=== PATIENT | female | born 1965 | race Caucasian/White ===

== ENCOUNTER 2018-09-13 10:59 | Day surgery (SDC) | payer BC, SELFPAY ==
[2018-09-08 09:38] VITALS: BMI 17.4
--- NOTE | 2018-09-08 10:00 | HP_ITS ---
Intake Vital Signs 09/08/18 Body Mass Index (BMI) 17.4 09/08/18 Height 5 ft 4.75 in 09/08/18 Weight: 104 lb 09/08/18 Body Mass Index (BMI) 17.4 09/08/18 Blood Pressure 133/67 H 09/08/18 Blood Pressure Location Lt brachial 09/08/18 Blood Pressure Position Sitting 09/08/18 Respiratory Rate 18 Intake Visit Reasons: abd pain, celiac dx testing?, needs cscope Chief Complaint: 2 Mo FU - Post ER AOH [employer] Required: No Is patient in pain?: Yes (ruq abdomen) Allergies gatifloxacin [From Tequin] Allergy (Verified 09/08/18 09:38) Other venlafaxine [From Effexor] Allergy (Verified 09/08/18 09:38) Other Medications cholecalciferol (vitamin D3) 1,000 unit capsule 1,000 unit PO DAILY 07/05/18 [History Confirmed 09/08/18] gabapentin 800 mg tablet 800 mg PO BID #60 tab 07/05/18 [Rx Confirmed 09/08/18] ibuprofen 400 mg tablet 400 mg PO BID PRN 07/05/18 [History Confirmed 09/08/18] omeprazole 40 mg capsule,delayed release 40 mg PO DAILY #30 cap 07/05/18 [Rx Confirmed 09/08/18] escitalopram 20 mg tablet 20 mg PO DAILY #90 tab 08/04/18 [Rx Confirmed 09/08/18] alprazolam 0.5 mg tablet 0.5 mg PO BID #60 tab 09/05/18 [Rx Confirmed 09/08/18] [facility] Medical History Anxiety (Chronic) Heart murmur (Chronic) Chronic leg pain (Chronic) Chronic back pain (Chronic) History of ectopic (Acute) history of tubal reconstruction (Acute) Surgical History History of appendectomy (Acute) History of hysterectomy (Acute) History of knee surgery (Acute) Family History Other Cancer Diabetes Hypertension Parkinsons disease Social History Smoking Status: Current every day smoker alcohol intake: never substance use type: does not use what type of physical activity do you participate in: walking frequency: daily HPI HPI HPI: NICK SAUCEDA, is a 53 F who presents to the office today for HPI HPI Surgical H&P: Yes HPI: NICK SAUCEDA, is a 53 F who presents to the office today for chronic epigastric and right upper quadrant pain. Patient states she has had this for about 2 years but is gotten worse. States the pain will start in the epigastric of the right upper quadrant into her back and it may go to her leg if she does have site some sciatic issues. Patient states that last Tuesday through Tuesday she was unable to eat and did go to the ER at [facility] patient did an ultrasound there which was normal per patient she states her pain was a 10/10 when she was there. States since then is come down currently now at 5?6/10. Patient states she only eats at night as of the abdominal pain. But denies any change in the pain with eating. 2 nights ago patient was able to eat [place] toast, eggs and hash [place] from [employer] without any increased pain, she has tried it he also decrease her caffeine but has not felt that made a difference. Patient has been on omeprazole for about 2 months and states she has had no change with that. Patient states she has had diarrhea for about the last 2 years multiple times a day. Again has gotten worse recently. Patient denies ever having an EGD or colonoscopy done in the past. Denies any family history of colon cancer. Patient states she has lost about 7 pounds in the last 2 months mostly from not as much eating due to the abdominal pain/diarrhea. Exam Const General: cooperative, comfortable, no acute distress Resp Effort & Inspection: normal respiratory effort Cardio Rate: regular rate GI Inspection: non-distended Palpation: soft, no hernias, tender in the epigastrum and in the RUQ Assessment & Plan Problems 1. Epigastric abdominal pain R10.13 2. Right upper quadrant abdominal pain R10.11 3. Diarrhea R19.7 Plan I have discussed the above with the patient. I have offered the patient EGD & colonoscopy-with random biopsies for evaluation. I have explained the risks/benefits of the procedure and described the procedure. I have discussed the risks with the patient, including but not limited to: infection, bleeding, perforation of the GI tract requiring emergency surgery, inability to complete the procedure, injury to any internal organs, complications of anesthesia, etc. - the patient understands and agrees to proceed. I have answered all the patient's questions to the patient's satisfaction and the patient has no further questions. The patient has been given instructions for the colon cleansing preparation. One day of clears, MiraLAX Dulcolax split prep. Angélica Garcia M.D. Pager: [phone] [facility] [address] [place] [address], [facility], [address] [place] [address] Office: [phone] Plan Detail Follow Up We will schedule EGD and colonoscopy Coding Level of Care Code Off vis,new,level 3 Diagnoses Epigastric abdominal pain R10.13 Right upper quadrant abdominal pain R10.11 Diarrhea R19.7 09/08/18 1000 <Electronically signed by Angélica Garcia MD> Date Angélica Garcia MD UPDATE: 09/13/2018 11:30 AM I have examined the patient the following changes are noted: Patient states she is still having abdominal pain currently is not too bad, patient states pain can flareup even without eating.
[2018-09-13] VITALS (7 sets, daily range): BP systolic 87–99; BP diastolic 33–52; PULSE 60–72; RESP 16; TEMP 36.2–36.9; O2SAT 99–100; BMI 17.4
--- NOTE | 2018-09-13 12:00 | COLBX_PTH ---
PATIENT: NICK SAUCEDA LOC: EN U#:[id number] AGE/SX: 53/F ROOM: RE09/13/[address]: Dr. Angélica Garcia MD : 1965 BED: DIS: 09/13/2018 SPEC #: [id number] RECD: 09/13/18 13:05 STATUS: YENNY JOE #: [id number] ANAIS: 09/13/18 12:[address]: Angélica Garcia DEPT: SURGICAL PATHOLOGY RECD BY: Jack Zavala ENTERED: 09/13/18 13:53 SP TYPE: COLON BX OTHR DR: Dr. Humble Menchaca, DO Tissues: A - Duodenum, NOS B - Gastric mucous membrane C - Gastric mucous membrane D - Gastric mucous membrane E - Esophagus, NOS F - Ascending colon G - Transverse colon H - COLON BIOPSY I - Sigmoid colon biopsy J - Sigmoid colon biopsy K - Rectum, NOS Procedures: Special Stain Group II Surgery Specimen Level IV Alcian Blue/PAS (control) HEADER OPERATION: Colonoscopy, EGD ([facility]) PRE-OP DIAGNOSIS: Epigastric abdominal pain, right upper quadrant abdominal pain, diarrhea TISSUE SUBMITTED: A. Duodenal biopsy, rule out celiac disease, B. Antral biopsy, H. Pylori, C. Gastric stomach biopsy, H. Pylori, D. Biopsy GE junction, E. Proximal esophagus lesion, F. Random ascending colonic biopsies, G. Random transverse colonic biopsies, H. Random descending colonic biopsies, I. Random sigmoid colonic biopsies, J. Distal sigmoid polyp at 19 cm, K. Random rectum biopsies MICROSCOPIC DIAGNOSIS A. Duodenum, biopsy: A fragment of duodenal mucosa, no pathologic diagnosis. B. Antral biopsy: Moderate gastritis. See microscopic description and comment. C. Gastric stomach, biopsy: Mild gastritis. See microscopic description and comment. D. GE junction, biopsy: Fragments of gastroesophageal mucosa with chronic inflammation. Intestinal metaplasia (goblet cell metaplasia) is not identified. See comment. E. Proximal esophagus lesion, biopsy: A fragment of gastroesophageal mucosa with chronic inflammation. Intestinal metaplasia (goblet cell metaplasia) is not identified. See comment. F. Ascending colon, random biopsy: A fragment of colonic mucosa, no pathologic diagnosis. G. Transverse colon, random biopsy: A fragment of colonic mucosa, no pathologic diagnosis. H. Descending colon, random biopsy: A fragment of colonic mucosa, no pathologic diagnosis. I. Sigmoid colon, random biopsy; A fragment of colonic mucosa, no pathologic diagnosis. J. Distal sigmoid polyp at 19 cm, biopsy: Fragments of tubular adenoma. K. Rectum, random biopsy: Fragments of tubular adenoma. SJ:alma rosa 09/14/18 COMMENT B. The results of immunohistochemistry for Helicobacter pylori will be reported separately ([id number]). C. The results of immunohistochemistry for Helicobacter pylori will be reported separately ([id number]). D. The specimen predominantly consists of squamous mucosa. Alcian blue/PAS stain with matched control is used in the evaluation of the specimen. E. Alcian blue/PAS stain with matched control is used in the evaluation of the specimen. MICROSCOPIC DESCRIPTION Slides are reviewed. B. The specimen shows fragments of gastric mucosa with chronic inflammatory cell infiltrates in the lamina propria consisting of lymphocytes and plasma cells, consistent with moderate chronic gastritis. C. The specimen shows fragments of gastric mucosa with chronic inflammatory cell infiltrates in the lamina propria consisting of lymphocytes and plasma cells, consistent with mild chronic gastritis. GROSS DESCRIPTION A - Received in fixative is one container labeled with the patient's name and designated rule out celiac disease, duodenum. The specimen consists of one irregular fragment of light ordonez soft tissue that measures 0.5 x 0.4 x 0.1 cm. The specimen is totally submitted in one cassette. B - Received in fixative is one container labeled with the patient's name and designated antral biopsy. The specimen consists of one irregular fragment of light ordonez soft tissue that measures 0.4 x 0.3 x 0.1 cm. The specimen is totally submitted in one cassette. C - Received in fixative is one container labeled with the patient's name and designated gastric stomach biopsy. The specimen consists of one irregular fragment of light ordonez soft tissue that measures 0.3 x 0.3 x 0.1 cm. The specimen is totally submitted in one cassette. D - Received in fixative is one container labeled with the patient's name and designated biopsy GE junction. The specimen consists of multiple irregular fragments of light ordonez soft tissue that in aggregate measure 1 x 0.2 x 0.1 cm. The specimen is totally submitted in one cassette. E - Received in fixative is one container labeled with the patient's name and designated proximal esophagus lesion. The specimen consists of one irregular fragment of light ordonez soft tissue that measures 0.2 x 0.2 x 0.1 cm. The specimen is totally submitted in one cassette. F - Received in fixative is one container labeled with the patient's name and designated random colon biopsy ascending. The specimen consists of one irregular fragment of light ordonez soft tissue that measures 0.7 x 0.2 x 0.1 cm. The specimen is totally submitted in one cassette. G - Received in fixative is one container labeled with the patient's name and designated random transverse biopsy. The specimen consists of one irregular fragment of light ordonez soft tissue that measures 0.3 x 0.3 x 0.1 cm. The specimen is totally submitted in one cassette. H - Received in fixative is one container labeled with the patient's name and designated random descending colonic biopsy. The specimen consists of one irregular fragment of light ordonez soft tissue that measures 0.4 x 0.3 x 0.1 cm. The specimen is totally submitted in one cassette. I - Received in fixative is one container labeled with the patient's name and designated sigmoid colonic biopsy random. The specimen consists of one irregular fragment of light ordonez soft tissue that measures 0.7 x 0.2 x .1 cm. The specimen is totally submitted in one cassette. J - Received in fixative is one container labeled with the patient's name and designated distal sigmoid polyp at 19 cm. The specimen consists of multiple irregular fragments of light ordonez soft tissue that in aggregate measure 1 x 0.5 x 0.1 cm. The specimen is totally submitted in one cassette. K - Received in fixative is one container labeled with the patient's name and designated random rectum biopsy. The specimen consists of three irregular fragments of light ordonez soft tissue that in aggregate measure 0.9 x 0.5 x 0.1 cm. The specimen is totally submitted in one cassette. / SJ:rg 09/13/18 TC:1 CPT: 61984 x11, 04522 x2
--- NOTE | 2018-09-13 12:00 | IMM_PTH ---
PATIENT: NICK SAUCEDA LOC: EN U#:[id number] AGE/SX: 53/F ROOM: RE09/13/[address]: Dr. Angélica Garcia MD : 1965 BED: DIS: 09/13/2018 SPEC #: [id number] RECD: 09/13/18 15:14 STATUS: YENNY REQ #: [id number] ANAIS: 09/13/18 12:[address]: Angélica Garcia DEPT: IMMUNOHISTOCHEMISTRY RECD BY: Tracie Shell ENTERED: 09/13/18 15:14 SP TYPE: IMMUNO OTHR DR: Dr. Humble Menchaca, DO Tissues: B - Stomach, NOS C - Stomach, NOS Procedures: H Pylori (initial) PHYSICIAN & INSTITUTION [place] [address] SPECIMEN INFORMATION: Tissue Source: B - Antral biopsy, C - Gastric stomach biopsy Clinical Info: Epigastric abdominal pain, right upper quadrant abdominal pain, diarrhea Specimen Number: [id number] B & C CPT code: 90097 x2 METHODOLOGY: Deparaffinized sections of prefer/formalin-fixed tissue or PAP/DQ stained slides are incubated with monoclonal/polyclonal antibodies/oligonucleotide probes. Localization is made via biotin free immunoperoxidase method. Appropriate controls are performed and reacted as expected. Results on target cell population are indicated in the following table: RESULTS: ANTIBODY / CLONE RESULT Block B H Pylori (polyclonal) negative Block C H Pylori (polyclonal) negative These tests were developed and their performance characteristics determined by [facility]. They may not have been cleared or approved by the U.S. Food and Drug Administration. The FDA has determined that such clearance or approval is not necessary. INTERPRETATION: B. Antral biopsy: Negative for Helicobacter pylori organisms. C. Gastric stomach biopsy: Negative for Helicobacter pylori organisms. SJ:alma rosa 09/14/18
[2018-09-13] MEDS: Glucagon 1 MG/ML Syringe ×2 (12:30→12:42)
--- NOTE | 2018-09-13 12:55 | OP.ENDO_ITS ---
09/13/2018 Humble Menchaca Re : Upper GI endoscopy procedure for Christel Nuñez Dear Dr. Menchaca This procedure was performed on Thursday, September 13, 2018. My impressions and recommendations are as follows: Impressions : - Z-line irregular, 39 cm from the incisors. Biopsied. - Texture changed mucosa in the esophagus. Biopsied. - Erythematous mucosa in the antrum. Biopsied. - Erythematous mucosa in the gastric body. Biopsied. - Biopsies were taken with a cold forceps for evaluation of celiac disease. Recommendations : - Await pathology results. - Discharge patient to home. - Use sucralfate tablets 1 gram PO QID. - Use Protonix (pantoprazole) 40 mg PO daily. - Continue present medications. My findings are described in the full procedure note, which is enclosed. If I can be of further assistance, please feel free to contact me at Doctor phone number(s): , Work: . Sincerely, MD Angélica Painter MD 09/13/2018 12:54:40 PM This report has been signed electronically.
--- NOTE | 2018-09-13 13:01 | OP.ENDO_ITS ---
09/13/2018 Humble Menchaca Re : Colonoscopy procedure for Christel Nuñez Dear Dr. Menchaca This procedure was performed on Thursday, September 13, 2018. My impressions and recommendations are as follows: Impressions : - One 5 to 7 mm polyp in the distal sigmoid colon at 19 cm, removed with hot snare and cold biopsy forceps. Resected and retrieved. - Biopsies were taken with a cold forceps for histology in the rectum, in the sigmoid colon, in the descending colon, in the transverse colon and in the ascending colon. Recommendations : - Discharge patient to home. - Await pathology results. - Repeat colonoscopy in 1 year for surveillance based on pathology results due to piecemeal resection of distal sigmoid polyp at 19 cm. - Continue present medications. My findings are described in the full procedure note, which is enclosed. If I can be of further assistance, please feel free to contact me at Doctor phone number(s): , Work: . Sincerely, MD Angélica Painter MD 09/13/2018 1:01:18 PM This report has been signed electronically.
== END 2018-09-13 13:38 | disposition home or self-care (01) ==
LOC: EN 11:01 → AC 11:03
PROVIDERS: Family Provider Family Medicine; PCP Family Medicine; Referring Provider Family Medicine; Visit Provider Surgery
PROC: 0DJD8ZZ Inspection of Lower Intestinal Tract, Via Natural or Artificial Opening Endoscopic (ICD-10-PCS; CPT 45378; principal; 2018-09-13 11:55)
DX: K22.8 Other specified diseases of esophagus (principal); K31.89 Other diseases of stomach and duodenum; K29.70 Gastritis, unspecified, without bleeding; D12.5 Benign neoplasm of sigmoid colon; D12.8 Benign neoplasm of rectum; R10.13 Epigastric pain; R10.11 Right upper quadrant pain; G89.29 Other chronic pain; R19.7 Diarrhea, unspecified; F32.9 Major depressive disorder, single episode, unspecified; F41.9 Anxiety disorder, unspecified; R01.1 Cardiac murmur, unspecified; F17.200 Nicotine dependence, unspecified, uncomplicated
CPT/HCPCS: 43239; 45380; 88305; 88313; 88342; J7120; J1610; J2405

== ENCOUNTER → 2020-09-16 11:35 | Outpatient (CLI) | payer SELFPAY ==
[2020-09-16 11:10] VITALS: BMI 16.7
[2020-09-16 12:21] LABS: Absolute Lymphocyte Count 2.75 X10^3/uL (0.83-4.51); Absolute Neutrophil Count 4.6 X10^3/uL (2.0-7.7); Basophil# 0.07 X10^3/uL; Basophil% 0.8 % (0-1); Eosinophil# 0.22 X10^3/uL; Eosinophils% 2.7 % (0-5); Hematocrit 38.5 % (37-47); Hemoglobin 12.8 g/dL (12.0-15.0); Lymphocyte # 2.75 X10^3/ul (0.83-4.51); Lymphocyte % 33.4 % (19-41); Mean Corp Hgb Conc 33.2 g/dL (32-36); Mean Corpuscular Hgb 32.1 pg (27.0-32.0); Mean Corpuscular Volume 96.5 fL (81-99); Mean Platelet Vol. 10.7 fl (6.2-12.0); Monocyte# 0.57 X10^3/uL; Monocyte% 6.9 % (0-10); NRBC Flagged by Analyzer 0 % (0-5); Neutrophil % 55.8 % (47-70); Platelet Count 333 K/mm3 (150-450); RBC Distribution Width CV 12.6 % (11.6-14.6); RBC Distribution Width SD 45.3 fl (35.1-43.9); Red Blood Count 3.99 M/mm3 (4.2-5.4); White Blood Count 8.2 K/mm3 (4.4-11.0)
[2020-09-16 12:53] LABS: ALB/GLOB Ratio 1.1 RATIO (0.9-2.4); AST(SGOT) 15 U/L (15-37); Alanine Aminotransfer ALT/SGPT 16 U/L (13-56); Albumin, Serum 3.8 g/dL (3.2-5.0); Alkaline Phosphatase 108 U/L (45-117); Anion Gap 4 (5-15); BUN 11 mg/dL (7-18); BUN/Creat Ratio 15.7 RATIO (10-20); Calcium,Total 8.7 mg/dL (8.5-10.1); Chloride 106 mmol/L (98-107); EST Glomerular Filtration Rate 93 mL/min (>60); Est Glom Filt Rate - Afr Amer 112 mL/min (>60); Globulin 3.4 g/dL (2.2-4.2); Glucose 93 mg/dL (74-106); Potassium 3.9 mmol/L (3.5-5.1); Protein, Total 7.2 g/dL (6.4-8.2); Sodium Level 139 mmol/L (136-145)
== END ==
LOC: BIMLAB 11:35
PROVIDERS: PCP Family Medicine; Referring Provider Family Medicine; Visit Provider Family Medicine
DX: R63.6 Underweight (principal)
CPT/HCPCS: 36415; 80053; 85025

== ENCOUNTER → 2021-04-07 | Outpatient (CLI) | payer SELFPAY | END | disposition home or self-care (01) | LOC: LABSPEC 13:48 | PROVIDERS: PCP Family Medicine; Referring Provider Physician Assistant; Visit Provider Physician Assistant | DX: R09.81 Nasal congestion (principal) | CPT/HCPCS: 87635; U0005; U0003 ==

== ENCOUNTER → 2021-09-21 | Outpatient (CLI) | payer BC, SELFPAY ==
[2021-09-21 14:05] LABS: Absolute Lymphocyte Count 2.11 X10^3/uL (0.83-4.51); Absolute Neutrophil Count 5.6 X10^3/uL (2.0-7.7); Basophil# 0.08 X10^3/uL; Basophil% 0.9 % (0-1); Eosinophil# 0.15 X10^3/uL; Eosinophils% 1.8 % (0-5); Hematocrit 37.6 % (37-47); Hemoglobin 12.4 g/dL (12.0-15.0); Lymphocyte # 2.11 X10^3/ul (0.83-4.51); Mean Corpuscular Hgb 31.6 pg (27.0-32.0); Mean Corpuscular Volume 95.9 fL (81-99); Mean Platelet Vol. 11.4 fl (6.2-12.0); Monocyte# 0.46 X10^3/uL; Monocyte% 5.5 % (0-10); NRBC Flagged by Analyzer 0 % (0-5); Neutrophil % 66.3 % (47-70); Platelet Count 311 K/mm3 (150-450); RBC Distribution Width SD 46.2 fl (35.1-43.9); Red Blood Count 3.92 M/mm3 (4.2-5.4); White Blood Count 8.4 K/mm3 (4.4-11.0)
[2021-09-21 14:15] LABS: AST(SGOT) 18 U/L (15-37); Alanine Aminotransfer ALT/SGPT 18 U/L (13-56); Albumin, Serum 3.5 g/dL (3.2-5.0); Alkaline Phosphatase 87 U/L (45-117); Anion Gap 5 (5-15); BUN 16 mg/dL (7-18); BUN/Creat Ratio 22.8 RATIO (10-20); Calcium,Total 8.9 mg/dL (8.5-10.1); Chloride 111 mmol/L (98-107); Cholesterol 249 mg/dL (200); EST Glomerular Filtration Rate 92 mL/min (>60); Est Glom Filt Rate - Afr Amer 111 mL/min (>60); Globulin 3.5 g/dL (2.2-4.2); Glucose 82 mg/dL (74-106); High Density Lipoprotein 64 mg/dL; Sodium Level 142 mmol/L (136-145); Triglycerides 69 mg/dL; Very Low Density Lipoprotein 14 mg/dL (5-40)
== END | disposition home or self-care (01) ==
LOC: BIMLAB 11:35
PROVIDERS: PCP Family Medicine; Visit Provider Physician Assistant
DX: Z00.00 Encounter for general adult medical examination without abnormal findings (principal); K62.5 Hemorrhage of anus and rectum; F41.9 Anxiety disorder, unspecified; R63.6 Underweight
CPT/HCPCS: 36415; 80053; 80061; 85025

== ENCOUNTER → 2021-09-22 | Outpatient (CLI) | payer BC, SELFPAY | END | disposition home or self-care (01) | LOC: LABSPEC 09:53 | PROVIDERS: PCP Family Medicine; Referring Provider Physician Assistant; Visit Provider Physician Assistant | DX: K62.5 Hemorrhage of anus and rectum (principal) | CPT/HCPCS: 82274 ==

== ENCOUNTER → 2021-09-30 | Outpatient (CLI) | payer BC, SELFPAY ==
--- NOTE | 2021-09-30 09:22 | RAD_ITS ---
STUDY: X-RAY - RIGHT FOOT CLINICAL: Right foot pain, no specific injury. TECHNIQUE: 3 view(s) of the foot. COMPARISON: None. FINDINGS: Normal talus, calcaneus, and tarsal bones. Normal visualized subtalar, talonavicular, calcaneocuboid, tarsal and tarsometatarsal articulations. Normal metatarsi. There is a small marginal osteophytes and mild joint space narrowing of the metatarsophalangeal joint of the great toe. Normal tibial and fibular sesamoid bones. Normal interphalangeal joint of the great toe. Normal phalanges of the great toe. Normal second through fifth metatarsophalangeal joints. Normal interphalangeal joints and phalanges of the lesser toes. The soft tissue structures are unremarkable. RAD/Foot min 3 Views IMPRESSION: Mild arthrosis of the first metatarsophalangeal joint. Electronically Signed: Ghassan Brooks MD at 14:38 EDT ,
== END | disposition home or self-care (01) ==
PROVIDERS: PCP Family Medicine; Referring Provider Family Medicine; Visit Provider Family Medicine
DX: M19.071 Primary osteoarthritis, right ankle and foot (principal)
CPT/HCPCS: 73630

== ENCOUNTER → 2021-11-02 | Outpatient (CLI) | payer BC, SELFPAY ==
[2021-11-02 15:21] LABS: Absolute Lymphocyte Count 1.78 X10^3/uL (0.83-4.51); Basophil# 0.08 X10^3/uL; Basophil% 0.9 % (0-1); Eosinophil# 0.09 X10^3/uL; Hematocrit 42.9 % (37-47); Hemoglobin 14.4 g/dL (12.0-15.0); Lymphocyte # 1.78 X10^3/ul (0.83-4.51); Lymphocyte % 20.7 % (19-41); Mean Corp Hgb Conc 33.6 g/dL (32-36); Mean Corpuscular Hgb 31.6 pg (27.0-32.0); Mean Corpuscular Volume 94.3 fL (81-99); Mean Platelet Vol. 11.1 fl (6.2-12.0); Monocyte# 0.64 X10^3/uL; Monocyte% 7.4 % (0-10); NRBC Flagged by Analyzer 0 % (0-5); Neutrophil # 5.97 X10^3/uL (2.7-7.7); Neutrophil % 69.5 % (47-70); Platelet Count 346 K/mm3 (150-450); RBC Distribution Width CV 12.8 % (11.6-14.6); RBC Distribution Width SD 44.2 fl (35.1-43.9); Red Blood Count 4.55 M/mm3 (4.2-5.4); White Blood Count 8.6 K/mm3 (4.4-11.0)
[2021-11-02 15:40] LABS: Erythrocyte Sedimentation Rate 32 mm/hr (0-30)
[2021-11-02 15:56] LABS: CRP 5.17 mg/L (0.0-3.0); Rheumatoid Factor < 10.0 IU/mL (<15)
[2021-11-04 13:08] LABS: Anti-Centromere B Ab <0.2 AI (0.0-0.9); Anti-Chromatin <0.2 AI (0.0-0.9); Anti-Jo <0.2 AI (0.0-0.9); Anti-Scleroderma-70 AB <0.2 AI (0.0-0.9); RNP Ab <0.2 AI (0.0-0.9); SJOGREN'S Anti-SS-A test < 0.2 AI (0.0-0.9); SJOGREN'S Anti-SS-B test < 0.2 AI (0.0-0.9); Smith Ab <0.2 AI (0.0-0.9)
[2021-11-05 14:51] LABS: Anti-dsDNA Ab 2 IU/mL (0-9)
== END | disposition home or self-care (01) ==
LOC: BIMLAB 14:38
PROVIDERS: PCP Family Medicine; Referring Provider Physician Assistant; Visit Provider Physician Assistant
DX: M13.0 Polyarthritis, unspecified (principal)
CPT/HCPCS: 36415; 85025; 85652; 86140; 86225; 86235; 86431

== ENCOUNTER → 2022-02-18 | Outpatient (CLI) | payer SELFPAY ==
--- NOTE | 2022-02-18 11:57 | RAD_ITS ---
STUDY: X-RAY - BILATERAL RIBS WITH CHEST REASON FOR EXAM: Female, 57 years old. CHEST PAIN TECHNIQUE - RIBS: 6 view(s) of the ribs. TECHNIQUE - CHEST: PA COMPARISON: None. FINDINGS - RIBS : Normal visualized ribs without a demonstrated fracture. FINDINGS - CHEST: The lungs are clear and expanded. There is no demonstrated pleural abnormality. Normal size heart. Normal mediastinum and carin. Normal visualized pulmonary arteries. Normal visualized aortic arch and descending thoracic aorta. Normal visualized thoracic spine. Normal visualized ribs, clavicles, and shoulders. There is no demonstrated abnormality of the visualized soft tissue structures of the upper abdomen. RAD/Ribs Dusty Min 4V w/PA Chest IMPRESSION: RIBS: Normal x-ray examination of the bilateral ribs. CHEST: Normal x-ray examination of the chest. Electronically Signed: Hamzah Trinidad MD at 16:55 EDT ,
== END | disposition home or self-care (01) ==
LOC: MTRAD 11:50
PROVIDERS: PCP Family Medicine; Referring Provider Family Medicine; Visit Provider Family Medicine
DX: S23.41XA Sprain of ribs, initial encounter (principal); X58.XXXA Exposure to other specified factors, initial encounter
CPT/HCPCS: 71111

== ENCOUNTER → 2022-12-27 | Outpatient (CLI) | payer OTHER, SELFPAY ==
[2022-12-27 12:31] LABS: Erythrocyte Sedimentation Rate 27 mm/hr (0-30)
[2022-12-27 12:56] LABS: Vitamin B12 300 pg/mL (211-911); Vitamin D,25 Hydroxy 18.7 ng/mL
[2022-12-27 13:18] LABS: Thyroid Stim Hormone (TSH) 1.14 uIU/mL (0.358-3.74)
[2022-12-28 13:08] LABS: CCP IgG Antibodies 3 units (0-19)
[2022-12-29 10:48] LABS: Anti-Nuclear Antibody Test Positive (.)
== END | disposition home or self-care (01) ==
LOC: BIMLAB 10:42
PROVIDERS: PCP Family Medicine; Referring Provider Internal Medicine; Visit Provider Internal Medicine
DX: M25.50 Pain in unspecified joint (principal); G89.29 Other chronic pain
CPT/HCPCS: 36415; 82306; 82607; 84443; 85652; 86038; 86140; 86200

== ENCOUNTER 2023-01-05 15:58 | Outpatient (RCR) | payer SELFPAY, OTHER ==
--- NOTE | 2023-01-05 17:04 | HP.PTEVAL ---
Patient's Visit Information Visit Information Visit Information: NICK SAUCEDA is a 57 year old F referred to Physical Therapy by Dr. Gladys Pichardo MD with a diagnosis of PAIN IN JOINTS ,OTHER CHRONIC PAIN. Date of Evaluation: 01/05/23 Physical Therapist: Maximilian Perea, PT, Cert MDT, OCS Visit Plan Frequency: 2x /Week Duration: 4 Weeks Plan: PT INTERVETIONS AQUATIC THERAPY DLS ,LUMBAR ROM ,POSTURAL EX'S ,LE FLEXABILITY AND STRENGTHNEING Subjective Subjective: This 57 y/o female presents to physical therapy with chronic pain. This patient has multiple joint pain . Patient developed low back many with symptoms become worse past few months . Patient has been on gabapentin since 2006. Patient went to ER ~ 3weeks ago . Patient had x-rays showed DDD. Patient seen had lab work CRP elevated 15,sed rate elevated ,RADHA + for autoimmune disease. Patient was placed on meloxicam. Recommended PT. Patient has everyday edema knee to feet as well . Patient has developed sharp pain in joints intermittent. Pain aggravating standing, Lifting , bending . Alleviating factors rest. Denies paresthesia/tingling-. Coughing/sneezing -. Bowel/bladder + .Patient has throbbing pain in feet and back. Patient pain can affects sleeping with pain. Patient condition affects QOL and function with job demands. Patient goals to decrease pain. Patient will see DR may have auto immune disease. 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 Pain Bilateral Back: Pain Intensity (Out of 10): 7 Pain Intensity Range: 10 Bilateral Foot: Pain Intensity (Out of 10): 9 Pain Intensity Range: 9 and 10 Objective Objective: POSTURE: right leg shorter ,mild forward posture NEURO: denies paresthesia/tingling ,reflexes L3-4 ,L4-5,L5-S1 PALAPTION: tender LS GAIT: ambulates with mild forward posture antalgic gait LUMBAR ROM: flexion min loss ,extension mod loss ,side glides min loss FLEXABLITY: hamstrings min tight MMT: quads/hams 4/5 ,hip flexion 4/5 ,hip abduction 4-/5 ,ankle 4/5 EDEMA: mild effusion in feet Special Tests L/S Slump test left side: Negative L/S Slump test right side: Negative L/S Left Straight Leg Raise: Negative L/S Right Straight Leg Raise: Negative Lumbar Standing: Flexion - Mechanical Response: No effect Lumbar Standing: Flexion - Symptoms During Testing: Increases Lumbar Standing: Flexion - Symptoms After Testing: No worse Lumbar Standing: Extension - Mechanical Response: No effect Lumbar Standing: Extension - Symptoms During Testing: Increases Lumbar Standing: Extension - Symptoms After Testing: No worse Lumbar Standing: Right Side Glides - Mechanical Response: No effect Lumbar Standing: Right Side Ransom - Symptoms During Testing: No effect Lumbar Standing: Right Side Ransom - Symptoms After Testing: No effect Lumbar Standing: Left Side Ransom - Mechanical Response: No effect Lumbar Standing: Left Side Ransom - Symptoms During Testing: No effect Lumbar Lying: Flexion - Mechanical Response: No effect Lumbar Lying: Flexion - Symptoms During Testing: Increases Lumbar Lying: Flexion - Symptoms After Testing: No worse Lumbar Lying: Extension - Mechanical Response: No effect Lumbar Lying: Extension - Symptoms During Testing: Increases Lumbar Lying: Extension - Symptoms After Testing: No worse Balance/Special Test Scores Oswestry Low Back Score: 32 Goals Goal 1:: Patient to be I with Aquatic Therapy program Goal Time Frame: 4-6 Weeks Goal 2:: Patient to improve lumbar ROM for function of recovery for Job demands Goal Time Frame: 4-6 Weeks Goal 3:: Patient to demonstrate 50% improvement with less pain and improved function Goal Time Frame: 4-6 Weeks Goal 4:: Patient to improve back oswestry score by 5 points or > to improve function Goal Time Frame: 4-6 Weeks Rehabilitation Potential Rehabilitation Potential: Good Anticipated Interventions Patient/Client Instruction: Educate patient on: Condition and Plan of Care For the Purpose of:: To decrease pain, To increase ROM, To improve muscle performance and motor function, To improve ability to perform ADL's, To increase tolerance to activity/condition/position, To improve performance and independence with ADL's, To improve ability of physical actions for home/community/work/leisure, To improve health of tissue, To decrease soft tissue restriction and To increase flexibility/ROM Therapeutic Exercise to Include: Strength training, Endurance training, Balance training, Postural training, Flexibilty training, In an aquatic setting and Dynamic Lumbar Stabilization For the Purpose of:: To decrease pain, To increase ROM, To improve muscle performance and motor function, To improve ability to perform ADL's, To increase tolerance to activity/condition/position, To improve performance and independence with ADL's, To improve ability of physical actions for home/community/work/leisure, To improve health of tissue, To decrease soft tissue restriction and To increase flexibility/ROM Text: Thank you for the opportunity to evaluate your patient. For Medicare and Medicare HMO plans, please review the plan of care and approve it. It will need to be FAXED BACK to us at [phone] for Medicare purposes. For Medicare only, by signing this I certify the plan of care. Please let me know if there are questions or concerns regarding this plan of care. Physician Signature: Date:
== END 2023-01-05 19:00 | disposition home or self-care (01) ==
LOC: PT 15:58
PROVIDERS: PCP Family Medicine; Visit Provider Internal Medicine
DX: M25.50 Pain in unspecified joint (principal); G89.29 Other chronic pain
CPT/HCPCS: 97162

== ENCOUNTER → 2023-01-31 | Outpatient (CLI) | payer OTHER, SELFPAY ==
[2023-01-31 11:30] LABS: EXAGEN MAILED SPECIMEN
[2023-01-31 12:20] LABS: Absolute Lymphocyte Count 1.74 X10^3/uL (0.83-4.51); Absolute Neutrophil Count 3.4 X10^3/uL (2.0-7.7); Basophil# 0.05 X10^3/uL; Basophil% 0.9 % (0-1); Eosinophil# 0.11 X10^3/uL; Eosinophils% 1.9 % (0-5); Hemoglobin 12.6 g/dL (12.0-15.0); Lymphocyte # 1.74 X10^3/ul (0.83-4.51); Lymphocyte % 30.4 % (19-41); Mean Corp Hgb Conc 32.3 g/dL (32-36); Mean Corpuscular Hgb 30.5 pg (27.0-32.0); Mean Corpuscular Volume 94.4 fL (81-99); Mean Platelet Vol. 11.1 fl (6.2-12.0); Monocyte# 0.42 X10^3/uL; Monocyte% 7.3 % (0-10); NRBC Flagged by Analyzer 0 % (0-5); Neutrophil # 3.39 X10^3/uL (2.7-7.7); Neutrophil % 59.3 % (47-70); Platelet Count 341 K/mm3 (150-450); RBC Distribution Width CV 12.6 % (11.6-14.6); RBC Distribution Width SD 43.6 fl (35.1-43.9); Red Blood Count 4.13 M/mm3 (4.2-5.4); White Blood Count 5.7 K/mm3 (4.4-11.0)
[2023-01-31 12:21] LABS: Color, Urine Yellow (Yellow); Glucose, Dipstick Normal (Normal); Ketone-Dipstick Negative (Negative); Leukocyte Esterase-Dipstick Negative /ul (Negative); Nitrite-Dipstick Negative (Negative); Occult Blood-Urine 25 /ul (Negative); Protein-Dipstick Negative (Negative); Specific Gravity, Urine 1.015 (1.002-1.030); Urine Bilirubin Dipstick Negative (Negative); Urine Clarity Clear (Clear); Urine Urobilinogen Normal (Normal)
[2023-01-31 12:56] LABS: AST(SGOT) 20 U/L (15-37); Alanine Aminotransfer ALT/SGPT 31 U/L (13-56); Albumin, Serum 3.8 g/dL (3.2-5.0); Alkaline Phosphatase 111 U/L (45-117); Anion Gap 9 (5-15); BUN 13 mg/dL (7-18); BUN/Creat Ratio 14.9 RATIO (10-20); Calcium,Total 9.1 mg/dL (8.5-10.1); Chloride 108 mmol/L (98-107); Creatinine, Serum 0.87 mg/dL (0.55-1.02); EST Glomerular Filtration Rate 72 mL/min (>60); Est Glom Filt Rate - Afr Amer 87 mL/min (>60); Globulin 3.9 g/dL (2.2-4.2); Glucose 133 mg/dL (74-106); Potassium 3.4 mmol/L (3.5-5.1); Protein, Total 7.7 g/dL (6.4-8.2); Sodium Level 142 mmol/L (136-145)
[2023-01-31 12:57] LABS: Protein, Urine (Random) 6.4 mg/dL (<11.9); Protein:Creat Ratio 112 mg/g CRE (0-200)
[2023-01-31 13:14] LABS: Hepatitis B Surface Antibody Non-Reactive; Hepatitis B Surface Antigen Non-Reactive (Nonreactive); Hepatitis C Antibody Non-Reactive (Nonreactive)
== END | disposition home or self-care (01) ==
PROVIDERS: PCP Family Medicine; Referring Provider Internal Medicine Rheumatology; Visit Provider Internal Medicine Rheumatology
DX: M06.4 Inflammatory polyarthropathy (principal); M79.7 Fibromyalgia; R76.8 Other specified abnormal immunological findings in serum
CPT/HCPCS: 36415; 80053; 81002; 82570; 84156; 85025; 86706; 86803; 87340

== ENCOUNTER → 2023-03-09 | Outpatient (CLI) | payer OTHER, SELFPAY ==
[2023-03-09 17:39] LABS: Absolute Lymphocyte Count 1.75 X10^3/uL (0.83-4.51); Absolute Neutrophil Count 4.2 X10^3/uL (2.0-7.7); Basophil# 0.03 X10^3/uL; Basophil% 0.5 % (0-1); Eosinophil# 0.01 X10^3/uL; Eosinophils% 0.2 % (0-5); Hematocrit 36.2 % (37-47); Hemoglobin 11.7 g/dL (12.0-15.0); Lymphocyte # 1.75 X10^3/ul (0.83-4.51); Lymphocyte % 28.2 % (19-41); Mean Corp Hgb Conc 32.3 g/dL (32-36); Mean Corpuscular Hgb 30.9 pg (27.0-32.0); Mean Corpuscular Volume 95.5 fL (81-99); Mean Platelet Vol. 10.6 fl (6.2-12.0); Monocyte# 0.24 X10^3/uL; Monocyte% 3.9 % (0-10); NRBC Flagged by Analyzer 0 % (0-5); Neutrophil # 4.15 X10^3/uL (2.7-7.7); Neutrophil % 66.9 % (47-70); Platelet Count 313 K/mm3 (150-450); RBC Distribution Width CV 13.6 % (11.6-14.6); RBC Distribution Width SD 47.3 fl (35.1-43.9); Red Blood Count 3.79 M/mm3 (4.2-5.4); White Blood Count 6.2 K/mm3 (4.4-11.0)
[2023-03-09 18:19] LABS: AST(SGOT) 19 U/L (15-37); Alanine Aminotransfer ALT/SGPT 38 U/L (13-56); Albumin, Serum 3.7 g/dL (3.2-5.0); Alkaline Phosphatase 112 U/L (45-117); Anion Gap 5 (5-15); BUN 16 mg/dL (7-18); BUN/Creat Ratio 19.2 RATIO (10-20); Calcium,Total 8.8 mg/dL (8.5-10.1); Chloride 110 mmol/L (98-107); Creatinine, Serum 0.84 mg/dL (0.55-1.02); EST Glomerular Filtration Rate 75 mL/min (>60); Est Glom Filt Rate - Afr Amer 91 mL/min (>60); Globulin 3.7 g/dL (2.2-4.2); Glucose 112 mg/dL (74-106); Protein, Total 7.4 g/dL (6.4-8.2); Sodium Level 139 mmol/L (136-145)
[2023-03-11 20:07] LABS: QNTFERON TB Mitogen Value > 10.00 IU/mL (.); QNTFERON TB Nil Value 0.02 IU/mL (.); QNTFERON TB1+ Ag Value 0 IU/mL (.); QNTFERON TB2+ Ag Value 0.02 IU/mL (.); QNTIFERON TB Positive Criteria Negative (Negative)
== END | disposition home or self-care (01) ==
LOC: MTLAB 15:01
PROVIDERS: PCP Family Medicine; Referring Provider Internal Medicine Rheumatology; Visit Provider Internal Medicine Rheumatology
DX: M06.4 Inflammatory polyarthropathy (principal); M35.00 Sjogren syndrome, unspecified; M79.7 Fibromyalgia; R76.8 Other specified abnormal immunological findings in serum; Z79.899 Other long term (current) drug therapy
CPT/HCPCS: 36415; 80053; 85025; 86480

== ENCOUNTER → 2023-04-28 | Outpatient (CLI) | payer OTHER, SELFPAY ==
[2023-04-28 12:21] LABS: Absolute Lymphocyte Count 0.92 X10^3/uL (0.83-4.51); Absolute Neutrophil Count 6.4 X10^3/uL (2.0-7.7); Basophil# 0.05 X10^3/uL; Basophil% 0.6 % (0-1); Eosinophil# 0.02 X10^3/uL; Eosinophils% 0.3 % (0-5); Hematocrit 39.6 % (37-47); Hemoglobin 12.9 g/dL (12.0-15.0); Lymphocyte # 0.92 X10^3/ul (0.83-4.51); Lymphocyte % 11.9 % (19-41); Mean Corp Hgb Conc 32.6 g/dL (32-36); Mean Corpuscular Hgb 30.9 pg (27.0-32.0); Mean Platelet Vol. 11.4 fl (6.2-12.0); Monocyte# 0.34 X10^3/uL; Monocyte% 4.4 % (0-10); NRBC Flagged by Analyzer 0 % (0-5); Neutrophil # 6.38 X10^3/uL (2.7-7.7); Neutrophil % 82.3 % (47-70); Platelet Count 330 K/mm3 (150-450); RBC Distribution Width CV 14.8 % (11.6-14.6); RBC Distribution Width SD 51.5 fl (35.1-43.9); Red Blood Count 4.17 M/mm3 (4.2-5.4); White Blood Count 7.8 K/mm3 (4.4-11.0)
[2023-04-28 13:04] LABS: ALB/GLOB Ratio 0.8 RATIO (0.9-2.4); AST(SGOT) 13 U/L (15-37); Alanine Aminotransfer ALT/SGPT 16 U/L (13-56); Albumin, Serum 3.4 g/dL (3.2-5.0); Alkaline Phosphatase 107 U/L (45-117); Anion Gap 6 (5-15); BUN 16 mg/dL (7-18); BUN/Creat Ratio 17.7 RATIO (10-20); Calcium,Total 9.5 mg/dL (8.5-10.1); Chloride 107 mmol/L (98-107); EST Glomerular Filtration Rate 68 mL/min (>60); Est Glom Filt Rate - Afr Amer 83 mL/min (>60); Globulin 4.1 g/dL (2.2-4.2); Glucose 152 mg/dL (74-106); Potassium 3.8 mmol/L (3.5-5.1); Protein, Total 7.5 g/dL (6.4-8.2); Sodium Level 138 mmol/L (136-145)
== END | disposition home or self-care (01) ==
LOC: BIMLAB 11:12
PROVIDERS: PCP Family Medicine; Referring Provider Physician Assistant; Visit Provider Physician Assistant
DX: I10 Essential (primary) hypertension (principal); R50.9 Fever, unspecified
CPT/HCPCS: 36415; 80053; 85025

== ENCOUNTER 2023-05-03 08:21 | Day surgery (SDC) | payer OTHER, SELFPAY ==
--- NOTE | 2023-05-03 08:27 | HP.PCM_ITS ---
History and Physical Date of Admission: 05/03/23 Date of Service: 04/11/23 MR#: [id number] Acct: [id number] Name: NICK SAUCEDA Rep #: [id number] : 1965 Provider: Dr. 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 Is patient in pain?: Yes (epigastric area) Allergies gatifloxacin [From Tequin] Allergy (Verified 04/11/23 09:37) Othervenlafaxine [From Effexor] Allergy (Verified 04/11/23 09:37) Other Medications acetaminophen 325 mg capsule (Tylenol) 325 mg PO ONCE PRN 03/25/20 [History Confirmed 02/09/23] pantoprazole 40 mg tablet,delayed release See Rx Instructions .Route .COMPLEX #90 tabs 11/03/22 [Rx Confirmed 02/09/23] gabapentin 800 mg tablet 800 mg PO TID #270 tabs 11/15/22 [Rx Confirmed 02/09/23] meloxicam 7.5 mg tablet 7.5 mg PO DAILY #30 tabs 12/27/22 [Rx Confirmed 02/09/23] ondansetron 4 mg disintegrating tablet 4 mg PO Q8H PRN nausea and vomiting #30 tabs 01/08/23 [Rx Confirmed 02/09/23] mirtazapine 15 mg tablet 15 mg PO QHS #30 tabs 01/13/23 [Rx Confirmed 02/09/23] prednisone 10 mg tablet mg PO 02/09/23 [History Confirmed 02/09/23] azelastine 205.5 mcg (0.15 %) nasal spray (Astepro Allergy) See Rx Instructions .Route .COMPLEX #11 mL 03/15/23 [Rx] alprazolam 1 mg tablet 1 mg PO TID-QID free floating anxiety #120 tabs 03/16/23 [Rx] jdbchrpqoa-ryclqqqzdndkn-mvhfzskl 50 mg-325 mg-40 mg tablet 1 tab PO Q6H PRN headaches #30 tabs 03/23/23 [Rx] etanercept 50 mg/mL (1 mL) subcutaneous pen injector (Enbrel SureClick) mg subcut 04/11/23 [History Confirmed 04/11/23] folic acid 1 mg tablet PO 04/11/23 [History Confirmed 04/11/23] methotrexate sodium 2.5 mg tablet mg PO 04/11/23 [History Confirmed 04/11/23] sucralfate 1 gram tablet 1 g PO QACHS #56 tabs 04/11/23 [Rx Confirmed 04/11/23] PFSH Medical History Anxiety Chronic back pain Chronic leg pain Heart murmur History of ectopic history of tubal reconstruction Surgical History (Updated 04/11/23 @ 09:36 by Sarah Rios) History of appendectomy History of hysterectomy History of knee surgery S/P genital surgery Family History Other Cancer Diabetes Hypertension Parkinsons disease Social History Smoking Status: Current every day smoker tobacco type: cigarettes Tobacco: How many years used: 36 Electronic Cigarette Use: with nicotine alcohol intake: never substance use type: does not use what type of physical activity do you participate in: walking frequency: daily HPI HPI HPI: 58-year-old female presents due to epigastric pain as well as rectal bleeding. Patient previously had a colonoscopy 09/2018 which had piecemeal removal of a tubular adenoma recommended follow-up colonoscopy in 1 year. Patient did not have that colonoscopy done. Patient seen in the office again in October 2021 for rectal bleeding again recommended colonoscopy at that time as well as EGD-?those were not completed. Patient currently states she has epigastric pain, on and off she has decreased the amount of tea and coffee she drinks. Patient states that past medical and history does now include autoimmune diseases which she is being actively treated for. Patient states she does have bright red blood per rectum still she does have constipation/diarrhea. Last week it has been mostly diarrhea. Patient has some occasional nausea with this as well. Patient states she is on the Protonix 40 mg p.o. daily and takes that daily. ROS General General: Yes weight change and fatigue; No appetite, colon cancer or breast cancer HEENT HEENT: Yes difficulty swallowing; No eye injury, eye surgery, swollen glands or hoarseness Endo Endocrine: No thyroid disease, diabetes mellitus, thyroid cancer, Hair loss, heat intolerance or cold intolerance Skin Skin: No rash or changing moles Musc Musculoskeletal: Yes back problems, arthritis and rheumatoid arthritis; No gout or joint pain Cardio Cardiovascular: Yes murmur; No pacemaker, heart disease, atrial fibrillation, high blood pressure, heart attack, heart stent, palpitations, shortness of breat with exertion or chest pain Psych Psychiatric: Yes depression and anxiety; No hearing voices Resp Respiratory: No shortness of breath, No sleep apnea, No cough, No COPD, No asthma, No emphysema and No wheezing Gastro Gastrointestinal: Yes abdominal pain, Yes nausea or vomiting, Yes diarrhea, Yes constipation, No blood in stool, Yes acid reflux, No hemorrhoids, Yes ulcers, No gallbladder problem and No black,tarry stools Ernie Hematologic: No blood thinners, No blood disorders, No bleeding, No anemia and No blood clots Neuro Neurologic: No numbness and No tingling Exam Const General: cooperative, healthy appearing, comfortable and no acute distress [facility] Head: normocephalic and atraumatic Neck Neck: supple Resp Effort & Inspection: normal respiratory effort Cardio Rate: regular rate GI Inspection: non-distended Palpation: soft, no hernias and tender in the epigastrum (No peritoneal signs) Skin General: no rashes or lesions noted Neuro General: CN's II-XI intact bilaterally Extrem General: normal to inspection Psych Mental Status: mental status grossly normal Attitude: cooperative Assessment and Plan Assessment and Plan (1) Rectal bleeding: Status: Acute (2) Epigastric pain: Status: Acute Medications: New sucralfate Take an hour before meals and at bedtime 1 g PO QACHS 56 tabs 1RF Plan Will also send in some Carafate to see if this helps with her epigastric pain prior to the scope. I have discussed the above with the patient. I have offered the patient esophagogastroduodenoscopy and colonoscopy for evaluation. I have explained the risks/benefits of the procedure and described the procedure. I have discussed the risks with the patient, including but not limited to: infection, bleeding, perforation of the GI tract requiring emergency surgery, inability to complete the procedure, injury to any internal organs, complications of anesthesia, etc. - the patient understands and agrees to proceed. I have answered all the patient's questions to the patient's satisfaction and the patient has no further questions. The patient has been given instructions for the colon cleansing preparation. 1 day of clears, MiraLAX Dulcolax split prep. Angélica Garcia M.D. Pager: [phone] [facility] [address] [place] [address], [facility], [address] [place] [address] Office: [phone] Coding Level of Care Code Off vis,est,level 4 Diagnoses Rectal bleeding K62.5 Epigastric pain R10.13 04/12/23 1130 <Electronically signed by Angélica Garcia MD> Date Angélica Garcia MD
[2023-05-03 08:40] VITALS: BP 124/51; PULSE 79; RESP 16; TEMP 35.8; O2SAT 96; BMI 23.4
[2023-05-03] MEDS: Lactated Ringers 1,000 ML 15 ML IV (08:42)
[2023-05-03 09:40] VITALS: BP 124/51; BP 86/46; PULSE 57; RESP 18; TEMP 36.8; O2SAT 95
--- NOTE | 2023-05-03 09:40 | OP.EGD_ITS ---
Patient Name: Christel Nuñez Procedure Date: 05/03/2023 9:03 AM Date of : 1965 Age: 58 Procedure: Upper GI endoscopy Indications: Epigastric abdominal pain, Heartburn Providers: Angélica Garcia MD Referring MD: Humble Menchaca Medicines: Monitored Anesthesia Care Patient Profile: This is a 58 year old female. Complications: No immediate complications. Procedure: Pre-Anesthesia Assessment: - Prior to the procedure, a History and Physical was performed, and patient medications and allergies were reviewed. The patient's tolerance of previous anesthesia was also reviewed. The risks and benefits of the procedure and the sedation options and risks were discussed with the patient. All questions were answered, and informed consent was obtained. Prior Anticoagulants: The patient has taken no anticoagulant or antiplatelet agents. ASA Grade Assessment: Per anesthesia. After reviewing the risks and benefits, the patient was deemed in satisfactory condition to undergo the procedure. After obtaining informed consent, the endoscope was passed under direct vision. Throughout the procedure, the patient's blood pressure, pulse, and oxygen saturations were monitored continuously. The Colonoscope was introduced through the mouth, and advanced to the second part of duodenum. The upper GI endoscopy was accomplished without difficulty. The patient tolerated the procedure well. Scope In: 9:14:54 AM Scope Out: 9:20:56 AM Total Procedure Duration Time 0 hours 6 minutes 2 seconds Findings: The Z-line was irregular and was found 39 cm from the incisors. Biopsies were taken with a cold forceps for histology. Striped mildly erythematous mucosa without bleeding was found in the gastric antrum. Biopsies were taken with a cold forceps for histology. Biopsies were taken with a cold forceps for Helicobacter pylori cultures. The cardia and gastric fundus were normal on retroflexion. The examined duodenum was normal. Impression: - Z-line irregular, 39 cm from the incisors. Biopsied. - Erythematous mucosa in the antrum. Biopsied. - Normal examined duodenum. Recommendation: - Await pathology results. - Discharge patient to home. - Resume previous diet. - Continue present medications. Procedure Code(s): --- Professional --- 85140, Esophagogastroduodenoscopy, flexible, transoral; with biopsy, single or multiple Diagnosis Code(s): --- Professional --- K22.89, Other specified disease of esophagus K31.89, Other diseases of stomach and duodenum R10.13, Epigastric pain R12, Heartburn CPT copyright 2021 [employer]. All rights reserved. The codes documented in this report are preliminary and upon surgical coder review may be revised to meet current compliance requirements. MD Angélica Painter MD 05/03/2023 9:39:50 AM This report has been signed electronically. Number of Addenda: 0 Note Initiated On: 05/03/2023 9:03 AM
--- NOTE | 2023-05-03 09:40 | OP.CCLET_ITS ---
05/03/2023 Humble Menchaca Re : Upper GI endoscopy procedure for Christel Nuñez Dear Dr. Menchaca This procedure was performed on Wednesday, May 03, 2023. My impressions and recommendations are as follows: Impressions : - Z-line irregular, 39 cm from the incisors. Biopsied. - Erythematous mucosa in the antrum. Biopsied. - Normal examined duodenum. Recommendations : - Await pathology results. - Discharge patient to home. - Resume previous diet. - Continue present medications. My findings are described in the full procedure note, which is enclosed. If I can be of further assistance, please feel free to contact me at Doctor phone number(s): , Work: . Sincerely, MD Angélica Painter MD 05/03/2023 9:39:50 AM This report has been signed electronically.
[2023-05-03 09:45] VITALS: BP 124/51; BP 93/50; PULSE 69; RESP 18; O2SAT 95
--- NOTE | 2023-05-03 09:45 | IMM_PTH ---
PATIENT: NICK SAUCEDA LOC: EN U#:[id number] AGE/SX: 58/F ROOM: RE05/03/[address]: Dr. Angélica Garcia MD : 1965 BED: DIS: 05/03/2023 SPEC #: [id number] RECD: 05/03/23 17:03 STATUS: YENNY REQ #: [id number] ANAIS: 05/03/23 09:[address]: Angélica Garcia DEPT: IMMUNOHISTOCHEMISTRY RECD BY: Tracie Shell ENTERED: 05/03/23 17:03 SP TYPE: IMMUNO OTHR DR: Dr. Humble Menchaca, DO Tissues: A - Stomach, NOS Procedures: H Pylori (initial) PHYSICIAN & INSTITUTION [place] [id number] SPECIMEN INFORMATION: Tissue Source: A - Antrum biopsy Clinical Info: Rectal bleeding, epigastric pain Specimen Number: [id number] CPT code: 48653 METHODOLOGY: Deparaffinized sections of prefer/formalin-fixed tissue or PAP/DQ stained slides are incubated with monoclonal/polyclonal antibodies/oligonucleotide probes. Localization is made via biotin free immunoperoxidase method. Appropriate controls are performed and reacted as expected. Results on target cell population are indicated in the following table: RESULTS: ANTIBODY / CLONE RESULT Block A H Pylori (polyclonal) negative These tests were developed and their performance characteristics determined by [facility]. They may not have been cleared or approved by the U.S. Food and Drug Administration. The FDA has determined that such clearance or approval is not necessary. The above immunohistochemical/dualISH markers are ordered and reviewed by the Pathologist. INTERPRETATION: A. Gastric antrum, biopsy: Negative for Helicobacter pylori organisms. AM:alma rosa 05/04/2023
--- NOTE | 2023-05-03 09:45 | EGD_PTH ---
PATIENT: NICK SAUCEDA LOC: EN U#:[id number] AGE/SX: 58/F ROOM: RE05/03/[address]: Dr. Angélica Garcia MD : 1965 BED: DIS: 05/03/2023 SPEC #: [id number] RECD: 05/03/23 12:18 STATUS: YENNY JOE #: [id number] ANAIS: 05/03/23 09:[address]: Angélica Garcia DEPT: SURGICAL PATHOLOGY RECD BY: Amelia Zepeda ENTERED: 05/03/23 13:00 SP TYPE: EGD BIOPSY JEAN DR: Dr. Humble Menchaca, DO Tissues: A - Gastric mucous membrane B - Stomach, NOS C - Ascending colon D - Sigmoid colon biopsy Procedures: Special Stain Group II Surgery Specimen Level IV Alcian Blue/PAS (control) HEADER OPERATION: Colonoscopy, EGD with biopsy PRE-OP DIAGNOSIS: Rectal bleeding, epigastric pain TISSUE SUBMITTED: A - Antrum biopsy for H. pylori and pathology, B - Gastroesophageal junction biopsy, C - Ascending colon polyps x2 biopsies, D - Sigmoid polyps x3 biopsies MICROSCOPIC DIAGNOSIS A. Gastric antrum, biopsy: Chronic gastritis. See comment. B. Gastroesophageal junction, biopsy: Mild chronic inflammation. No evidence of goblet cell metaplasia. See comment. C. Ascending colon polyps, biopsy: Fragments of tubular adenoma. D. Sigmoid colon polyps, biopsy: Polypoid fragments of benign colonic mucosa. See comment. AM:alma rosa 05/04/2023 COMMENT A. The results of immunohistochemistry for Helicobacter pylori will be reported separately ([id number]). B. Alcian blue/PAS stain with matched control supports the above diagnosis. D. Neither hyperplastic nor adenomatous change is identified. Clinical correlation is suggested. MICROSCOPIC DESCRIPTION Slides are reviewed. GROSS DESCRIPTION A - Received in fixative is one container labeled with the patient's name and designated antrum biopsy. The specimen consists of one irregular fragment of light ordonez soft tissue that measures 0.3 x 9.2 x 0.1 cm. The specimen is totally submitted in one cassette. B - Received in fixative is one container labeled with the patient's name and designated GE junction biopsy. The specimen consists of one irregular fragment of light ordonez soft tissue that measures 0.3 x 0.2 x 0.1 cm. The specimen is totally submitted in one cassette. C - Received in fixative is one container labeled with the patient's name and designated ascending colon polyps biopsy x2. The specimen consists of multiple irregular fragments of light ordonez soft tissue that in aggregate measure 1.0 x 0.3 x 0.1 cm. The specimen is totally submitted in one cassette. D - Received in fixative is one container labeled with the patient's name and designated sigmoid polyps biopsy x3. The specimen consists of multiple irregular fragments of light ordonez soft tissue that in aggregate measure 1.0 x 0.3 x 0.1 cm. The specimen is totally submitted in one cassette. / SJ:rg 05/03/2023 TC:3 CPT: 96094 x4, 99458
--- NOTE | 2023-05-03 09:45 | OP.COLON_ITS ---
Patient Name: Christel Nuñez Procedure Date: 05/03/2023 9:21 AM Date of : 1965 Age: 58 Procedure: Colonoscopy Indications: Rectal bleeding Providers: Angélica Garcia MD Referring MD: Humble Menchaca Medicines: Monitored Anesthesia Care Patient Profile: This is a 58 year old female. This is a 58 year old female. Last Colonoscopy: 2018. Complications: No immediate complications. Procedure: Pre-Anesthesia Assessment: - Prior to the procedure, a History and Physical was performed, and patient medications and allergies were reviewed. The patient's tolerance of previous anesthesia was also reviewed. The risks and benefits of the procedure and the sedation options and risks were discussed with the patient. All questions were answered, and informed consent was obtained. Prior Anticoagulants: The patient has taken no anticoagulant or antiplatelet agents. ASA Grade Assessment: Per anesthesia. After reviewing the risks and benefits, the patient was deemed in satisfactory condition to undergo the procedure. After I obtained informed consent, the scope was passed under direct vision. Throughout the procedure, the patient's blood pressure, pulse, and oxygen saturations were monitored continuously. The Colonoscope was introduced through the anus and advanced to the cecum, identified by appendiceal orifice and ileocecal valve. The colonoscopy was performed without difficulty. The patient tolerated the procedure well. The quality of the bowel preparation was good. Scope In: 9:22:10 AM Scope Withdrawal Time 0 hours 10 minutes 41 seconds Scope Out: 9:35:43 AM Total Procedure Duration Time 0 hours 13 minutes 33 seconds Findings: The perianal and digital rectal examinations were normal. Five sessile polyps were found in the sigmoid colon and ascending colon. The polyps were less than 5 mm in size. These polyps were removed with a cold biopsy forceps. Resection and retrieval were complete. A few small-mouthed diverticula were found in the ascending colon. The exam was otherwise without abnormality. Hemorrhoids were found on perianal exam. Non-bleeding internal hemorrhoids were found. The hemorrhoids were Grade I (internal hemorrhoids that do not prolapse). Impression: - Five less than 5 mm polyps in the sigmoid colon and in the ascending colon, removed with a cold biopsy forceps. Resected and retrieved. - Diverticulosis in the ascending colon. - The examination was otherwise normal. - Hemorrhoids found on perianal exam. - Non-bleeding internal hemorrhoids. Recommendation: - Discharge patient to home. - Resume previous diet. - Continue present medications. - Await pathology results. - Repeat colonoscopy in 3 - 5 years for surveillance based on pathology results. Procedure Code(s): --- Professional --- 25252, Colonoscopy, flexible; with biopsy, single or multiple Diagnosis Code(s): --- Professional --- D12.5, Benign neoplasm of sigmoid colon D12.2, Benign neoplasm of ascending colon K57.30, Diverticulosis of large intestine without perforation or abscess without bleeding K62.5, Hemorrhage of anus and rectum CPT copyright 2021 [employer]. All rights reserved. The codes documented in this report are preliminary and upon applied mathematician review may be revised to meet current compliance requirements. MD Angélica Painter MD 05/03/2023 9:45:13 AM This report has been signed electronically. Number of Addenda: 0 Note Initiated On: 05/03/2023 9:21 AM
--- NOTE | 2023-05-03 09:46 | OP.CCLET_ITS ---
05/03/2023 Humble Menchaca Re : Colonoscopy procedure for Rosariorena Long Dear Dr. Menchaca This procedure was performed on Wednesday, May 03, 2023. My impressions and recommendations are as follows: Impressions : - Five less than 5 mm polyps in the sigmoid colon and in the ascending colon, removed with a cold biopsy forceps. Resected and retrieved. - Diverticulosis in the ascending colon. - The examination was otherwise normal. - Hemorrhoids found on perianal exam. - Non-bleeding internal hemorrhoids. Recommendations : - Discharge patient to home. - Resume previous diet. - Continue present medications. - Await pathology results. - Repeat colonoscopy in 3 - 5 years for surveillance based on pathology results. My findings are described in the full procedure note, which is enclosed. If I can be of further assistance, please feel free to contact me at Doctor phone number(s): , Work: . Sincerely, MD Angélica Painter MD 05/03/2023 9:45:13 AM This report has been signed electronically.
[2023-05-03 09:50] VITALS: BP 124/51; BP 86/50; PULSE 74; RESP 18; O2SAT 93
[2023-05-03 09:55] VITALS: BP 104/60; BP 124/51; PULSE 68; RESP 16; TEMP 36.6; O2SAT 93
[2023-05-03 10:08] VITALS: BP 124/51
== END 2023-05-03 10:17 | disposition home or self-care (01) ==
LOC: EN 08:22 → AC 08:23
PROVIDERS: PCP Family Medicine; Referring Provider Family Medicine; Visit Provider Surgery
PROC: 0DJD8ZZ Inspection of Lower Intestinal Tract, Via Natural or Artificial Opening Endoscopic (ICD-10-PCS; CPT 45378; principal; 2023-05-03 09:40)
DX: D12.2 Benign neoplasm of ascending colon (principal); M06.9 Rheumatoid arthritis, unspecified; K20.90 Esophagitis, unspecified without bleeding; K29.50 Unspecified chronic gastritis without bleeding; K64.0 First degree hemorrhoids; F17.210 Nicotine dependence, cigarettes, uncomplicated; M54.9 Dorsalgia, unspecified; K31.89 Other diseases of stomach and duodenum; G89.29 Other chronic pain; R10.13 Epigastric pain; K57.30 Diverticulosis of large intestine without perforation or abscess without bleeding; I10 Essential (primary) hypertension; F32.A Depression, unspecified; F41.9 Anxiety disorder, unspecified; Z79.899 Other long term (current) drug therapy
CPT/HCPCS: 43239; 45380; 88305; 88313; 88342; J7120; J2405

== ENCOUNTER → 2023-06-17 | Outpatient (CLI) | payer OTHER, SELFPAY ==
--- NOTE | 2023-06-17 08:56 | RAD_ITS ---
STUDY: X-RAY - RIGHT KNEE REASON FOR EXAM: Female, 58 years old. pain TECHNIQUE: 4 view(s) of the knee. COMPARISON: None. FINDINGS: Normal visualized distal femur. Normal visualized proximal tibia and fibula. Normal proximal tibiofibular articulation. There is mild degenerative arthrosis of the medial femorotibial compartment. Normal lateral femorotibial compartment. Normal patellofemoral articulation. The soft tissue structures are unremarkable. RAD/Knee 4 or More Views IMPRESSION: Degenerative arthrosis. Electronically Signed: Ameya Alcala MD at 20:38 EST ,
--- NOTE | 2023-06-17 09:02 | RAD_ITS ---
INDICATION: pain EXAMINATION/TECHNIQUE: X-RAY - LEFT XR Knee Complete 4 Views or More 4 VIEWS COMPARISON: No relevant prior comparison study available FINDINGS: SOFT TISSUES: No soft tissue swelling or gas. No radiopaque foreign body. BONES/JOINTS: No acute fracture or subluxation.. Normal alignment. Mild narrowing of the medial joint compartment. No evidence of joint effusion. No sclerotic or destructive changes observed. RAD/Knee 4 or More Views IMPRESSION: Mild narrowing of the medial joint compartment. Electronically Signed: Juan M Angulo MD at 20:20 EST ,
== END | disposition home or self-care (01) ==
LOC: MTRAD 08:56
PROVIDERS: PCP Family Medicine; Referring Provider Physician Assistant; Visit Provider Physician Assistant
DX: M25.561 Pain in right knee (principal); M25.562 Pain in left knee
CPT/HCPCS: 73564

== ENCOUNTER → 2023-11-02 | Outpatient (CLI) | payer OTHER, SELFPAY ==
[2023-11-02 13:18] LABS: Anion Gap 6 (5-15); BUN 17 mg/dL (7-18); Calcium,Total 9.6 mg/dL (8.5-10.1); Chloride 108 mmol/L (98-107); Creatinine, Serum 0.85 mg/dL (0.55-1.02); EST Glomerular Filtration Rate 74 mL/min (>60); Est Glom Filt Rate - Afr Amer 89 mL/min (>60); Glucose 117 mg/dL (74-106); Potassium 3.9 mmol/L (3.5-5.1); Sodium Level 139 mmol/L (136-145)
[2023-11-02 15:19] LABS: Hemoglobin A1c 5.3 % (3.8-5.6)
== END | disposition home or self-care (01) ==
LOC: BIMLAB 09:44
PROVIDERS: PCP Family Medicine; Referring Provider Family Medicine; Visit Provider Family Medicine
DX: R73.9 Hyperglycemia, unspecified (principal)
CPT/HCPCS: 36415; 80048; 83036

== ENCOUNTER → 2024-02-02 | Outpatient (CLI) | payer OTHER, SELFPAY ==
--- NOTE | 2024-02-02 15:56 | RAD_ITS ---
INDICATION: radicular leg pain EXAMINATION/TECHNIQUE: X-RAY - XR Spine Lumbar 2 or 3 Views COMPARISON: None. FINDINGS: VERTEBRAE: Preserved vertebral body height. No fracture. No spondylolisthesis. Preservation of the normal lumbar lordosis. Moderate multilevel facet arthropathy. DISCS: Moderate multilevel degenerative disc disease and spondylosis. INCLUDED ABDOMEN: Included bowel gas pattern is non-obstructive. RAD/Lumbar Spine 2 or 3 Views IMPRESSION: No evidence of lumbar spinal fracture or spondylolisthesis. Moderate multilevel degenerative disc disease and spondylosis. Electronically Signed: Main Marroquin MD at 17:01 EDT ,
== END | disposition home or self-care (01) ==
PROVIDERS: PCP Family Medicine; Referring Provider Family Medicine; Visit Provider Family Medicine
DX: G89.29 Other chronic pain (principal)
CPT/HCPCS: 72100

== ENCOUNTER → 2024-04-04 | Outpatient (CLI) | payer OTHER, SELFPAY ==
[2024-04-05 13:08] LABS: Adrenocorticotropic Hormone 11.9 pg/mL (7.2-63.3)
== END | disposition home or self-care (01) ==
LOC: BIMLAB 09:35
PROVIDERS: PCP Family Medicine; Referring Provider Family Medicine; Visit Provider Family Medicine
DX: G89.29 Other chronic pain (principal)
CPT/HCPCS: 36415; 82024; 82533

== ENCOUNTER → 2024-04-10 | Outpatient (CLI) | payer OTHER, SELFPAY ==
--- NOTE | 2024-04-10 13:50 | US_ITS ---
INDICATION: difficulty voiding EXAMINATION: Ultrasound US Post Void Residual Urine/Bladder TECHNIQUE: Watkins scale and color doppler imaging was performed of the urinary bladder. COMPARISON: No relevant prior comparison study available FINDINGS: No stones, masses, or wall thickening. A 0.4 cm right UVJ calculus is seen with the ureteral jet not visualized on the right. Left ureteral jet is seen. Pre-void volume is 436 mL. Post-void volume is 375 mL. US/Post Void Residual Bladder IMPRESSION: Post void bladder residual volume of 375 mL. 0.4 cm stone seen at the right ureterovesicular junction. Electronically Signed: Josafat Renee MD at 7:04 EST ,
== END | disposition home or self-care (01) ==
LOC: US 13:49
PROVIDERS: PCP Family Medicine; Referring Provider Family Medicine; Visit Provider Family Medicine
DX: N32.0 Bladder-neck obstruction (principal)
CPT/HCPCS: 51798

== ENCOUNTER → 2024-04-19 | Outpatient (CLI) | payer OTHER, SELFPAY | END | disposition home or self-care (01) | PROVIDERS: PCP Family Medicine; Referring Provider Ophthalmology; Visit Provider Ophthalmology | DX: H02.402 Unspecified ptosis of left eyelid (principal) | CPT/HCPCS: 36415 ==

== ENCOUNTER → 2024-05-04 | Outpatient (CLI) | payer OTHER, SELFPAY ==
--- NOTE | 2024-05-04 13:53 | CT_ITS ---
STUDY: CT Abdomen And Pelvis W/O Contrast Injection 05/06/2024 6:19 PM REASON FOR EXAM: Female, 59 years old. Abdominal pain URETERAL CALCULUS Individualized dose optimization techniques were used for this CT. COMPARISON: 03.24.05 TECHNIQUE: CT Abdomen And Pelvis W/O Contrast Injection FINDINGS: There are atherosclerotic calcifications of visualized coronary arteries. The visualized portions of the heart are within normal limits. Stable hypodensities of the liver. Normal gallbladder and extrahepatic biliary system. Normal spleen. Normal pancreas. Normal bilateral adrenal glands. No acute findings of the right kidney. No acute findings of the left kidney. Normal visualized stomach. Normal small intestine. Stool throughout the colon. There is non-visualization of the appendix. There are calcifications of the abdominal aorta. This is consistent for atherosclerotic disease. There is NO abdominal aortic aneurysm. Vascular workup can be obtained based on clinical correlation. Normal inferior vena cava. Subcentimeter mesenteric lymph nodes. Normal urinary bladder. There is absence of the uterus consistent with a prior hysterectomy. There is an umbilical hernia containing fat. Normal osseous structures. CT/Abdomen/Pelvis without Cont IMPRESSION: (NOT LISTED IN ORDER OF SIGNIFICANCE) Hysterectomy changes. There are no acute findings. Other findings as above. Electronically Signed: Avery Bloom MD at 18:21 EST ,
== END | disposition home or self-care (01) ==
LOC: CT 13:50
PROVIDERS: PCP Family Medicine; Referring Provider Urology; Visit Provider Urology
DX: N20.1 Calculus of ureter (principal)
CPT/HCPCS: 74176

== ENCOUNTER 2024-05-10 11:30 | Emergency (ER) | payer OTHER, SELFPAY ==
[2024-05-10 11:30] VITALS: BP 149/80; PULSE 82; RESP 16; TEMP 37; O2SAT 96; BMI 20.1
--- NOTE | 2024-05-10 12:40 | ED.RN ---
PT IS HAVING MULTIPLE CHRONIC COMPLAINTS. PT HAD CT SCANS LAST WEEK AND HAS A APPT NEXT WEEK. STATES SHE HAS PAIN AND IS VERY ANXIOUS. WHEN ASKED IF SHE HAS MEDS FOR ANXIETY SHE SAID SHE CAN'T GET IT FILLED TIL NEXT WEEK AND THEN STATED SHE HAS SOME. A MIN LATER SHE STATED SHE DOESN'T. EXPLAINED THE NEED TO KEEP F/U WITH HER PCP AND THE DRS FOR HER AUTOIMMUNE CONDITIONS. EXPLAINED ER MANY TIMES CAN NOT HELP WITH CHRONIC CONDITIONS BUT THEY CAN TAKE COMFORT IN THE FACT THAT HER VS ARE GREAT. PT MOM STATES HER DAUGHTER MIGHT HAVE A NERVOUS BREAKDOWN BECAUSE OF HER PAIN. PT STATES SOMETIMES SHE PUNCHES HERSELF IN THE ABD SO SHE FEELS SOMETHING ELSE BESIDES THE CONSTANT PAIN. PT DID HOP UP OUT OF THE BED WITHOUT ASSISTANCE AND AMBULATE TO THE BR BY HERSELF WITH NO DISTRESS
--- NOTE | 2024-05-10 13:29 | EDS_ITS ---
HPI <BRENDA Yan - Last Filed: 05/10/24 17:55> History of Present Illness Chief Complaint: General Illness Narrative Narrative: Patient presenting today with multiple vague complaints. She reports that she has had intermittent epigastric pain that radiates to the LUQ, nausea, vomiting, loose stools, and decreased appetite over the past week. She reports that her granddaughter was visiting her over the weekend and had similar symptoms of nausea, vomiting, and diarrhea. Patient reports that she has had similar epigastric pain off and on for years. She did have an endoscopy and colonoscopy this year that were unremarkable. She takes Protonix daily. She also reports increased anxiety, she takes alprazolam 1 mg 4 times daily, she has been on this dose for years. She had a few episodes of vomiting after taking her medication over the past week and had to take an additional alprazolam and is now out of them, she has been out over the past 2 days and cannot get a refill until Tuesday. She denies fevers, chest pain, hematemesis, and shortness of breath. She has a PMH of fibromyalgia, chronic back pain, and anxiety. PFSH <BRENDA Yan - Last Filed: 05/10/24 17:55> [facility] Medical History Wears glasses Wears dentures Depression History of steroid therapy Fibromyalgia Sicca syndrome Rheumatoid arthritis Anemia Back pain Migraine headache H/O Sjogren's disease Difficulty swallowing Smoker Shortness of breath on exertion Leg cramps History of irregular heartbeat Underweight due to inadequate caloric intake history of tubal reconstruction History of ectopic Anxiety Heart murmur Chronic leg pain Chronic back pain Home Medications ?Medication ?Instructions ?Recorded ?Last Taken ?Type azelastine 205.5 mcg (0.15 %) See Rx Instructions .Route 06/21/23 Unknown Rx nasal spray (Astepro Allergy) .COMPLEX #11 mL acetaminophen 325 mg capsule 325 mg PO QD-QID pain 01/18/24 Unknown History (Tylenol) buprenorphine HCl 2 mg sublingual 2 mg sublingual QDAY #20 tabs 04/03/24 Unknown Rx tablet cholecalciferol (vitamin D3) 50 50 mcg PO QDAY #90 tabs 04/03/24 Unknown Rx mcg (2,000 unit) tablet gabapentin 800 mg tablet 800 mg PO TID #90 TABLETS 04/05/24 Unknown Rx metoprolol tartrate 25 mg tablet 25 mg PO QHS #90 TABLETS 04/05/24 Unknown Rx mirtazapine 30 mg tablet 30 mg PO QHS #90 TABLETS 04/05/24 Unknown Rx alprazolam 1 mg tablet 1 mg PO .QID free floating anxiety 05/01/24 Unknown Rx #120 tabs pantoprazole 40 mg tablet,delayed 40 mg PO DAILY #30 tabs 05/01/24 Unknown Rx release alprazolam 1 mg tablet 1 mg PO BID #10 tabs 05/10/24 Unknown Rx sucralfate 1 gram tablet (Carafate) 1 g PO TID 7 days #21 tabs 05/10/24 Unknown Rx Allergy/AdvReac Type Severity Reaction Status Date / Time buprenorphine Allergy Intermediate Rash Verified 05/10/24 11:30 buspirone Allergy Intermediate Rash Verified 05/10/24 11:30 duloxetine (From Cymbalta) Allergy Intermediate Rash Verified 05/10/24 11:30 gatifloxacin (From Tequin) Allergy Other Verified 05/10/24 11:30 venlafaxine (From Effexor) Allergy Other Verified 05/10/24 11:30 Family History Other Cancer Diabetes Hypertension Parkinsons disease Surgical History History of esophagogastroduodenoscopy (EGD) S/P genital surgery History of hysterectomy History of knee surgery History of appendectomy Social History Smoking Status: Current every day smoker tobacco type: cigarettes Tobacco: How many years used: 36 Electronic Cigarette Use: with nicotine alcohol intake: never substance use type: does not use what type of physical activity do you participate in: walking frequency: daily ROS <BRENDA Yan - Last Filed: 05/10/24 17:55> ROS ED Constitutional Constitutional ED: Denies chills or fever(s) Cardiovascular Cardiovascular: Denies chest pain Respiratory/Chest Respiratory/Chest: Denies cough or dyspnea Gastrointestinal Gastrointestinal: Reports abdominal pain, diarrhea, nausea and vomiting; Denies constipation Genitourinary Genitourinary ED: Denies dysuria, hematuria or urinary urgency Musculoskeletal Musculoskeletal: Denies arthralgias or myalgias Integumentary Denies rash Neurologic Neurologic: Denies weakness EXAM <BRENDA Yan - Last Filed: 05/10/24 17:55> Physical Exam Const Vital Signs: 05/10/24 11:30 05/10/24 12:23 05/10/24 13:30 Temperature 98.6 F Temperature Source Oral Pulse Rate 82 94 Respiratory Rate 16 16 Respiratory Effort Normal Short of Breath Respiratory Pattern Normal Blood Pressure 149/80 H 132/96 H Blood Pressure Mean 103 108 Pulse Ox 96 97 Oxygen Delivery Method Room Air Room Air 05/10/24 14:53 Temperature 98 F Temperature Source Pulse Rate 94 Respiratory Rate 16 Respiratory Effort Respiratory Pattern Blood Pressure 132/96 H Blood Pressure Mean 108 Pulse Ox 97 Oxygen Delivery Method Positive well nourished, well developed and no apparent distress General Appearance ED: well developed HEENT Reports normocephalic and head/scalp atraumatic Mouth ED: Yes moist mucous membranes normal Eyes PERRL and EOMs intact bilaterally Neck full ROM and supple Chest Wall inspection of chest normal Resp normal respiratory effort and clear to auscultation bilaterally Cardio regular rate and regular rhythm GI soft to palpation, non-distended and no masses GI Narrative: Minimal epigastric tenderness to palpation, no rigidity or guarding Back/Spine normal ROM and normal to inspection Extremity normal to inspection and full ROM Neuro oriented x3, CN's II-XII intact bilaterally, moves all extremities, no focal motor deficits and no sensory deficits noted Sensorium / Orientation: awake and alert Psych mental status grossly normal Psych Narrative: No SI or HI Mood & Affect: anxious Skin no rashes or lesions noted and no wounds <Dr. Francisco J Guzman DO - Last Filed: 05/10/24 15:12> Physical Exam Const Vital Signs: 05/10/24 11:30 05/10/24 12:23 05/10/24 13:30 Temperature 98.6 F Temperature Source Oral Pulse Rate 82 94 Respiratory Rate 16 16 Respiratory Effort Normal Short of Breath Respiratory Pattern Normal Blood Pressure 149/80 H 132/96 H Blood Pressure Mean 103 108 Pulse Ox 96 97 Oxygen Delivery Method Room Air Room Air 05/10/24 14:53 Temperature 98 F Temperature Source Pulse Rate 94 Respiratory Rate 16 Respiratory Effort Respiratory Pattern Blood Pressure 132/96 H Blood Pressure Mean 108 Pulse Ox 97 Oxygen Delivery Method MDM <BRENDA Yan - Last Filed: 05/10/24 17:55> [facility] Narrative Medical decision making narrative: Patient presenting today due to epigastric abdominal pain that radiates to her left upper quadrant that she has had for about a week, she has also had intermittent nausea, vomiting, and loose stools. Her granddaughter recently had the stomach flu over the weekend and had N/V/D as well. Patient reports that she has had similar epigastric abdominal pain off and on for years, she has had multiple endoscopies, at one point they told her she had an ulcer but she reports that her last endoscopy looked good this year. She does take Protonix daily. She has also had worsening anxiety after running out of her Xanax 2 days ago. She does get this refilled monthly and reports that she had to take multiple extra doses due to her vomiting. On exam, she has a nonsurgical abdomen. No leukocytosis, her CMP shows a potassium of 3.2 but otherwise is unremarkable, no ADOLFO or transaminitis. Her lipase is WNL. She did have a CT scan of the abdomen/pelvis on 05/04 as an outpatient, I did review this and it showed no acute findings. I do not feel that any repeat abdominal imaging is indicated. She was given a GI cocktail and Pepcid and on reexamination does report improvement of her symptoms. We did speak with her PCP, Dr. Menchaca, he is comfortable with her receiving a prescription for a total of 10 Xanax to get her through until her next refill to prevent withdrawal. She was given a dose here and reported improvement of her anxiety. I also gave her a prescription for Carafate. Recommended that she follow-up with her PCP and patient discharged home in stable condition. Lab Data Labs: Laboratory Results - last 24 hr 05/10/24 13:30 WBC 7.2 RBC 4.14 L Hgb 12.9 Hct 38.3 MCV 92.5 MCH 31.2 MCHC 33.7 RDW Std Deviation 41.4 RDW Coeff of Dmitry 12.2 Plt Count 286 MPV 11.2 Immature Gran % (Auto) 0.400 Neut % (Auto) 85.6 H Lymph % (Auto) 11.6 L [place] % (Auto) 2.0 Eos % (Auto) 0.0 Baso % (Auto) 0.4 Absolute Neuts (auto) 6.1 Absolute Lymphs (auto) 0.83 Nucleated RBC % 0 Sodium 142 Potassium 3.2 L Chloride 111 H Carbon Dioxide 24.0 Anion Gap 7 BUN 11 Creatinine 0.63 Estim Creat Clear Calc 85.36 Est GFR (MDRD) Af Amer 125 Est GFR (MDRD) Non-Af 103 BUN/Creatinine Ratio 17.4 Glucose 124 H Calcium 9.5 Total Bilirubin 0.30 AST 14 L ALT 19 Alkaline Phosphatase 95 Total Protein 7.3 Albumin 4.0 Globulin 3.3 Albumin/Globulin Ratio 1.2 Lipase 25 <Dr. Francisco J Guzman, DO - Last Filed: 05/10/24 15:12> [facility] History & Record Review Discussion w/independent historian: Patient and Other (PCP) Lab Data Attestation: I reviewed the patient's lab results. Labs: Laboratory Results - last 24 hr 05/10/24 13:30 WBC 7.2 RBC 4.14 L Hgb 12.9 Hct 38.3 MCV 92.5 MCH 31.2 MCHC 33.7 RDW Std Deviation 41.4 RDW Coeff of Dmitry 12.2 Plt Count 286 MPV 11.2 Immature Gran % (Auto) 0.400 Neut % (Auto) 85.6 H Lymph % (Auto) 11.6 L [place] % (Auto) 2.0 Eos % (Auto) 0.0 Baso % (Auto) 0.4 Absolute Neuts (auto) 6.1 Absolute Lymphs (auto) 0.83 Nucleated RBC % 0 Sodium 142 Potassium 3.2 L Chloride 111 H Carbon Dioxide 24.0 Anion Gap 7 BUN 11 Creatinine 0.63 Estim Creat Clear Calc 85.36 Est GFR (MDRD) Af Amer 125 Est GFR (MDRD) Non-Af 103 BUN/Creatinine Ratio 17.4 Glucose 124 H Calcium 9.5 Total Bilirubin 0.30 AST 14 L ALT 19 Alkaline Phosphatase 95 Total Protein 7.3 Albumin 4.0 Globulin 3.3 Albumin/Globulin Ratio 1.2 Lipase 25 Management Discussion w/another healthcare provider: PCP (Dr Menchaca) Treatment and Re-Evaluation :: I have personally performed a face to face assessment of the patient and have reviewed the RENU Note. I performed a substantive portion of the visit including all aspects of the following. My fernandes findings include: History is 59-year-old female presenting with multiple somatic complaints including epigastric pain and vomiting. She also notes that she is out of her alprazolam. Patient according to her [facility] report filled 30 days worth of 4 times daily dosing of alprazolam 1 mg tabs on the first. She states because of the vomiting she has not knowing whether or not she has gotten and has taken extra. Exam is patient clinically appears well. She has normal-appearing vital signs. Tenderness in the epigastrium. No evidence of withdrawal at this time Medical Decison Making basic labs were essentially negative. Normal white count potassium slightly low at 3.2 glucose 124 normal LFTs normal lipase. I spoke with her primary care doctor who writes the alprazolam. We discussed the patient's symptomology recent visits to other physicians and her alprazolam situation. We are willing to write her a few tablets to prevent her from going through withdrawal until she can get her next prescription filled. Discharge Plan Triage Chief Complaint: General Illness ED Midlevel Provider: Diana Pedraza ED Provider: Francisco J Guzman Dx/Rx/DC Orders Clinical Impression: Abdominal pain, Anxiety, Nausea & vomiting Instructions: Abdominal Pain, ED Vomit Diarrhea Nonspec Adult Prescriptions: New alprazolam 1 mg tablet 1 mg PO BID Qty: 10 0RF sucralfate [Carafate] 1 gram tablet 1 g PO TID 7 Days Qty: 21 0RF No Action acetaminophen [Tylenol] 325 mg capsule 325 mg PO QD-QID cholecalciferol (vitamin D3) 50 mcg (2,000 unit) tablet 50 mcg PO QDAY Qty: 90 1RF buprenorphine HCl 2 mg tablet, sublingual 2 mg sublingual QDAY Qty: 20 0RF azelastine [Astepro Allergy] 205.5 mcg (0.15 %) spray,non-aerosol See Rx Instructions .ROUTE .COMPLEX Qty: 11 2RF Dose Instruction: instill 1 spray into each nostril twice a day Rx Instructions: instill 1 spray into each nostril twice a day gabapentin 800 mg tablet 800 mg PO TID Qty: 90 0RF mirtazapine 30 mg tablet 30 mg PO QHS Qty: 90 0RF metoprolol tartrate 25 mg tablet 25 mg PO QHS Qty: 90 0RF pantoprazole 40 mg tablet,delayed release (DR/EC) 40 mg PO DAILY Qty: 30 1RF Rx Instructions: TAKE 1 TABLET BY MOUTH EVERY DAY alprazolam 1 mg tablet 1 mg PO .QID Qty: 120 1RF Rx Instructions: every 6 hrs as needed Primary Care Provider: Humble Menchaca Referrals: Humble Menchaca, [Primary Care Provider] - Activity Restrictions/Additional Instructions: Follow-up with your PCP and return for worsening symptoms. Print Language: Wallisian Disposition Disposition: Home, Self Care Discharge Date/Time: 05/10/24 15:04
[2024-05-10 13:30] VITALS: BP 132/96; PULSE 94; RESP 16; O2SAT 97
[2024-05-10] MEDS: Lidocaine 2% Viscous15 ML UDC 15 ML PO (13:33)
[2024-05-10] MEDS: Mag Hydrox/Al Hydrox/Simeth 30 ML UDC PO (13:33)
[2024-05-10] MEDS: ALPRAZolam 0.5 MG Tablet 1 MG PO (13:33)
[2024-05-10] MEDS: Famotidine 20 MG Tablet PO (13:33)
[2024-05-10 13:35] LABS: Absolute Lymphocyte Count 0.83 X10^3/uL (0.83-4.51); Absolute Neutrophil Count 6.1 X10^3/uL (2.0-7.7); Basophil# 0.03 X10^3/uL; Basophil% 0.4 % (0-1); Hematocrit 38.3 % (37-47); Hemoglobin 12.9 g/dL (12.0-15.0); Lymphocyte # 0.83 X10^3/ul (0.83-4.51); Lymphocyte % 11.6 % (19-41); Mean Corp Hgb Conc 33.7 g/dL (32-36); Mean Corpuscular Hgb 31.2 pg (27.0-32.0); Mean Corpuscular Volume 92.5 fL (81-99); Mean Platelet Vol. 11.2 fl (6.2-12.0); Monocyte# 0.14 X10^3/uL; NRBC Flagged by Analyzer 0 % (0-5); Neutrophil # 6.14 X10^3/uL (2.7-7.7); Neutrophil % 85.6 % (47-70); Platelet Count 286 K/mm3 (150-450); RBC Distribution Width CV 12.2 % (11.6-14.6); RBC Distribution Width SD 41.4 fl (35.1-43.9); Red Blood Count 4.14 M/mm3 (4.2-5.4); White Blood Count 7.2 K/mm3 (4.4-11.0)
[2024-05-10 13:56] LABS: ALB/GLOB Ratio 1.2 RATIO (0.9-2.4); AST(SGOT) 14 U/L (15-37); Alanine Aminotransfer ALT/SGPT 19 U/L (13-56); Alkaline Phosphatase 95 U/L (45-117); Anion Gap 7 (5-15); BUN 11 mg/dL (7-18); BUN/Creat Ratio 17.4 RATIO (10-20); Calcium,Total 9.5 mg/dL (8.5-10.1); Chloride 111 mmol/L (98-107); Creatinine, Serum 0.63 mg/dL (0.55-1.02); EST Glomerular Filtration Rate 103 mL/min (>60); Est Glom Filt Rate - Afr Amer 125 mL/min (>60); Estimated Creatinine Clearance 85.36 ml/min; Globulin 3.3 g/dL (2.2-4.2); Glucose 124 mg/dL (74-106); Lipase 25 U/L (13-75); Potassium 3.2 mmol/L (3.5-5.1); Protein, Total 7.3 g/dL (6.4-8.2); Sodium Level 142 mmol/L (136-145)
[2024-05-10 14:53] VITALS: BP 132/96; PULSE 94; RESP 16; TEMP 36.6; O2SAT 97
== END 2024-05-10 15:04 | disposition home or self-care (01) ==
PROVIDERS: Physician Assistant; Emergency Provider Emergency Medicine; PCP Family Medicine; Visit Provider Emergency Medicine
DX: R10.9 Unspecified abdominal pain (principal); R11.2 Nausea with vomiting, unspecified; F41.9 Anxiety disorder, unspecified; F17.210 Nicotine dependence, cigarettes, uncomplicated
CPT/HCPCS: 80053; 83690; 85025; 99284; A4216

== ENCOUNTER → 2024-05-15 | Outpatient (CLI) | payer OTHER, SELFPAY ==
[2024-05-15 16:29] LABS: Absolute Lymphocyte Count 1.38 X10^3/uL (0.83-4.51); Absolute Neutrophil Count 6.3 X10^3/uL (2.0-7.7); Basophil# 0.03 X10^3/uL; Basophil% 0.4 % (0-1); Eosinophil# 0.02 X10^3/uL; Eosinophils% 0.3 % (0-5); Hematocrit 38.2 % (37-47); Hemoglobin 12.4 g/dL (12.0-15.0); Lymphocyte # 1.38 X10^3/ul (0.83-4.51); Lymphocyte % 17.3 % (19-41); Mean Corp Hgb Conc 32.5 g/dL (32-36); Mean Corpuscular Hgb 31.6 pg (27.0-32.0); Mean Corpuscular Volume 97.2 fL (81-99); Mean Platelet Vol. 12.4 fl (6.2-12.0); Monocyte# 0.27 X10^3/uL; Monocyte% 3.4 % (0-10); NRBC Flagged by Analyzer 0 % (0-5); Neutrophil # 6.28 X10^3/uL (2.7-7.7); Neutrophil % 78.3 % (47-70); Platelet Count 306 K/mm3 (150-450); RBC Distribution Width CV 12.7 % (11.6-14.6); RBC Distribution Width SD 45.7 fl (35.1-43.9); Red Blood Count 3.93 M/mm3 (4.2-5.4)
[2024-05-15 16:44] LABS: Erythrocyte Sedimentation Rate 3 mm/hr (0-30)
[2024-05-15 16:55] LABS: ALB/GLOB Ratio 1.3 RATIO (0.9-2.4); AST(SGOT) 21 U/L (15-37); Alanine Aminotransfer ALT/SGPT 31 U/L (13-56); Albumin, Serum 4.1 g/dL (3.2-5.0); Alkaline Phosphatase 102 U/L (45-117); Anion Gap 3 (5-15); BUN 14 mg/dL (7-18); CRP < 2.90 mg/L (0.0-3.0); Calcium,Total 9.2 mg/dL (8.5-10.1); Chloride 108 mmol/L (98-107); EST Glomerular Filtration Rate 91 mL/min (>60); Est Glom Filt Rate - Afr Amer 111 mL/min (>60); Globulin 3.2 g/dL (2.2-4.2); Glucose 133 mg/dL (74-106); Potassium 4.1 mmol/L (3.5-5.1); Protein, Total 7.3 g/dL (6.4-8.2); Sodium Level 142 mmol/L (136-145)
[2024-05-18 19:06] LABS: QNTFERON TB Mitogen Value > 10.00 IU/mL (.); QNTFERON TB Nil Value 0.01 IU/mL (.); QNTFERON TB1+ Ag Value 0 IU/mL (.); QNTFERON TB2+ Ag Value 0 IU/mL (.); QNTIFERON TB Positive Criteria Negative (Negative)
== END | disposition home or self-care (01) ==
LOC: LAB 15:34
PROVIDERS: PCP Family Medicine; Referring Provider Internal Medicine Rheumatology; Visit Provider Internal Medicine Rheumatology
DX: M06.09 Rheumatoid arthritis without rheumatoid factor, multiple sites (principal); M79.7 Fibromyalgia; Z79.899 Other long term (current) drug therapy
CPT/HCPCS: 36415; 80053; 85025; 85652; 86140; 86480

== ENCOUNTER → 2024-06-20 | Outpatient (CLI) | payer OTHER, SELFPAY ==
[2024-06-20 17:53] LABS: Absolute Lymphocyte Count 0.83 X10^3/uL (0.83-4.51); Absolute Neutrophil Count 4.5 X10^3/uL (2.0-7.7); Basophil# 0.03 X10^3/uL; Basophil% 0.5 % (0-1); Eosinophil# 0.02 X10^3/uL; Eosinophils% 0.4 % (0-5); Hematocrit 35.7 % (37-47); Hemoglobin 11.3 g/dL (12.0-15.0); Lymphocyte # 0.83 X10^3/ul (0.83-4.51); Lymphocyte % 14.7 % (19-41); Mean Corp Hgb Conc 31.7 g/dL (32-36); Mean Corpuscular Hgb 30.7 pg (27.0-32.0); Mean Platelet Vol. 10.7 fl (6.2-12.0); Monocyte# 0.29 X10^3/uL; Monocyte% 5.1 % (0-10); NRBC Flagged by Analyzer 0 % (0-5); Neutrophil # 4.46 X10^3/uL (2.7-7.7); Neutrophil % 78.9 % (47-70); Platelet Count 322 K/mm3 (150-450); RBC Distribution Width CV 14.1 % (11.6-14.6); RBC Distribution Width SD 50.1 fl (35.1-43.9); Red Blood Count 3.68 M/mm3 (4.2-5.4); White Blood Count 5.7 K/mm3 (4.4-11.0)
[2024-06-20 18:13] LABS: AST(SGOT) 20 U/L (15-37); Alanine Aminotransfer ALT/SGPT 37 U/L (13-56); Albumin, Serum 3.6 g/dL (3.2-5.0); Alkaline Phosphatase 125 U/L (45-117); Anion Gap 8 (5-15); BUN 15 mg/dL (7-18); BUN/Creat Ratio 18.2 RATIO (10-20); Calcium,Total 8.7 mg/dL (8.5-10.1); Chloride 109 mmol/L (98-107); Creatinine, Serum 0.82 mg/dL (0.55-1.02); EST Glomerular Filtration Rate 76 mL/min (>60); Est Glom Filt Rate - Afr Amer 92 mL/min (>60); Globulin 3.6 g/dL (2.2-4.2); Glucose 138 mg/dL (74-106); Potassium 3.8 mmol/L (3.5-5.1); Protein, Total 7.2 g/dL (6.4-8.2); Sodium Level 138 mmol/L (136-145)
== END | disposition home or self-care (01) ==
PROVIDERS: PCP Family Medicine; Referring Provider Internal Medicine Rheumatology; Visit Provider Internal Medicine Rheumatology
DX: M06.09 Rheumatoid arthritis without rheumatoid factor, multiple sites (principal); M79.7 Fibromyalgia; Z79.899 Other long term (current) drug therapy
CPT/HCPCS: 36415; 80053; 85025

== ENCOUNTER 2024-07-19 06:36 | Day surgery (SDC) | payer OTHER, SELFPAY ==
[2024-07-19] VITALS (8 sets, daily range): BP systolic 96–127; BP diastolic 43–92; PULSE 52–63; RESP 16–18; TEMP 36.2–36.7; O2SAT 92–97; BMI 22.1
--- NOTE | 2024-07-19 07:38 | PCM.PRE.AN2 ---
ASA Classification* ASA Classification ASA Classification: 3 Assessment & Plan Anesthesia* Anesthesia Assessment Anesthesia Assessment: Discussed sedation and/or anesthesia options, risks, benefits, and alternatives with patient/parents/legal guardian/POA. Questions invited. The patient/parents/legal guardian/POA seems to understand and agrees to proceed with anesthesia plan. Reviewed the physical assessment, medical history, allergy history and patient home medications list prior to surgery/procedure/anesthetic and documented any changes. Performed airway and anesthesia risk assessments. Anesthesia Type Anesthesia Type: MAC History Source History Obtained from:: Patient and Chart Anesthesia Focused Assessment* Temperature: 98.0 F Pulse Rate: 63 Blood Pressure: 127/49 Respiratory Rate: 16 Pulse Ox: 97 Oxygen Delivery Method: Room Air Airway Assessment Mouth opens: >3 cm Mallampati Score: I Teeth Condition: Dentures (Patient has full upper and lower dentures. They are out.) Neck Range of motion (ROM): Full ROM Focused Labs Anesthesia Preop lab: CBC WBC 5.7 K/mm3 (4.4-11.0) 06/20/24 15:56 06/20/24 RBC 3.68 M/mm3 (4.2-5.4) L 06/20/24 15:56 06/20/24 Hgb 11.3 g/dL (12.0-15.0) L 06/20/24 15:56 06/20/24 Hct 35.7 % (37-47) L 06/20/24 15:56 06/20/24 Plt Count 322 K/mm3 (150-450) 06/20/24 15:56 06/20/24 CHEMISTRY Potassium 3.8 mmol/L (3.5-5.1) 06/20/24 15:56 06/20/24 Sodium 138 mmol/L (136-145) 06/20/24 15:56 06/20/24 BUN 15 mg/dL (7-18) 06/20/24 15:56 06/20/24 Creatinine 0.82 mg/dL (0.55-1.02) 06/20/24 15:56 06/20/24 Glucose 138 mg/dL (74-106) H 06/20/24 15:56 06/20/24 TSH 1.14 uIU/mL (0.358-3.74) 12/27/22 10:42 12/27/22 COAG Pre-Assessment Diagnosis/Proposed Procedure Planned Operative Procedure(s): Cysto,Urethral Dilatation Anesthesia History 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 When Was Last Pacemaker Check QUESTION #4 FULL TEXT: You/Your Family Experience fever (hyperthermia) with Anesthesia Last Oral Intake Last Oral intake: Last Oral Intake NPO since 23:00 07/19/24 07:05 Meds taken in AM with sips of water? 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 - electrical panel builder Female Yes 07/05/24 10:33 HX of Motion Sickness No 07/05/24 10:33 HX of N/V After Surgery No 07/05/24 10:33 Non-Smoker No 07/05/24 10:33 Duration of Surgery greater No 07/05/24 10:33 than 60 minutes Number of Risk Factors 1 07/05/24 10:33 PONV Score Low Risk 07/05/24 10:33 Height & Weight Height & Weight: Anesthesia: Height & Weight Height 5 ft 4 in 07/19/24 07:05 Weight: 58.513 kg 07/19/24 07:05 Body Mass Index (BMI) 22.1 07/19/24 07:05 Respiratory Assessment Respiratory Assessment - electrical panel builder: Respiratory Tract Infection Hx - electrical panel builder Hx Respiratory Tract Infection No 07/05/24 10:33 STOP Sleep Apnea STOP Sleep Apnea - electrical panel builder: STOP Sleep Apnea - electrical panel builder Hx Hypertension Yes: CONTROLLED ON MED 07/05/24 10:33 Hx Sleep Apnea No 07/05/24 10:33 CPAP No 07/05/24 10:33 BIPAP Do you snore loudly (louder No 07/05/24 10:33 than talking or can be heard Do you often feel tired/ No 07/05/24 10:33 fatigued/ sleepy during daytime? Has anyone observed you stop No 07/05/24 10:33 breathing during sleep? STOP Results Negative 07/05/24 10:33 QUESTION #5 FULL TEXT : Do you snore loudly (louder than talking or can be heard through closed doors)? 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 Specify any problems Hx of Preganancy in last 3 No 07/05/24 10:33 Months Nurse Filling Out Transfusion VCHRISTIN 07/05/24 10:33 & Questions: Date: 07/05/24 07/05/24 10:33 Time: 10:35 07/05/24 10:33 Patient unable to answer at this time (ie. confused, unrespo /Reproduction History /Reproductive History - electrical panel builder: /Reproductive Hx- electrical panel builder Hx Now Gestational Age (in weeks): EDC: Hx Hx Para Hx Section SAB No 07/05/24 10:33 Active Medications Active Medications: Current Medications Generic Name Dose Route Start Last Admin Trade Name Freq PRN Reason Stop Dose Admin Cefazolin Sodium 2 gm/ N/A 20 mls @ 400 mls/hr 07/19/24 08:15 IV 07/19/24 08:17 PREOP ONE [facility] Medical History Hypertension Vapes nicotine containing substance Wears glasses Wears dentures Depression History of steroid therapy Fibromyalgia Sicca syndrome Rheumatoid arthritis Anemia Back pain Migraine headache H/O Sjogren's disease Difficulty swallowing Smoker Shortness of breath on exertion Leg cramps History of irregular heartbeat Underweight due to inadequate caloric intake history of tubal reconstruction History of ectopic Anxiety Heart murmur Chronic leg pain Chronic back pain Home Medications ?Medication ?Instructions ?Recorded ?Last Taken ?Type cholecalciferol (vitamin D3) 50 50 mcg PO QDAY #90 tabs 04/03/24 07/18/24 Rx mcg (2,000 unit) tablet azelastine 205.5 mcg (0.15 %) See Rx Instructions .Route 05/11/24 Unknown Rx nasal spray (Astepro Allergy) .COMPLEX #11 mL estradiol 1 mg tablet (Estrace) 1 mg PO QDAY 1 month #30 tabs 05/29/24 07/18/24 Rx metoprolol tartrate 25 mg tablet 25 mg PO QHS #90 TABLETS 06/19/24 07/18/24 Rx acetaminophen 325 mg capsule 1,000 mg PO QD-QID pain 07/04/24 07/18/24 History (Tylenol) alprazolam 1 mg tablet 1 mg PO TID free floating anxiety 07/04/24 07/18/24 Rx #120 tabs escitalopram oxalate 20 mg tablet 20 mg PO QDAY #30 tabs 07/04/24 07/18/24 Rx (Lexapro) folic acid 1 mg tablet 2 mg PO QDAY 07/04/24 07/18/24 History hydrocodone 7.5 mg-acetaminophen 1 tab PO Q8H PRN pain 30 days #30 07/04/24 07/16/24 Rx 325 mg tablet tabs methotrexate sodium 2.5 mg tablet 12.5 mg PO QWEEK 07/04/24 07/12/24 History prednisone 5 mg tablet 5 mg PO QDAY 07/04/24 07/18/24 History sucralfate 1 gram tablet (Carafate) 1 g PO TID 1 month #90 tabs 07/04/24 07/18/24 Rx melatonin 10 mg capsule 10 mg PO QHS 07/05/24 07/18/24 History gabapentin 800 mg tablet 800 mg PO TID #90 TABLETS 07/10/24 07/18/24 Rx pantoprazole 40 mg tablet,delayed 40 mg PO DAILY #30 tabs 07/10/24 07/18/24 Rx release Allergy/AdvReac Type Severity Reaction Status Date / Time buprenorphine Allergy Intermediate Rash Verified 07/19/24 06:56 buspirone Allergy Intermediate Rash Verified 07/19/24 06:56 duloxetine (From Cymbalta) Allergy Intermediate Rash Verified 07/19/24 06:56 gatifloxacin (From Tequin) Allergy Other Verified 07/19/24 06:56 venlafaxine (From Effexor) Allergy Other Verified 07/19/24 06:56 Family History Other Cancer Diabetes Hypertension Parkinsons disease Surgical History Hx of colonoscopy History of esophagogastroduodenoscopy (EGD) S/P genital surgery History of hysterectomy History of knee surgery History of appendectomy Social History Smoking Status: Current every day smoker tobacco type: e-cigarettes Tobacco: How many years used: 36 Electronic Cigarette Use: with nicotine alcohol intake: never substance use type: does not use what type of physical activity do you participate in: walking frequency: daily Review of Systems (Anesthesia) ROS Narrative System reviewed and no additional complaints, except as documented.
--- NOTE | 2024-07-19 08:09 | EX.PCM.DISCH ---
Discharge Instructions Diet Discharge Diet: No restrictions Activity Discharge Activity: Return to Normal Activity Dressing / Incision Call your doctor if you observe: Fever of 101 or Higher, Inability to urinate and Inability to have a bowel movement Follow Up Care Please Follow Up With: Moira Leos MD When: The office will call the patient to make follow-up arrangements. Test Results: Test results from this visit will be discussed in further detail at your follow-up appointment, if applicable. Discharge Plan Admission Attending Provider: Moira Leos Primary Care Provider: Humble Menchaca Instructions Print Language: Guinean Discharge Orders/Prescriptions Prescriptions: New valacyclovir 500 mg tablet 500 mg PO BID Qty: 14 0RF Continued acetaminophen [Tylenol] 325 mg capsule 1,000 mg PO QD-QID Rx Instructions: pt reports that she takes 1000mg five times daily cholecalciferol (vitamin D3) 50 mcg (2,000 unit) tablet 50 mcg PO QDAY Qty: 90 1RF prednisone 5 mg tablet 5 mg PO QDAY methotrexate sodium 2.5 mg tablet 12.5 mg PO QWEEK Rx Instructions: pt reports she is taking 6 tablets once per week folic acid 1 mg tablet 2 mg PO QDAY sucralfate [Carafate] 1 gram tablet 1 g PO TID 30 Days Qty: 90 1RF alprazolam 1 mg tablet 1 mg PO TID Qty: 120 1RF Rx Instructions: every 6 hrs as needed hydrocodone-acetaminophen 7.5-325 mg tablet 1 tab PO Q8H PRN (Reason: pain) 30 Days Qty: 30 0RF escitalopram oxalate [Lexapro] 20 mg tablet 20 mg PO QDAY Qty: 30 2RF melatonin 10 mg capsule 10 mg PO QHS azelastine [Astepro Allergy] 205.5 mcg (0.15 %) spray,non-aerosol See Rx Instructions .ROUTE .COMPLEX Qty: 11 2RF Dose Instruction: instill 1 spray into each nostril twice a day Rx Instructions: instill 1 spray into each nostril twice a day estradiol [Estrace] 1 mg tablet 1 mg PO QDAY 30 Days Qty: 30 2RF Rx Instructions: off 1 week; repeat cycle metoprolol tartrate 25 mg tablet 25 mg PO QHS Qty: 90 0RF gabapentin 800 mg tablet 800 mg PO TID Qty: 90 0RF pantoprazole 40 mg tablet,delayed release (DR/EC) 40 mg PO DAILY Qty: 30 1RF Rx Instructions: TAKE 1 TABLET BY MOUTH EVERY DAY Referrals / Follow Up: Humble Menchaca DO [Primary Care Provider] - Disposition Disposition (needs filled in before D/C Order can be placed): Home, Self Care
--- NOTE | 2024-07-19 08:11 | PCM.OPRPT ---
Operative Report (Standard) Operative Information Date of Procedure: 07/19/24 Pre-Operative Diagnosis: Weak stream, urethral stricture in a female Post-Operative Diagnosis: Same Surgery/Procedure Performed: Urethral dilation, cystoscopy employee development manager: No Type of Anesthesia: MAC RN Documented Start/Stop Times: Operation Date: 07/19/24 08:15 Case Time Into Pre-Op 07/19/24 06:39 Anesthesia Start 07/19/24 08:14 Into Room 07/19/24 08:14 Procedure Start 07/19/24 08:24 Procedure End 07/19/24 08:28 Anesthesia End 07/19/24 08:33 Out of Room 07/19/24 08:33 Into Recovery 07/19/24 08:35 Out of Recovery 07/19/24 08:57 Procedure Start Time: 08:24 Procedure Stop Time: 08:28 Select all DRAINS/GRAFTS/IMPLANTS that apply: None Estimated Blood Loss: <5cc Specimen collected: No Description of surgery: The patient is a 59-year-old female with issues emptying her bladder and found to have a urethral meatus narrowing on exam in the office. She elected to proceed with dilation and cystoscopy under anesthesia. Of note, the patient reports today that she has had a rash on her left inguinal area that had scabbed over and she cleansed and some of the areas were unroofed. She has never had an HSV infection that she is aware of. The rash is nontender, no burning, pain or itching. We discussed a blood drawl for further evaluation and treatment with antiviral medications. She will follow-up with her primary care physician. Informed consent was obtained. The patient was taken to the operating room placed on the operating room table. Anesthesia monitored the head, neck, airway, IV access and vital signs throughout the case. Once anesthesia was appropriate administered she was placed into dorsolithotomy position was prepped and draped in usual sterile fashion. The urethra was dilated from [address] to 30 [place] using sequential female urethral sounds. At this time the cystoscope was inserted through the urethra under direct visualization into the urinary bladder. The bladder mucosa was visualized in its entirety revealing no evidence of mass, erythema, ulceration or foreign body. Her bladder was then emptied and the cystoscope was removed. She was awakened and taken to the recovery room in good condition. There were no complications during this procedure. Surgical Findings: Urethral stricture dilated to 30 [place] Complications Complications: No Admit VTE Documentation VTE Present on Admission: Yes VTE Mechan Device Prophylaxis: SCD's VTE Pharm Prophylaxis ordered?: No Reason prophylaxis not ordered: Treatment Not Indicated
[2024-07-19] MEDS: Cefazolin 2 GM in Syringe IV (08:30)
--- NOTE | 2024-07-19 08:40 | PCM.POST.ANE ---
Anesthesia: Postop Eval I Current Vital Signs Temperature: 97.2 F Pulse Rate: 62 Blood Pressure: 103/43 Respiratory Rate: 16 Pulse Ox: 95 Oxygen Delivery Method: Room Air Assessment Airway patent: Yes Spontaneous unlabored respirations: Yes Mental status: Awake and Calm nausea: No Vomiting: No Anesthesia Complication: No Fluid Hydration Crystalloid volume administer (ml): 10 Total IV fluid infused: 10 Progress Note Anesthesia document: Postop Eval 1 completed: Yes
--- NOTE | 2024-07-19 12:39 | POSTOPAN2_ITS ---
Anesthesia Postop Eval I Sum Postop Eval Completion status Anesthesia document: Postop Eval 1 completed: Yes Anesthesia Postop Eval I Summary Anesthesia Postop Eval I Summary: Anesthesia Postop Eval I: Assessment Summary Airway patent Yes 07/19/24 08:41 HIV [email or web address] Spontaneous unlabored Yes 07/19/24 08:41 HIV COUNSELORSTANTON respirations Mental status Awake,Calm 07/19/24 08:41 HIV [email or web address].IAN nausea No 07/19/24 08:41 HIV COUNSELOR.IAN Vomiting No 07/19/24 08:41 HIV COUNSELORSTANTON Anesthesia Postop Eval I: Fluid Summary Crystalloid volume administer 10 07/19/24 08:41 HIV [email or web address].IAN (ml) Colloids volume administered ( ml) Blood Product volume administered (ml) Total IV fluid infused 10 07/19/24 08:41 HIV COUNSELORSTANTON Anesthesia Postop Eval I: Summary Notes Anesthesia Complication No 07/19/24 08:41 HARSHIL Anesthesia Complication Comment: Post-operative progress note Anesthesia: Postop Eval II Evaluation Mental status: Awake and Calm Pain Level: 0 nausea: No Vomiting: No Complications Anesthesia Complication: No
--- NOTE | 2024-07-19 12:39 | PCM.POSTANE2 ---
Anesthesia Postop Eval I Sum Postop Eval Completion status Anesthesia document: Postop Eval 1 completed: Yes Anesthesia Postop Eval I Summary Anesthesia Postop Eval I Summary: Anesthesia Postop Eval I: Assessment Summary Airway patent Yes 07/19/24 08:41 TOOL DIE [email or web address] Spontaneous unlabored Yes 07/19/24 08:41 TOOL DIE MAKERSTANTON respirations Mental status Awake,Calm 07/19/24 08:41 TOOL DIE [email or web address].IAN nausea No 07/19/24 08:41 TOOL DIE [email or web address].IAN Vomiting No 07/19/24 08:41 TOOL DIE MAKERSTANTON Anesthesia Postop Eval I: Fluid Summary Crystalloid volume administer 10 07/19/24 08:41 TOOL DIE [email or web address].IAN (ml) Colloids volume administered ( ml) Blood Product volume administered (ml) Total IV fluid infused 10 07/19/24 08:41 TOOL DIE MAKERSTANTON Anesthesia Postop Eval I: Summary Notes Anesthesia Complication No 07/19/24 08:41 HARSHIL Anesthesia Complication Comment: Post-operative progress note Anesthesia: Postop Eval II Evaluation Mental status: Awake and Calm Pain Level: 0 nausea: No Vomiting: No Complications Anesthesia Complication: No
[2024-07-20 12:08] LABS: V-Zoster Virus Acute IgM < 0.91 index (0.00-0.90)
== END 2024-07-19 09:30 | disposition home or self-care (01) ==
LOC: SDC 06:36 → AC 06:38
PROVIDERS: PCP Family Medicine; Referring Provider Urology; Visit Provider Urology
PROC: 0T7D8ZZ Dilation of Urethra, Via Natural or Artificial Opening Endoscopic (ICD-10-PCS; CPT 52281; principal; 2024-07-19 08:05)
DX: N35.92 Unspecified urethral stricture, female (principal); N39.46 Mixed incontinence; R39.11 Hesitancy of micturition; F32.A Depression, unspecified; F41.9 Anxiety disorder, unspecified; I10 Essential (primary) hypertension; F17.200 Nicotine dependence, unspecified, uncomplicated; Z79.899 Other long term (current) drug therapy
CPT/HCPCS: 52281; 00910; 86695; 86696; 86787; A4216; J2405

== ENCOUNTER → 2024-08-08 | Outpatient (CLI) | payer OTHER, SELFPAY ==
[2024-08-08 17:52] LABS: Absolute Lymphocyte Count 1.22 X10^3/uL (0.83-4.51); Basophil# 0.02 X10^3/uL; Basophil% 0.2 % (0-1); Hematocrit 36.2 % (37-47); Hemoglobin 11.9 g/dL (12.0-15.0); Lymphocyte # 1.22 X10^3/ul (0.83-4.51); Lymphocyte % 12.8 % (19-41); Mean Corp Hgb Conc 32.9 g/dL (32-36); Mean Corpuscular Hgb 32.6 pg (27.0-32.0); Mean Corpuscular Volume 99.2 fL (81-99); Mean Platelet Vol. 10.6 fl (6.2-12.0); Monocyte# 0.22 X10^3/uL; Monocyte% 2.3 % (0-10); NRBC Flagged by Analyzer 0 % (0-5); Neutrophil # 8.04 X10^3/uL (2.7-7.7); Neutrophil % 84.3 % (47-70); Platelet Count 349 K/mm3 (150-450); RBC Distribution Width CV 14.6 % (11.6-14.6); RBC Distribution Width SD 53.1 fl (35.1-43.9); Red Blood Count 3.65 M/mm3 (4.2-5.4); White Blood Count 9.5 K/mm3 (4.4-11.0)
[2024-08-08 19:06] LABS: ALB/GLOB Ratio 2.4 RATIO (0.9-2.4); AST(SGOT) 19 U/L (<=31); Alanine Aminotransfer ALT/SGPT 14 U/L (<=34); Albumin, Serum 4.2 g/dL (3.5-5.0); Alkaline Phosphatase 92 U/L (35-104); Anion Gap 14 (5-15); BUN 23 mg/dL (4-19); BUN/Creat Ratio 27.1 RATIO (10-20); Calcium,Total 8.6 mg/dL (7.6-11.0); Carbon Dioxide 22.1 mmol/L (21.0-32.0); Chloride 102 mmol/L (98-108); Creatinine, Serum 0.83 mg/dL (0.70-1.20); EST Glomerular Filtration Rate 82 (>60); Globulin 1.7 g/dL (2.2-4.2); Glucose 115 mg/dL (70-99); Potassium 4.2 mmol/L (3.3-5.1); Protein, Total 5.9 g/dL (5.9-8.4); Sodium Level 138 mmol/L (133-145)
== END | disposition home or self-care (01) ==
LOC: MTLAB 15:50
PROVIDERS: PCP Family Medicine; Referring Provider Internal Medicine Rheumatology; Visit Provider Internal Medicine Rheumatology
DX: M06.09 Rheumatoid arthritis without rheumatoid factor, multiple sites (principal); M79.7 Fibromyalgia; R76.8 Other specified abnormal immunological findings in serum; Z79.899 Other long term (current) drug therapy
CPT/HCPCS: 36415; 80053; 85025

== ENCOUNTER → 2024-08-15 | Outpatient (CLI) | payer OTHER, SELFPAY | END | disposition home or self-care (01) | PROVIDERS: PCP Family Medicine; Referring Provider Family Medicine; Visit Provider Family Medicine | DX: J06.9 Acute upper respiratory infection, unspecified (principal) | CPT/HCPCS: 87631 ==

== ENCOUNTER → 2025-04-12 | Outpatient (CLI) | payer MEDICAID, SELFPAY ==
--- NOTE | 2025-04-12 11:19 | MRI_ITS ---
PROCEDURE: SPINE LUMBAR (ROUTINE) 04/12/2025 REASON FOR EXAM: PROGRESSIVE RADICULAR PAIN/WEAKNESS TO BILAT LEGS TECHNIQUE: Procedure Code: MRISPL Modality: MR Procedure: SPINE LUMBAR (ROUTINE) COMPARISON: X-ray lumbar spine 03/26/2025. FINDINGS: Vertebrae: Preserved in height and signal. Alignment: Normal. Conus Medullaris: Unremarkable. L1-2: Unremarkable. L2-3: Unremarkable. L3-4: Small disc bulge. Facet joint arthropathy with ligamentum flavum hypertrophy. No foraminal or canal stenosis. L4-5: Small disc bulge. Facet joints arthropathy. No significant foraminal or canal stenosis. L5-S1: Small disc bulge. No significant foraminal or canal stenosis. Sacrum: Unremarkable. MRI/Spine Lumbar (Routine) IMPRESSION: Minimal degenerative changes without significant foraminal or canal stenosis. Reading Location: [id number]
--- OUTSIDE RECORDS SUMMARY | 2025-04-12 11:25 | XMS RPT_ITS | CCD ---
Author Organization [facility] Care Team Providers Care Driller'S Offsider Name Role Phone CHERYLE BABCOCK DO Primary Care Physician Dr. Cheryle Babcock Primary Care Provider [phone] Dr. Cheryle Babcock Attending Provider Dr. Cheryle Babcock Referring Provider BRENDA Sethi Attending Provider Dr. Cheryle Pardo Primary Care Provider [phone] Dr. Cheryle Babcock Attending Provider Dr. Cheryle Babcock Referring Provider Dr. Angélica Garcia Attending Provider [phone] Dr. Cheryle Babcock Primary Care Provider [phone] Dr. Cheryle Babcock Referring Provider BRENDA Sethi Attending Provider Dr. Cheryle Pardo Attending Provider CHERYLE BABCOCK DO Primary Care Physician Dr. Cheryle Babcock Primary Care Provider [phone] Dr. Cheryle Babcock Attending Provider Dr. Cheryle Babcock Referring Provider Dr. Gladys Pichardo Attending Provider [phone] Dr. Cheryle Babcock Primary Care Provider [phone] [phone] Dr. Cheryle Babcock Referring Provider Dr. Cheryle Babcock Attending Provider Dr. Cheryle Babcock Primary Care Provider [phone] Dr. Cheryle Babcock Attending Provider [phone] Dr. Cheryle Babcock Referring Provider [phone] Dr. Angélica Garcia Attending Provider BRENDA Parish Attending Provider [phone] Dr. Angélica Garcia Other Provider Dr. Cheryle Babcock Primary Care Provider [phone] Dr. Cheryle Babcock Referring Provider [phone] Dr. Cheryle Babcock Attending Provider [phone] DREW SHELBY, DR CARDENAS Attending Unavailabl e BROWN DO, CHERYLE R Primary Care Unavailable JACKELINE SHELBY, SANDRA Bautista Attending Unavail able BROWN DO, CHERYLE R Primary Care Unavailable MELI GONZALEZ DO Attending Unavailable BROWN DO, CHERYLE R Primary Care Unavailable KVNG SWAIN DO Attending Unavailable BROWN DO, CHERYLE R Primary Care Unavailable JACKELINE SHELBY, SANDRA Bautista Attending Unavail able BROWN DO, CHERYLE R Primary Care Unavailable DREW SHELBY, DR CARDENAS Attending Unavailabl e BROWN DO, CHERYLE R Primary Care Unavailable DREW SHELBY, DR CARDENAS Attending Unavailabl e BROWN DO, CHERYLE R Primary Care Unavailable Unavailable Primary Care Provider Unavailabl e Brown DO, Cheryle R Primary Care Provider Brown DO, Cheryle R Primary Care Provider NARAYAN LEOS MD Attending Unavailable BROWN DO, CHERYLE R Primary Care Unavailable NICOLE MINOR PA-C Attending Unavailab le BROWN DO, CHERYLE R Primary Care Unavailable BROWN DO, CHERYLE R Primary Care Unavailable YUNIER FLORES, DR AYDEN Christianson Attending Unavailabl e BROWN, CHERYLE R Primary Care Unavailable BROWN, CHERYLE R Primary Care Unavailable MILYNICOLE Attending Unavailable BROWN, CHERYLE R Primary Care Unavailable MILY, NICOLE Referring Unavailable BROWN, CHERYLE R Primary Care Unavailable MILY, NICOLE Referring Unavailable BROWN, CHERYLE R Primary Care Unavailable MILY, NICOLE Referring Unavailable BROWN, CHERYLE R Primary Care Unavailable JESSICA BARROS Attending Unavailable LOUISE CONTRERAS Referring Unavailable LOUISE CONTRERAS Attending Unavailable SELF Referring Unavailable LOUISE CONTRERAS Referring Unavailable BROWN, CHERYLE R Primary Care Unavailable BROWN, CHERYLE R Primary Care Unavailable Narayan Leos Attending Unavailable Brown, Cheryle R Primary Care Unavailable Narayan Leos Referring Unavailable Brown, Cheryle R Primary Care Unavailable Brown, Cheryle R Referring Unavailable Brown, Cheryle R Attending Unavailable Brown, Cheryle R Attending Unavailable Brown, Cheryle R Referring Unavailable Brown, Cheryle R Primary Care Unavailable Brown, Cheryle R Primary Care Unavailable Codey Saunders Referring Unavailable Codey Saunders Attending Unavailable Francisco J Guzman Attending Unavailable Brown, Cheryle R Primary Care Unavailable Brown, Cheryle R Primary Care Unavailable Narayan Leos Referring Unavailable Narayan Leos Attending Unavailable Digna Russell Attending Unavailable Brown, Cheryle R Primary Care Unavailable Vellanki, Digna Referring Unavailable Digna Russell Attending Unavailable Brown, Cheryle R Primary Care Unavailable Janis Russellma Referring Unavailable Brown, Cheryle R Referring Unavailable Marcos Martell Attending Unavailable Brown, Cheryle R Primary Care Unavailable Brown, Cheryle R Primary Care Unavailable Brown, Cheryle R Attending Unavailable Brown, Cheryle R Referring Unavailable Marcos Martell Referring Unavailable Marcos Martell Attending Unavailable Brown, Cheryle R Primary Care Unavailable Brown, Cheryle R Primary Care Unavailable Nicole Minor Referring Unavailable Nicole Minor Attending Unavailable Brown, Cheryle R Attending Unavailable Brown, Cheryle R Primary Care Unavailable Brown, Cheryle R Referring Unavailable Rain Etienne Attending Unavailable Brown, Cheryle R Primary Care Unavailable Brown, Cheryle R Referring Unavailable Brown, Cheryle R Primary Care Unavailable Brown, Cheryle R Referring Unavailable Brown, Cheryle R Attending Unavailable Brown, Cheryle R Primary Care Unavailable Brown, Cheryle R Referring Unavailable Sekou Parish Attending Unavailable Brown, Cheryle R Primary Care Unavailable Brown, Cheryle R Referring Unavailable Brown, Cheryle R Attending Unavailable Brown, Cheryle R Primary Care Unavailable Chon Quiros Attending Unavailable Digna Russell Attending Unavailable Brown, Cheryle R Primary Care Unavailable Vellanki, Digna Referring Unavailable Brown, Cheryle R Attending Unavailable Brown, Cheryle R Primary Care Unavailable Brown, Cheryle R Referring Unavailable Brown, Cheryle R Attending Unavailable Brown, Cheryle R Primary Care Unavailable Brown, Cheryle R Referring Unavailable Allergies Allergy Classification Reported Allergen(s) Allergy Type Date of Onset Reaction(s) Facility (20 sources) gatifloxacin; Translations: [gatifloxacin] Drug Allergy 09-21-2021 Unknown [facility] (20 sources) venlafaxine; Translations: [venlafaxine] Drug Allergy 09-21-2021 Unknown [facility] (14 sources) Diclofenac-Silicon e, Adhesive; Translations: [DICLOFENAC-SILICO NE, ADHESIVE] Drug Allergy 03-13-2024 [facility] (3 sources) DULoxetine; Translations: [duloxetine] Drug Allergy 02-20-2025 [facility] (1 source) Buprenorphine Drug Allergy 03-26-2025 [facility] (1 source) busPIRone Drug Allergy 03-26-2025 [facility] (1 source) DULoxetine Drug Allergy 03-26-2025 [facility] (1 source) gatifloxacin Drug Allergy 03-26-2025 [facility] (1 source) venlafaxine Drug Allergy 03-26-2025 [facility] Medications Current Medications Medication Drug Class(es) Dates Sig (Normalized) Sig (Original) acetaminophen 325 mg oral capsule (10 sources) Start: 03-25-2020 take 1 capsule by mouth once Acetaminophen (Tylenol) 325 mg capsule Active 325 MG PO ONCE March 25, 2020 12:00am acetaminophen 325 mg / HYDROcodone bitartrate 7.5 mg oral tablet (20 sources) Opioid Agonist Start: 12-20-2024 take 1 tablet by mouth every six hours as needed HYDROcodone-Acetami nophen (NORCO) 7.5-325 mg per tablet Take 1 tablet by mouth every 6 hours as needed. 12/20/2024 Active Start: 03-24-2023 End: 04-03-2023 take 1 tablet by mouth every eight hours Hydrocodone-Acetaminophen Discontinued 1 TABLET PO Q8H 30 March 24, 2023 April 03, 2023 12:05am Start: 03-02-2023 End: 03-12-2023 take 1 tablet by mouth every eight hours Hydrocodone-Acetaminophen Discontinued 1 TABLET PO Q8H 30 March 02, 2023 March 11, 2023 11:37pm Start: 02-09-2023 End: 02-19-2023 take 1 tablet by mouth every six hours Hydrocodone-Acetaminophen Discontinued 1 TABLET PO EVERY 6 HOURS 14 03February 09, 2023 February 18, 2023 11:33pm Start: 01-13-2023 End: 01-26-2023 take 1 tablet by mouth every eight hours Hydrocodone-Acetaminophen Discontinued 1 TABLET PO Q8H 02 12January 19, 2023 January 25, 2023 11:04pm Start: 02-11-2022 End: 02-14-2022 take 1 tablet by mouth every six hours Hydrocodone-Acetaminophen Discontinued 1 TABLET PO EVERY 6 HOURS 04 17February 11, 2022 February 11, 2022 2:48pm Start: 04-16-2021 End: 08-18-2021 take 1 tablet by mouth every six hours Hydrocodone-Acetaminophen Discontinued 1 TABLET PO EVERY 6 HOURS April 16, 2021 12:00am August 18, 2021 12:09pm Start: 04-12-2021 End: 04-15-2021 take 1 tablet by mouth every six hours Central 325- 5 mg oral tablet Dose = 1 tab(s), Oral, q6h, # 15 tab(s), 0 Refill(s), Contusion of rib, 50 Start Date: 04/12/21 Stop Date: 04/15/21 Status: Ordered Medication Dispense Status: Completed Quantity: 15.0 Unit: tab(s) Total Allowed Fills: 1 Fills Dispensed: 0 Indications: Contusion of thorax, unspecified, initial encounter; Start: 12-05-2019 End: 12-08-2019 take 1 tablet by mouth every six hours as needed for pain Central 325- 5 mg oral tablet Dose = 1 tab(s), Oral, q6h, PRN as needed for pain, # 12 tab(s), 0 Refill(s), Spasm of back muscles, 50 Start Date: 12/05/19 Stop Date: 12/08/19 Status: Ordered Medication Dispense Status: Completed Quantity: 12.0 Unit: tab(s) Total Allowed Fills: 1 Fills Dispensed: 0 Indications: Muscle spasm of back; acetaminophen 325 mg / oxyCODONE hydrochloride 5 mg oral tablet (1 source) Opioid Agonist Start: 05-14-2024 End: 05-17-2024 take 1 tablet by mouth every six hours as needed for pain Percocet 5 mg-325 mg oral tablet Dose = 1 tab(s), Oral, q6h, PRN for pain, X 3 day(s), # 10 tab(s), 0 Refill(s), Back pain, 62 Start Date: 05/14/24 Stop Date: 05/17/24 Status: Ordered Quantity: 10.0 Unit: tab(s) Repeat number: 1 Indication: Dorsalgia, unspecified ALPRAZolam 1 mg oral tablet (20 sources) Benzodiazepine Start: 02-20-2024 ALPRAZolam (XA NAX) 1 mg tablet TAKE 1 MG ORALLY 4 TIMES A DAY FOR FREE FLOATING ANXIETY EVERY 6 HRS NEEDED 02/20/2024 Active Start: 04-16-2021 End: 06-07-2023 take 1 mg by mouth three to four times daily Alprazolam Discontinued 1 MG PO 3 to 4 times per day 120 March 16, 2023 7:12am April 21, 2023 3:32pm Start: 03-25-2020 End: 02-17-2021 take 1 mg by mouth at bedtime Alprazolam Discontinued 1 MG PO AT BEDTIME October 21, 2020 2:07pm December 18, 2020 10:22am Start: 08-31-2018 End: 09-28-2018 Xanax 0.5 mg oral tablet Dos e : 0.5 mg = 1 tab(s), Oral, TID, PRN for anxiety Start Date: 08/31/18 Status: Ordered Medication Dispense Status: Completed Total Allowed Fills: 1 Fills Dispensed: 0 Start: 08-31-2018 End: 02-03-2022 take 1 tablet by mouth three times daily Alprazolam (Xanax) 0.5 mg tablet Discontinued 0.5 MG PO THREE TIMES A DAY 90 January 14, 2022 3:51pm February 03, 2022 1:13pm Start: 07-05-2018 End: 09-05-2018 Alprazolam (Xanax) 0.5 mg ta blet Discontinued 0.5 MG PO 2 to 3 times per day 60 August 31, 2018 1:44pm September 05, 2018 3:37pm amoxicillin 875 mg / clavulanate 125 mg oral tablet (2 sources) Penicillin-class Antibacterial Start: 05-07-2024 End: 05-14-2024 take 1 tablet by mouth twice daily amoxicillin-clavulanate potassium (AUGMENTIN) 875-125 mg per tablet Indications: Bacterial sinusitis Take 1 tablet by mouth two times a day for 7 days. 14 tablet 05/07/2024 05/14/2024 Active cyclobenzaprine hydrochloride 5 mg oral tablet (12 sources) Muscle Relaxant Start: 09-14-2023 End: 09-19-2023 cyclobenzaprine 10 mg oral tablet Dose : 10 mg = 1 tab(s), Oral, TID, X 5 day(s), # 15 tab(s), 0 Refill(s), 09/19/23 5:14:00 PM EDT Start Date: 09/14/23 Stop Date: 09/19/23 Status: Ordered Start: 12-05-2019 End: 05-21-2024 take 1 tablet by mouth three times daily Flexeril use cyclobenzaprine Dose : 5 mg =, Oral, TID, # 20 tab(s), 0 Refill(s), Spasm of back muscles Start Date: 12/05/19 Status: Ordered Medication Dispense Status: Completed Quantity: 20.0 Unit: tab(s) Total Allowed Fills: 1 Fills Dispensed: 0 Indications: Muscle spasm of back; diclofenac sodium 0.01 mg/mg topical gel (2 sources) Nonsteroidal Anti-inflammatory Drug Start: 05-14-2024 apply 1 dose topically four times daily diclofenac 1% topical gel Apply 1 renu, Topical, QID, # 100 gram(s), 0 Refill(s), Gel, 62 Start Date: 05/14/24 Status: Ordered Medication Dispense Status: Completed Quantity: 100.0 Unit: g Total Allowed Fills: 1 Fills Dispensed: 0 diphenhydrAMINE hydrochloride 20 mg/ml topical cream (1 source) Histamine-1 Receptor Antagonist Start: 12-06-2023 End: 12-11-2023 apply 1 dose topically once daily as needed diphenhydrAMINE 2% topical cream Dose = 1 renu, Topical, qDay, PRN as needed for itching, to irritated skin of Left arm, X 5 day(s), # 15 gram(s), 0 Refill(s) Start Date: 12/06/23 Stop Date: 12/11/23 Status: Ordered erythromycin 0.005 mg/mg ophthalmic ointment (2 sources) Macrolide, Macrolide Antimicrobial Start: 04-05-2024 End: 04-12-2024 erythromycin (ROMYCIN) 5 mg/gram (0.5 %) ophthalmic ointment Use 1 application in the right eye four times daily for 7 days. 3.5 g 04/05/2024 04/12/2024 Active escitalopram 20 mg oral tablet (20 sources) Serotonin Reuptake Inhibitor Start: 03-22-2016 End: 09-16-2020 take 1 tablet by mouth once daily escitalopram oxalate (LEXAPRO) 20 mg tablet Take 1 tablet by mouth once daily. 09/06/2024 Active estradiol 1 mg oral tablet (20 sources) Estrogen Start: 09-20-2019 End: 09-16-2020 estradiol 1 mg oral tablet Dose : 1 mg = 1 tab(s), Oral, qDay Start Date: 12/05/19 Status: Ordered Medication Dispense Status: Completed Total Allowed Fills: 1 Fills Dispensed: 0 Start: 05-22-2019 End: 09-20-2019 take 1 tablet by mouth once daily Estradiol (Estrace) 0.5 mg tablet Discontinued 0.5 MG PO DAILY May 22, 2019 12:00am September 20, 2019 8:36am 1 ml etanercept 50 mg/ml auto-injector (3 sources) Tumor Necrosis Factor Patel Start: 04-11-2023 Etanercept (Enbrel Sureclick) 50 mg/mL (1 mL) pen injector Active 50 MG SC WE April 11, 2023 12:00am Fezolinetant (2 sources) Start: 05-05-2023 take 1 tablet by mouth once daily Fezolinetant (Veozah) 45 mg tablet Active 45 MG PO DAILY May 05, 2023 12:00am folic acid 1 mg oral tablet (6 sources) Start: 04-11-2023 End: 04-21-2023 take 2 mg by mouth once daily Folic Acid Active 2 MG PO DAILY April 21, 2023 2:03pm gabapentin 800 mg oral tablet (20 sources) Anti-epileptic Agent Start: 08-27-2014 End: 05-05-2023 gabapentin 800 mg oral tablet Dose : 800 mg = 1 tab(s), Oral, BID, 0 Refill(s) Start Date: 08/27/14 Status: Ordered Medication Dispense Status: Completed Total Allowed Fills: 1 Fills Dispensed: 0 Start: 08-27-2014 End: 11-22-2018 take 800 mg by mouth twice daily Gabapentin Discontinued 800 MG PO TWICE A DAY 60 November 17, 2018 12:41pm November 22, 2018 7:55am lidocaine 0.05 mg/mg medicated patch (9 sources) Antiarrhythmic, Amide Local Anesthetic Start: 12-09-2022 Lidoderm 5% topical film Apply 1 patch(es), Topical, qDay, # 7 patch(es), 0 Refill(s), 50 Start Date: 12/09/22 Status: Ordered Medication Dispense Status: Completed Quantity: 7.0 Unit: patch(es) Total Allowed Fills: 1 Fills Dispensed: 0 methotrexate 2.5 mg oral tablet (3 sources) Folate Analog Metabolic Inhibitor Start: 04-11-2023 Methotrexate Sodium Active 15 MG PO FR April 11, 2023 12:00am methylPREDNISolone Dosepak 4 mg tablet (1 source) Start: 12-09-2022 End: 12-15-2022 methylPREDNISolone Dosepak 4 mg tablet 1 packet(s), Oral, qDay, as directed on package labeling, X 6 day(s), # 21 tab(s), 0 Refill(s), 12/15/22 12:49:00 PM EDT Start Date: 12/09/22 Stop Date: 12/15/22 Status: Ordered metoprolol tartrate 25 mg oral tablet (18 sources) beta-Adrenergic Patel Start: 12-27-2023 take 1 tablet by mouth once daily at bedtime metoprolol tartrate, short acting, (LOPRESSOR) 25 mg tablet Take 25 mg by mouth daily at bedtime. 12/27/2023 Active Start: 04-21-2023 End: 06-07-2023 take 25 mg by mouth once daily at bedtime Metoprolol Tartrate Active 25 MG PO AT BEDTIME June 07, 2023 8:22am start QD x 2 weeks naproxen 250 mg oral tablet (11 sources) Nonsteroidal Anti-inflammatory Drug Start: 04-18-2023 End: 04-25-2023 naproxen 250 mg oral tablet Dose : 250 mg = 1 tab(s), Oral, BID, X 7 day(s), # 14 tab(s), 0 Refill(s), 04/25/23 6:52:00 PM EST Start Date: 04/18/23 Stop Date: 04/25/23 Status: Ordered Start: 03-22-2016 End: 07-05-2018 take 500 mg by mouth twice daily as needed Naproxen Discontinued 500 MG PO TWICE DAILY NEEDED March 22, 2016 12:00am July 05, 2018 1:18pm nystatin [id number] unt/ml oral suspension (2 sources) Polyene Antifungal Start: 03-27-2024 End: 04-03-2024 nystatin (MYCOSTATIN) 100,000 unit/mL suspension Take 5 mL by mouth four times daily for 7 days. 1tsp swish in mouth for several minutes, then swallow (or expectorate) 4 times daily until gone. 140 mL 03/27/2024 04/03/2024 Active ondansetron 4 mg disintegrating oral tablet (20 sources) Serotonin-3 Receptor Antagonist Start: 05-07-2024 take 1 tablet by mouth every eight hours as needed for nausea ondansetron orally disintegrating (ZOFRAN ODT) 4 mg disintegrating tablet Indications: Nausea and vomiting, unspecified vomiting type Take 1 tablet by mouth every 8 hours as needed for nausea/vomiting. 12 tablet 05/07/2024 Active Start: 01-11-2022 End: 04-26-2023 take 4 mg by mouth every eight hours Ondansetron Discontinued 4 MG PO Q8H January 08, 2023 9:02am April 26, 2023 4:37pm Start: 04-07-2021 End: 08-18-2021 take 4 mg by mouth every eight hours Ondansetron Discontinued 4 MG PO Q8H April 16, 2021 3:10pm June 18, 2021 9:08am pantoprazole 40 mg delayed release oral tablet (20 sources) Proton Pump Inhibitor Start: 09-13-2018 End: 04-27-2023 pantoprazole 40 mg oral enteric coated tablet Dose : 40 mg = 1 tab(s), Oral, qDay Start Date: 12/05/19 Status: Ordered Medication Dispense Status: Completed Total Allowed Fills: 1 Fills Dispensed: 0 predniSONE 5 mg oral tablet (12 sources) Start: 12-08-2024 take 1 tablet by mouth once daily in the morning predniSONE (DELTASONE) 5 mg tablet Take 5 mg by mouth every morning. 12/08/2024 Active Start: 04-21-2023 take 5 mg by mouth once daily Prednisone Active 5 MG PO DAILY April 21, 2023 2:05pm Start: 02-09-2023 End: 04-21-2023 Prednisone Discontinued MG P O February 08, 2023 11:00pm April 21, 2023 2:05pm sucralfate 1000 mg oral tablet (20 sources) Aluminum Complex Start: 04-11-2023 take 1 g by mouth once at bedtime Sucralfate Active 1 GM PO before meals and at bedtime April 11, 2023 12:00am Take an hour before meals and at bedtime Start: 11-03-2021 End: 04-27-2022 take 1 g by mouth 1 hour(s) before bedtime Sucralfate Discontinued 1 GM PO before meals and at bedtime 56 November 02, 2021 11:00pm April 27, 2022 3:31pm Take 1 hour before meals and at bedtime Start: 12-05-2019 Carafate 1 g o ral tablet Dose : 1 g = 1 tab(s), Oral, achs Start Date: 12/05/19 Status: Ordered Medication Dispense Status: Completed Total Allowed Fills: 1 Fills Dispensed: 0 Start: 09-13-2018 End: 09-16-2020 take 1 g by mouth 1 hour(s) before bedtime Sucralfate Discontinued 1 GM PO BEFORE MEALS AND AT BEDTIME 120 January 19, 2020 1:47pm September 16, 2020 10:05am Take 1 hour before meals and at bedtime tetracycline hydrochloride 500 mg oral capsule (5 sources) Tetracycline-class Antimicrobial Start: 12-17-2024 take 1 capsule by mouth every twelve hours tetracycline (SUMYCIN) 500 mg cap Take 1 capsule by mouth every 12 hours. 12/17/2024 Active Completed/Discontinued Medications Medication Drug Class(es) Dates Sig (Normalized) Sig (Original) acetaminophen 325 mg / butalbital 50 mg / caffeine 40 mg oral tablet (20 sources) Barbiturate, Central Nervous System Stimulant, Methylxanthine Start: 07-20-2022 End: 06-07-2023 take 1 tablet by mouth every six hours Butalbital-Acetami nophen-Caff Discontinued 1 TABLET PO EVERY 6 HOURS March 23, 2023 12:28pm June 07, 2023 8:22am amitriptyline hydrochloride 25 mg oral tablet (10 sources) Tricyclic Antidepressant Start: 07-05-2018 End: 09-05-2018 take 25 mg by mouth once daily Amitriptyline Discontinued 25 MG PO DAILY July 05, 2018 12:00am September 05, 2018 3:10pm amoxicillin 500 mg oral capsule (10 sources) Penicillin-class Antibacterial Start: 07-02-2020 End: 09-16-2020 take 500 mg by mouth three times daily Amoxicillin Discontinued 500 MG PO THREE TIMES A DAY July 02, 2020 12:00am September 16, 2020 10:02am atomoxetine 40 mg oral capsule (10 sources) Norepinephrine Reuptake Inhibitor Start: 06-05-2020 End: 09-16-2020 take 1 capsule by mouth once daily Atomoxetine (Strattera) 40 mg capsule Discontinued 40 MG PO DAILY June 05, 2020 12:00am September 16, 2020 10:03am azelastine hydrochloride 0.206 mg/actuat metered dose nasal spray (20 sources) Histamine-1 Receptor Antagonist Start: 06-18-2021 End: 06-21-2023 take 1 spray(s) nasal route twice daily Azelastine (Astepro Allergy) 205.5 mcg (0.15 %) spray,non-aerosol Discontinued 0 .ROUTE .COMPLEX March 15, 2023 10:48am May 05, 2023 3:05pm instill 1 spray into each nostril twice a day black kohosh (10 sources) Start: 09-16-2020 End: 08-18-2021 black kohosh Discontinued PO September 16, 2020 11:03am August 18, 2021 1:08pm Start: 09-16-2020 End: 08-18-2021 black kohosh Discontinued PO September 15, 2020 11:00pm August 18, 2021 12:08pm Start: 09-16-2020 End: 08-18-2021 black kohosh Discontinued PO September 16, 2020 12:00am August 18, 2021 1:08pm buprenorphine 2 mg sublingual tablet (9 sources) Partial Opioid Agonist Start: 02-28-2024 End: 12-26-2024 buprenorphine SL (SUBUTEX) 2 mg subl TAKE 1 TABLET UNDER THE TONGUE DAILY 02/28/2024 12/26/2024 Discontinued estrogens, conjugated (residential) 0.625 mg oral tablet (20 sources) Estrogen Start: 08-18-2021 End: 12-27-2022 take 0.625 mg by mouth once daily Conjugated Estrogens Discontinued 0.625 MG PO DAILY July 15, 2022 3:05pm November 03, 2022 3:17pm Start: 05-18-2019 End: 03-25-2020 take 1 tablet by mouth once daily Conjugated Estrogens (Premarin) 0.45 mg tablet Discontinued 0.45 MG PO DAILY May 18, 2019 12:00am March 25, 2020 4:38pm Food Supplemt, Lactose-Reduc ed (Boost Plus) 0.06 gram- 1.5 kcal/mL liquid (10 sources) Start: 09-16-2020 End: 12-18-2020 Food Supplemt, Lactose-Reduc ed (Boost Plus) 0.06 gram- 1.5 kcal/mL liquid Discontinued EACH PO TWICE A DAY September 16, 2020 11:05am December 18, 2020 11:10am Start: 09-16-2020 End: 12-18-2020 Food Supplemt, Lactose-Reduc ed (Boost Plus) 0.06 gram- 1.5 kcal/mL liquid Discontinued EACH PO TWICE A DAY September 15, 2020 11:00pm December 18, 2020 10:10am Start: 09-16-2020 End: 12-18-2020 Food Supplemt, Lactose-Reduc ed (Boost Plus) 0.06 gram- 1.5 kcal/mL liquid Discontinued EACH PO TWICE A DAY September 16, 2020 12:00am December 18, 2020 11:10am ibuprofen 800 mg oral tablet (20 sources) Nonsteroidal Anti-inflammatory Drug Start: 07-20-2022 End: 12-27-2022 take 800 mg by mouth once Ibuprofen Discontinued 800 MG PO ONCE November 03, 2022 3:15pm December 27, 2022 9:02am Start: 07-05-2018 End: 03-25-2020 take 400 mg by mouth twice daily Ibuprofen Discontinued 400 MG PO TWICE A DAY July 05, 2018 12:00am March 25, 2020 4:39pm meloxicam 7.5 mg oral tablet (6 sources) Nonsteroidal Anti-inflammatory Drug Start: 12-27-2022 End: 04-21-2023 take 7.5 mg by mouth once daily Meloxicam Discontinued 7.5 MG PO DAILY December 26, 2022 11:00pm April 21, 2023 2:03pm methylPREDNISolone 4 mg oral tablet (7 sources) Corticosteroid Start: 02-11-2022 End: 04-27-2022 take 1 tablet by mouth once Methylprednisolone (Medrol (Samson)) 4 mg tablets,dose pack Discontinued 0 PO per package directions February 10, 2022 11:00pm April 27, 2022 3:31pm PO PER PKG DIR mirtazapine 30 mg oral tablet (20 sources) Start: 02-21-2024 End: 12-26-2024 take 1 tablet by mouth once daily at bedtime mirtazapine (REMERON) 30 mg tablet Take 30 mg by mouth daily at bedtime. 02/21/2024 12/26/2024 Discontinued Start: 04-21-2023 End: 06-21-2023 take 30 mg by mouth at bedtime Mirtazapine Active 30 M G PO AT BEDTIME June 21, 2023 4:19pm Start: 01-13-2023 End: 04-21-2023 take 15 mg by mouth at bedtime Mirtazapine Discontinue d 15 MG PO AT BEDTIME January 13, 2023 1:30pm April 21, 2023 3:28pm Start: 09-16-2020 End: 01-13-2023 take 30 mg by mouth at bedtime Mirtazapine Discontinue d 30 MG PO AT BEDTIME October 27, 2022 8:23pm January 13, 2023 1:30pm omeprazole 40 mg delayed release oral capsule (10 sources) Proton Pump Inhibitor Start: 07-05-2018 End: 09-28-2018 take 40 mg by mouth once daily Omeprazole Discontinued 40 MG PO DAILY July 05, 2018 12:00am September 28, 2018 2:28pm phenylephrine hydrochloride 1 mg/ml / promethazine hydrochloride 1.25 mg/ml oral solution (20 sources) Phenothiazine, alpha-1 Adrenergic Agonist Start: 04-16-2021 End: 08-18-2021 take 1 mL by mouth every six hours Promethazine-Phenyl ephrine (Promethazine Vc) 6.25-5 mg/5 mL syrup Discontinued 5 ML PO EVERY 6 HOURS 473 April 17, 2021 10:55am August 18, 2021 12:09pm walking boot (8 sources) Start: 09-30-2021 End: 04-27-2022 walking boot Discontinued 0 .Route .MEDSUPPLY September 29, 2021 11:00pm April 27, 2022 3:30pm Wear daily for 4 weeks. Start: 09-30-2021 End: 04-27-2022 walking boot Discontinued 0 .Route .MEDSUPPLY September 30, 2021 12:00am April 27, 2022 4:30pm Wear daily for 4 weeks. Start: 09-30-2021 walking boot A ctive 0 .Route .MEDSUPPLY September 30, 2021 12:00am Wear daily for 4 weeks. Problems Active Problems Problem Classification Problem Date Documented Da te Episodic/Chronic Allergic reactions (1 source) Allergic disposition; Translations: [Allergy, unspecified, initial encounter] Onset: 4 Episodic Anxiety disorders (20 sources) Anxiety; Translations: [Anxiety disorder, unspecified] Onset: 4 08-27-2014 Chronic Attention-deficit, conduct, and disruptive behavior disorders (10 sources) Adult attention deficit hyperactivity disorder ; Translations: [Attention-deficit hyperactivity disorder, unspecified type] 06-05-2020 Chronic Cardiac dysrhythmias (6 sources) Palpitations; Translations: [Palpitations] 04-21-2023 Episodic Essential hypertension (8 sources) Hypertensive disorder; Translations: [Essential (primary) hypertension] 04-21-2023 Chronic Fever of unknown origin (3 sources) Low grade pyrexia; Translations: [Fever, unspecified] 04-26-2023 Episodic Gastritis and duodenitis (13 sources) Gastritis; Translations: [Gastritis, unspecified, without bleeding] Episodic Gastrointestinal hemorrhage (19 sources) Gastrointestinal hemorrhage; Translations: [Hemorrhage of anus and rectum] Episodic Genitourinary symptoms and ill-defined conditions (8 sources) Blood in urine; Translations: [Hematuria, unspecified] 11-03-2022 Episodic Headache; including migraine (16 sources) Migraine; Translations: [Tension-type headache] 08-20-2015 Chronic Headache; including migraine (4 sources) Headache; Translations: [Headache, unspecified] Onset: 3 Episodic Headache; including migraine (1 source) Headache; including migraine; Translations: [Intractable headache, unspecified chronicity pattern, unspecified headache type] Onset: 5 Heart valve disorders (12 sources) Heart murmur; Translations: [Cardiac murmur, unspecified] 07-05-2018 Episodic Immunizations and screening for infectious disease (8 sources) Anti-nuclear factor positive; Translations: [Other specified abnormal immunological findings in serum] 01-13-2023 Episodic Menopausal disorders (17 sources) Menopausal flushing; Translations: [Menopausal and female climacteric states] Chronic Mood disorders (20 sources) Depressive disorder; Translations: [Depression] Onset: 4 04-27-2022 Chronic Mood disorders (1 source) Mood disorders; Translations: [Depression, unspecified] Onset: 5 Nausea and vomiting (2 sources) Nausea and vomiting; Translations: [Nausea with vomiting, unspecified] Onset: 3 Episodic Osteoarthritis (2 sources) Primary gonarthrosis, bilateral; Translations: [Bilateral primary osteoarthritis of knee] 01-03-2025 Chronic Other aftercare (1 source) Long-term current use of drug therapy; Translations: [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 inspector (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) drug therapy] Episodic Other and unspecified benign neoplasm (1 source) Personal history of colonic polyps; Translations: [Personal history of colonic polyps] Episodic Other connective tissue disease (10 sources) Pain in lower limb; Translations: [Pain in leg, unspecified] 07-05-2018 Episodic Other connective tissue disease (14 sources) Foot pain; Translations: [Pain in right foot] 11-03-2022 Episodic Other connective tissue disease (4 sources) Pain in right foot; Translations: [Pain in limb] Episodic Other connective tissue disease (20 sources) Fibromyalgia; Translations: [Fibromyalgia] Onset: 4 02-09-2023 Episodic Other connective tissue disease (1 source) Muscle pain; Translations: [Myalgia, other site] Onset: 3 Episodic Other connective tissue disease (4 sources) Pain in both feet; Translations: [Pain in right foot] 01-02-2025 Episodic Other diseases of bladder and urethra (1 source) Bladder-neck obstruction; Translations: [Bladder-neck obstruction] Onset: 4 Chronic Other eye disorders (1 source) Pain in eye; Translations: [Ocular pain, right eye] 04-05-2024 Episodic Other eye disorders (1 source) Inflammatory disorder of the eye; Translations: [Other specified disorders of eye and adnexa] 12-26-2024 Episodic Other eye disorders (1 source) Dry eye syndrome of bilateral lacrimal glands; Translations: [Dry eye syndrome of both eyes] Onset: 5 Episodic Other eye disorders (1 source) Ocular pain, bilateral; Translations: [Pain of both eyes] Onset: 5 Episodic Other eye disorders (2 sources) Other specified disorders of eye and adnexa; Translations: [Eye redness] Onset: 5 Episodic Other nervous system disorders (1 source) Other chronic pain; Translations: [Other chronic pain] Onset: 5 Chronic Other non-traumatic joint disorders (2 sources) Polyarthritis, unspecified; Translations: [Unspecified polyarthropathy or polyarthritis, site unspecified] Chronic Other non-traumatic joint disorders (1 source) Joint pain; Translations: [Pain in unspecified joint] Onset: 3 Episodic Other non-traumatic joint disorders (20 sources) Multiple joint pain; Translations: [Pain in unspecified joint] Onset: 4 12-09-2022 Episodic Other non-traumatic joint disorders (14 sources) Pain in unspecified knee; Translations: [Knee pain] 11-03-2022 Episodic Other non-traumatic joint disorders (2 sources) Pain in right knee; Translations: [Pain in joint, lower leg] 06-17-2023 Episodic Other nutritional; endocrine; and metabolic disorders (10 sources) Underweight; Translations: [Underweight] 04-16-2021 Episodic Other nutritional; endocrine; and metabolic disorders (2 sources) Underweight; Translations: [Underweight] Episodic Other skin disorders (1 source) Impaired skin integrity; Translations: [Other skin changes] Onset: 4 Episodic Other skin disorders (2 sources) Eruption; Translations: [Rash and other nonspecific skin eruption] 12-26-2024 Episodic Other skin disorders (3 sources) Rash and other nonspecific skin eruption; Translations: [Rash and other nonspecific skin eruption] Onset: 5 12-26-2024 Episodic Other upper respiratory disease (10 sources) Rhinitis; Translations: [Chronic rhinitis] 06-18-2021 Chronic Other upper respiratory disease (2 sources) Chronic rhinitis; Translations: [Chronic rhinitis] Chronic Other upper respiratory infections (11 sources) Sinusitis; Translations: [Chronic sinusitis, unspecified] 07-01-2020 Chronic Residual codes; unclassified (10 sources) Chronic pain 08-20-2015 Episodic Comment on above: Back and knees Residual codes; unclassified (10 sources) Menopause present; Translations: [Asymptomatic menopausal state] 09-20-2019 Episodic Residual codes; unclassified (3 sources) Tobacco user; Translations: [Tobacco use] 04-21-2023 Episodic Residual codes; unclassified (5 sources) Tobacco use; Translations: [Tobacco use disorder] 04-21-2023 Episodic Rheumatoid arthritis and related disease (11 sources) Inflammatory polyarthropathy; Translations: [Inflammatory polyarthropathy] Onset: 5 02-09-2023 Chronic Spondylosis; intervertebral disc disorders; other back problems (20 sources) Chronic back pain ; Translations: [Dorsalgia, unspecified] Onset: 4 Episodic Sprains and strains (18 sources) Chondrocostal joint sprain; Translations: [Sprain of ribs, initial encounter] Onset: 3 Episodic Substance-related disorders (1 source) Nicotine dependence, unspecified, uncomplicated; Translations: [Tobacco use disorder] Chronic Superficial injury; contusion (13 sources) Contusion of chest; Translations: [Contusion of thorax, unspecified, initial encounter] Onset: 1 Episodic Systemic lupus erythematosus and connective tissue disorders (3 sources) Mucous membrane dryness; Translations: [Sicca syndrome, unspecified] Onset: 5 12-26-2024 Chronic Unclassified (1 source) Rash of face 12-26-2024 Past or Other Problems Problem Classification Problem Date Documented Da te Episodic/Chronic Abdominal pain (17 sources) Epigastric pain; Translations: [Epigastric pain] Onset: 11-14-2024 Episodic Calculus of urinary tract (1 source) Calculus of ureter; Translations: [Calculus of ureter] Onset: 05-30-2024 Episodic Mycoses (2 sources) Candidiasis of mouth; Translations: [Candidal stomatitis] Onset: 08-15-2024 03-27-2024 Episodic Other connective tissue disease (5 sources) Fibromyalgia; Translations: [Myalgia and myositis, unspecified] Onset: 03-14-2024 02-09-2023 Episodic Other diseases of bladder and urethra (1 source) Unspecified urethral stricture, female; Translations: [Unspecified urethral stricture, female] Onset: 07-27-2024 Episodic Other eye disorders (1 source) Unspecified ptosis of left eyelid; Translations: [Unspecified ptosis of left eyelid] Onset: 06-04-2024 Episodic Other gastrointestinal disorders (19 sources) Constipation; Translations: [Constipation, unspecified] Onset: 03-13-2024 03-13-2024 Episodic Other gastrointestinal disorders (19 sources) Diarrhea; Translations: [Diarrhea, unspecified] Onset: 03-13-2024 03-13-2024 Episodic Other gastrointestinal disorders (1 source) Constipation, unspecified; Translations: [Constipation, unspecified constipation type] Onset: 03-13-2024 Episodic Other gastrointestinal disorders (1 source) Diarrhea, unspecified; Translations: [Intermittent diarrhea] Onset: 03-13-2024 Episodic Other gastrointestinal disorders (2 sources) Dysphagia, unspecified; Translations: [Dysphagia, unspecified] Onset: 07-09-2024 Episodic Other injuries and conditions due to external causes (19 sources) Contusion; Translations: [Other injury of unspecified body region, initial encounter] Onset: 03-13-2024 03-13-2024 Episodic Other injuries and conditions due to external causes (1 source) Other injury of unspecified body region, initial encounter; Translations: [Bruising] Onset: 03-13-2024 Episodic Other non-traumatic joint disorders (4 sources) Pain in unspecified joint; Translations: [Pain in joint, multiple sites] Onset: 03-13-2024 12-27-2022 Episodic Other nutritional; endocrine; and metabolic disorders (18 sources) Unintentional weight loss; Translations: [Abnormal weight loss] Onset: 03-13-2024 03-13-2024 Episodic Other nutritional; endocrine; and metabolic disorders (1 source) Abnormal weight loss; Translations: [Weight loss, unintentional] Onset: 03-13-2024 Episodic Other upper respiratory infections (2 sources) Sore throat symptom; Translations: [Acute pharyngitis, unspecified] Onset: 08-21-2024 03-27-2024 Episodic Unclassified (7 sources) history of tubal reconstruction 12-12-2021 Results Test Name Value Interpretation Reference Range Facility Orthopedic Visit Reporton Orthopedic Visit Report [facility] [address] [place] [address] [address] [place] [address] OFFICE VISIT Date of Service: 03/26/25 MR#: [id number] Acct: [id number] Name: CHRISTEL SAUCEDA Rep #: [id number] : 1965 Provider: MANDY hernandez Age/Sex: 60/F Location: [facility] Status: Signed Intake Vital Signs 02/13/25 11:04 Height 5 ft 4 in Intake Visit Reasons: LUMBAR SPINE Chief Complaint: Lumbar Spine Pain Accompanied by: Self Is patient in pain?: Yes Pain scale (1-10): 8 Allergies buprenorphine Allergy (Intermediate, Verified 03/26/25 10:41) Rash buspirone Allergy (Intermediate, Verified 03/26/25 10:41) Rash duloxetine (From Cymbalta) Allergy (Intermediate, Verified 03/26/25 10:41) Rash gatifloxacin (From Tequin) Allergy (Verified 03/26/25 10:41) Other venlafaxine (From Effexor) Allergy (Verified 03/26/25 10:41) Other Medications ???Medication ???Instructions ???Recorded ???Confirmed ???Type cholecalciferol (vitamin D3) 50 50 mcg PO QDAY #90 tabs 04/03/24 1 05/26/24 Rx mcg (2,000 unit) tablet melatonin 10 mg capsule 10 mg PO QHS 07/05/24 03/26/25 His tory acetaminophen 325 mg capsule 1,000 mg PO QD-QID PRN pain 03/26/25 History (Tylenol) azelastine 205.5 mcg (0.15 %) See Rx Instructions .Route 5 03/26/25 History nasal spray (Astepro Allergy) .COMPLEX PRN gabapentin 800 mg tablet 800 mg PO TID #90 TABLETS 01/11/25 03/26/25 Rx pantoprazole 40 mg tablet,delayed 40 mg PO DAILY #30 TABLETS 03/26/25 Rx release sucralfate 1 gram tablet (Carafate) 1 g PO TID PRN 02/13/25 5 History trazodone 50 mg tablet 50 mg PO QHS #30 TABLETS 02/26/25 03/26/25 Rx oxycodone 10 mg tablet 10 mg PO QHS PRN pain 3 weeks #21 03/13/25 03/26/25 Rx tabs alprazolam 1 mg tablet 1 mg PO TID free floating anxiety 03/20/25 03/26/25 Rx #90 tabs PFSH Medical History Hypertension Vapes nicotine containing substance Wears glasses Wears dentures Depression History of steroid therapy Fibromyalgia Sicca syndrome Rheumatoid arthritis Anemia Back pain Migraine headache H/O Sjogren's disease Difficulty swallowing Smoker Shortness of breath on exertion Leg cramps History of irregular heartbeat Underweight due to inadequate caloric intake history of tubal reconstruction History of ectopic Anxiety Heart murmur Chronic leg pain Chronic back pain Surgical History Hx of colonoscopy History of esophagogastroduodenosco py (EGD) S/P genital surgery History of hysterectomy History of knee surgery History of appendectomy Family History Other Cancer Diabetes Hypertension Parkinsons disease Social History Smoking Status: Current every day smoker tobacco type: e-cigarettes Tobacco: How many years used: 36 Electronic Cigarette Use: with nicotine alcohol intake: never substance use type: does not use what type of physical activity do you participate in: walking frequency: daily HPI LUMBAR SPINE Details: This documentation accurately reflects the service provided and the decisions made by me, MANDY Edmond 03/26/25 1038. Part of today???s visit was documented by Dominga Morris ATC, acting as scribe. CHRISTEL SAUCEDA is a 60 year old F here today for lumbar spine pain. Patient rates her pain a 8/10 today. She states the back has been bothering her for quite a while but it has gotten to the point where she can't stand it anymore. She describes the pain equal bilaterally across the beltline and it wraps around her hips and she has pain all the way down her legs to her feet. She has a lot of pain inside of her knees and has pain within the anterior musculature of the thighs. She will only experience numbness/tingling down the legs if she lays on the sides for a longer time. She states the right side and right leg is slightly worse than the left. Patient is currently in aquatic therapy at [facility] and includes the lumbar spine and down. She denies any prior back surgery. She saw Dr. Hernández for injections in the lumbar spine (sometime last year) and she was unable to walk for 4 days after so she will not get anymore injections. Patient states she was seeing a rheumatology doctor at the [facility] and they will not continue to see her because she doesn't have RA and wanted her to see a internet database specialist that deals with arthritis. She was seeing Dr. Russell for arthritis but had to stop seeing secondary to insurance change. She was taking different medications for arthritis and had all of the testing done. She states she has fibromyalgia, Sjogren's disease. (more content not included)... Normal [facility] Inital Evaluation (1) - PTon 02-20-2025 Inital Evaluation (1) - PT [facility] Physical Therapy [address] [place] [address] / REHABILITATION SERVICES INITIAL EVALUATION MR#: [id number] Acct: [id number] Name: CHRISTEL SAUCEDA Rep #: [id number] : 1965 60 From: Amaya SNIDER Referring DrLen: BRENDA Carey Status: REG RCR Insurance: LEATHA KLEIN SELF PAY INSURANCE Patient's Visit Information Visit Information Visit Information: CHRISTEL SAUCEDA is a 60 year old F referred to Physical Therapy by BRENDA Carey with a diagnosis of Midline LBP, B knee OA, Lumbar Radicuoloathy. 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 She has pain in knees, ankle and feet and muscles in between them. She had a flare up a month ago and could not get out of bed. When this pain flares up she can hardly move. She has had X-ray of feet and knees and has osteoporosis and not RA. She has to see a internet database specialist because she has DDD on an old X-ray. She can not get out of bed and carrying a jug of milk it makes her back hurt. She tries to move around and has to watch to pick things up. She tried to get something off the bottom shelf at the store and had to hold on to the shelf and had a hard time getting up and she fell into the cart. She has Sjogrnes, Arthritis with no RA factor, FM. She has been off since September and not able to go back to that job and she can not look for a job because her flare up last 2 weeks. She is going to ophthalmology specialist and spinal specialist, (Chronic pain management). She reports that she can not turn very well to her R side. She is afraid that if she does the machines she will not be able to move the next day. When she goes up the steps her legs will get so weak and start hurting. She has a chair lift now. Her pain is so bad and she only washes her hair 3X/ week and shower 4X week cause she is so painful. Pain back pain: Pain Intensity (Out of 10): 4 B foot pain: Pain Intensity (Out of 10): 2 B knee pain: Pain Intensity (Out of 10): 3 Objective Objective: Gait: walks with normal gait pattern, slightly decreased stance time on the R LE . Trunk AROM: flexion 75%, eXt 10%, SB R 50% and L 25%, Rot B 50% Heel and toe raises: Pt is able to heel and toe raise but she has a harder time and decrease ROM with toes up both with UE support LE MMT: R hip flexion 11.4 and L 11.9 R knee ext 16.6 and L 10 R knee flex 8.7 and L 8.4 R DF 7.2 and L 4.9 R hip abd in supine 6.5 and L 5.2 B knee AROM 0- approx 125 degrees B Balance/Special Test Scores Oswestry Low Back Score: 33 Goals Goal 1:: I HEP Goal Time Frame: 6-8 Weeks Goal 2:: Be able to go up and down the steps recip with 1 hand rail without legs feeling weak and want to give out Goal Time Frame: 6-8 Weeks Goal 3:: Increase LE strength (at the time of the eval: LE MMT: R hip flexion 11.4 and L 11.9 R knee ext 16.6 and L 10 R knee flex 8.7 and L 8.4 R DF 7.2 and L 4.9 R hip abd in supine 6.5 and L 5.2) Goal Time Frame: 6-8 Weeks Goal 4:: Decrease severity of flare ups by 50% Goal Time Frame: 4-6 Weeks Rehabilitation Potential Rehabilitation Potential: Good Anticipated Interventions Patient/Client Instruction: Educate patient on: Condition and Plan of Care For the Purpose of:: To decrease pain, To increase ROM, To improve nutrient delivery to tissue, To improve muscle performance and motor function, To improve ability to perform ADL's, To increase tolerance to activity/condition/posit ion, To improve performance and independence with ADL's, To decrease level of supervision to perform tasks, To improve ability of physical actions for home/community/work/leis ure, To improve gait and locomotor functions, To improve health of tissue, To decrease soft tissue restriction, To increase flexibility/ROM, To improve endurance, To improve balance and To improve safety with gait Therapeutic Exercise to Include: Strength training, Endurance training, Balance training, Body mechanics, Postural training, Neuromotor development, In an aquatic setting, Active ROM and Dynamic Lumbar Stabilization For the Purpose of:: To decrease pain, To increase ROM, To improve nutrient delivery to tissue, To increase oxygenation perfusion, To improve muscle performance and motor function, To improve ability to perform ADL's, To increase tolerance to activity/condition/posit ion, To improve performance and independence with ADL's, To decrease level of supervision to perform tasks, To improve ability of physical actions for home/community/work/leis ure, To (more content not included)... Normal [facility] 02-13-2025 CNPN Telephone (WSTR) -------- SOHAILCHRISTEL ([id number]) 1965 F Date Time Provider Department 02/13/25 NICOLE MINOR WSTR During your visit today, we recorded the following information about you: Melissa Brown LPN 02/13/2025 12:06 PM Signed Patient calling and states she has been unable to schedule her physical therapy via [facility] and is asking if she can complete at [facility]? She is also asking if we can place a consult to ophthalmology so she can schedule at [facility]? Please advise. KUNAL Dominguez Kaitlyn, PA-C 02/13/2025 12:49 PM Signed Ok to do PT at [facility] if insurance requires. Please fax order. Ophthalmology referral populated as well. OBDULIA Alvarez Danelle, RN 02/13/2025 1:30 PM Signed PT order faxed to [facility] and [employer] message sent about consult. PK Genao Kaitlyn, PA-C 02/20/2025 12:18 PM Signed Noted. Thanks KG Allergies As of Date: 02/13/2025 Noted Allergy Reaction DICLOFENAC-SILICONE, ADHESIVE 03/13/2024 4 - Hives GATIFLOXACIN 03/13/2024 16 - Unknown VENLAFAXINE 03/13/2024 16 - Unknown Date Reviewed: 12/26/2024 Reviewed by: Elina Weir MA - Fully Assessed Reason for Visit: Appointment [186] Primary Visit Diagnosis:Pain in eye, unspecified laterality [H57.10] Other Visit Diagnosis:Eye redness [H57.89] Order(s):CONSULT TO OPHTHALMOLOGY [1341] Order #: [id number]: 1 FUTURE Prescriptions as of 02/20/2025 - escitalopram oxalate (LEXAPRO) 20 mg tablet Take 1 tablet by mouth once daily. - tetracycline (SUMYCIN) 500 mg cap Take 1 capsule by mouth every 12 hours. - sucralfate (CARAFATE) 1 gram tablet Take 1 g by mouth four times daily. - predniSONE (DELTASONE) 5 mg tablet Take 5 mg by mouth every morning. - estradiol (ESTRACE) 1 mg tablet Take 1 mg by mouth once daily. - HYDROcodone-Acetaminophe n (NORCO) 7.5-325 mg per tablet Take 1 tablet by mouth every 6 hours as needed. - ondansetron orally disintegrating (ZOFRAN ODT) 4 mg disintegrating tablet Take 1 tablet by mouth every 8 hours as needed for nausea/vomiting. - gabapentin (NEURONTIN) 800 mg tablet Take 800 mg by mouth three times a day. - ALPRAZolam (XANAX) 1 mg tablet TAKE 1 MG ORALLY 4 TIMES A DAY FOR FREE FLOATING ANXIETY EVERY 6 HRS NEEDED - metoprolol tartrate, short acting, (LOPRESSOR) 25 mg tablet Take 25 mg by mouth daily at bedtime. - pantoprazole DR (PROTONIX) 40 mg tablet Take 40 mg by mouth once daily. Problem List As Of Date 02/13/2025 Noted Resolved Polyarthralgia [M25.50] 03/13/2024 Weight loss, unintentional [R63.4] 03/13/2024 Constipation [K59.00] 03/13/2024 Intermittent diarrhea [R19.7] 03/13/2024 Bruising [T14.8XXA] 03/13/2024 Fibromyalgia [M79.7] 03/14/2024 Severe depression (HCC) [F32.2] 03/14/2024 Anxiety [F41.9] 03/14/2024 Encounter Status:Closed by SHERI MACE on 02/13/25 Normal [facility] Internal Medicine Office Vis marquita 02-13-2025 Internal Medicine Office Visit [facility] Internal Medicine [address] [place] [address] [place] [address] OFFICE VISIT Date of Service: 02/13/25 MR#: [id number] Acct: [id number] Name: CHRISTEL SAUCEDA Rep #: [id number] : 1965 Provider: Dr. Cheryle brush, DO Age/Sex: 60/F Location: [facility] Status: Signed Intake Vital Signs 11/14/24 11:28 12/20/24 14:30 02/13/25 11:04 Height 5 ft 4 in 5 ft 4 in 5 ft 4 in Weight: 130 lb 130 lb BMI 22.3 22.3 BP 148/72 H 124/80 H Blood Pressure Location Lt brachial Lt brachial Position Sitting Sitting Respiration 16 16 Pulse 61 72 Pulse Source Monitor Monitor Temp 97.4 F L 97.9 F Temp Source Temporal Temporal Pulse Oximetry (%) 97 99 Oxygen Delivery Method room air Intake Visit Reasons: 3 M FU Chief Complaint: 3 M FU Learning Disabilities Specialist Required: No Accompanied by: Self Is patient in pain?: Yes (all over) Pain scale (1-10): 10 Allergies buprenorphine Allergy (Intermediate, Verified 02/13/25 11:02) Rash buspirone Allergy (Intermediate, Verified 02/13/25 11:02) Rash duloxetine (From Cymbalta) Allergy (Intermediate, Verified 02/13/25 11:02) Rash gatifloxacin (From Tequin) Allergy (Verified 02/13/25 11:02) Other venlafaxine (From Effexor) Allergy (Verified 02/13/25 11:02) Other Medications ???Medication ???Instructions ???Recorded ???Confirmed ???Type cholecalciferol (vitamin D3) 50 50 mcg PO QDAY #90 tabs 04/03/24 1 Rx mcg (2,000 unit) tablet folic acid 1 mg tablet 2 mg PO QDAY 07/04/24 02/13/25 His tory melatonin 10 mg capsule 10 mg PO QHS 07/05/24 02/13/25 His tory estradiol 1 mg tablet 1 mg PO QDAY #30 TABLETS 09/05/24 02/13/25 Rx acetaminophen 325 mg capsule 1,000 mg PO QD-QID PRN pain 02/13/25 History (Tylenol) azelastine 205.5 mcg (0.15 %) See Rx Instructions .Route 5 02/13/25 History nasal spray (Astepro Allergy) .COMPLEX PRN alprazolam 1 mg tablet 1 mg PO TID free floating anxiety 01/11/25 02/13/25 Rx #90 tabs gabapentin 800 mg tablet 800 mg PO TID #90 TABLETS 01/11/25 02/13/25 Rx trazodone 50 mg tablet 50 mg PO QHS #30 TABLETS 01/25/25 02/13/25 Rx hydrocodone 7.5 mg-acetaminophen 1 tab PO Q8H PRN EXTREME pain 01/1402/13/25 Rx 325 mg tablet autoimmune issues 21 days #21 tabs gabapentin 800 mg tablet 800 mg PO TID #90 TABLETS 02/13/25 02/13/25 Rx oxycodone 10 mg tablet 10 mg PO QHS PRN pain 3 weeks #21 02/13/25 02/13/25 Rx tabs pantoprazole 40 mg tablet,delayed 40 mg PO DAILY #30 TABLETS 02/13/25 Rx release sucralfate 1 gram tablet (Carafate) 1 g PO TID PRN 02/13/25 Histor y Nurse's Note: Pt sees rhuematology at [facility]. Records were not received. Obtaining from Dr. Segura. Pt states she has had abnormal cortisol, vitamin d and calcium along w/ others. They have referred her to a internet database specialist and different tests but they are in [facility]. She is inquiring if we look at what needs done if there are more local providers. Pt has been dealing w/ gritty dry eyes and states she was dx'd w/ sjrogens and advised that was the issue and referred to [facility]. Pt was advised she also had DDD in back and has had really severe back pain and all over joint pain. Pt wondering if she can get on generic percocet as vicodin no longer works like it did, and she ran out 1 time and took her mothers as it was the weekend and the percocet worked so much better. Pt states that she stopped taking some meds to see how she felt, and was told to stop betablocker as HR was 50 at 2pm at last appointment. Pt needs protonix, neurotin refilled, and if no change to pain med that. [facility] Medical History Hypertension Vapes nicotine containing substance Wears glasses Wears dentures Depression History of steroid therapy Fibromyalgia Sicca syndrome Rheumatoid arthritis Anemia Back pain Migraine headache H/O Sjogren's disease Difficulty swallowing Smoker Shortness of breath on exertion Leg cramps History of irregular heartbeat Underweight due to inadequate caloric intake history of tubal reconstruction History of ectopic Anxiety Heart murmur Chronic leg pain Chronic back pain Surgical History Hx of colonoscopy History of esophagogastroduodenosco py (EGD) S/P genital surgery History of hysterectomy History of knee surgery History of appendectomy Family History Other Cancer Diabetes Hypertension Parkinsons disease Social History Smoking Status: Current every day smoker tobacco type: e-cigarettes T (more content not included)... Normal [facility] US EXTREMITY NON-VASCULAR BI LATERALon 01-17-2025 US EXTREMITY NON-VASCULAR BILATERAL ORIGINAL EXAMINATION: 01/16/2025 2:39 pm Ultrasound of both feet and both ankles COMPARISON: None TECHNIQUE: This interpretation is based on permanently stored and recorded images. Grayscale and power Doppler imaging of the ankles and the dorsal aspect of the PIP and MTP joints of both feet is performed. HISTORY: ORDERING SYSTEM PROVIDED HISTORY: Reason for Exam: BILATERAL FOOT PAIN, POLYARTHRALGIA, synovial screen FINDINGS: The ankle on both sides shows no obvious effusions or peritendinous fluid collection. Both feet have nonspecific synovial thickening without increased vascularity in multiple joints. This includes the 1st, 2nd and 3rd MTP joints in the right foot and all MTP joints in the left foot. There is also some synovial thickening in the IP joint of the left great toe, no similar finding is seen on the right. Small nonspecific effusions are present in the 1st and 2nd PIP joints of the right foot. Marginal spurring and degenerative type of changes seem to be present at multiple MTP and PIP joints in both feet. IMPRESSION: There are degenerative changes in both feet that should be correlated with radiographs. Nonspecific synovial thickening is present in multiple MTP and some PIP joints. The ankles show no tenosynovitis. Interpreted by: Skyler Jackson MD Preliminary Report By: Skyler Jackson MD Electronically signed By Skyler Jackson MD Dictated Date: 01/17/2025 9:17:42 AM Prelim Date: 01/17/2025 9:24:36 AM Sign Date: 01/17/2025 9:24:36 AM Ordering Provider: NICOLE MINOR [facility] 01-03-2025 CNPN Telephone (RULTTB) -------- CHRISTEL SAUCEDA ([id number]) 1965 F Date Time Provider Department 01/03/25 RUPESH BERNARDO RULTTB During your visit today, we recorded the following information about you: Jeronimo Shane 01/03/2025 12:50 PM Signed Visit Type: MSK SYN Visit Length: 45, 50 OR 60 MINUTES Order Name/Protocol: US FOOT/ANKLE SYNOVIAL SCREEN RT+LT Preferred Provider: N/A Comment: N/A Location: ANY FACILITY Slot held: N/A Emmy Galicia 01/03/2025 12:57 PM Signed Called patient on January 03, 2025 at 12:56 PM to schedule their MSK US exam. PT declined to schedule due to location availability. Allergies As of Date: 01/03/2025 Noted Allergy Reaction DICLOFENAC-SILICONE, ADHESIVE 03/13/2024 4 - Hives GATIFLOXACIN 03/13/2024 16 - Unknown VENLAFAXINE 03/13/2024 16 - Unknown Date Reviewed: 12/26/2024 Reviewed by: Elina Weir MA - Fully Assessed Reason for Visit: Appointment [186] Prescriptions as of 01/03/2025 - escitalopram oxalate (LEXAPRO) 20 mg tablet Take 1 tablet by mouth once daily. - tetracycline (SUMYCIN) 500 mg cap Take 1 capsule by mouth every 12 hours. - sucralfate (CARAFATE) 1 gram tablet Take 1 g by mouth four times daily. - predniSONE (DELTASONE) 5 mg tablet Take 5 mg by mouth every morning. - estradiol (ESTRACE) 1 mg tablet Take 1 mg by mouth once daily. - HYDROcodone-Acetaminophe n (NORCO) 7.5-325 mg per tablet Take 1 tablet by mouth every 6 hours as needed. - ondansetron orally disintegrating (ZOFRAN ODT) 4 mg disintegrating tablet Take 1 tablet by mouth every 8 hours as needed for nausea/vomiting. - gabapentin (NEURONTIN) 800 mg tablet Take 800 mg by mouth three times a day. - ALPRAZolam (XANAX) 1 mg tablet TAKE 1 MG ORALLY 4 TIMES A DAY FOR FREE FLOATING ANXIETY EVERY 6 HRS NEEDED - metoprolol tartrate, short acting, (LOPRESSOR) 25 mg tablet Take 25 mg by mouth daily at bedtime. - pantoprazole DR (PROTONIX) 40 mg tablet Take 40 mg by mouth once daily. Problem List As Of Date 01/03/2025 Noted Resolved Polyarthralgia [M25.50] 03/13/2024 Weight loss, unintentional [R63.4] 03/13/2024 Constipation [K59.00] 03/13/2024 Intermittent diarrhea [R19.7] 03/13/2024 Bruising [T14.8XXA] 03/13/2024 Fibromyalgia [M79.7] 03/14/2024 Severe depression (HCC) [F32.2] 03/14/2024 Anxiety [F41.9] 03/14/2024 Encounter Status:Closed by EMMY GALICIA on 01/03/25 [facility] 01-02-2025 [facility] Telephone (RHWSTR) -------- CHRISTEL SAUCEDA ([id number]) 1965 F Date Time Provider Department 01/02/25 NICOLE MINOR RHWSTR During your visit today, we recorded the following information about you: Nicole Minor PA-C 01/02/2025 4:42 PM Signed Reviewed External rheumatology records: Past meds include: Methotrexate 15 mg weekly, folic acid and leucovorin Orencia- discontinued not effective Enbrel Cimzia 400 mg given in office 08/2024 with plan to continue 200 mg every 2 weeks thereafter Also prior IM steroid injection without significant benefit Nciole Minor PA-C 01/02/2025 4:42 PM Signed Please call patient: X-Rays show mild osteoarthritis in the SI joints, and normal X-Rays of the hips, hands and feet. Given the trial of multiple biologic DMARDs and non-biologic DMARDs without significant benefit, negative serologies, negative imaging for RA, and absence of obvious synovitis on exam at my initial visit, I'm questioning whether she truly has RA. I would defer further treatment at this time, unless we have objective evidence of inflammation/synovitis. Please advise the patient I can order synovial ultrasounds to be done to look into this further if she continues to have persistent foot pain. Or if there are certain areas that are more bothersome, we can consider advanced imaging of that area. Most of her pain is likely chronic in nature from chronic pain syndrome/fibromyalgia. Also some osteoarthritis/degenerat ashley changes. I recommend chronic pain recovery program for management of this. She should schedule follow up after ultrasounds of her feet, or if there are other areas that are more bothersome than her feet, we can schedule follow up to evaluate those separately and consider advanced imaging. OBDULIA Alvarez Danelle, RN 01/03/2025 12:51 PM Addendum Patient called and given below message and results. Patient reporting increased lower back, Right leg/Right hip pain since having xrays done. Patient also reports issues behind right knee. Patient to have foot ultrasounds done. PK Genao Kaitlyn, PA-C 01/03/2025 1:04 PM Signed Reviewed external X-Ray report of lumbar Spine and knees as below: XR L knee 06/17/23 - mild narrowing of medial joint compartment XR R knee - mild degenerative arthrosis of medial femorotibial compartment XR Lumbar Spine 02/02/24 Moderate multilevel Degenerative disc disease and spondylosis Spine medicine referral placed for low back pain with radiculopathy I recommend physical therapy for the knee. We could also do PT for her spine as well. Both order placed Sheri Mace RN 01/03/2025 2:15 PM Signed Patient called and given the below information and new orders. PK Genao Danelle, RN 02/06/2025 11:14 AM Signed Fax sent to [facility] requesting US results. PK Genao Danelle, RN 02/06/2025 1:24 PM Signed Ultrasound reports received from [facility]. PK Genao Kaitlyn, PA-C 02/06/2025 4:44 PM Signed Reviewed Synovial ultrasound screen dated 01/16/25 - impression: There are degenerative changes in both feet that should be correlated with radiographs. Nonspecific synovial thickening is present in muiltiple MTP and some PIP joints. The ankles show no tenosynoitis. Will send for scanning. OBDULIA Alvarez Kaitlyn, PA-C 02/06/2025 4:47 PM Signed Please advise patient for any spine or radiating pain into her legs she should follow up with her primary care provider or spine medicine. Foot ultrasounds essentially show degenerative changes related to osteoarthritis. There is a bit of inflammation of the soft tissues but seems to be more related to osteoarthritis than inflammatory arthritis. If she continues to have foot pain, then I would recommend she see podiatry. If she has further questions regarding testing or results then I can revie them all with her at a follow up appointment. Nicole Minor PA-C Allergies As of Date: 01/02/2025 Noted Allergy Reaction DICLOFENAC-SILICONE, ADHESIVE 03/13/2024 4 - Hives GATIFLOXACIN 03/13/2024 16 - Unknown VENLAFAXINE 03/13/2024 16 - Unknown Date Reviewed: 12/26/2024 Reviewed by: Elina Weir MA - Fully Assessed Primary Visit Diagnosis:Bilateral foot pain [M79.671, M79.672] Other Visit Diagnoses:Polyarthralgia [M25.50] Fibromyalgia [M79.7] Chronic midline low back pain, unspecified whether sciatica present [M54.50, G89.29] Intractable headache, unspecified chronicity pattern, unspecified headache type [R51.9] Radiculopathy, lumbar region [M54.16] Primary osteoarthritis of both knees [M17.0] Order(s):US FOOT/ANKLE SYNOVIAL SCREEN RIGHT [[id number]] Order #: [id number] FUTURE US FOOT/ANKLE SYNOVIAL SCREEN LEFT [[id number]] Order #: [id number] FUTURE CONSULT TO [facility] FOR PAIN RECOVERY ( (more content not included)... [facility] Tele[facility] (WSTR) -------- CHRISTEL SAUCEDA ([id number]) 1965 F Date Time Provider Department 12/27/24 NICOLE MINOR [facility] During your visit today, we recorded the following information about you: Nicole Minor PA-C 12/27/2024 3:44 PM Signed Received outside records from Dr. Saunders [facility] Dated 10/29/24 Their impression: Floppy eyelid syndrome, SPK, Atopic dermatitis, meibomian gland dysfunction, ocular rosacea, and ptosis of L eyelid No mention of inflammatory eye disease, episcleritis, Uveitis. Will send for scanning Sheri Mace RN 12/31/2024 11:09 AM Signed Office notes received from Dr. Russell's office and sent to [email or web address]. PK Genao Kaitlyn, PA-C 01/02/2025 4:50 PM Signed Reviewed in alternative encounter. See Telephone encounter dated today. Allergies As of Date: 12/27/2024 Noted Allergy Reaction DICLOFENAC-SILICONE, ADHESIVE 03/13/2024 4 - Hives GATIFLOXACIN 03/13/2024 16 - Unknown VENLAFAXINE 03/13/2024 16 - Unknown Date Reviewed: 12/26/2024 Reviewed by: Elina Weir MA - Fully Assessed Reason for Visit: Received Outside Medical Records [[id number]] Cmt: Eye Dr. Nuñez 10/29/24 [facility] Prescriptions as of 01/02/2025 - escitalopram oxalate (LEXAPRO) 20 mg tablet Take 1 tablet by mouth once daily. - tetracycline (SUMYCIN) 500 mg cap Take 1 capsule by mouth every 12 hours. - sucralfate (CARAFATE) 1 gram tablet Take 1 g by mouth four times daily. - predniSONE (DELTASONE) 5 mg tablet Take 5 mg by mouth every morning. - estradiol (ESTRACE) 1 mg tablet Take 1 mg by mouth once daily. - HYDROcodone-Acetaminophe n (NORCO) 7.5-325 mg per tablet Take 1 tablet by mouth every 6 hours as needed. - ondansetron orally disintegrating (ZOFRAN ODT) 4 mg disintegrating tablet Take 1 tablet by mouth every 8 hours as needed for nausea/vomiting. - gabapentin (NEURONTIN) 800 mg tablet Take 800 mg by mouth three times a day. - ALPRAZolam (XANAX) 1 mg tablet TAKE 1 MG ORALLY 4 TIMES A DAY FOR FREE FLOATING ANXIETY EVERY 6 HRS NEEDED - metoprolol tartrate, short acting, (LOPRESSOR) 25 mg tablet Take 25 mg by mouth daily at bedtime. - pantoprazole DR (PROTONIX) 40 mg tablet Take 40 mg by mouth once daily. Problem List As Of Date 12/27/2024 Noted Resolved Polyarthralgia [M25.50] 03/13/2024 Weight loss, unintentional [R63.4] 03/13/2024 Constipation [K59.00] 03/13/2024 Intermittent diarrhea [R19.7] 03/13/2024 Bruising [T14.8XXA] 03/13/2024 Fibromyalgia [M79.7] 03/14/2024 Severe depression (HCC) [F32.2] 03/14/2024 Anxiety [F41.9] 03/14/2024 Encounter Status:Closed by NICOLE MINOR on 8/14/25 [facility] CBC W Auto Differential pane l (Bld)on 12-26-2024 Basophils (Bld) [#/Vol] 0.05 10*3/uL [facility] Basophils/100 WBC (Bld) 0.7 % [facility] Differential cell count method Nom (Bld) Auto [facility] Eosinophils (Bld) [#/Vol] 0.09 10*3/uL [facility] Eosinophils/100 WBC (Bld) 1.3 % [facility] Erythrocyte distribution width (RBC) [Ratio] 12.0 % 11.5 - 15.0 % [facility] Hematocrit (Bld) [Volume fraction] 36.6 % 36.0 - 46.0 % [facility] Hemoglobin (Bld) [Mass/Vol] 12.8 g/dL 11.5 - 15.5 g/dL [facility] Immature granulocytes (Bld) [#/Vol] [facility] Immature granulocytes/100 WBC (Bld) 0.1 % [facility] Interpretation and review of laboratory results Abnormal [facility] Lymphocytes (Bld) [#/Vol] 2.06 10*3/uL [facility] Lymphocytes/100 WBC (Bld) 30.6 % [facility] MCH (RBC) [Entitic mass] 33.2 pg 26.0 - 34.0 pg [facility] MCHC (RBC) [Mass/Vol] 35.0 g/dL 30.5 - 36.0 g/dL [facility] MCV (RBC) [Entitic vol] 95.1 fL 80.0 - 100.0 fL [facility] Monocytes (Bld) [#/Vol] 0.32 10*3/uL [facility] Monocytes/100 WBC (Bld) 4.8 % [facility] Neutrophils (Bld) [#/Vol] 4.20 10*3/uL [facility] Neutrophils/100 WBC (Bld) 62.5 % [facility] Nucleated RBC (Bld) [#/Vol] [facility] Nucleated RBC/100 WBC (Bld) [Ratio] 0.0 % /100 WBC [facility] Platelet mean volume (Bld) [Entitic vol] 11.3 fL 9.0 - 12.7 fL [facility] Platelets (Bld) [#/Vol] 319 10*3/uL [facility] RBC (Bld) [#/Vol] 3.85 10*6/uL Low 3.90 - 5.2 0 m/uL [facility] WBC (Bld) [#/Vol] 6.73 10*3/uL [facility] Basophils (Bld) [#/Vol] 0.05 10*3/uL Normal <0.11 [facility] Comment on above: Order Comment: Speci men Type: BLOOD SPECIMEN Ordering Facility: [facility] Address: [address] [place] [address] Performed By: #### 3 3935-8 #### [facility] CLIA [id number] [address] [place] [address] [place] Basophils/100 WBC (Bld) 0.7 % Normal [facility] Comment on above: Order Comment: Speci men Type: BLOOD SPECIMEN Ordering Facility: [facility] Address: [address] [place] [address] Performed By: #### 3 3935-8 #### [facility] CLIA [id number] [address] [place] [address] [place] Differential cell count method Nom (Bld) Auto Normal [facility] Comment on above: Order Comment: Speci men Type: BLOOD SPECIMEN Ordering Facility: [facility] Address: [address] [place] [address] Performed By: #### 3 3935-8 #### [facility] CLIA [id number] [address] [place] [address] [place] Eosinophils (Bld) [#/Vol] 0.09 10*3/uL Normal <0.46 [facility] Comment on above: Order Comment: Speci men Type: BLOOD SPECIMEN Ordering Facility: [facility] Address: [address] [place] [address] Performed By: #### 3 3935-8 #### [facility] CLIA [id number] [address] [place] [address] [place] Eosinophils/100 WBC (Bld) 1.3 % Normal [facility] Comment on above: Order Comment: Speci men Type: BLOOD SPECIMEN Ordering Facility: [facility] Address: [address] [place] [address] Performed By: #### 3 3935-8 #### [facility] CLIA [id number] [address] [place] [address] [place] Erythrocyte distribution width (RBC) [Ratio] 12.0 % Normal 11.5-15.0 [facility] Comment on above: Order Comment: Speci men Type: BLOOD SPECIMEN Ordering Facility: [facility] Address: [address] [place] [address] Performed By: #### 3 3935-8 #### [facility] CLIA [id number] [address] [place] [address] [place] Hematocrit (Bld) [Volume fraction] 36.6 % Normal 36.0-46.0 [facility] Comment on above: Order Comment: Speci men Type: BLOOD SPECIMEN Ordering Facility: [facility] Address: [address] [place] [address] Performed By: #### 3 3935-8 #### [facility] CLIA [id number] [address] [place] [address] [place] Hemoglobin (Bld) [Mass/Vol] 12.8 g/dL Normal 11.5-15.5 [facility] Comment on above: Order Comment: Speci men Type: BLOOD SPECIMEN Ordering Facility: [facility] Address: [address] [place] [address] Performed By: #### 3 3935-8 #### [facility] CLIA [id number] [address] [place] [address] [place] Immature granulocytes (Bld) [#/Vol] 10*3/uL Normal <0.10 [facility] Comment on above: Order Comment: Speci men Type: BLOOD SPECIMEN Ordering Facility: [facility] Address: [address] [place] [address] Performed By: #### 3 3935-8 #### [facility] CLIA [id number] [address] [place] [address] [place] Immature granulocytes/100 WBC (Bld) 0.1 % Normal [facility] Comment on above: Order Comment: Speci men Type: BLOOD SPECIMEN Ordering Facility: [facility] Address: [address] [place] [address] Performed By: #### 3 3935-8 #### [facility] CLIA [id number] [address] [place] [address] [place] Lymphocytes (Bld) [#/Vol] 2.06 10*3/uL Normal 1.00-4.00 [facility] Comment on above: Order Comment: Speci men Type: BLOOD SPECIMEN Ordering Facility: [facility] Address: [address] [place] [address] Performed By: #### 3 3935-8 #### [facility] CLIA [id number] [address] [place] [address] [place] Lymphocytes/100 WBC (Bld) 30.6 % Normal [facility] Comment on above: Order Comment: Speci men Type: BLOOD SPECIMEN Ordering Facility: [facility] Address: [address] [place] [address] Performed By: #### 3 3935-8 #### [facility] CLIA [id number] [address] [place] [address] [place] MCH (RBC) [Entitic mass] 33.2 pg Normal 26.0-34.0 [facility] Comment on above: Order Comment: Speci men Type: BLOOD SPECIMEN Ordering Facility: [facility] Address: [address] [place] [address] Performed By: #### 3 3935-8 #### [facility] CLIA [id number] [address] [place] [address] [place] MCHC (RBC) [Mass/Vol] 35.0 g/dL Normal 30.5-36.0 [facility] Comment on above: Order Comment: Speci men Type: BLOOD SPECIMEN Ordering Facility: [facility] Address: [address] [place] [address] Performed By: #### 3 3935-8 #### [facility] CLIA [id number] [address] [place] [address] [place] MCV (RBC) [Entitic vol] 95.1 fL Normal 80.0-100.0 [facility] Comment on above: Order Comment: Speci men Type: BLOOD SPECIMEN Ordering Facility: [facility] Address: [address] [place] [address] Performed By: #### 3 3935-8 #### [facility] CLIA [id number] [address] [place] [address] [place] Monocytes (Bld) [#/Vol] 0.32 10*3/uL Normal <0.87 [facility] Comment on above: Order Comment: Speci men Type: BLOOD SPECIMEN Ordering Facility: [facility] Address: [address] [place] [address] Performed By: #### 3 3935-8 #### [facility] CLIA [id number] [address] [place] [address] [place] Monocytes/100 WBC (Bld) 4.8 % Normal [facility] Comment on above: Order Comment: Speci men Type: BLOOD SPECIMEN Ordering Facility: [facility] Address: [address] [place] [address] Performed By: #### 3 3935-8 #### [facility] CLIA [id number] [address] [place] [address] [place] Neutrophils (Bld) [#/Vol] 4.20 10*3/uL Normal 1.45-7.50 [facility] Comment on above: Order Comment: Speci men Type: BLOOD SPECIMEN Ordering Facility: [facility] Address: [address] [place] [address] Performed By: #### 3 3935-8 #### [facility] CLIA [id number] [address] [place] [address] [place] Neutrophils/100 WBC (Bld) 62.5 % Normal [facility] Comment on above: Order Comment: Speci men Type: BLOOD SPECIMEN Ordering Facility: [facility] Address: [address] [place] [address] Performed By: #### 3 3935-8 #### [facility] CLIA [id number] [address] [place] [address] [place] Nucleated RBC (Bld) [#/Vol] 10*3/uL Normal <0.01 [facility] Comment on above: Order Comment: Speci men Type: BLOOD SPECIMEN [facility] Facility[facility] Address: [address] [place] [address] Performed By: #### 3 3935-8 #### [facility] CLIA [id number] [address] [place] [address] [place] Nucleated RBC/100 WBC (Bld) [Ratio] 0.0 /100 WBC Normal [facility] Comment on above: Order Comment: Speci men Type: BLOOD SPECIMEN [facility] Facility: [facility] Address: [address] [place] [address] Performed By: #### 3 3935-8 #### [facility] CLIA [id number] [address] [place] [address] [place] Platelet mean volume (Bld) [Entitic vol] 11.3 fL Normal 9.0-12.7 [facility] Comment on above: Order Comment: Speci men Type: BLOOD SPECIMEN [facility] Facility: [facility] Address: [address] [place] [address] Performed By: #### 3 3935-8 #### [facility] CLIA [id number] [address] [place] [address] [place] Platelets (Bld) [#/Vol] 319 10*3/uL Normal 150-400 [facility] Comment on above: Order Comment: Speci men Type: BLOOD SPECIMEN [facility] Facility: [facility] Address: [address] [place] [address] Performed By: #### 3 3935-8 #### [facility] CLIA [id number] [address] [place] [address] [place] RBC (Bld) [#/Vol] 3.85 10*6/uL Low 3.90-5.[address] [facility] Comment on above: Order Comment: Speci men Type: BLOOD SPECIMEN [facility] Facility[facility] Address: [address] [place] [address] Performed By: #### 3 3935-8 #### [facility] CLIA [id number] [address] [place] [address] [place] WBC (Bld) [#/Vol] 6.73 10*3/uL Normal 3.70-11.[address] [facility] Comment on above: Order Comment: Speci men Type: BLOOD SPECIMEN [facility] Facility[facility] Address: [address] [place] [address] Performed By: #### 3 3935-8 #### [facility] CLIA [id number] [address] [place] [address] [place] CNOVon 12-26-2024 CNOV Office Visit (RHWSTR ) -------- CHRISTEL SAUCEDA ([id number]) 1965 F Date Time Provider Department 12/26/24 11:00 AM NICOLE MINOR RHWSTR During your visit today, we recorded the following information about you: Pulse Blood pressure Weight Height 47/minute 110/48 59.6 kg 1.651 m Nicole Minor PA-C 12/26/2024 1:19 PM Signed Rheumatology CONSULTATION Date of Service: 12/26/2024 Patient: Christel Sauceda Medical Record: [id number] Primary Care Physician: Cheryle Babcock DO, DO Last Rheumatology visit: 03/13/2024 (with Louise Contreras) Referring Provider: No referring provider defined for this encounter. Recording using [employer] software for draft documentation of the visit was discussed with the patient/authorized traffic workforce representative; all questions welcomed and answered. Patient/authorized traffic workforce representative agreed to proceed History of Present Illness Christel Sauceda is a 59-year-old female with a history of seronegative rheumatoid arthritis, fibromyalgia, and sicca syndrome, presenting for evaluation of chronic joint pain and recent eye issues. Christel reports a current pain level of 4 . She describes the pain as Dull, Aching. The pain is Continuous, and has lasted for 5 Years. Interventions tried include Other: See comment (none). Her most recent RADHA was negative (03/13/2024). Christel reports chronic joint pain involving the lower back, bilateral knees, ankles, feet, and thumbs. The pain began a few years ago and was initially attributed to long work hours, but persisted even after reducing work hours. She experiences significant morning stiffness lasting approximately two hours and notes that the pain worsens throughout the day. Walking exacerbates the pain in her feet, and knee flexion increases discomfort. She also reports severe pain in her thumbs, starting at the middle knuckle and extending to the CMC joints bilaterally. She denies current swelling but previously experienced swelling in her feet and knees. She has difficulty with stairs due to knee pain and describes hip pain as both lateral and groin-related. 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 Christel experiences flare-ups causing pain from her lower back to her toes, followed by muscle cramping and shooting pains attributed to fibromyalgia. She has not seen a internet database specialist or pain management for her back issues, which she was told are due to arthritis. She has a longstanding history of right-sided sciatica. She has tried various medications, including methotrexate (up to 6 tablets of 2.5 mg weekly), Enbrel, and Orencia, without relief. She was advised against using anti-inflammatories and currently takes prednisone 5 mg daily as needed, though she reports it is ineffective. She is also on tetracycline for recent eye issues, which were initially thought to be allergic but later attributed to arthritis by her primary care physician, Dr. Babcock. The eye issues have improved with treatment. She reports hot flashes and facial erythema, which she associates with methotrexate use. She denies fevers, chills, unexplained weight loss, hair loss, nail changes, mouth sores, or chest pain. She experiences daily headaches with sinus pressure but no nasal congestion or discharge. She denies hemoptysis, hematochezia, or hematuria. She has difficulty swallowing and has had multiple episodes of choking requiring the Heimlich maneuver. She is scheduled for a swallow study. She takes sucralfate to manage diarrhea, which has been effective. She has a low pulse rate of 47 bpm and plans to discuss this with her primary care physician. She has a history of low vitamin D and serum cortisol levels. She denies psoriasis or scaly skin rashes but reports easy bruising and a persistent facial rash. She has upper and lower dentures. Pain Evaluation 04/05/2024 05/07/2024 12/26/2024 Pain Evaluation Pain Score 3 8 4 Location Eye-Right Generalized -- Location Comment multiple sites Description Pressure Aching Dull;Aching Duration (#) 1 1 5 Duration (Timeframe) Days Days Years Frequency Continuous Continuous Continuous Intervention Medication Other: See comment Data saved with a previous flowsheet row definition Patient-Entered Data N/A Review of Systems Review of Systems CONSTITUTION: Negative for: Fever and Recent weight change + night sweats, hot and cold flucuations, Hot flashes HEENT: Positive for: Trouble swallowing and Dry mouth Negative for: Nosebleeds and Mouth sores Sinus pressure behind eyes and head RESPIRATORY: Positive for: Cough and Shortness of breath (occasional with exertion) Negative for: Pain with breathing and Coughing up blood GASTROINTESTINAL: Negative for: Melena, Diarrhea and Heartburn History of multiple upper and lower scopes (more content not included)... Normal [facility] CRP SerPl-mCncon 12-26-2024 CRP [Mass/Vol] mg/L Normal <0.9 [facility] Comment on above: Order Comment: Speci men Type: BLOOD SPECIMEN [facility] Facility: [facility] Address: [address] [place] [address] Performed By: #### 3 3935-8 #### [facility] CLIA [id number] [address] [place] [address] [place] [address] [facility] [place] Comprehensive metabolic 2000 panelOrdered By: Rosa Aguayo on 12-26-2024 Albumin [Mass/Vol] 4.5 g/dL 3.9 - 4.9 g/dL [facility] ALP [Catalytic activity/Vol] 86 U/L 34 - 123 U/L [facility] ALT [Catalytic activity/Vol] 15 U/L 7 - 38 U/L [facility] Anion gap [Moles/Vol] 10 mmol/L 8 - 15 mmol/L [facility] AST [Catalytic activity/Vol] 15 U/L 13 - 35 U/L [facility] Bilirubin [Mass/Vol] 0.3 mg/dL 0.2 - 1 .3 mg/dL [facility] Calcium [Mass/Vol] 9.9 mg/dL 8.5 - 10. 2 mg/dL [facility] Chloride [Moles/Vol] 105 mmol/L 98 - 10 7 mmol/L [facility] CO2 [Moles/Vol] 25 mmol/L 22 - 30 mmol/L [facility] Creatinine [Mass/Vol] 0.83 mg/dL 0.58 - 0.96 mg/dL [facility] GFR/1.73 sq M.predicted among non-blacks MDRD (S/P/Bld) [Vol rate/Area] 82 mL/min/{1.73_m2} - PINF [facility] Comment on above: Estimated Glomerular Filtration Rate (eGFR) is calculated using the 2020 CKD-EPI creatinine equation. This equation utilizes serum creatinine, sex, and age as parameters. The creatinine assay has traceable calibration to isotope dilution-mass spectrometry. Refer to KDIGO guidelines for clinical interpretation. In patients with unstable renal function, e.g. those with acute kidney injury, the eGFR may not accurately reflect actual GFR. Glucose [Mass/Vol] 107 mg/dL High 74 - 99 mg/dL [facility] Comment on above: The [place] Diab[employer] s Association (ADA) provides guidance for cutoff values for fasting glucose and random glucose. The ADA defines fasting as no caloric intake for at least 8 hours. Fasting plasma glucose results between 100 to 125 mg/dL indicate increased risk for diabetes (prediabetes). Fasting plasma glucose results greater than or equal to 126 mg/dL meet the criteria for diagnosis of diabetes. In the absence of unequivocal hyperglycemia, results should be confirmed by repeat testing. In a patient with classic symptoms of hyperglycemia or hyperglycemic crisis, random plasma glucose results greater than or equal to 200 mg/dL meet the criteria for diagnosis of diabetes. Reference: Standards of Medical Care in Diabetes 2016, [place] Diabetes Association. Diabetes Care. 2016.39(Suppl 1). Interpretation and review of laboratory results Abnormal [facility] Potassium [Moles/Vol] 4.0 mmol/L 3.7 - 5.1 mmol/L [facility] Protein [Mass/Vol] 6.9 g/dL 6.3 - 8.0 g/dL [facility] Sodium [Moles/Vol] 140 mmol/L 136 - 144 mmol/L [facility] Urea nitrogen [Mass/Vol] 14 mg/dL 7 - 21 mg/dL [facility] Comprehensive metabolic 2000 panelon 12-26-2024 Albumin [Mass/Vol] 4.5 g/dL Normal 3.9-4.9 [facility] Comment on above: Order Comment: Zulma baptiste Type: BLOOD SPECIMEN [facility] Facility: [facility] Address: [address] [place] [address] Performed By: #### 3 3935-8 #### [facility] CLIA [id number] [address] [place] [address] [place] ALP [Catalytic activity/Vol] 86 U/L Normal 34-123 [facility] Comment on above: Order Comment: Speci men Type: BLOOD SPECIMEN [facility]ing Facility: [facility] Address: [address] [place] [address] Performed By: #### 3 3935-8 #### [facility] CLIA [id number] [address] [place] [address] [place] ALT [Catalytic activity/Vol] 15 U/L Normal 7-38 [facility] Comment on above: Order Comment: Speci men Type: BLOOD SPECIMEN [facility] Facility: [facility] Address: [address] [place] [address] Performed By: #### 3 3935-8 #### [facility] CLIA [id number] [address] [place], [place] [address] [place] Anion gap [Moles/Vol] 10 mmol/L Normal 8-15 [facility] Comment on above: Order Comment: Speci men Type: BLOOD SPECIMEN [facility]ing Facility: [facility] Address: [address] [place] [address] Performed By: #### 3 3935-8 #### [facility] CLIA [id number] [address] [place] [address] [place] AST [Catalytic activity/Vol] 15 U/L Normal 13-35 [facility] Comment on above: Order Comment: Speci men Type: BLOOD SPECIMEN [facility] Facility[facility] Address: [address] [place] [address] Performed By: #### 3 3935-8 #### [facility] CLIA [id number] [address] [place] [address] [place] Bilirubin [Mass/Vol] 0.3 mg/dL Normal 0.2-1.3 [facility] Comment on above: Order Comment: Speci men Type: BLOOD SPECIMEN [facility]ing Facility[facility] Address: [address] [place] [address] Performed By: #### 3 3935-8 #### [facility] CLIA [id number] [address] [place] [address] [place] Calcium [Mass/Vol] 9.9 mg/dL Normal 8.5-10.2 [facility] Comment on above: Order Comment: Speci men Type: BLOOD SPECIMEN [facility] Facility[facility] Address: [address] [place] [address] Performed By: #### 3 3935-8 #### [facility] CLIA [id number] [address] [place] [address] [place] Chloride [Moles/Vol] 105 mmol/L Normal 98-107 [facility] Comment on above: Order Comment: Speci men Type: BLOOD SPECIMEN [facility] Facility[facility] Address: [address] [place] [address] Performed By: #### 3 3935-8 #### [facility] CLIA [id number] [address] [place] [address] [place] CO2 [Moles/Vol] 25 mmol/L Normal 22-30 [facility] Comment on above: Order Comment: Speci men Type: BLOOD SPECIMEN [facility] Facility[facility] Address: [address] [place] [address] Performed By: #### 3 3935-8 #### [facility] CLIA [id number] [address] [place] [address] [place] Creatinine [Mass/Vol] 0.83 mg/dL Normal 0.58-0.96 [facility] Comment on above: Order Comment: Speci men Type: BLOOD SPECIMEN [facility] Facility[facility] Address: [address] [place] [address] Performed By: #### 3 3935-8 #### [facility] CLIA [id number] [address] [place] [address] [place] eGFRcr SerPlBld CKD-EPI 2020 82 mL/min/1.73m??? Normal >=60 [facility] Comment on above: Order Comment: Speci men Type: BLOOD SPECIMEN [facility] Facility: [facility] Address: [address] [place] [address] Result Comment: Jen mated Glomerular Filtration Rate (eGFR) is calculated using the 2020 CKD-EPI creatinine equation. This equation utilizes serum creatinine, sex, and age as parameters. The creatinine assay has traceable calibration to isotope dilution-mass spectrometry. Refer to KDIGO guidelines for clinical interpretation. In patients with unstable renal function, e.g. those with acute kidney injury, the eGFR may not accurately reflect actual GFR. Performed By: #### 3 3935-8 #### [facility] CLIA [id number] [address] [place] [address] [place] Glucose [Mass/Vol] 107 mg/dL High 74-99 [facility] Comment on above: Order Comment: Speci men Type: BLOOD SPECIMEN [facility] Facility[facility] Address: [address] [place] [address] Result Comment: The [place] Diabetes Association (ADA) provides guidance for cutoff values for fasting glucose and random glucose. The ADA defines fasting as no caloric intake for at least 8 hours. Fasting plasma glucose results between 100 to 125 mg/dL indicate increased risk for diabetes (prediabetes). Fasting plasma glucose results greater than or equal to 126 mg/dL meet the criteria for diagnosis of diabetes. In the absence of unequivocal hyperglycemia, results should be confirmed by repeat testing. In a patient with classic symptoms of hyperglycemia or hyperglycemic crisis, random plasma glucose results greater than or equal to 200 mg/dL meet the criteria for diagnosis of diabetes. Reference: Standards of Medical Care in Diabetes 2016, [place] Diabetes Association. Diabetes Care. 2016.39(Suppl 1). Performed By: #### 3 3935-8 #### [facility] CLIA [id number] [address] [place] [address] [place] Potassium [Moles/Vol] 4.0 mmol/L Normal 3.7-5.1 [facility] Comment on above: Order Comment: Telmai men Type: BLOOD SPECIMEN [facility]ing Facility[facility] Address: [address] [place] [address] Performed By: #### 3 3935-8 #### [facility] CLIA [id number] [address] [place] [address] [place] Protein [Mass/Vol] 6.9 g/dL Normal 6.3-8.0 [facility] Comment on above: Order Comment: Telmai men Type: BLOOD SPECIMEN [facility] Facility[facility] Address: [address] [place] [address] Performed By: #### 3 3935-8 #### [facility] CLIA [id number] [address] [place] [address] [place] Sodium [Moles/Vol] 140 mmol/L Normal 136-144 [facility] Comment on above: Order Comment: Speci men Type: BLOOD SPECIMEN [facility] Facility[facility] Address: [address] [place] [address] Performed By: #### 3 3935-8 #### [facility] CLIA [id number] [address] [place] [address] [place] Urea nitrogen [Mass/Vol] 14 mg/dL Normal 7-21 [facility] Comment on above: Order Comment: Speci men Type: BLOOD SPECIMEN [facility] Facility[facility] Address: [address] [place] [address] Performed By: #### 3 3935-8 #### [facility] CLIA [id number] [address] [place] [address] [place] Cyclic citrullinated peptide IgG Qnon 12-26-2024 [facility] ANTIBODY IGG QUALITATIVE Negative Normal Negative [facility] Comment on above: Order Comment: Speci men Type: BLOOD SPECIMEN [facility] Facility[facility] Address: [address] [place] [address] Performed By: #### 3 3935-8 #### [facility] CLIA [id number] [address] [place] [address] [place] ESR Westergren method (Bld) [Velocity]on 12-26-2024 ESR (Bld) [Velocity] 8 mm/h [facility] Interpretation and review of laboratory results Normal [facility] ESR (Bld) [Velocity] 8 mm/h Normal 0-20 [facility] Comment on above: Order Comment: Speci men Type: BLOOD SPECIMENOrdering Facility: [facility] Address: [address] [place] [address] Performed By: #### 4 537-7 ####[facility] [id number] [place] [address] [place] Rheumatoid fact SerPl-aCncon 12-26-2024 Rheumatoid factor Qn [IU]/mL Normal <16 [facility] Comment on above: Order Comment: Speci men Type: BLOOD SPECIMEN [facility] Facility[facility] Address: [address] [place] [address] Performed By: #### 3 3935-8 #### [facility] CLIA [id number] [address] [place] [address] [place] SJOGREN ABS SSA/SSBon 2024 ANTI-SSB QUAL Negative Normal Negative [facility] Comment on above: Order Comment: Speci men Type: BLOOD SPECIMENOrdering Facility: [facility] Address: [address] [place] [address] Result Comment: Anti -SSB (anti-La) antibody is used as an aid in diagnosis of a variety of systemic autoimmune diseases, especially for Sjogren's syndrome and systemic lupus erythematosus. Clinical correlation is required. Test Methodology: Multiplex flow immunoassay. Performed By: #### X SSAB ####[facility] [id number] [address] [place] Sjogrens syndrome-A extractable nuclear Ab Qn (S) <0.2 Normal <1.0 [facility] Comment on above: Order Comment: Speci men Type: BLOOD SPECIMENOrdering Facility: [facility] Address: [address] [place] [address] Performed By: #### X SSAB ####[facility] [id number] [address] [place] Sjogrens syndrome-B extractable nuclear Ab Qn (S) <0.2 Normal <1.0 [facility] Comment on above: Order Comment: Speci men Type: BLOOD SPECIMENOrdering Facility: [facility] Address: [address] [place] [address] Performed By: #### X SSAB ####[facility] [id number] [place] [address] [place] SSA ANTIBODY QUAL Negative Normal Negative [facility] Comment on above: Order Comment: Speci men Type: BLOOD SPECIMENOrdering Facility: [facility] Address: [address] [place] [address] Result Comment: Anti -SSA (anti-Ro) antibody is used as an aid in diagnosis of a variety of systemic autoimmune diseases, Sjogren's syndrome among others. Clinical correlation is required. Test Methodology: Multiplex flow immunoassay. ??? \X09\ Performed By: #### X SSAB ####[facility] [id number] [place] [address] [place] XR FOOT 3V AP/LAT/OBL BILon 12-26-2024 XR FOOT 3V AP/LAT/OBL LEORA * * *Final Report* * * DATE OF EXAM: Dec 26 2024 1:22PM [id number] - XR FOOT 3V AP/LAT/OBL LEORA / PROCEDURE REASON: multiple diagnoses * * * * Physician Interpretation * * * * EXAMINATION: XR FOOT 3V AP/LAT/OBL LEORA HISTORY: PT STATES BILAT FOOT PAIN HISTORY OF RA Polyarthralgia Weight loss, unintentional Constipation, unspecified constipation type Intermittent diarrhea. TECHNIQUE: XR FOOT 3V AP/LAT/OBL LEORA Laterality: BILATERAL Number of different views (projections): 3 M: XB_1 COMPARISON: RESULT: Joint spaces are maintained. No acute bone destruction. Osteopenia. No acute fracture or dislocation. There are no bony erosions. IMPRESSION: No radiographic findings of inflammatory arthropathy. Supervisor Sleeping Bag Department: [facility] Transcribe Date/Time: Jan 01 2025 5:44P Dictated by : PANCHO REYEZ MD This examination was interpreted and the report reviewed and electronically signed by: PANCHO REYEZ MD on Jan 01 2025 5:45PM EST [id number] Normal [facility] XR HAND 3V PA/LAT/OBL BILon 12-26-2024 XR HAND 3V PA/LAT/OBL LEORA * * *Final Report* * * DATE OF EXAM: Dec 26 2024 1:21PM [id number] - XR HAND 3V PA/LAT/OBL LEORA / PROCEDURE REASON: multiple diagnoses * * * * Physician Interpretation * * * * EXAMINATION: XR HAND 3V PA/LAT/OBL LEORA HISTORY: PT STATES BILAT HAND PAIN HISTORY OF RA Polyarthralgia Weight loss, unintentional Constipation, unspecified constipation type Intermittent diarrhea. TECHNIQUE: XR HAND 3V PA/LAT/OBL LEORA Laterality: BILATERAL Number of different views (projections): 3 M: XB_1 COMPARISON: RESULT: Normal joint spaces. No chondrocalcinosis. No acute fracture or dislocation. There are no bony erosions. IMPRESSION: No radiographic findings of inflammatory arthropathy. Supervisor Sleeping Bag Department: [facility] Transcribe Date/Time: Jan 01 2025 5:44P Dictated by : PANCHO REYEZ MD This examination was interpreted and the report reviewed and electronically signed by: PANCHO REYEZ MD on Jan 01 2025 5:44PM EST [id number] Normal [facility] XR HIP LEORA 5V PEL+ AP/LAT EA HIPon 12-26-2024 XR HIP LEORA 5V PEL+ AP/LAT EA HIP * * *Final Report* * * DATE OF EXAM: Dec 26 2024 1:23PM [id number] - XR HIP LEORA 5V PEL+ AP/LAT EA HIP / PROCEDURE REASON: multiple diagnoses * * * * Physician Interpretation * * * * EXAMINATION: XR HIP LEORA 5V PEL+ AP/LAT EA HIP, XR SI JTS 2V AP PELV/HERNANDEZ HISTORY: PT STATES BILAT HIP PAIN (accession [id number]), PT STATES HIP PAIN AND LOWER BACK PAIN (accession [id number]) Polyarthralgia Weight loss, unintentional Constipation, unspecified constipation type Intermittent diarrhea. TECHNIQUE: XR HIP LEORA 5V PEL+ AP/LAT EA HIP, XR SI JTS 2V AP PELV/HERNANDEZ Laterality: BILATERAL Number of different views (projections): 3 (accession [id number]), 2 (accession [id number]) M: XB_1 COMPARISON: RESULT: Maintained sacroiliac joints bilaterally with mild degenerative findings. Pubic symphysis is maintained. Maintained bilateral hip joint spaces. Minimal degenerative change of the sacroiliac joints which are maintained. Pubic symphysis is maintained. No acute fracture or dislocation. There are no bony erosions. IMPRESSION: No radiographic findings of inflammatory arthropathy. Supervisor Sleeping Bag Department: [facility] Transcribe Date/Time: Jan 01 2025 5:45P Dictated by : PANCHO REYEZ MD This examination was interpreted and the report reviewed and electronically signed by: PANCHO REYEZ MD on Jan 01 2025 5:46PM EST [id number] Normal [facility] XR SI JTS 2V AP PELV/FERGUSO Non 12-26-2024 XR SI JTS 2V AP PELV/HERNANDEZ * * *Final Report* * * DATE OF EXAM: Dec 26 2024 1:24PM WRX [id number] - XR SI JTS 2V AP PELV/HERNANDEZ / PROCEDURE REASON: Polyarthralgia * * * * Physician Interpretation * * * * EXAMINATION: XR HIP LEORA 5V PEL+ AP/LAT EA HIP, XR SI JTS 2V AP PELV/HERNANDEZ HISTORY: PT STATES BILAT HIP PAIN (accession [id number]), PT STATES HIP PAIN AND LOWER BACK PAIN (accession [id number]) Polyarthralgia Weight loss, unintentional Constipation, unspecified constipation type Intermittent diarrhea. TECHNIQUE: XR HIP LEORA 5V PEL+ AP/LAT EA HIP, XR SI JTS 2V AP PELV/HERNANDEZ Laterality: BILATERAL Number of different views (projections): 3 (accession [id number]), 2 (accession [id number]) M: XB_1 COMPARISON: RESULT: Maintained sacroiliac joints bilaterally with mild degenerative findings. Pubic symphysis is maintained. Maintained bilateral hip joint spaces. Minimal degenerative change of the sacroiliac joints which are maintained. Pubic symphysis is maintained. No acute fracture or dislocation. There are no bony erosions. IMPRESSION: No radiographic findings of inflammatory arthropathy. Supervisor [employer] Department: [facility] Transcribe Date/Time: Jan 01 2025 5:45P Dictated by : PANCHO REYEZ MD This examination was interpreted and the report reviewed and electronically signed by: PANCHO REYEZ MD on Jan 01 2025 5:46PM EST [id number] Normal [facility] cCP IgG SerPl-aCncon 025 Cyclic citrullinated peptide IgG Qn <15 Normal <20 [facility] Comment on above: Order Comment: Speci men Type: BLOOD SPECIMEN Ordering Facility: [facility] Address: [address] [place] [address] Performed By: #### 3 [id number] #### [facility] CLIA [id number] [address] [place] [address] Internal Medicine Office Vis iton 12-20-2024 Internal Medicine Office Visit [facility] [address] [place] [address] [place] [address] OFFICE VISIT Date of Service: 12/20/24 MR#: [id number] Acct: [id number] Name: CHRISTEL SAUCEDA Rep #: [id number] : 1965 Provider: BRENDA Childress Age/Sex: 59/F Location: [facility] Status: Signed Intake Vital Signs 11/14/24 11:28 12/20/24 14:30 Height 5 ft 4 in 5 ft 4 in Weight: 130 lb 129 lb BMI 22.3 22.1 BP 148/72 H 136/86 H Blood Pressure Location Lt brachial Rt brachial Position Sitting Sitting Respiration 16 16 Pulse 61 68 Pulse Source Monitor Monitor Temp 97.4 F L 96.3 F L Temp Source Temporal Temporal Pulse Oximetry (%) 97 98 Oxygen Delivery Method room air room air Intake Visit Reasons: ACUTE ARTHRITIS/MED REFILL Learning Disabilities Specialist Required: No Accompanied by: Sister Is patient in pain?: Yes (low back radiating B/L foot, R>L) Pain scale (1-10): 8 Allergies buprenorphine Allergy (Intermediate, Verified 12/20/24 14:22) Rash buspirone Allergy (Intermediate, Verified 12/20/24 14:22) Rash duloxetine (From Cymbalta) Allergy (Intermediate, Verified 12/20/24 14:22) Rash gatifloxacin (From Tequin) Allergy (Verified 12/20/24 14:22) Other venlafaxine (From Effexor) Allergy (Verified 12/20/24 14:22) Other Medications ???Medication ???Instructions ???Recorded ???Confirmed ???Type cholecalciferol (vitamin D3) 50 50 mcg PO QDAY #90 tabs 04/03/24 0 12/20/24 Rx mcg (2,000 unit) tablet folic acid 1 mg tablet 2 mg PO QDAY 07/04/24 12/20/24 His tory melatonin 10 mg capsule 10 mg PO QHS 07/05/24 12/20/24 His tory estradiol 1 mg tablet 1 mg PO QDAY #30 TABLETS 09/05/24 12/20/24 Rx pantoprazole 40 mg tablet,delayed 40 mg PO DAILY #30 TABLETS 12/20/24 Rx release escitalopram oxalate 20 mg tablet 20 mg PO DAILY #30 TABLETS 12/20/24 Rx sucralfate 1 gram tablet (Carafate) 1 g PO TID 1 month #90 tabs 12/20/24 Rx acetaminophen 325 mg capsule 1,000 mg PO QD-QID PRN pain 12/20/24 History (Tylenol) tetracycline 500 mg capsule 500 mg PO Q12H #20 caps 11/14/24 0 12/20/24 Rx alprazolam 1 mg tablet 1 mg PO TID free floating anxiety 12/07/24 12/20/24 Rx #90 tabs metoprolol tartrate 25 mg tablet 25 mg PO QHS #90 TABLETS 12/12/24 12/20/24 Rx gabapentin 800 mg tablet 800 mg PO TID #90 TABLETS 12/17/24 12/20/24 Rx azelastine 205.5 mcg (0.15 %) See Rx Instructions .Route 5 History nasal spray (Astepro Allergy) .COMPLEX PRN hydrocodone 7.5 mg-acetaminophen 1 tab PO Q8H PRN EXTREME pain 12/0712/20/24 Rx 325 mg tablet autoimmune issues 21 days #21 tabs PFSH Medical History Hypertension Vapes nicotine containing substance Wears glasses Wears dentures Depression History of steroid therapy Fibromyalgia Sicca syndrome Rheumatoid arthritis Anemia Back pain Migraine headache H/O Sjogren's disease Difficulty swallowing Smoker Shortness of breath on exertion Leg cramps History of irregular heartbeat Underweight due to inadequate caloric intake history of tubal reconstruction History of ectopic Anxiety Heart murmur Chronic leg pain Chronic back pain Surgical History Hx of colonoscopy History of esophagogastroduodenosco py (EGD) S/P genital surgery History of hysterectomy History of knee surgery History of appendectomy Family History Other Cancer Diabetes Hypertension Parkinsons disease Social History Smoking Status: Current every day smoker tobacco type: e-cigarettes Tobacco: How many years used: 36 Electronic Cigarette Use: with nicotine alcohol intake: never substance use type: does not use what type of physical activity do you participate in: walking frequency: daily HPI HPI Details: CHRISTEL SAUCEDA, is a 59 F who presents to the office today for refills on her pain medication. She has been on the pain medication for about 4-5 months now. She states that she was given this to be take every 8 hours as needed for chronic pain as well as fibromyalgia. She states that she had a change in her insurance which she talked with her PCP about. The insurance allows for only a 21 day supply where she was getting 30 day supply. She does not take this everyday. She is currently in need of a refill She is going to see a new [employer] Sales Consultant next week to establish care for her fibromyalgia as well as her Sjogren's disease She states that the Benadryl is no longer helping her sleep and was wanting to discuss something else ROS Const Constitutional: Positive for headache(s) (C/O FREQUENT JEAN); No body ache, chills, exces (more content not included)... Normal [facility] Internal Medicine Office Vis marquita 11-14-2024 Internal Medicine Office Visit [facility] [address] [place] [address] [place] [address] OFFICE VISIT Date of Service: 11/14/24 MR#: [id number] Acct: [id number] Name: CHRISTEL SAUCEDA Rep #: [id number] : 1965 Provider: Dr. Cheryle brush, DO Age/Sex: 59/F Location: [facility] Status: Signed Intake Vital Signs 08/15/24 08:25 11/14/24 11:28 Height 5 ft 4 in 5 ft 4 in Weight: 127 lb 6 oz 130 lb BMI 21.8 22.3 BP 104/62 148/72 H Blood Pressure Location Lt brachial Lt brachial Position Sitting Sitting Respiration 20 H 16 Pulse 73 61 Pulse Source Monitor Monitor Temp 95.1 F L 97.4 F L Temp Source Temporal Temporal Pulse Oximetry (%) 95 97 Oxygen Delivery Method room air room air Intake Visit Reasons: 3 M FU Chief Complaint: 3 M FU Is patient in pain?: Yes (FROM WAIST TO TIPS OF TOES) Pain scale (1-10): 7 Allergies buprenorphine Allergy (Intermediate, Verified 11/14/24 11:21) Rash buspirone Allergy (Intermediate, Verified 11/14/24 11:21) Rash duloxetine (From Cymbalta) Allergy (Intermediate, Verified 11/14/24 11:21) Rash gatifloxacin (From Tequin) Allergy (Verified 11/14/24 11:21) Other venlafaxine (From Effexor) Allergy (Verified 11/14/24 11:21) Other Medications ???Medication ???Instructions ???Recorded ???Confirmed ???Type cholecalciferol (vitamin D3) 50 50 mcg PO QDAY #90 tabs 04/03/24 0 11/14/24 Rx mcg (2,000 unit) tablet azelastine 205.5 mcg (0.15 %) See Rx Instructions .Route 4 11/14/24 Rx nasal spray (Astepro Allergy) .COMPLEX #11 mL metoprolol tartrate 25 mg tablet 25 mg PO QHS #90 TABLETS 06/19/24 11/14/24 Rx folic acid 1 mg tablet 2 mg PO QDAY 07/04/24 11/14/24 His tory melatonin 10 mg capsule 10 mg PO QHS 07/05/24 11/14/24 His tory estradiol 1 mg tablet 1 mg PO QDAY #30 TABLETS 09/05/24 11/14/24 Rx pantoprazole 40 mg tablet,delayed 40 mg PO DAILY #30 TABLETS 11/14/24 Rx release escitalopram oxalate 20 mg tablet 20 mg PO DAILY #30 TABLETS 11/14/24 Rx alprazolam 1 mg tablet 1 mg PO TID free floating anxiety 11/05/24 11/14/24 Rx #90 tabs sucralfate 1 gram tablet (Carafate) 1 g PO TID 1 month #90 tabs 11/14/24 Rx gabapentin 800 mg tablet 800 mg PO TID #90 TABLETS 11/12/24 11/14/24 Rx acetaminophen 325 mg capsule 1,000 mg PO QD-QID PRN pain 11/14/24 History (Tylenol) diphenhydramine HCl 25 mg capsule 25 mg PO QHS PRN 11/14/24 5 History (Benadryl) hydrocodone 7.5 mg-acetaminophen 1 tab PO Q8H PRN pain 30 days #21 11/14/24 11/14/24 Rx 325 mg tablet tabs tetracycline 500 mg capsule 500 mg PO Q12H #20 caps 11/14/24 0 11/14/24 Rx PFSH Medical History Hypertension Vapes nicotine containing substance Wears glasses Wears dentures Depression History of steroid therapy Fibromyalgia Sicca syndrome Rheumatoid arthritis Anemia Back pain Migraine headache H/O Sjogren's disease Difficulty swallowing Smoker Shortness of breath on exertion Leg cramps History of irregular heartbeat Underweight due to inadequate caloric intake history of tubal reconstruction History of ectopic Anxiety Heart murmur Chronic leg pain Chronic back pain Surgical History Hx of colonoscopy History of esophagogastroduodenosco py (EGD) S/P genital surgery History of hysterectomy History of knee surgery History of appendectomy Family History Other Cancer Diabetes Hypertension Parkinsons disease Social History Smoking Status: Current every day smoker tobacco type: e-cigarettes Tobacco: How many years used: 36 Electronic Cigarette Use: with nicotine alcohol intake: never substance use type: does not use what type of physical activity do you participate in: walking frequency: daily HPI HPI Chief Complaint: 3 M FU Details: CHRISTEL SAUCEDA, is a 59 F who presents to the office today for a refill on her vicodin. She is switching revenue settlements administrator because of her insurance change. Her previous revenue settlements administrator told her she has seronegative rheumatoid disease, diagnosis which I disagree with. ROS Const Constitutional: Positive for headache(s) (C/O FREQUENT JEAN); No body ache, chills, excessive sweating, fatigue, fever(s), frequent falls, snoring, weakness, sleep problems or change in appetite Eyes Eyes: Positive for blurry vision and other (C/O PRESSURE BEHIND EYES LIKE A SINUS INFECTION); No change in vision or Light sensitivity ENT ENT: Positive for headache(s) (C/O FREQUENT JEAN); No abnormal hearing, ear or mastoid pain, tinnitus, nasal congestion, nasal discharge, neck pain or sore throat Res (more content not included)... Normal [facility] Internal Medicine Office Vis itokamla 08-15-2024 Internal Medicine Office Visit [facility] [address] [place] [address] [place] [address] OFFICE VISIT Date of Service: 08/15/24 MR#: [id number] Acct: [id number] Name: CHRISTEL SAUCEDA Rep #: [id number] : 1965 Provider: Dr. Cheryle brush, DO Age/Sex: 59/F Location: [facility] Status: Signed Intake Vital Signs 07/04/24 14:09 07/19/24 07:05 08/15/24 08:25 Height 5 ft 5 in 5 ft 4 in 5 ft 4 in Weight: 127 lb 6 oz BMI 21.8 BP 104/62 Blood Pressure Location Lt brachial Position Sitting Respiration 20 H Pulse 73 Pulse Source Monitor Temp 95.1 F L Temp Source Temporal Pulse Oximetry (%) 95 Oxygen Delivery Method room air Intake Visit Reasons: 6 WK Chief Complaint: fu and sick cough and throwing up Learning Disabilities Specialist Required: No Accompanied by: Self Is patient in pain?: No Allergies buprenorphine Allergy (Intermediate, Verified 08/15/24 08:20) Rash buspirone Allergy (Intermediate, Verified 08/15/24 08:20) Rash duloxetine (From Cymbalta) Allergy (Intermediate, Verified 08/15/24 08:20) Rash gatifloxacin (From Tequin) Allergy (Verified 08/15/24 08:20) Other venlafaxine (From Effexor) Allergy (Verified 08/15/24 08:20) Other Medications ???Medication ???Instructions ???Recorded ???Confirmed ???Type cholecalciferol (vitamin D3) 50 50 mcg PO QDAY #90 tabs 04/03/24 0 08/15/24 Rx mcg (2,000 unit) tablet azelastine 205.5 mcg (0.15 %) See Rx Instructions .Route 4 08/15/24 Rx nasal spray (Astepro Allergy) .COMPLEX #11 mL estradiol 1 mg tablet (Estrace) 1 mg PO QDAY 1 month #30 tabs 05/1608/15/24 Rx metoprolol tartrate 25 mg tablet 25 mg PO QHS #90 TABLETS 06/19/24 08/15/24 Rx acetaminophen 325 mg capsule 1,000 mg PO QD-QID pain 07/04/24 0 08/15/24 History (Tylenol) alprazolam 1 mg tablet 1 mg PO TID free floating anxiety 07/04/24 08/15/24 Rx #120 tabs escitalopram oxalate 20 mg tablet 20 mg PO QDAY #30 tabs 07/04/24 0 08/15/24 Rx (Lexapro) folic acid 1 mg tablet 2 mg PO QDAY 07/04/24 08/15/24 His tory methotrexate sodium 2.5 mg tablet 12.5 mg PO QWEEK 07/04/24 5 History prednisone 5 mg tablet 5 mg PO QDAY 07/04/24 08/15/24 His tory sucralfate 1 gram tablet (Carafate) 1 g PO TID 1 month #90 tabs 08/15/24 Rx melatonin 10 mg capsule 10 mg PO QHS 07/05/24 08/15/24 His tory pantoprazole 40 mg tablet,delayed 40 mg PO DAILY #30 tabs 07/10/24 08/15/24 Rx release valacyclovir 500 mg tablet 500 mg PO BID #14 tabs 07/19/24 Rx azithromycin 250 mg tablet See Rx Instructions PO .COMPLEX #6 08/15/24 08/15/24 Rx (Zithromax Z-Samson) tabs clotrimazole 10 mg victor m 10 mg mucous membrane TID #30 tabs 08/15/24 08/15/24 Rx gabapentin 800 mg tablet 800 mg PO TID #90 TABLETS 08/15/24 08/15/24 Rx hydrocodone 7.5 mg-acetaminophen 1 tab PO Q8H PRN pain 30 days #30 08/15/24 08/15/24 Rx 325 mg tablet tabs Have you fallen in the past year?: No Nurse's Note: coughing and vomiting PFSH Medical History Hypertension Vapes nicotine containing substance Wears glasses Wears dentures Depression History of steroid therapy Fibromyalgia Sicca syndrome Rheumatoid arthritis Anemia Back pain Migraine headache H/O Sjogren's disease Difficulty swallowing Smoker Shortness of breath on exertion Leg cramps History of irregular heartbeat Underweight due to inadequate caloric intake history of tubal reconstruction History of ectopic Anxiety Heart murmur Chronic leg pain Chronic back pain Surgical History Hx of colonoscopy History of esophagogastroduodenosco py (EGD) S/P genital surgery History of hysterectomy History of knee surgery History of appendectomy Family History Other Cancer Diabetes Hypertension Parkinsons disease Social History Smoking Status: Current every day smoker tobacco type: e-cigarettes Tobacco: How many years used: 36 Electronic Cigarette Use: with nicotine alcohol intake: never substance use type: does not use what type of physical activity do you participate in: walking frequency: daily HPI HPI Chief Complaint: fu and sick cough and throwing up Details: CHRISTEL SAUCEDA, is a 59 F who presents to the office today for a severe cough and fever for 4 days. This patient has a nonproductive cough that severe enough to make her vomit occasionally. The cough is a racking type of cough and it makes her short of breath after extended periods of coughing. 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 She coughs hard enough sometimes that she has been incontinent of stool. ROS (more content not included)... Normal [facility] M100.678on 08-15-2024 M100.678 Copy of report sent to Infection Control Printer [id number] 08/15/24 3221 BLUCAS. FLUABV+SARS-CoV-2+RSV Pnl Resp [place]+probe FLUABV+SARS-CoV-2+RSV Pnl Resp [place]+probe SARS-CoV-2 (COVID 19) Negative INFLUENZA A A Positive A INFLUENZA B Negative RSV PCR Negative INFLUENZAE A Normal [facility] Comment on above: Performed By: #### M 100.678 ####[facility] [address] [place], [address] CBC W/Diff, Automatedon 07-15 Absolute Lymph 1.22 X10 3/uL Normal 0.83-4.51 [facility] Comment on above: Performed By: #### L 500.4050, L100.0100 #### [facility] [address] [place], [address] Absolute Neut 8.0 X10 3/uL High 2.0-7.7 [facility] Comment on above: Performed By: #### L 500.4050, L100.0100 #### [facility] [address] [place], [address] Basophils/100 WBC (Bld) 0.2 % Normal 0-1 [facility] Comment on above: Performed By: #### L 500.4050, L100.0100 #### [facility] [address] [place], [address] Eosinophils/100 WBC (Bld) 0.0 % Normal 0-5 [facility] Comment on above: Performed By: #### L 500.4050, L100.0100 #### [facility] [address] [place], [address] Erythrocyte distribution width (RBC) [Ratio] 14.6 % Normal 11.6-14.6 [facility] Comment on above: Performed By: #### L 500.4050, L100.0100 #### [facility] [address] [place], [address] Hematocrit (Bld) [Volume fraction] 36.2 % Low 37-47 [facility] Comment on above: Performed By: #### L 500.4050, L100.0100 #### [facility] [address] [place], [address] Hemoglobin (Bld) [Mass/Vol] 11.9 g/dL Low 12.0-15.0 [facility] Comment on above: Performed By: #### L 500.4050, L100.0100 #### [facility] [address] [place], [address] IG% 0.400 Normal 0.0-0.9 [facility] Comment on above: Result Comment: IG% - Immature Granulocytes (promyelocytes, myelocytes and metamyelocytes) > 1% indicates that a LEFT SHIFT is Present. Performed By: #### L 500.4050, L100.0100 #### [facility] [address] [place], [address] Lymphocytes/100 WBC (Bld) 12.8 % Low 19-41 [facility] Comment on above: Performed By: #### L 500.4050, L100.0100 #### [facility] [address] [place], [address] MCH (RBC) [Entitic mass] 32.6 pg High 27.0-32.0 [facility] Comment on above: Performed By: #### L 500.4050, L100.0100 #### [facility] [address] [place], [address] MCHC (RBC) [Mass/Vol] 32.9 g/dL Normal 32-36 [facility] Comment on above: Performed By: #### L 500.4050, L100.0100 #### [facility] [address] [place], [address] MCV (RBC) [Entitic vol] 99.2 fL High 81-99 [facility] Comment on above: Performed By: #### L 500.4050, L100.0100 #### [facility] [address] [place], [address] Monocytes/100 WBC (Bld) 2.3 % Normal 0-10 [facility] Comment on above: Performed By: #### L 500.4050, L100.0100 #### [facility] [address] [place], [address] Neutrophils/100 WBC (Bld) 84.3 % High 47-70 [facility] Comment on above: Performed By: #### L 500.4050, L100.0100 #### [facility] [address] [place], [address] Nucleated RBC (Bld) [#/Vol] 0 10*3/uL Normal 0-5 [facility] Comment on above: Performed By: #### L 500.4050, L100.0100 #### [facility] [address] [place], [address] Platelet mean volume (Bld) [Entitic vol] 10.6 fL Normal 6.2-12.0 [facility] Comment on above: Performed By: #### L 500.4050, L100.0100 #### [facility] [address] [place], [address] Platelets (Bld) [#/Vol] 349 10*3/uL Normal 150-450 [facility] Comment on above: Performed By: #### L 500.4050, L100.0100 #### [facility] [address] [place], [address] RBC (Bld) [#/Vol] 3.65 10*6/uL Low 4.2-5.[address] [facility] Comment on above: Performed By: #### L 500.4050, L100.0100 #### [facility] [address] [place], [address] RDW SD 53.1 fl High 35.1-43.9 [facility] Comment on above: Performed By: #### L 500.4050, L100.0100 #### [facility] [address] [place], [address] WBC (Bld) [#/Vol] 9.5 10*3/uL Normal 4.4-11.0 [facility] Comment on above: Performed By: #### L 500.4050, L100.0100 #### [facility] [address] [place], [address] Comprehensive Metabolic Prof ilon 08-08-2024 Albumin [Mass/Vol] 4.2 g/dL Normal 3.5-5.0 [facility] Comment on above: Performed By: #### L 500.4050, L100.0100 #### [facility] [address] [place], [address] Albumin/Globulin [Mass ratio] 2.4 {ratio} Normal 0.9-2.4 [facility] Comment on above: Performed By: #### L 500.4050, L100.0100 #### [facility] [address] [place], [address] ALK PHOS 92 U/L Normal 35-104 [facility] Comment on above: Performed By: #### L 500.4050, L100.0100 #### [facility] [address] [place], [address] ALT [Catalytic activity/Vol] 14 U/L Normal <=34 [facility] Comment on above: Performed By: #### L 500.4050, L100.0100 #### [facility] [address] [place], [address] AST [Catalytic activity/Vol] 19 U/L Normal <=31 [facility] Comment on above: Performed By: #### L 500.4050, L100.0100 #### [facility] [address] [place], [address] Bilirubin [Mass/Vol] 0.30 mg/dL Normal 0.00-1.30 [facility] Comment on above: Performed By: #### L 500.4050, L100.0100 #### [facility] [address] [place], [address] BUN/CRE 27.1 RATIO High 10-20 [facility] Comment on above: Performed By: #### L 500.4050, L100.0100 #### [facility] [address] [place], [address] Calcium [Mass/Vol] 8.6 mg/dL Normal 7.6-11.0 [facility] Comment on above: Performed By: #### L 500.4050, L100.0100 #### [facility] [address] [place], [address] Chloride [Moles/Vol] 102 mmol/L Normal 98-108 [facility] Comment on above: Performed By: #### L 500.4050, L100.0100 #### [facility] [address] [place], [address] CO2 [Moles/Vol] 22.1 mmol/L Normal 21.0-32.0 [facility] Comment on above: Performed By: #### L 500.4050, L100.0100 #### [facility] [address] [place], [address] Creatinine [Mass/Vol] 0.83 mg/dL Normal 0.70-1.20 [facility] Comment on above: Performed By: #### L 500.4050, L100.0100 #### [facility] [address] [place], [address] GAP 14 Normal 5-15 [facility] Comment on above: Performed By: #### L 500.4050, L100.0100 #### [facility] [address] [place], [address] GFR/1.73 sq M.predicted among non-blacks MDRD (S/P/Bld) [Vol rate/Area] 82 mL/min/{1.73_m2} Normal >60 [facility] Comment on above: Result Comment: mL/m in/1.73m2 CKD-EPI Creatinine Equation (2020) Performed By: #### L 500.4050, L100.0100 #### [facility] [address] [place], [address] Globulin (S) [Mass/Vol] 1.7 g/dL Low 2.2-4.2 [facility] Comment on above: Performed By: #### L 500.4050, L100.0100 #### [facility] [address] [place], [address] Glucose [Mass/Vol] 115 mg/dL High 70-99 [facility] Comment on above: Performed By: #### L 500.4050, L100.0100 #### [facility] [address] [place], [address] Potassium [Moles/Vol] 4.2 mmol/L Normal 3.3-5.1 [facility] Comment on above: Performed By: #### L 500.4050, L100.0100 #### [facility] [address] [place], [address] Sodium [Moles/Vol] 138 mmol/L Normal 133-145 [facility] Comment on above: Performed By: #### L 500.4050, L100.0100 #### [facility] [address] [place], [address] T PROT 5.9 g/dL Normal 5.9-8.4 [facility] Comment on above: Performed By: #### L 500.4050, L100.0100 #### [facility] [address] [place], [address] Urea nitrogen [Mass/Vol] 23 mg/dL High 4-19 [facility] Comment on above: Performed By: #### L 500.4050, L100.0100 #### [facility] [address] [facility] [place], [address] HSV 1 AND 2 IgGon 07-20-2024 HSV 1 IgG Normal [facility] Comment on above: Result Comment: RESU LT: REACTIVE Please note reference interval change HSV-1 IgG testing performed using the [employer] HSV-1 IgG assay. Performed By: #### L 3400.1610 #### [facility] [address] [facility] [place], [address] HSV 2 IgG Normal [facility] Comment on above: Result Comment: RESU LT: REACTIVE Please note reference interval change Current guidelines and recommendations do not recommend routine screening for HSV-2 in asymptomatic individuals, including those that are . The detection of HSV-2 IgG antibodies in a single sample indicates previous exposure to HSV-2 but does not give information as to the site of HSV infection or the timing of exposure. The predictive value of positive and negative results depends on the population's prevalence and the pretest likelihood of HSV-2. HSV-2 IgG testing performed using the [employer] Elecsys HSV-2 IgG assay. Performed at: [address] [id number] Pump Operator: Bhargav Shrestha PhD, Phone: [phone] Performed By: #### L 3400.1610 #### [facility] [address] [place], [place], [id number] V-Zoster Virus Acute IgMon 0 07-20-2024 V ZOSTER AB,IgM < 0.91 Normal 0.00-0.90 [facility] Comment on above: Result Comment: Nega tive <0.91 Borderline 0.91 - 1.09 Positive >1.09 Performed at: [facility] [address] [id number] Pump Operator: Bhargav Shrestha PhD, Phone: [phone] Performed By: #### L 3309.9950 #### [facility] [address] [facility] [place], [address] Discharge Instructionon 030 Discharge Instruction [facility] Medical Records Department [address] [place] [address] Instructions for Home/Discharge Instructions 07/19/2409 MR#: [id number] Acct: [id number] Name: CHRISTEL SAUCEDA Rep #: [id number] : 1965 59 From: Narayan Leos MD PCP: Dr. Cheryle Babcock, DO [place] [facility] [place]charge Instructions Diet Discharge Diet: No restrictions Activity Discharge Activity: Return to Normal Activity Dressing / Incision Call your doctor if you observe: Fever of 101 or Higher, Inability to urinate and Inability to have a bowel movement Follow Up Care Please Follow Up With: Narayan Leos MD When: The office will call the patient to make follow-up arrangements. Test Results: Test results from this visit will be discussed in further detail at your follow-up appointment, if applicable. Discharge Plan Admission Attending Provider: Narayan Leos Primary Care Provider: Cheryle Babcock Print Language: Maori Discharge Orders/Prescriptions Prescriptions: New valacyclovir 500 mg tablet 500 mg PO BID Qty: 14 0RF Continued acetaminophen [Tylenol] 325 mg capsule 1,000 mg PO QD-QID Rx Instructions: pt reports that she takes 1000mg five times daily cholecalciferol (vitamin D3) 50 mcg (2,000 unit) tablet 50 mcg PO QDAY Qty: 90 1RF prednisone 5 mg tablet 5 mg PO QDAY methotrexate sodium 2.5 mg tablet 12.5 mg PO QWEEK Rx Instructions: pt reports she is taking 6 tablets once per week folic acid 1 mg tablet 2 mg PO QDAY sucralfate [Carafate] 1 gram tablet 1 g PO TID 30 Days Qty: 90 1RF alprazolam 1 mg tablet 1 mg PO TID Qty: 120 1RF Rx Instructions: every 6 hrs as needed hydrocodone-acetaminophe n 7.5-325 mg tablet 1 tab PO Q8H PRN (Reason: pain) 30 Days Qty: 30 0RF escitalopram oxalate [Lexapro] 20 mg tablet 20 mg PO QDAY Qty: 30 2RF melatonin 10 mg capsule 10 mg PO QHS azelastine [Astepro Allergy] 205.5 mcg (0.15 %) spray,non-aerosol See Rx Instructions .ROUTE .COMPLEX Qty: 11 2RF Dose Instruction: instill 1 spray into each nostril twice a day Rx Instructions: instill 1 spray into each nostril twice a day estradiol [Estrace] 1 mg tablet 1 mg PO QDAY 30 Days Qty: 30 2RF Rx Instructions: off 1 week; repeat cycle metoprolol tartrate 25 mg tablet 25 mg PO QHS Qty: 90 0RF gabapentin 800 mg tablet 800 mg PO TID Qty: 90 0RF pantoprazole 40 mg tablet,delayed release (DR/EC) 40 mg PO DAILY Qty: 30 1RF Rx Instructions: TAKE 1 TABLET BY MOUTH EVERY DAY Referrals / Follow Up: Cheryle Babcock DO [Primary Care Provider] - Disposition Disposition (needs filled in before D/C Order can be placed): Home, Self Care 07/19/24 0811 Narayan Leos MD CC: Dr. Cheryle Babcock DO Signed [facility] MR/POSTOP.David 07-19-2024 MR/POSTOP.[facility] Medical Records Department [address] [place] [address] Anesthesia Postop Eval I 07/19/24 0840 MR#: [id number] Acct: [id number] Name: CHRISTEL SAUCEDA Rep #: [id number] : 1965 59 From: Jayshree Cortez CRNA PCP: Dr. Cheryle Babcock DO Status:REG SDC Y Race: C Location: [place] [address] Anesthesia: Postop Eval I Current Vital Signs Temperature: 97.2 F Pulse Rate: 62 Blood Pressure: 103/43 Respiratory Rate: 16 Pulse Ox: 95 Oxygen Delivery Method: Room Air Assessment Airway patent: Yes Spontaneous unlabored respirations: Yes Mental status: Awake and Calm nausea: No Vomiting: No Anesthesia Complication: No Fluid Hydration Crystalloid volume administer (ml): 10 Total IV fluid infused: 10 Progress Note Anesthesia document: Postop Eval 1 completed: Yes 07/19/24 0841 Date Jayshree Cortez FILTER TIP INSPECTOR Cosigner Signature: Date CC: Signed Normal [facility] MR/[id number] 07-19-2024 [facility] Medical Records Department [address] [place] [address] Anesthesia Postop Eval II 07/19/24 1239 MR#: [id number] Acct: [id number] Name: CHRISTEL SAUCEDA Rep #: [id number] : 1965 59 From: Jamila Segura PCP: Dr. Cheryle Babcock, DO Status:[facility] Y Race: C [place] [facility] [place]esthesia Postop Eval I Sum Postop Eval Completion status Anesthesia document: Postop Eval 1 completed: Yes Anesthesia Postop Eval I Summary Anesthesia Postop Eval I Summary: Anesthesia Postop Eval I: Assessment Summary Airway patent Yes 07/19/24 08:41 FILTER TIP INSPECTOR.ANUOBShyann Spontaneous unlabored Yes 07/19/24 08:41 FILTER TIP INSPECTOR.ANUOBShyann respirations Mental status Awake,Calm 07/19/24 08:41 FILTER TIP INSPECTOR.SKOBY nausea No 07/19/24 08:41 FILTER TIP INSPECTOR.SKOBY Vomiting No 07/19/24 08:41 FILTER TIP INSPECTOR.SKOBY Anesthesia Postop Eval I: Fluid Summary Crystalloid volume administer 10 07/19/24 08:41 FILTER TIP INSPECTOR.ANUOBY (ml) Colloids volume administered ( ml) Blood Product volume administered (ml) Total IV fluid infused 10 07/19/24 08:41 FILTER TIP INSPECTORSTANTON Anesthesia Postop Eval I: Summary Notes Anesthesia Complication No 07/19/24 08:41 FILTER TIP INSPECTOR.SKOBY Anesthesia Complication Comment: Post-operative progress note Anesthesia: Postop Eval II Evaluation Mental status: Awake and Calm Pain Level: 0 nausea: No Vomiting: No Complications Anesthesia Complication: No 07/19/24 1240 Date Jamila Dotterer Cosigner Signature: Date CC: Signed Normal [facility] Operative Reporton 5 Operative Report [facility] Medical Records Department [address] [place] [address] Operative Report 07/19/24810 MR#: [id number] Acct: [id number] Name: CHRISTEL SAUCEDA Rep #: [id number] : 1965 59 From: Narayan Leos MD PCP: Dr. Cheryle Babcock, DO Status:[facility] Location: [place] [address] Operative Report (Standard) Operative Information Date of Procedure: 07/19/24 Pre-Operative Diagnosis: Weak stream, urethral stricture in a female Post-Operative Diagnosis: Same Surgery/Procedure Performed: Urethral dilation, cystoscopy lyft driver: No Type of Anesthesia: MAC RN Documented Start/Stop Times: Operation Date: 07/19/24 08:15 Case Time Into Pre-Op 07/19/24 06:39 Anesthesia Start 07/19/24 08:14 Into Room 07/19/24 08:14 Procedure Start 07/19/24 08:24 Procedure End 07/19/24 08:28 Anesthesia End 07/19/24 08:33 Out of Room 07/19/24 08:33 Into Recovery 07/19/24 08:35 Out of Recovery 07/19/24 08:57 Procedure Start Time: 08:24 Procedure Stop Time: 08:28 Select all DRAINS/GRAFTS/IMPLANTS that apply: None Estimated Blood Loss: <5cc Specimen collected: No Description of surgery: The patient is a 59-year-old female with issues emptying her bladder and found to have a urethral meatus narrowing on exam in the office. She elected to proceed with dilation and cystoscopy under anesthesia. Of note, the patient reports today that she has had a rash on her left inguinal area that had scabbed over and she cleansed and some of the areas were unroofed. She has never had an HSV infection that she is aware of. The rash is nontender, no burning, pain or itching. We discussed a blood drawl for further evaluation and treatment with antiviral medications. She will follow-up with her primary care physician. Informed consent was obtained. The patient was taken to the operating room placed on the operating room table. Anesthesia monitored the head, neck, airway, IV access and vital signs throughout the case. Once anesthesia was appropriate administered she was placed into dorsolithotomy position was prepped and draped in usual sterile fashion. The urethra was dilated from [address] to 30 Argentine using sequential female urethral sounds. At this time the cystoscope was inserted through the urethra under direct visualization into the urinary bladder. The bladder mucosa was visualized in its entirety revealing no evidence of mass, erythema, ulceration or foreign body. Her bladder was then emptied and the cystoscope was removed. She was awakened and taken to the recovery room in good condition. There were no complications during this procedure. Surgical Findings: Urethral stricture dilated to 30 Argentine Complications Complications: No Admit VTE Documentation VTE Present on Admission: Yes VTE Mechan Device Prophylaxis: SCD's VTE Pharm Prophylaxis ordered?: No Reason prophylaxis not ordered: Treatment Not Indicated 07/19/24 0857 Cosigner Signature (if applicable): CC: Dr. Cheryle Babcock DO; Dr. Narayan Leos MD Signed Normal [facility] Surgery Visit Reporton 07-09 Surgery Visit Report [facility] [address] [place] [address] [address] [place] [address] OFFICE VISIT Date of Service: 07/09/24 MR#: [id number] Acct: [id number] Name: CHRISTEL SAUCEDA Rep #: [id number] : 1965 Provider: Dr. Marcos velez MD Age/Sex: 59/F Location: [facility] Status: Signed Intake Vital Signs 07/04/24 14:09 07/09/24 08:42 Height 5 ft 5 in 5 ft 5 in Weight: 132 lb 132 lb BMI 21.9 21.9 BP 148/84 H 126/69 H Blood Pressure Location Lt brachial Rt brachial Position Sitting Sitting Respiration 18 16 Pulse 84 Pulse Source Monitor Temp 97.8 F Temp Source Temporal Pulse Oximetry (%) 96 Oxygen Delivery Method room air Intake Visit Reasons: Dysphagia Chief Complaint: dysphagia Learning Disabilities Specialist Required: No Is patient in pain?: No Allergies buprenorphine Allergy (Intermediate, Verified 07/09/24 08:42) Rash buspirone Allergy (Intermediate, Verified 07/09/24 08:42) Rash duloxetine (From Cymbalta) Allergy (Intermediate, Verified 07/09/24 08:42) Rash gatifloxacin (From Tequin) Allergy (Verified 07/09/24 08:42) Other venlafaxine (From Effexor) Allergy (Verified 07/09/24 08:42) Other Medications ???Medication ???Instructions ???Recorded ???Confirmed ???Type cholecalciferol (vitamin D3) 50 50 mcg PO QDAY #90 tabs 04/03/24 0 07/09/24 Rx mcg (2,000 unit) tablet pantoprazole 40 mg tablet,delayed 40 mg PO DAILY #30 tabs 05/01/24 07/09/24 Rx release azelastine 205.5 mcg (0.15 %) See Rx Instructions .Route 4 07/09/24 Rx nasal spray (Astepro Allergy) .COMPLEX #11 mL estradiol 1 mg tablet (Estrace) 1 mg PO QDAY 1 month #30 tabs 05/1607/09/24 Rx gabapentin 800 mg tablet 800 mg PO TID #90 TABLETS 06/08/24 07/09/24 Rx metoprolol tartrate 25 mg tablet 25 mg PO QHS #90 TABLETS 06/19/24 07/09/24 Rx acetaminophen 325 mg capsule 1,000 mg PO QD-QID pain 07/04/24 0 07/09/24 History (Tylenol) alprazolam 1 mg tablet 1 mg PO TID free floating anxiety 07/04/24 07/09/24 Rx #120 tabs escitalopram oxalate 20 mg tablet 20 mg PO QDAY #30 tabs 07/04/24 0 07/09/24 Rx (Lexapro) folic acid 1 mg tablet 2 mg PO QDAY 07/04/24 07/09/24 His tory hydrocodone 7.5 mg-acetaminophen 1 tab PO Q8H PRN pain 30 days #30 07/04/24 07/09/24 Rx 325 mg tablet tabs methotrexate sodium 2.5 mg tablet 12.5 mg PO QWEEK 07/04/24 5 History prednisone 5 mg tablet 5 mg PO QDAY 07/04/24 07/09/24 His tory sucralfate 1 gram tablet (Carafate) 1 g PO TID 1 month #90 tabs 07/09/24 Rx melatonin 10 mg capsule 10 mg PO QHS 07/05/24 07/09/24 His tory Have you fallen in the past year?: No PFSH Medical History (Updated 07/09/24 @ 08:47 by Sarah Rios) Hypertension Vapes nicotine containing substance Wears glasses Wears dentures Depression History of steroid therapy Fibromyalgia Sicca syndrome Rheumatoid arthritis Anemia Back pain Migraine headache H/O Sjogren's disease Difficulty swallowing Smoker Shortness of breath on exertion Leg cramps History of irregular heartbeat Underweight due to inadequate caloric intake history of tubal reconstruction History of ectopic Anxiety Heart murmur Chronic leg pain Chronic back pain Surgical History Hx of colonoscopy History of esophagogastroduodenosco py (EGD) S/P genital surgery History of hysterectomy History of knee surgery History of appendectomy Family History Other Cancer Diabetes Hypertension Parkinsons disease Social History Smoking Status: Current every day smoker tobacco type: e-cigarettes Tobacco: How many years used: 36 Electronic Cigarette Use: with nicotine alcohol intake: never substance use type: does not use what type of physical activity do you participate in: walking frequency: daily HPI HPI HPI: Patient is a 59-year-old female here for dysphagia. She says has been going on for several years. She also has a history of Sjogren syndrome. She is on PPI. She says everything is getting caught in her upper throat even saliva. ROS General General: Yes weight change; No appetite, fatigue, colon cancer, breast cancer or weakness HEENT HEENT: Yes difficulty swallowing; No eye injury, eye surgery, swollen glands or hoarseness Endo Endocrine: No thyroid disease, diabetes mellitus, thyroid cancer, Hair loss, heat intolerance or cold intolerance Skin Skin: No rash or changing moles Breast Breast: No left breast lump, right breast lump, nipple discharge, breast pain, abnormal mammogram, abnormal US or breast enlargement Musc Musculoskeletal: Yes back problems and arthritis; No rh (more content not included)... Normal [facility] Internal Medicine Office Vis marquita 07-04-2024 Internal Medicine Office Visit [facility] [address] [place] [address] [place] [address] OFFICE VISIT Date of Service: 07/04/24 MR#: [id number] Acct: [id number] Name: CHRISTEL SAUCEDA Rep #: [id number] : 1965 Provider: Dr. Cheryle Nicolas own, DO Age/Sex: 59/F Location: [facility] Status: Signed Intake Vital Signs 04/03/24 16:00 05/10/24 11:30 07/04/24 14:09 Height 5 ft 5 in 5 ft 5 in 5 ft 5 in Weight: 132 lb BMI 21.9 BP 148/84 H Blood Pressure Location Lt brachial Position Sitting Respiration 18 Pulse 84 Pulse Source Monitor Temp 97.8 F Temp Source Temporal Pulse Oximetry (%) 96 Oxygen Delivery Method room air Intake Visit Reasons: 3 M FU Chief Complaint: 3 M FU Is patient in pain?: Yes (lower back, knees, pain of 7 ) Allergies buprenorphine Allergy (Intermediate, Verified 07/04/24 14:10) Rash buspirone Allergy (Intermediate, Verified 07/04/24 14:10) Rash duloxetine (From Cymbalta) Allergy (Intermediate, Verified 07/04/24 14:10) Rash gatifloxacin (From Tequin) Allergy (Verified 07/04/24 14:10) Other venlafaxine (From Effexor) Allergy (Verified 07/04/24 14:10) Other Medications ???Medication ???Instructions ???Recorded ???Confirmed ???Type cholecalciferol (vitamin D3) 50 50 mcg PO QDAY #90 tabs 04/03/24 0 07/04/24 Rx mcg (2,000 unit) tablet pantoprazole 40 mg tablet,delayed 40 mg PO DAILY #30 tabs 05/01/24 07/04/24 Rx release azelastine 205.5 mcg (0.15 %) See Rx Instructions .Route 4 07/04/24 Rx nasal spray (Astepro Allergy) .COMPLEX #11 mL estradiol 1 mg tablet (Estrace) 1 mg PO QDAY 1 month #30 tabs 05/1607/04/24 Rx gabapentin 800 mg tablet 800 mg PO TID #90 TABLETS 06/08/24 07/04/24 Rx metoprolol tartrate 25 mg tablet 25 mg PO QHS #90 TABLETS 06/19/24 07/04/24 Rx abatacept 50 mg/0.4 mL mg subcut QWEEK 07/04/24 07/04/24 History subcutaneous syringe (Orencia) acetaminophen 325 mg capsule 1,000 mg PO QD-QID pain 07/04/24 0 07/04/24 History (Tylenol) alprazolam 1 mg tablet 1 mg PO TID free floating anxiety 07/04/24 07/04/24 Rx #120 tabs escitalopram oxalate 20 mg tablet 20 mg PO QDAY #30 tabs 07/04/24 0 07/04/24 Rx (Lexapro) folic acid 1 mg tablet 2 mg PO QDAY 07/04/24 07/04/24 His tory hydrocodone 7.5 mg-acetaminophen 1 tab PO Q8H PRN pain 30 days #30 07/04/24 07/04/24 Rx 325 mg tablet tabs methotrexate sodium 2.5 mg tablet 12.5 mg PO QWEEK 07/04/24 5 History prednisone 5 mg tablet 5 mg PO QDAY 07/04/24 07/04/24 His tory sucralfate 1 gram tablet (Carafate) 1 g PO TID 1 month #90 tabs 07/04/24 Rx PFSH Medical History Wears glasses Wears dentures Depression History of steroid therapy Fibromyalgia Sicca syndrome Rheumatoid arthritis Anemia Back pain Migraine headache H/O Sjogren's disease Difficulty swallowing Smoker Shortness of breath on exertion Leg cramps History of irregular heartbeat Underweight due to inadequate caloric intake history of tubal reconstruction History of ectopic Anxiety Heart murmur Chronic leg pain Chronic back pain Surgical History History of esophagogastroduodenosco py (EGD) S/P genital surgery History of hysterectomy History of knee surgery History of appendectomy Family History Other Cancer Diabetes Hypertension Parkinsons disease Social History Smoking Status: Current every day smoker tobacco type: cigarettes Tobacco: How many years used: 36 Electronic Cigarette Use: with nicotine alcohol intake: never substance use type: does not use what type of physical activity do you participate in: walking frequency: daily HPI HPI Chief Complaint: 3 M FU Details: CHRISTEL SAUCEDA, is a 59 F who presents to the office today for a follow-up visit. This is a very complicated patient who saw a revenue settlements administrator at [facility]. He did a very thorough exam and told her that he thought she had polymyalgia with no evidence of inflammatory arthropathy. She visited the emergency room several times because of the amount of pain she is in and then switch to another revenue settlements administrator who told her she had Sjogren syndrome and rheumatoid arthritis and started treating her. She says she is feeling some better but still has severe pain at times. She is significantly depressed and recently has been having swallowing difficulties where food gets stuck. ROS Const Constitutional: No body ache, chills, excessive sweating, fatigue, fever(s), frequent falls, headache(s), snoring, weight change, sleep problems, abnormal sleep pattern or change in appetite Ey (more content not included)... Normal [facility] CBC W/Diff, Automatedon 020 -2024 Absolute Lymph 0.83 X10 3/uL Normal 0.83-4.51 [facility] Comment on above: Performed By: #### L 500.4050, L100.0100 ####[facility] [address] [place], [address] Absolute Neut 4.5 X10 3/uL Normal 2.0-7.7 [facility] Comment on above: Performed By: #### L 500.4050, L100.0100 ####[facility] [address] [place], [address] Basophils/100 WBC (Bld) 0.5 % Normal 0-1 [facility] Comment on above: Performed By: #### L 500.4050, L100.0100 ####[facility] [address] [place], [address] Eosinophils/100 WBC (Bld) 0.4 % Normal 0-5 [facility] Comment on above: Performed By: #### L 500.4050, L100.0100 ####[facility] [address] [place], [address] Erythrocyte distribution width (RBC) [Ratio] 14.1 % Normal 11.6-14.6 [facility] Comment on above: Performed By: #### L 500.4050, L100.0100 ####[facility] [address] [place], [address] Hematocrit (Bld) [Volume fraction] 35.7 % Low 37-47 [facility] Comment on above: Performed By: #### L 500.4050, L100.0100 ####[facility] [address] [place], [address] Hemoglobin (Bld) [Mass/Vol] 11.3 g/dL Low 12.0-15.0 [facility] Comment on above: Performed By: #### L 500.4050, L100.0100 ####[facility] [address] [place], [address] IG% 0.400 Normal 0.0-0.9 [facility] Comment on above: Result Comment: IG% - Immature Granulocytes (promyelocytes, myelocytes and metamyelocytes) > 1% indicates that a LEFT SHIFT is Present. Performed By: #### L 500.4050, L100.0100 ####[facility] [address] [place], [address] Lymphocytes/100 WBC (Bld) 14.7 % Low 19-41 [facility] Comment on above: Performed By: #### L 500.4050, L100.0100 ####[facility] [address] [place], [address] MCH (RBC) [Entitic mass] 30.7 pg Normal 27.0-32.0 [facility] Comment on above: Performed By: #### L 500.4050, L100.0100 ####[facility] [address] [place], [address] MCHC (RBC) [Mass/Vol] 31.7 g/dL Low 32-36 [facility] Comment on above: Performed By: #### L 500.4050, L100.0100 ####[facility] [address] [place], [address] MCV (RBC) [Entitic vol] 97.0 fL Normal 81-99 [facility] Comment on above: Performed By: #### L 500.4050, L100.0100 ####[facility] [address] [place], [address] Monocytes/100 WBC (Bld) 5.1 % Normal 0-10 [facility] Comment on above: Performed By: #### L 500.4050, L100.0100 ####[facility] [address] [place], [address] Neutrophils/100 WBC (Bld) 78.9 % High 47-70 [facility] Comment on above: Performed By: #### L 500.4050, L100.0100 ####[facility] [address] [place], [address] Nucleated RBC (Bld) [#/Vol] 0 10*3/uL Normal 0-5 [facility] Comment on above: Performed By: #### L 500.4050, L100.0100 ####[facility] [address] [place], [address] Platelet mean volume (Bld) [Entitic vol] 10.7 fL Normal 6.2-12.0 [facility] Comment on above: Performed By: #### L 500.4050, L100.0100 ####[facility] [address] [place], [address] Platelets (Bld) [#/Vol] 322 10*3/uL Normal 150-450 [facility] Comment on above: Performed By: #### L 500.4050, L100.0100 ####[facility] [address] [place], [address] RBC (Bld) [#/Vol] 3.68 10*6/uL Low 4.2-5.[address] [facility] Comment on above: Performed By: #### L 500.4050, L100.0100 ####[facility] [address] [place], [address] RDW SD 50.1 fl High 35.1-43.9 [facility] Comment on above: Performed By: #### L 500.4050, L100.0100 ####[facility] [address] [place], [address] WBC (Bld) [#/Vol] 5.7 10*3/uL Normal 4.4-11.0 [facility] Comment on above: Performed By: #### L 500.4050, L100.0100 ####[facility] [address] [place], [address] Comprehensive Metabolic Prof ilon 06-20-2024 Albumin [Mass/Vol] 3.6 g/dL Normal 3.2-5.0 [facility] Comment on above: Performed By: #### L 500.4050, L100.0100 ####[facility] [address] [place], [address] Albumin/Globulin [Mass ratio] 1.0 {ratio} Normal 0.9-2.4 [facility] Comment on above: Performed By: #### L 500.4050, L100.0100 ####[facility] [address] [place], [address] ALK P 125 U/L High 45-117 [facility] Comment on above: Performed By: #### L 500.4050, L100.0100 ####[facility] [address] [place], [address] ALT [Catalytic activity/Vol] 37 U/L Normal 13-56 [facility] Comment on above: Performed By: #### L 500.4050, L100.0100 ####[facility] [address] [place], [address] AST [Catalytic activity/Vol] 20 U/L Normal 15-37 [facility] Comment on above: Performed By: #### L 500.4050, L100.0100 ####[facility] [address] [place], [address] Bilirubin [Mass/Vol] 0.20 mg/dL Normal 0.20-1.00 [facility] Comment on above: Result Comment: For patients on eltrombopag therapy, use of Dimension [place] TBIL is not recommended. Performed By: #### L 500.4050, L100.0100 ####[facility] [address] [place], [address] BUN/CRE 18.2 RATIO Normal 10-20 [facility] Comment on above: Performed By: #### L 500.4050, L100.0100 ####[facility] [address] [place], [address] CA,Total 8.7 mg/dL Normal 8.5-10.1 [facility] Comment on above: Performed By: #### L 500.4050, L100.0100 ####[facility] [address] [place], [address] Chloride [Moles/Vol] 109 mmol/L High 98-107 [facility] Comment on above: Performed By: #### L 500.4050, L100.0100 ####[facility] [address] [place], [address] CO2 [Moles/Vol] 22.0 mmol/L Normal 21.0-32.0 [facility] Comment on above: Performed By: #### L 500.4050, L100.0100 ####[facility] [address] [place], [address] Creatinine [Mass/Vol] 0.82 mg/dL Normal 0.55-1.02 [facility] Comment on above: Result Comment: The validity of the calculated GFR GFRAA in patients over 70 years has not been determined. Clinical correlation is essential. Performed By: #### L 500.4050, L100.0100 ####[facility] [address] [place], [address] EST GFR - AA 92 mL/min Normal >60 [facility] Comment on above: Result Comment: Afri can Slovenian GFR Calc Performed By: #### L 500.4050, L100.0100 ####[facility] [address] [place], [address] GAP 8 Normal 5-15 [facility] Comment on above: Performed By: #### L 500.4050, L100.0100 ####[facility] [address] [place], [address] GFR/1.73 sq M.predicted among non-blacks MDRD (S/P/Bld) [Vol rate/Area] 76 mL/min/{1.73_m2} Normal >60 [facility] Comment on above: Result Comment: Non- GFR Calc Performed By: #### L 500.4050, L100.0100 ####[facility] [address] [place], [address] Globulin (S) [Mass/Vol] 3.6 g/dL Normal 2.2-4.2 [facility] Comment on above: Performed By: #### L 500.4050, L100.0100 ####[facility] [address] [place], [address] Glucose [Mass/Vol] 138 mg/dL High 74-106 [facility] Comment on above: Result Comment: Fast ing Glucose result greater than or equal to 126 mg/dL suggests DIABETES MELLITUS per A.D.A. criteria. Performed By: #### L 500.4050, L100.0100 ####[facility] [address] [place], [address] Potassium [Moles/Vol] 3.8 mmol/L Normal 3.5-5.1 [facility] Comment on above: Performed By: #### L 500.4050, L100.0100 ####[facility] [address] [place], [address] Sodium [Moles/Vol] 138 mmol/L Normal 136-145 [facility] Comment on above: Performed By: #### L 500.4050, L100.0100 ####[facility] [address] [place], [address] T PROT 7.2 g/dL Normal 6.4-8.2 [facility] Comment on above: Performed By: #### L 500.4050, L100.0100 ####[facility] [address] [place], [address] Urea nitrogen [Mass/Vol] 15 mg/dL Normal 7-18 [facility] Comment on above: Performed By: #### L 500.4050, L100.0100 ####[facility] [address] [place], [address] Quantiferon TB-Gold+on 05-18 QFT MITOGEN GLORIA > 10.00 Normal . [facility] Comment on above: Performed By: #### L 3400.8000, L500.4050, L501.6710, L100.0100, L101.9900 ####[facility] [address] [place], [address] QFT NIL VALUE 0.01 IU/mL Normal . [facility] Comment on above: Performed By: #### L 3400.8000, L500.4050, L501.6710, L100.0100, L101.9900 ####[facility] [address] [place], [address] QFT TB GOLD+ Comment Normal . [facility] Comment on above: Result Comment: Amos tiFERON-TB Gold Plus is a qualitative indirect test for M tuberculosis infection (including disease) and is intended for use in conjunction with risk assessment, radiography, and other medical and diagnostic evaluations. The QuantiFERON-TB Gold Plus result is determined by subtracting the Nil value from either TB antigen (Ag) value. The Mitogen tube serves as a control for the test. Performed By: #### L 3400.8000, L500.4050, L501.6710, L100.0100, L101.9900 ####[facility] [address] [place], [address] QFT TB POS CRIT Negative Normal Negative [facility] Comment on above: Result Comment: No r esponse to M tuberculosis antigens detected. Infection with M tuberculosis is unlikely, but high risk individuals should be considered for additional testing (ATS/IDSA/CDC Clinical Practice Guidelines, 2017). The reference range is an Antigen minus Nil result of <0.35 IU/mL. The specimen received for QuantiFERON testing was incubated by the ordering institution. Specific procedures outlined in our Directory of Services and in the package insert for the QuantiFERON Gold (In Tube) test must be followed to enable for proper stimulation of cells for the production of interferon gamma. Chemiluminescence immunoassay methodology Performed at: [facility] [id number] Pump Operator: Bhargav Shrestha PhD, Phone: [phone] Performed By: #### L 3400.8000, L500.4050, L501.6710, L100.0100, L101.9900 ####[facility] [address] [place], [place], [address] QFT TB1+ AG GLORIA 0 IU/mL Normal . [facility] Comment on above: Performed By: #### L 3400.8000, L500.4050, L501.6710, L100.0100, L101.9900 ####[facility] [address] [place], [address] QFT TB2+ AG GLORIA 0 IU/mL Normal . [facility] Comment on above: Performed By: #### L 3400.8000, L500.4050, L501.6710, L100.0100, L101.9900 ####[facility] [address] [place], [place], [address] CBC W/Diff, Automatedon 12-3 Absolute Lymph 1.38 X10 3/uL Normal 0.83-4.51 [facility] Comment on above: Performed By: #### L 3400.8000, L500.4050, L501.6710, L100.0100, L101.9900 ####[facility] [address] [place], [address] Absolute Neut 6.3 X10 3/uL Normal 2.0-7.7 [facility] Comment on above: Performed By: #### L 3400.8000, L500.4050, L501.6710, L100.0100, L101.9900 ####[facility] [address] [place], [address] Basophils/100 WBC (Bld) 0.4 % Normal 0-1 [facility] Comment on above: Performed By: #### L 3400.8000, L500.4050, L501.6710, L100.0100, L101.9900 ####[facility] [address] [place], [address] Eosinophils/100 WBC (Bld) 0.3 % Normal 0-5 [facility] Comment on above: Performed By: #### L 3400.8000, L500.4050, L501.6710, L100.0100, L101.9900 ####[facility] [address] [place], [address] Erythrocyte distribution width (RBC) [Ratio] 12.7 % Normal 11.6-14.6 [facility] Comment on above: Performed By: #### L 3400.8000, L500.4050, L501.6710, L100.0100, L101.9900 ####[facility] [address] [place], [address] Hematocrit (Bld) [Volume fraction] 38.2 % Normal 37-47 [facility] Comment on above: Performed By: #### L 3400.8000, L500.4050, L501.6710, L100.0100, L101.9900 ####[facility] [address] [place], [address] Hemoglobin (Bld) [Mass/Vol] 12.4 g/dL Normal 12.0-15.0 [facility] Comment on above: Performed By: #### L 3400.8000, L500.4050, L501.6710, L100.0100, L101.9900 ####[facility] [address] [place], [address] IG% 0.300 Normal 0.0-0.9 [facility] Comment on above: Result Comment: IG% - Immature Granulocytes (promyelocytes, myelocytes and metamyelocytes) > 1% indicates that a LEFT SHIFT is Present. Performed By: #### L 3400.8000, L500.4050, L501.6710, L100.0100, L101.9900 ####[facility] [address] [place], [address] Lymphocytes/100 WBC (Bld) 17.3 % Low 19-41 [facility] Comment on above: Performed By: #### L 3400.8000, L500.4050, L501.6710, L100.0100, L101.9900 ####[facility] [address] [place], [address] MCH (RBC) [Entitic mass] 31.6 pg Normal 27.0-32.0 [facility] Comment on above: Performed By: #### L 3400.8000, L500.4050, L501.6710, L100.0100, L101.9900 ####[facility] [address] [place], [address] MCHC (RBC) [Mass/Vol] 32.5 g/dL Normal 32-36 [facility] Comment on above: Performed By: #### L 3400.8000, L500.4050, L501.6710, L100.0100, L101.9900 ####[facility] [address] [place], [address] MCV (RBC) [Entitic vol] 97.2 fL Normal 81-99 [facility] Comment on above: Performed By: #### L 3400.8000, L500.4050, L501.6710, L100.0100, L101.9900 ####[facility] [address] [place], [address] Monocytes/100 WBC (Bld) 3.4 % Normal 0-10 [facility] Comment on above: Performed By: #### L 3400.8000, L500.4050, L501.6710, L100.0100, L101.9900 ####[facility] [address] [place], [address] Neutrophils/100 WBC (Bld) 78.3 % High 47-70 [facility] Comment on above: Performed By: #### L 3400.8000, L500.4050, L501.6710, L100.0100, L101.9900 ####[facility] [address] [place], [address] Nucleated RBC (Bld) [#/Vol] 0 10*3/uL Normal 0-5 [facility] Comment on above: Performed By: #### L 3400.8000, L500.4050, L501.6710, L100.0100, L101.9900 ####[facility] [address] [place], [address] Platelet mean volume (Bld) [Entitic vol] 12.4 fL High 6.2-12.0 [facility] Comment on above: Performed By: #### L 3400.8000, L500.4050, L501.6710, L100.0100, L101.9900 ####[facility] [address] [place], [address] Platelets (Bld) [#/Vol] 306 10*3/uL Normal 150-450 [facility] Comment on above: Performed By: #### L 3400.8000, L500.4050, L501.6710, L100.0100, L101.9900 ####[facility] [address] [place], [address] RBC (Bld) [#/Vol] 3.93 10*6/uL Low 4.2-5.[address] [facility] Comment on above: Performed By: #### L 3400.8000, L500.4050, L501.6710, L100.0100, L101.9900 ####[facility] [address] [place], [address] RDW SD 45.7 fl High 35.1-43.9 [facility] Comment on above: Performed By: #### L 3400.8000, L500.4050, L501.6710, L100.0100, L101.9900 ####[facility] [address] [place], [address] WBC (Bld) [#/Vol] 8.0 10*3/uL Normal 4.4-11.0 [facility] Comment on above: Performed By: #### L 3400.8000, L500.4050, L501.6710, L100.0100, L101.9900 ####[facility] [address] [place], [address] CRPon 05-15-2024 C-REACTIVE PROT < 2.90 Normal 0.0-3.0 [facility] Comment on above: Result Comment: C-Re active Protein (CRP) provides useful information for the diagnosis, therapy and monitoring of inflammatory processes and associated diseases. For the evaluation of Relative Risk for Cardiovascular Disease, a High Sensitivity CRP (HSCRP) should be ordered. Performed By: #### L 3400.8000, L500.4050, L501.6710, L100.0100, L101.9900 ####[facility] [address] [place], [address] Comprehensive Metabolic Prof ilon 05-15-2024 Albumin [Mass/Vol] 4.1 g/dL Normal 3.2-5.0 [facility] Comment on above: Performed By: #### L 3400.8000, L500.4050, L501.6710, L100.0100, L101.9900 ####[facility] [address] [place], [address] Albumin/Globulin [Mass ratio] 1.3 {ratio} Normal 0.9-2.4 [facility] Comment on above: Performed By: #### L 3400.8000, L500.4050, L501.6710, L100.0100, L101.9900 ####[facility] [address] [place], [address] ALK P 102 U/L Normal 45-117 [facility] Comment on above: Performed By: #### L 3400.8000, L500.4050, L501.6710, L100.0100, L101.9900 ####[facility] [address] [place], [address] ALT [Catalytic activity/Vol] 31 U/L Normal 13-56 [facility] Comment on above: Performed By: #### L 3400.8000, L500.4050, L501.6710, L100.0100, L101.9900 ####[facility] [address] [place], [address] AST [Catalytic activity/Vol] 21 U/L Normal 15-37 [facility] Comment on above: Performed By: #### L 3400.8000, L500.4050, L501.6710, L100.0100, L101.9900 ####[facility] [address] [place], [address] Bilirubin [Mass/Vol] 0.20 mg/dL Normal 0.20-1.00 [facility] Comment on above: Result Comment: For patients on eltrombopag therapy, use of Dimension [place] TBIL is not recommended. Performed By: #### L 3400.8000, L500.4050, L501.6710, L100.0100, L101.9900 ####[facility] [address] [place], [address] BUN/CRE 20.0 RATIO Normal 10-20 [facility] Comment on above: Performed By: #### L 3400.8000, L500.4050, L501.6710, L100.0100, L101.9900 ####[facility] [address] [place], [address] CA,Total 9.2 mg/dL Normal 8.5-10.1 [facility] Comment on above: Performed By: #### L 3400.8000, L500.4050, L501.6710, L100.0100, L101.9900 ####[facility] [address] [place], [address] Chloride [Moles/Vol] 108 mmol/L High 98-107 [facility] Comment on above: Performed By: #### L 3400.8000, L500.4050, L501.6710, L100.0100, L101.9900 ####[facility] [address] [place], [address] CO2 [Moles/Vol] 31.0 mmol/L Normal 21.0-32.0 [facility] Comment on above: Performed By: #### L 3400.8000, L500.4050, L501.6710, L100.0100, L101.9900 ####[facility] [address] [place], [address] Creatinine [Mass/Vol] 0.70 mg/dL Normal 0.55-1.02 [facility] Comment on above: Result Comment: The validity of the calculated GFR GFRAA in patients over 70 years has not been determined. Clinical correlation is essential. Performed By: #### L 3400.8000, L500.4050, L501.6710, L100.0100, L101.9900 ####[facility] [address] [place], [address] EST GFR - AA 111 mL/min Normal >60 [facility] Comment on above: Result Comment: Afri can Slovenian GFR Calc Performed By: #### L 3400.8000, L500.4050, L501.6710, L100.0100, L101.9900 ####[facility] [address] [place], [address] GAP 3 Low 5-15 [facility] Comment on above: Performed By: #### L 3400.8000, L500.4050, L501.6710, L100.0100, L101.9900 ####[facility] [address] [place], [address] GFR/1.73 sq M.predicted among non-blacks MDRD (S/P/Bld) [Vol rate/Area] 91 mL/min/{1.73_m2} Normal >60 [facility] Comment on above: Result Comment: Non- GFR Calc Performed By: #### L 3400.8000, L500.4050, L501.6710, L100.0100, L101.9900 ####[facility] [address] [place], [address] Globulin (S) [Mass/Vol] 3.2 g/dL Normal 2.2-4.2 [facility] Comment on above: Performed By: #### L 3400.8000, L500.4050, L501.6710, L100.0100, L101.9900 ####[facility] [address] [place], [address] Glucose [Mass/Vol] 133 mg/dL High 74-106 [facility] Comment on above: Result Comment: Fast ing Glucose result greater than or equal to 126 mg/dL suggests DIABETES MELLITUS per A.D.A. criteria. Performed By: #### L 3400.8000, L500.4050, L501.6710, L100.0100, L101.9900 ####[facility] [address] [place], [address] Potassium [Moles/Vol] 4.1 mmol/L Normal 3.5-5.1 [facility] Comment on above: Performed By: #### L 3400.8000, L500.4050, L501.6710, L100.0100, L101.9900 ####[facility] [address] [place], [address] Sodium [Moles/Vol] 142 mmol/L Normal 136-145 [facility] Comment on above: Performed By: #### L 3400.8000, L500.4050, L501.6710, L100.0100, L101.9900 ####[facility] [address] [place], [address] T PROT 7.3 g/dL Normal 6.4-8.2 [facility] Comment on above: Performed By: #### L 3400.8000, L500.4050, L501.6710, L100.0100, L101.9900 ####[facility] [address] [place], [address] Urea nitrogen [Mass/Vol] 14 mg/dL Normal 7-18 [facility] Comment on above: Performed By: #### L 3400.8000, L500.4050, L501.6710, L100.0100, L101.9900 ####[facility] [address] [place], [address] Erythrocyte Sed Rateon 05-15 SED RATE 3 mm/hr Normal 0-30 [facility] Comment on above: Performed By: #### L 3400.8000, L500.4050, L501.6710, L100.0100, L101.9900 ####[facility] [address] [place], [address] Miko 05-11-2024 CNPN Telephone (RHEUMN) -------- SOHAILCHRISTEL F ([id number]) 1965 F Date Time Provider Department 05/11/24 LOUISE CONTRERAS During your visit today, we recorded the following information about you: Alex Craven 05/11/2024 2:37 PM Signed Pt called and request provider or nurse reach out to her Pt was in ER last week with lower back pain/ knee pain/ and foot pain Pt was vomiting and lost 30 pounds within 2 weeks Pt states that she is having a flare up and pt states that her BP is elevated due to the pain Pt could be reached at [phone] Thank you So Harp RN 05/11/2024 3:[address] Contreras, patient should go back to the ER for further evaluation. She states understanding. oS Harp RN Allergies As of Date: 05/11/2024 Noted Allergy Reaction DICLOFENAC-SILICONE, ADHESIVE 03/13/2024 4 - Hives GATIFLOXACIN 03/13/2024 16 - Unknown VENLAFAXINE 03/13/2024 16 - Unknown Date Reviewed: 05/07/2024 Reviewed by: Dannie Bartholomew, BOOK SALESMAN.EDUCATION PARAPROFESSIONAL - Fully Assessed Reason for Visit: Patient Update [1234] Prescriptions as of 05/11/2024 - amoxicillin-clavulanate potassium (AUGMENTIN) 875-125 mg per tablet Take 1 tablet by mouth two times a day for 7 days. - ondansetron orally disintegrating (ZOFRAN ODT) 4 mg disintegrating tablet Take 1 tablet by mouth every 8 hours as needed for nausea/vomiting. - gabapentin (NEURONTIN) 800 mg tablet Take 800 mg by mouth three times a day. - ALPRAZolam (XANAX) 1 mg tablet TAKE 1 MG ORALLY 4 TIMES A DAY FOR FREE FLOATING ANXIETY EVERY 6 HRS NEEDED - buprenorphine SL (SUBUTEX) 2 mg subl TAKE 1 TABLET UNDER THE TONGUE DAILY - metoprolol tartrate, short acting, (LOPRESSOR) 25 mg tablet Take 25 mg by mouth daily at bedtime. - mirtazapine (REMERON) 30 mg tablet Take 30 mg by mouth daily at bedtime. - pantoprazole DR (PROTONIX) 40 mg tablet Take 40 mg by mouth once daily. Problem List As Of Date 05/11/2024 Noted Resolved Polyarthralgia [M25.50] 03/13/2024 Weight loss, unintentional [R63.4] 03/13/2024 Constipation [K59.00] 03/13/2024 Intermittent diarrhea [R19.7] 03/13/2024 Bruising [T14.8XXA] 03/13/2024 Fibromyalgia [M79.7] 03/14/2024 Severe depression (HCC) [F32.2] 03/14/2024 Anxiety [F41.9] 03/14/2024 Encounter Status:Closed by SO HARP on 05/11/24 Normal [facility] CBC W/Diff, Automatedon - Absolute Lymph 0.83 X10 3/uL Normal 0.83-4.51 [facility] Comment on above: Performed By: #### L 501.2450, L500.4050, L100.0100 #### [facility] [address] [place], [address] Absolute Neut 6.1 X10 3/uL Normal 2.0-7.7 [facility] Comment on above: Performed By: #### L 501.2450, L500.4050, L100.0100 #### [facility] [address] [place], [address] Basophils/100 WBC (Bld) 0.4 % Normal 0-1 [facility] Comment on above: Performed By: #### L 501.2450, L500.4050, L100.0100 #### [facility] [address] [place], [address] Eosinophils/100 WBC (Bld) 0.0 % Normal 0-5 [facility] Comment on above: Performed By: #### L 501.2450, L500.4050, L100.0100 #### [facility] [address] [place], [address] Erythrocyte distribution width (RBC) [Ratio] 12.2 % Normal 11.6-14.6 [facility] Comment on above: Performed By: #### L 501.2450, L500.4050, L100.0100 #### [facility] [address] [place], [address] Hematocrit (Bld) [Volume fraction] 38.3 % Normal 37-47 [facility] Comment on above: Performed By: #### L 501.2450, L500.4050, L100.0100 #### [facility] [address] [place], [address] Hemoglobin (Bld) [Mass/Vol] 12.9 g/dL Normal 12.0-15.0 [facility] Comment on above: Performed By: #### L 501.2450, L500.4050, L100.0100 #### [facility] [address] [place], [address] IG% 0.400 Normal 0.0-0.9 [facility] Comment on above: Result Comment: IG% - Immature Granulocytes (promyelocytes, myelocytes and metamyelocytes) > 1% indicates that a LEFT SHIFT is Present. Performed By: #### L 501.2450, L500.4050, L100.0100 #### [facility] [address] [place], [address] Lymphocytes/100 WBC (Bld) 11.6 % Low 19-41 [facility] Comment on above: Performed By: #### L 501.2450, L500.4050, L100.0100 #### [facility] [address] [place], [address] MCH (RBC) [Entitic mass] 31.2 pg Normal 27.0-32.0 [facility] Comment on above: Performed By: #### L 501.2450, L500.4050, L100.0100 #### [facility] [address] [place], [address] MCHC (RBC) [Mass/Vol] 33.7 g/dL Normal 32-36 [facility] Comment on above: Performed By: #### L 501.2450, L500.4050, L100.0100 #### [facility] [address] [place], [address] MCV (RBC) [Entitic vol] 92.5 fL Normal 81-99 [facility] Comment on above: Performed By: #### L 501.2450, L500.4050, L100.0100 #### [facility] [address] [place], [address] Monocytes/100 WBC (Bld) 2.0 % Normal 0-10 [facility] Comment on above: Performed By: #### L 501.2450, L500.4050, L100.0100 #### [facility] [address] [place], [address] Neutrophils/100 WBC (Bld) 85.6 % High 47-70 [facility] Comment on above: Performed By: #### L 501.2450, L500.4050, L100.0100 #### [facility] [address] [place], [address] Nucleated RBC (Bld) [#/Vol] 0 10*3/uL Normal 0-5 [facility] Comment on above: Performed By: #### L 501.2450, L500.4050, L100.0100 #### [facility] [address] [place], [address] Platelet mean volume (Bld) [Entitic vol] 11.2 fL Normal 6.2-12.0 [facility] Comment on above: Performed By: #### L 501.2450, L500.4050, L100.0100 #### [facility] [address] [place], [address] Platelets (Bld) [#/Vol] 286 10*3/uL Normal 150-450 [facility] Comment on above: Performed By: #### L 501.2450, L500.4050, L100.0100 #### [facility] [address] [place], [address] RBC (Bld) [#/Vol] 4.14 10*6/uL Low 4.2-5.[address] [facility] Comment on above: Performed By: #### L 501.2450, L500.4050, L100.0100 #### [facility] [address] [place], [address] RDW SD 41.4 fl Normal 35.1-43.9 [facility] Comment on above: Performed By: #### L 501.2450, [id number], L100.0100 #### [facility] [address] [place], [address] WBC (Bld) [#/Vol] 7.2 10*3/uL Normal 4.4-11.0 [facility] Comment on above: Performed By: #### L 501.2450, [id number], L100.0100 #### [facility] [address] [place], [address] Comprehensive Metabolic Prof [facility] 05-10-2024 Albumin [Mass/Vol] 4.0 g/dL Normal 3.2-5.0 [facility] Comment on above: Performed By: #### L 501.2450, L500.4050, L100.0100 #### [facility] [address] [place], [address] Albumin/Globulin [Mass ratio] 1.2 {ratio} Normal 0.9-2.4 [facility] Comment on above: Performed By: #### L 501.2450, L500.4050, L100.0100 #### [facility] [address] [place], [address] ALK P 95 U/L Normal 45-117 [facility] Comment on above: Performed By: #### L 501.2450, L500.4050, L100.0100 #### [facility] [address] [place], [address] ALT [Catalytic activity/Vol] 19 U/L Normal 13-56 [facility] Comment on above: Performed By: #### L 501.2450, L500.4050, L100.0100 #### [facility] [address] [place], [address] AST [Catalytic activity/Vol] 14 U/L Low 15-37 [facility] Comment on above: Performed By: #### L 501.2450, L500.4050, L100.0100 #### [facility] [address] [place], [address] Bilirubin [Mass/Vol] 0.30 mg/dL Normal 0.20-1.00 [facility] Comment on above: Result Comment: For patients on eltrombopag therapy, use of Dimension [place] TBIL is not recommended. Performed By: #### L 501.2450, L500.4050, L100.0100 #### [facility] [address] [place], [address] BUN/CRE 17.4 RATIO Normal 10-20 [facility] Comment on above: Performed By: #### L 501.2450, L500.4050, L100.0100 #### [facility] [address] [place], [address] CA,Total 9.5 mg/dL Normal 8.5-10.1 [facility] Comment on above: Performed By: #### L 501.2450, L500.4050, L100.0100 #### [facility] [address] [place], [address] Chloride [Moles/Vol] 111 mmol/L High 98-107 [facility] Comment on above: Performed By: #### L 501.2450, L500.4050, L100.0100 #### [facility] [address] [place], [address] CO2 [Moles/Vol] 24.0 mmol/L Normal 21.0-32.0 [facility] Comment on above: Performed By: #### L 501.2450, L500.4050, L100.0100 #### [facility] [address] [place], [address] Creatinine [Mass/Vol] 0.63 mg/dL Normal 0.55-1.02 [facility] Comment on above: Result Comment: The validity of the calculated GFR GFRAA in patients over 70 years has not been determined. Clinical correlation is essential. Performed By: #### L 501.2450, L500.4050, L100.0100 #### [facility] [address] [place], [address] ECRCL 85.36 ml/min Normal [facility] Comment on above: Performed By: #### L 501.2450, L500.4050, L100.0100 #### [facility] [address] [place], [address] EST GFR - AA 125 mL/min Normal >60 [facility] Comment on above: Result Comment: Afri can Slovenian GFR Calc Performed By: #### L 501.2450, L500.4050, L100.0100 #### [facility] [address] [place], [address] GAP 7 Normal 5-15 [facility] Comment on above: Performed By: #### L 501.2450, L500.4050, L100.0100 #### [facility] [address] [place], [address] GFR/1.73 sq M.predicted among non-blacks MDRD (S/P/Bld) [Vol rate/Area] 103 mL/min/{1.73_m2} Normal >60 [facility] Comment on above: Result Comment: Non- GFR Calc Performed By: #### L 501.2450, L500.4050, L100.0100 #### [facility] [address] [place], [address] Globulin (S) [Mass/Vol] 3.3 g/dL Normal 2.2-4.2 [facility] Comment on above: Performed By: #### L 501.2450, L500.4050, L100.0100 #### [facility] [address] [place], [address] Glucose [Mass/Vol] 124 mg/dL High 74-106 [facility] Comment on above: Result Comment: Fast ing Glucose result from 100 to 125 mg/dL suggests IMPAIRED HOMEOSTASIS per A.D.A. criteria. Performed By: #### L 501.2450, L500.4050, L100.0100 #### [facility] [address] [place], [address] Potassium [Moles/Vol] 3.2 mmol/L Low 3.5-5.1 [facility] Comment on above: Performed By: #### L 501.2450, L500.4050, L100.0100 #### [facility] [address] [place], [address] Sodium [Moles/Vol] 142 mmol/L Normal 136-145 [facility] Comment on above: Performed By: #### L 501.2450, L500.4050, L100.0100 #### [facility] [address] [place], [address] T PROT 7.3 g/dL Normal 6.4-8.2 [facility] Comment on above: Performed By: #### L 501.2450, L500.4050, L100.0100 #### [facility] [address] [place], [address] Urea nitrogen [Mass/Vol] 11 mg/dL Normal 7-18 [facility] Comment on above: Performed By: #### L 501.2450, L500.4050, L100.0100 #### [facility] [address] [place], [address] Emergency Department Summary on 05-10-2024 Emergency Department Summary [facility] Medical Records Department [address] [place] [address] Emergency Department Summary 05/10/24 MR#: [id number] Acct: [id number] Name: CHRISTEL SAUCEDA Rep #: [id number] : 1965 59 From: Diana GUTIERREZ PCP: Dr. Cheryle Babcock, DO Status:DEP ER Location: ED HPI History of Present Illness Chief Complaint: General Illness Narrative Narrative: Patient presenting today with multiple vague complaints. She reports that she has had intermittent epigastric pain that radiates to the LUQ, nausea, vomiting, loose stools, and decreased appetite over the past week. She reports that her granddaughter was visiting her over the weekend and had similar symptoms of nausea, vomiting, and diarrhea. Patient reports that she has had similar epigastric pain off and on for years. She did have an endoscopy and colonoscopy this year that were unremarkable. She takes Protonix daily. She also reports increased anxiety, she takes alprazolam 1 mg 4 times daily, she has been on this dose for years. She had a few episodes of vomiting after taking her medication over the past week and had to take an additional alprazolam and is now out of them, she has been out over the past 2 days and cannot get a refill until Tuesday. She denies fevers, chest pain, hematemesis, and shortness of breath. She has a PMH of fibromyalgia, chronic back pain, and anxiety. [facility] Medical History Wears glasses Wears dentures Depression History of steroid therapy Fibromyalgia Sicca syndrome Rheumatoid arthritis Anemia Back pain Migraine headache H/O Sjogren's disease Difficulty swallowing Smoker Shortness of breath on exertion Leg cramps History of irregular heartbeat Underweight due to inadequate caloric intake history of tubal reconstruction History of ectopic Anxiety Heart murmur Chronic leg pain Chronic back pain Home Medications ???Medication ???Instructions ???Recorded ???Last Taken ???Type azelastine 205.5 mcg (0.15 %) See Rx Instructions .Route 06/21/23 Unknown Rx nasal spray (Astepro Allergy) .COMPLEX #11 mL acetaminophen 325 mg capsule 325 mg PO QD-QID pain 01/18/24 Unknown History (Tylenol) buprenorphine HCl 2 mg sublingual 2 mg sublingual QDAY #20 tabs 04/03/24 Unknown Rx tablet cholecalciferol (vitamin D3) 50 50 mcg PO QDAY #90 tabs 04/03/24 Unknown Rx mcg (2,000 unit) tablet gabapentin 800 mg tablet 800 mg PO TID #90 TABLETS 04/05/24 Unknown Rx metoprolol tartrate 25 mg tablet 25 mg PO QHS #90 TABLETS 04/05/24 Unknown Rx mirtazapine 30 mg tablet 30 mg PO QHS #90 TABLETS 04/05/24 Unknown Rx alprazolam 1 mg tablet 1 mg PO .QID free floating anxiety 05/01/24 Unknown Rx #120 tabs pantoprazole 40 mg tablet,delayed 40 mg PO DAILY #30 tabs 05/01/24 Unknown Rx release alprazolam 1 mg tablet 1 mg PO BID #10 tabs 05/10/24 Unknown Rx sucralfate 1 gram tablet (Carafate) 1 g PO TID 7 days #21 tabs 05/10/24 Unknown Rx Allergy/AdvReac Type Severity Reaction Status Date / Time buprenorphine Allergy Intermediate Rash Verified 05/10/24 11:30 buspirone Allergy Intermediate Rash Verified 05/10/24 11:30 duloxetine (From Cymbalta) Allergy Intermediate Rash Verified 05/10/24 11:30 gatifloxacin (From Tequin) Allergy Other Verified 05/10/24 11:30 venlafaxine (From Effexor) Allergy Other Verified 05/10/24 11:30 Family History Other Cancer Diabetes Hypertension Parkinsons disease Surgical History History of esophagogastroduodenosco py (EGD) S/P genital surgery History of hysterectomy History of knee surgery History of appendectomy Social History Smoking Status: Current every day smoker tobacco type: cigarettes Tobacco: How many years used: 36 Electronic Cigarette Use: with nicotine alcohol intake: never substance use type: does not use what type of physical activity do you participate in: walking frequency: daily ROS ROS ED Constitutional Constitutional ED: Denies chills or fever(s) Cardiovascular Cardiovascular: Denies chest pain Respiratory/Chest Respiratory/Chest: Denies cough or dyspnea Gastrointestinal Gastrointestinal: Reports abdominal pain, diarrhea, nausea and vomiting; Denies constipation Genitourinary Genitourinary ED: Denies dysuria, hematuria or urinary urgency Musculoskeletal Musculoskeletal: Denies arthralgias or myalgias Integumentary Denies rash Neurologic Neurologic: Denies weakness EXAM Physical Exam Const Vital Signs: 05/10/24 11:30 05/10/24 12:23 05/10/24 13:30 Temperature 98.6 F Temperature Source (more content not included)... Normal [facility] Lipaseon 05-10-2024 Lipase [Catalytic activity/Vol] 25 U/L Normal 13-75 [facility] Comment on above: Result Comment: Elisha paiz note: LIPASE revised reference range effective 22. New Lipase methodology. Expected to produce lower values than the previous assay method. NEW Reference Range: 13 - 75 U/L Performed By: #### L 501.2450, L500.4050, L100.0100 #### [facility] [address] [place], [address] CNOVon 05-07-2024 CNOV Office Visit (UCWSTR ) -------- CHRISTEL SAUCEDA ([id number]) 1965 F Date Time Provider Department 05/07/24 12:00 PM DANNIE BARTHOLOMEW WS During your visit today, we recorded the following information about you: Temperature Pulse Respiration Blood pressure 98.9 degrees 80/minute 16/minute 122/72 Weight 56.5 kg Dannie Bartholomew APRN.EDUCATION PARAPROFESSIONAL 05/07/2024 12:34 PM Signed This note was created using Sush.ioriter. Subjective Christel Sauceda is a 59 year old female. HPI For the last few weeks pt has not been feeling well. Pt now notes intermittent fever, nausea and vomiting that started about three days ago. She is unable to tolerate oral intake. She is only urinating 1-2 times per day. She notes generalized abdominal pain and diarrhea. Also complains of 7-10 days of sinus pain pressure and drainage. Patient feels that this may be the cause of her nausea and vomiting. Review of Systems Objective BP 122/72 Pulse 80 Temp 37.2 ?C (98.9 ?F) Resp 16 Wt 56.5 kg (124 lb 9 oz) SpO2 96% BMI 21.38 kg/m? Physical Exam Vitals and nursing note reviewed. Constitutional: General: She is not in acute distress. Appearance: Normal appearance. She is not ill-appearing. HENT: Head: Normocephalic. Mouth/Throat: Mouth: Mucous membranes are dry. Eyes: Conjunctiva/sclera: Conjunctivae normal. Cardiovascular: Rate and Rhythm: Normal rate and regular rhythm. Pulmonary: Effort: Pulmonary effort is normal. Breath sounds: Normal breath sounds. Abdominal: Palpations: Abdomen is soft. Tenderness: There is abdominal tenderness. Comments: Mild diffuse tenderness Musculoskeletal: General: Normal range of motion. Cervical back: Normal range of motion. Skin: General: Skin is warm and dry. Neurological: General: No focal deficit present. Mental Status: She is alert. Psychiatric: Mood and Affect: Mood normal. Behavior: Behavior normal. Assessment and Plan ASSESSMENT/PLAN: 1. Nausea and vomiting, unspecified vomiting type - ICD9: 787.01, ICD10: R11.2 (primary diagnosis) Patient given prescription for Zofran. I instructed her that if she is not able to urinate at least 3-4 times per day or she noticed that her heart rate is climbing she needs to go to the ER for evaluation of possible IV hydration. Patient understands and is agreeable. - ONDANSETRON 4 MG DISINTEGRATING TABLET 2. Bacterial sinusitis - ICD9: 473.9, 041.9, ICD10: J32.9, B96.89 - Will begin treatment with as per antibiotic as written, see orders - Follow up in one week if symptoms persist or worsen. - AMOXICILLIN 875 MG-POTASSIUM CLAVULANATE 125 MG TABLET Dannie Bartholomew APRN.VINAY Allergies As of Date: 05/07/2024 Noted Allergy Reaction DICLOFENAC-SILICONE, ADHESIVE 03/13/2024 4 - Hives GATIFLOXACIN 03/13/2024 16 - Unknown VENLAFAXINE 03/13/2024 16 - Unknown Date Reviewed: 05/07/2024 Reviewed by: Dannie Bartholomew APRN.EDUCATION PARAPROFESSIONAL - Fully Assessed Reason for Visit: Nasal Congestion [235] Cmt: drainage, cough, vomiting, diarrhea and fever off and on x 1 day Primary Visit Diagnosis:Nausea and vomiting, unspecified vomiting type [R11.2] Other Visit Diagnosis:Bacterial sinusitis [J32.9, B96.89] Order(s):amoxicillin-cla vulanate potassium (AUGMENTIN) 875-125 mg per tabletTake 1 tablet by mouth two times a day for 7 days.Disp: 14 tabletRfl: 0 ondansetron orally disintegrating (ZOFRAN ODT) 4 mg disintegrating tabletTake 1 tablet by mouth every 8 hours as needed for nausea/vomiting.Disp: 12 tabletRfl: 0 Prescriptions as of 05/07/2024 - amoxicillin-clavulanate potassium (AUGMENTIN) 875-125 mg per tablet Take 1 tablet by mouth two times a day for 7 days. - ondansetron orally disintegrating (ZOFRAN ODT) 4 mg disintegrating tablet Take 1 tablet by mouth every 8 hours as needed for nausea/vomiting. - gabapentin (NEURONTIN) 800 mg tablet Take 800 mg by mouth three times a day. - ALPRAZolam (XANAX) 1 mg tablet TAKE 1 MG ORALLY 4 TIMES A DAY FOR FREE FLOATING ANXIETY EVERY 6 HRS NEEDED - buprenorphine SL (SUBUTEX) 2 mg subl TAKE 1 TABLET UNDER THE TONGUE DAILY - metoprolol tartrate, short acting, (LOPRESSOR) 25 mg tablet Take 25 mg by mouth daily at bedtime. - mirtazapine (REMERON) 30 mg tablet Take 30 mg by mouth daily at bedtime. - pantoprazole DR (PROTONIX) 40 mg tablet Take 40 mg by mouth once daily. Problem List As Of Date 05/07/2024 Noted Resolved Polyarthralgia [M25.50] 03/13/2024 Weight loss, unintentional [R63.4] 03/13/2024 Constipation [K59.00] 03/13/2024 Intermittent diarrhea [R19.7] 03/13/2024 Bruising [T14.8XXA] 03/13/2024 Fibromyalgia [M79.7] 03/14/2024 Severe depression (HCC) [F32.2] 03/14/2024 Anxiety [F41.9] 03/14/2024 Prescriptions ordered this encounter Disp Refills Start End AMOXICILLIN 875 MG-POTASSIUM CLAVULA* 14 t* 0 05/07/2024 05/14/2024 Route: ORAL Sig: Take 1 tablet by mouth two times a day for 7 day (more content not included)... Normal [facility] Abdomen/Pelvis without Conto n 05-04-2024 Abdomen/Pelvis without Cont [facility] Imaging Services [address] [place] [address] Abdomen/Pelvis without Cont MR#: [id number] Acct: [id number] Name: CHRISTEL SAUCEDA Rep #: [id number] : 1965 F 59 From: Avery Pickett PCP: Dr. Cheryle Babcock DO Status: REG CLI Study: Abdomen/Pelvis without Cont Date of Exam: 04/16 Exam# [id number] Ordering Dr: Narayan Leos MD [id number] STUDY: CT Abdomen And Pelvis W/O Contrast Injection 05/06/2024 6:19 PM REASON FOR EXAM: Female, 59 years old. Abdominal pain URETERAL CALCULUS Individualized dose optimization techniques were used for this CT. COMPARISON: 03.24.05 TECHNIQUE: CT Abdomen And Pelvis W/O Contrast Injection FINDINGS: There are atherosclerotic calcifications of visualized coronary arteries. The visualized portions of the heart are within normal limits. Stable hypodensities of the liver. Normal gallbladder and extrahepatic biliary system. Normal spleen. Normal pancreas. Normal bilateral adrenal glands. No acute findings of the right kidney. No acute findings of the left kidney. Normal visualized stomach. Normal small intestine. Stool throughout the colon. There is non-visualization of the appendix. There are calcifications of the abdominal aorta. This is consistent for atherosclerotic disease. There is NO abdominal aortic aneurysm. Vascular workup can be obtained based on clinical correlation. Normal inferior vena cava. Subcentimeter mesenteric lymph nodes. Normal urinary bladder. There is absence of the uterus consistent with a prior hysterectomy. There is an umbilical hernia containing fat. Normal osseous structures. CT/Abdomen/Pelvis without Cont IMPRESSION: (NOT LISTED IN ORDER OF SIGNIFICANCE) Hysterectomy changes. There are no acute findings. Other findings as above. Electronically Signed: Avery Bloom MD at 18:21 EST Reading Location ID and State: [facility] / [place] , Service support , CC: Dr. Cheryle Babcock DO; Dr. Narayan Leos MD Supervisor Sleeping Bag Department: Signed Normal [facility] Miscellaneous Lab Procedureo n 05-04-2024 [facility] LAB TEST Normal [facility] Comment on above: Order Comment: [id number] ACETYLCHOLINE SERUM [id number] ACETYLCHOLINE SERUM RMT Result Comment: TEST RESULTS LIMITS Acetylcholine Receptor Ab, All AChR Binding Abs, Serum <0.03 nmol/L 0.00-0.24 Negative: 0.00 - 0.24 Borderline: 0.25 - 0.40 Positive: >0.40 AChR Blocking Abs, Serum, 24 % 0-25 Negative: 0 - 25 Borderline: 26 - 30 Positive: >30 AChR-modulating Ab, 13 % 0-45 Interpretive Information: Negative: 0 - 45% Positive: > 45% No single value for AChR-modulating antibody should be used as a sole basis for diagnosis or response to therapy. TESTING PERFORMED AT [facility]. ORIGINAL REPORT ON FILE IN LAB CONTAINS ADDITIONAL TEST SITE INFORMATION. Performed By: #### L 801.1541 ####[facility] [id number] [facility] [place], [place], [address] Post Void Residual Bladderon 04-10-2024 Post Void Residual Bladder [facility] Imaging Services [address] [place] [address] Post Void Residual Bladder MR#: [id number] Acct: [id number] Name: CHRISTEL SAUCEDA Rep #: [id number] : 1965 F 59 From: Josafat amador MD PCP: Dr. Cheryle Babcock, Status: REG CLI Study: Post Void Residual Bladder Date of Exam: 04/10 Exam# [id number] Ordering Dr: Cheryle Babcock DO [id number] INDICATION: difficulty voiding EXAMINATION: Ultrasound US Post Void Residual Urine/Bladder TECHNIQUE: Watkins scale and color doppler imaging was performed of the urinary bladder. COMPARISON: No relevant prior comparison study available FINDINGS: No stones, masses, or wall thickening. A 0.4 cm right UVJ calculus is seen with the ureteral jet not visualized on the right. Left ureteral jet is seen. Pre-void volume is 436 mL. Post-void volume is 375 mL. US/Post Void Residual Bladder IMPRESSION: Post void bladder residual volume of 375 mL. 0.4 cm stone seen at the right ureterovesicular junction. Electronically Signed: Josafat Renee MD at 7:04 EST , CC: Dr. Cheryle Babcock, Supervisor Sleeping Bag Department: Signed [facility] 04-09-2024 CNPN Telephone (RHEUMN) -------- CHRISTEL SAUCEDA F ([id number]) 1965 F Date Time Provider Department 04/09/24 LOUISE CONTRERAS RHEUMN During your visit today, we recorded the following information about you: Kandi Elidia 04/09/2024 8:50 AM Signed Received patient phone call. She states that she's continued experiencing eye issues following telephone enc from 03/29. Patient states she's seen eye doctor for this and they've prescribed erythromycin ophthalmic. Patient states swelling is going down, but that now her left eye is swelling as well and she would rather refer to Dr. Contreras since she believes it's due to Sjogren's. Patient notes that she did run into a door around this time, so her nose is bruised and face in general has swelled up. Patient also wants to make provider aware of rashes on her cheeks, which has been ongoing about 1.5 weeks. Patient says rash continues to get worse. She also states she has a few unexplainable bruises on her arms that she was told to let the doctor know about if she saw them. Patient also wants clarification regarding medication, as she says she was told in rheum visit notes to not use narcotics, but her PCP prescribed her 2mg of subutex for pain. Patient is inquiring as to if it's OK to take this medication. Call back #[phone] (cell) So Harp RN 04/09/2024 12:27 PM Signed Called patient. Advised that per Dr. Contreras, she should follow up with her eye doctor, and see dermatology for the rash. She needs another evaluation, has appointment with Shannan Katz scheduled in May. Patient advising that the lymph nodes in her groin hurt sometimes, she wanted to let Dr. Contreras know. Also discussed the Subutex, and that per Dr. Ramires results letter she should not be taking narcotics for fibromyalgia. Discussed that this is between the provider ordering the medication, and patient, and that we advise she discuss it with the ordering provider. She states understanding. So Harp RN Allergies As of Date: 04/09/2024 Noted Allergy Reaction DICLOFENAC-SILICONE, ADHESIVE 03/13/2024 4 - Hives GATIFLOXACIN 03/13/2024 16 - Unknown VENLAFAXINE 03/13/2024 16 - Unknown Date Reviewed: 04/05/2024 Reviewed by: Hamzah Cali APRN.EDUCATION PARAPROFESSIONAL - Fully Assessed Reason for Visit: Patient Update [1234] Prescriptions as of 04/09/2024 - erythromycin (ROMYCIN) 5 mg/gram (0.5 %) ophthalmic ointment Use 1 application in the right eye four times daily for 7 days. - gabapentin (NEURONTIN) 800 mg tablet Take 800 mg by mouth three times a day. - ALPRAZolam (XANAX) 1 mg tablet TAKE 1 MG ORALLY 4 TIMES A DAY FOR FREE FLOATING ANXIETY EVERY 6 HRS NEEDED - buprenorphine SL (SUBUTEX) 2 mg subl TAKE 1 TABLET UNDER THE TONGUE DAILY - metoprolol tartrate, short acting, (LOPRESSOR) 25 mg tablet Take 25 mg by mouth daily at bedtime. - mirtazapine (REMERON) 30 mg tablet Take 30 mg by mouth daily at bedtime. - pantoprazole DR (PROTONIX) 40 mg tablet Take 40 mg by mouth once daily. Problem List As Of Date 04/09/2024 Noted Resolved Polyarthralgia [M25.50] 03/13/2024 Weight loss, unintentional [R63.4] 03/13/2024 Constipation [K59.00] 03/13/2024 Intermittent diarrhea [R19.7] 03/13/2024 Bruising [T14.8XXA] 03/13/2024 Fibromyalgia [M79.7] 03/14/2024 Severe depression (HCC) [F32.2] 03/14/2024 Anxiety [F41.9] 03/14/2024 Encounter Status:Closed by SO HARP on 04/09/24 Normal [facility] Adrenocorticotropic Hormoneo n 04-05-2024 ACTH 11.9 pg/mL Normal 7.2-63.3 [facility] Comment on above: Order Comment: N Result Comment: ACTH reference interval for samples collected between 7 and 10 AM. Performed at: [address] [id number] Pump Operator: Bhargav Shrestha PhD, Phone: [phone] Performed By: #### L 509.6000, L3300.1000 ####[facility] [id number] [place], [address] OVon 04-05-2024 CNOV Office Visit (UCWSTR ) -------- CHRISTEL SAUCEDA ([id number]) 1965 F Date Time Provider Department 04/05/24 3:00 PM AHMZAH [facility] During your visit today, we recorded the following information about you: Temperature Pulse Respiration Blood pressure 97.6 degrees 68/minute 18/minute 123/69 Weight 61.1 kg Hamzah Cali APRN.EDUCATION PARAPROFESSIONAL 04/05/2024 3:18 PM Signed Subjective HPI Nontoxic-appearing female presents urgent care chief plaint right eyelid swelling. Duration of symptoms today. Associated symptoms listed above. States swelling was worse this morning. Has went down some. States feels like she has a bump underneath her eyelid. No eye trauma. Does not wear contacts. No visual acuity changes. No flashes light or floaters. No EOMs. No fevers. Past medical history prescription medications allergies reviewed. .Patient presents with: Eye Lid Swelling: R eye lid swelling and redness x this AM No past medical history on file. No past surgical history on file. ALLERGIES Diclofenac-Silicone, Adhesive; Gatifloxacin; and Venlafaxine MEDICATIONS gabapentin (NEURONTIN) 800 mg tablet Take 800 mg by mouth three times a day. ALPRAZolam (XANAX) 1 mg tablet TAKE 1 MG ORALLY 4 TIMES A DAY FOR FREE FLOATING ANXIETY EVERY 6 HRS NEEDED buprenorphine SL (SUBUTEX) 2 mg subl TAKE 1 TABLET UNDER THE TONGUE DAILY metoprolol tartrate, short acting, (LOPRESSOR) 25 mg tablet Take 25 mg by mouth daily at bedtime. mirtazapine (REMERON) 30 mg tablet Take 30 mg by mouth daily at bedtime. pantoprazole DR (PROTONIX) 40 mg tablet Take 40 mg by mouth once daily. No family history on file. Social History Tobacco Use Smoking status: Every Day Types: Cigarettes Smokeless tobacco: Current Substance Use Topics Drug use: Not Currently BP 123/69 Pulse 68 Temp 36.4 ?C (97.6 ?F) Resp 18 Wt 61.1 kg (134 lb 11.2 oz) SpO2 96% BMI 23.12 kg/m? Review of Systems Constitutional: Negative for chills, fever and malaise/fatigue. HENT: Negative for congestion, ear discharge, ear pain, sinus pain and sore throat. Eyes: Negative for blurred vision, double vision, photophobia, pain, discharge and redness. Respiratory: Negative for cough, hemoptysis, sputum production, shortness of breath, wheezing and stridor. Cardiovascular: Negative for chest pain. Gastrointestinal: Negative for abdominal pain, diarrhea, nausea and vomiting. Musculoskeletal: Negative for myalgias. Skin: Negative for itching and rash. Neurological: Negative for dizziness and headaches. Objective Physical Exam Constitutional: General: She is not in acute distress. Appearance: She is not diaphoretic. HENT: Head: Normocephalic. Jaw: No trismus, tenderness, swelling or pain on movement. Mouth/Throat: Mouth: Mucous membranes are moist. Pharynx: Oropharynx is clear. Uvula midline. No pharyngeal swelling, oropharyngeal exudate, posterior oropharyngeal erythema or uvula swelling. Eyes: General: Lids are normal. Lids are everted, no foreign bodies appreciated. Vision grossly intact. Right eye: No foreign body or discharge. Extraocular Movements: Right eye: Normal extraocular motion and no nystagmus. Conjunctiva/sclera: Conjunctivae normal. Right eye: Right conjunctiva is not injected. No chemosis, exudate or hemorrhage. Pupils: Pupils are equal, round, and reactive to light. Comments: Limbus clear. Visual acuity unchanged. Cardiovascular: Rate and Rhythm: Normal rate and regular rhythm. Heart sounds: Normal heart sounds. Pulmonary: Effort: Pulmonary effort is normal. No tachypnea, accessory muscle usage or respiratory distress. Breath sounds: Normal breath sounds. No stridor. No wheezing, rhonchi or rales. Abdominal: General: There is no distension. Palpations: Abdomen is soft. Tenderness: There is no abdominal tenderness. There is no guarding or rebound. Musculoskeletal: Cervical back: Normal range of motion and neck supple. No edema, erythema, rigidity or tenderness. No pain with movement. Normal range of motion. Lymphadenopathy: Cervical: No cervical adenopathy. Skin: General: Skin is warm and dry. Neurological: Mental Status: She is alert and oriented to person, place, and time. ASSESSMENT/PLAN: 1. Eye discomfort, right - ICD9: 379.91, ICD10: H57.11 Diagnosed with right eye discomfort. Symptoms are improving. Placed on erythromycin ophthalmic. Red flags for ophthalmology follow-up discussed. Patient was educated on supportive therapies. Patient will follow up with primary care provider as needed. Patient was instructed to immediately proceed to emergency room for any new, worsening, or symptoms lasting longer than anticipated. The patient's clinical presentation is otherwise unremarkable at this time. Based on exam and clinical finding, the patient is stable for discharge. Plan of care was (more content not included)... Normal [facility] CORTISOL SERUMon 04-04-2024 CORTISOL 4.70 ug/dL Normal 3.44-22.45 [facility] Comment on above: Result Comment: Adul t (AM) 5.27 - 22.45 ug/dL Adult (PM) 3.44 - 16.76 ug/dL Performed By: #### L 509.6000, L3300.1000 ####[facility] [id number] [place], [address] Internal Medicine Office Vis itokamla 04-03-2024 Internal Medicine Office Visit [facility] [address] [place] [address] [place] [address] OFFICE VISIT Date of Service: 04/03/24 MR#: [id number] Acct: [id number] Name: CHRISTEL SAUCEDA Rep #: [id number] : 1965 Provider: Dr. Cheryle brush, DO Age/Sex: 59/F Location: [facility] Status: Signed Intake Vital Signs 01/18/24 14:52 04/03/24 16:00 Height 5 ft 5 in 5 ft 5 in Weight: 135 lb 132 lb BMI 22.4 21.9 BP 124/80 H 130/70 H Blood Pressure Location Lt brachial Lt brachial Position Sitting Sitting Respiration 14 14 Pulse 84 65 Pulse Source Monitor Monitor Temp 98.1 F 97.3 F L Temp Source Temporal Temporal Pulse Oximetry (%) 96 96 Oxygen Delivery Method room air room air Intake Visit Reasons: FLARE UPS Chief Complaint: flre ups Learning Disabilities Specialist Required: No Accompanied by: Self Is patient in pain?: No Allergies buprenorphine Allergy (Intermediate, Verified 04/03/24 15:51) Rash buspirone Allergy (Intermediate, Verified 04/03/24 15:51) Rash duloxetine (From Cymbalta) Allergy (Intermediate, Verified 04/03/24 15:51) Rash gatifloxacin (From Tequin) Allergy (Verified 04/03/24 15:51) Other venlafaxine (From Effexor) Allergy (Verified 04/03/24 15:51) Other Medications ???Medication ???Instructions ???Recorded ???Confirmed ???Type azelastine 205.5 mcg (0.15 %) See Rx Instructions .Route 06/21/23 04/03/24 Rx nasal spray (Astepro Allergy) .COMPLEX #11 mL pantoprazole 40 mg tablet,delayed 40 mg PO DAILY #30 tabs 08/03/23 04/03/24 Rx release acetaminophen 325 mg capsule 325 mg PO QD-QID pain 01/18/24 04/03/24 History (Tylenol) mirtazapine 30 mg tablet 30 mg PO QHS #30 tabs 02/21/24 04/03/24 Rx alprazolam 1 mg tablet 1 mg PO .QID free floating anxiety 03/13/24 04/03/24 Rx #120 tabs gabapentin 800 mg tablet 800 mg PO TID 30 days #90 tabs 03/13/24 04/03/24 Rx metoprolol tartrate 25 mg tablet 25 mg PO QHS #90 TABLETS 03/23/24 04/03/24 Rx buprenorphine HCl 2 mg sublingual 2 mg sublingual QDAY #20 tabs 04/03/24 04/03/24 Rx tablet cholecalciferol (vitamin D3) 50 50 mcg PO QDAY #90 tabs 04/03/24 04/03/24 Rx mcg (2,000 unit) tablet Nurse's Note: States nothing is getting better, went to revenue settlements administrator at [facility], and Dr. Hernández states they want pcp to prescribe meds. States she is no longer going to Dr. Hernández or [facility] because they have her on wrong meds. States she can not take cymbalta due to mood changes, and paranoia. She states the 2mg pain med is not working at all she needs to go back to the old pain med. needs refill on pantoprazole, and nasal spray. States she thinks she has had a stroke as her L eye closes on it's own. Had results from and . [facility] Medical History Wears glasses Wears dentures Depression History of steroid therapy Fibromyalgia Sicca syndrome Rheumatoid arthritis Anemia Back pain Migraine headache H/O Sjogren's disease Difficulty swallowing Smoker Shortness of breath on exertion Leg cramps History of irregular heartbeat Underweight due to inadequate caloric intake history of tubal reconstruction History of ectopic Anxiety Heart murmur Chronic leg pain Chronic back pain Surgical History History of esophagogastroduodenosco py (EGD) S/P genital surgery History of hysterectomy History of knee surgery History of appendectomy Family History Other Cancer Diabetes Hypertension Parkinsons disease Social History Smoking Status: Current every day smoker tobacco type: cigarettes Tobacco: How many years used: 36 Electronic Cigarette Use: with nicotine alcohol intake: never substance use type: does not use what type of physical activity do you participate in: walking frequency: daily HPI HPI Chief Complaint: flre ups Details: CHRISTEL SAUCEDA, is a 59 F who presents to the office today for to discuss the results from rheumatology at [facility] as well as to evaluate why she is having difficulty urinating. The results from [facility] were compatible with fibromyalgia. She also had a low vitamin C level a low vitamin D level and a slightly low ACTH and plasma cortisol level. Over the last several weeks she has been having more more difficulty voiding she said she can sit on the toilet for half an hour feeling like she has to urinate but she is unable to urinate. She has no burning or dysuria. ROS Const Constitutional: No body ache, chills, excessive sweating, fatigue, fever(s), frequent falls, headache(s), snoring, weakness, sleep problems or change in appetite Eyes Eyes: No blurry (more content not included)... Normal [facility] 03-29-2024 [facility] Telephone (RHEUMN) -------- CHRISTEL SAUCEDA ([id number]) 1965 F Date Time Provider Department 03/29/24 LOUISE CONTRERAS During your visit today, we recorded the following information about you: So Harp RN 03/29/2024 12:14 PM Signed Patient called call center inquiring about her medical issues. Called patient to clarify. Per patient, she advises for a while it takes her a long time to urinate. She cannot get the urine stream to begin. She is also having severe pain in her hips. She has appointment with PCP on 04/17. She was recently diagnosed with thrush. She takes Subutex for pain. Says she woke up at 1AM this morning screaming from pain in her hip and knees. Her left eye is also bothering her. Closes all the time by itself. Has not seen her eye doctor. This has been going on for the past year. Discussed her fibromyalgia diagnosis, doing aquatic therapy, not hitting the exhaustion wall as well as good sleep hygiene. She will call her PCP about the urination issue, and discuss the eye problem with her eye doctor. So Harp RN Allergies As of Date: 03/29/2024 Noted Allergy Reaction DICLOFENAC-SILICONE, ADHESIVE 03/13/2024 4 - Hives GATIFLOXACIN 03/13/2024 16 - Unknown VENLAFAXINE 03/13/2024 16 - Unknown Date Reviewed: 03/27/2024 Reviewed by: Hamzah Cali APRN.EDUCATION PARAPROFESSIONAL - Fully Assessed Reason for Visit: Patient Question [3914] Prescriptions as of 03/29/2024 - nystatin (MYCOSTATIN) 100,000 unit/mL suspension Take 5 mL by mouth four times daily for 7 days. 1tsp swish in mouth for several minutes, then swallow (or expectorate) 4 times daily until gone. - gabapentin (NEURONTIN) 800 mg tablet Take 800 mg by mouth three times a day. - ALPRAZolam (XANAX) 1 mg tablet TAKE 1 MG ORALLY 4 TIMES A DAY FOR FREE FLOATING ANXIETY EVERY 6 HRS NEEDED - buprenorphine SL (SUBUTEX) 2 mg subl TAKE 1 TABLET UNDER THE TONGUE DAILY - metoprolol tartrate, short acting, (LOPRESSOR) 25 mg tablet Take 25 mg by mouth daily at bedtime. - mirtazapine (REMERON) 30 mg tablet Take 30 mg by mouth daily at bedtime. - pantoprazole DR (PROTONIX) 40 mg tablet Take 40 mg by mouth once daily. Problem List As Of Date 03/29/2024 Noted Resolved Polyarthralgia [M25.50] 03/13/2024 Weight loss, unintentional [R63.4] 03/13/2024 Constipation [K59.00] 03/13/2024 Intermittent diarrhea [R19.7] 03/13/2024 Bruising [T14.8XXA] 03/13/2024 Fibromyalgia [M79.7] 03/14/2024 Severe depression (HCC) [F32.2] 03/14/2024 Anxiety [F41.9] 03/14/2024 Encounter Status:Closed by SO HARP on 03/29/24 [facility] CNOVon 03-27-2024 [facility]OV [facility] -------- CHRISTEL SAUCEDA ([id number]) 1965 F Date Time Provider Department 03/27/24 3:15 PM HAMZAH CALI [facility] During your visit today, we recorded the following information about you: Temperature Pulse Respiration Blood pressure 97.3 degrees 60/minute 20/minute 121/44 Weight 60 kg Hamzah Cali APRN.EDUCATION PARAPROFESSIONAL 03/27/2024 3:40 PM Signed Subjective HPI Nontoxic-appearing female presents urgent care chief complaint headache sore throat. Duration of symptoms 1 day. Associated symptoms listed above. Most prominent symptom today sore throat and white spots in her mouth. No difficulty swallowing he no secretion decreased range of motion of neck or trismus. Past medical history prescription medications allergies reviewed. .Patient presents with: Headache: Sore throat, fluid for ears, congestion x History reviewed. No pertinent past medical history. History reviewed. No pertinent surgical history. ALLERGIES Diclofenac-Silicone, Adhesive; Gatifloxacin; and Venlafaxine MEDICATIONS gabapentin (NEURONTIN) 800 mg tablet Take 800 mg by mouth three times a day. ALPRAZolam (XANAX) 1 mg tablet TAKE 1 MG ORALLY 4 TIMES A DAY FOR FREE FLOATING ANXIETY EVERY 6 HRS NEEDED buprenorphine SL (SUBUTEX) 2 mg subl TAKE 1 TABLET UNDER THE TONGUE DAILY metoprolol tartrate, short acting, (LOPRESSOR) 25 mg tablet Take 25 mg by mouth daily at bedtime. mirtazapine (REMERON) 30 mg tablet Take 30 mg by mouth daily at bedtime. pantoprazole DR (PROTONIX) 40 mg tablet Take 40 mg by mouth once daily. History reviewed. No pertinent family history. Social History Tobacco Use Smoking status: Every Day Types: Cigarettes Smokeless tobacco: Current Substance Use Topics Drug use: Not Currently BP (!) 121/44 Pulse 60 Temp 36.3 ?C (97.3 ?F) Resp 20 Wt 60 kg (132 lb 4.4 oz) SpO2 97% BMI 22.71 kg/m? Review of Systems Constitutional: Negative for chills, fever and malaise/fatigue. HENT: Positive for congestion and sore throat. Negative for ear discharge, ear pain and sinus pain. Eyes: Negative for blurred vision, pain, discharge and redness. Respiratory: Negative for cough, hemoptysis, sputum production, shortness of breath, wheezing and stridor. Cardiovascular: Negative for chest pain. Gastrointestinal: Negative for abdominal pain, diarrhea, nausea and vomiting. Musculoskeletal: Negative for myalgias. Skin: Negative for itching and rash. Neurological: Negative for dizziness and headaches. Objective Physical Exam Constitutional: General: She is not in acute distress. Appearance: She is not diaphoretic. HENT: Head: Normocephalic. Jaw: No trismus, tenderness, swelling or pain on movement. Mouth/Throat: Mouth: Mucous membranes are moist. Pharynx: Oropharynx is clear. Uvula midline. No pharyngeal swelling, oropharyngeal exudate, posterior oropharyngeal erythema or uvula swelling. Comments: Few white spots noted. Eyes: Conjunctiva/sclera: Conjunctivae normal. Pupils: Pupils are equal, round, and reactive to light. Cardiovascular: Rate and Rhythm: Normal rate and regular rhythm. Heart sounds: Normal heart sounds. Pulmonary: Effort: Pulmonary effort is normal. No tachypnea, accessory muscle usage or respiratory distress. Breath sounds: Normal breath sounds. No stridor. No wheezing, rhonchi or rales. Abdominal: General: There is no distension. Palpations: Abdomen is soft. Tenderness: There is no abdominal tenderness. There is no guarding or rebound. Musculoskeletal: Cervical back: Normal range of motion and neck supple. No edema, erythema, rigidity or tenderness. No pain with movement. Normal range of motion. Lymphadenopathy: Cervical: No cervical adenopathy. Skin: General: Skin is warm and dry. Neurological: Mental Status: She is alert and oriented to person, place, and time. ASSESSMENT/PLAN: 1. Sore throat - ICD9: 462, ICD10: J02.9 (primary diagnosis) - STREP A MOLECULAR (POC) 2. Thrush - ICD9: 112.0, ICD10: B37.0 Strep test negative. Will treat for thrush with oral nystatin. Patient was educated on supportive therapies. Patient will follow up with primary care provider as needed. Patient was instructed to immediately proceed to emergency room for any new, worsening, or symptoms lasting longer than anticipated. The patient's clinical presentation is otherwise unremarkable at this time. Based on exam and clinical finding, the patient is stable for discharge. Plan of care was discussed with patient. Patient verbalizes understanding and agrees to plan of care. This note was generated using [employer] software. It may contain errors in wording, punctuation, or spelling. Hamzah Cali APRN.EDUCATION PARAPROFESSIONAL Allergies As of Date: 03/27/2024 Noted Allergy Reaction DICLOFENAC-SILICONE, ADHESIVE 03/13/2024 4 - Hives GATIFLOXACIN 03/13/2024 16 - Unknown (more content not included)... Normal [facility] STREP A MOLECULAR (POC)on Procedural Control Valid [facility] Strep A (POCT) Negative Negative [facility] CNCOon 03-19-2024 CNCO Letter Text Letter Text Normal [facility] CNPNon 03-19-2024 CNPN Telephone (RHEUMN) -------- CHRISTEL SAUCEDA ([id number]) 1965 F Date Time Provider Department 03/19/24 LOUISE CONTRERAS During your visit today, we recorded the following information about you: Hanh Padron 03/19/2024 9:20 AM Signed Per pt phone call she is experiencing a flare up and is feeling pain in her lower back, hips, feet, and in the muscle behind her knees. She stated that she gets hot, dizzy, and nauseous whenever she tries to move, this began to occur last Tuesday (03/13). Yesterday was the first day she was able to keep food down. She stated the pain is making her unable to get more than an hour of sleep and she had to miss work and Tuesday. Pt would like to be called back at #[phone]. So Harp RN 03/19/2024 10:17 AM Signed Called patient. Advised per Dr. Contreras, she should discuss her fibromyalgia symptoms with her PCP. Patient advises she called PCP, as she needs a work note for 03/15-03/16. PCP refused to provide her with this. Note was provided to her via [email or web address]. So Harp RN Allergies As of Date: 03/19/2024 Noted Allergy Reaction DICLOFENAC-SILICONE, ADHESIVE 03/13/2024 4 - Hives GATIFLOXACIN 03/13/2024 16 - Unknown VENLAFAXINE 03/13/2024 16 - Unknown Date Reviewed: 03/13/2024 Reviewed by: Lupe Meredith MA - Fully Assessed Reason for Visit: Patient Update [1234] Prescriptions as of 03/19/2024 - gabapentin (NEURONTIN) 800 mg tablet Take 800 mg by mouth three times a day. - ALPRAZolam (XANAX) 1 mg tablet TAKE 1 MG ORALLY 4 TIMES A DAY FOR FREE FLOATING ANXIETY EVERY 6 HRS NEEDED - buprenorphine SL (SUBUTEX) 2 mg subl TAKE 1 TABLET UNDER THE TONGUE DAILY - metoprolol tartrate, short acting, (LOPRESSOR) 25 mg tablet Take 25 mg by mouth daily at bedtime. - mirtazapine (REMERON) 30 mg tablet Take 30 mg by mouth daily at bedtime. - pantoprazole DR (PROTONIX) 40 mg tablet Take 40 mg by mouth once daily. Problem List As Of Date 03/19/2024 Noted Resolved Polyarthralgia [M25.50] 03/13/2024 Weight loss, unintentional [R63.4] 03/13/2024 Constipation [K59.00] 03/13/2024 Intermittent diarrhea [R19.7] 03/13/2024 Bruising [T14.8XXA] 03/13/2024 Fibromyalgia [M79.7] 03/14/2024 Severe depression (HCC) [F32.2] 03/14/2024 Anxiety [F41.9] 03/14/2024 Encounter Status:Closed by SO HARP on 03/19/24 Normal [facility] Cortis [facility] 03-14-20 Cortisol [Mass/Vol] 2.7 ug/dL Low 4.8-19.[address] [facility] Comment on above: Order Comment: Zulma baptiste Type: BLOOD SPECIMEN Ordering Facility: [facility] Address: [address] [place] [address] Result Comment: Prov ided reference range is from 6-10 AM sample collection time. Cortisol Reference Range: 6-10 AM = 4.8-19.5 ug/dL, 4-8 PM = 2.5-11.9 ug/dL Performed By: #### 3 3935-8 #### [facility] CLIA [id number] [address] [place], [place] [address] [address] [place] 25(OH)D3 [facility] 25-hydroxyvitamin D3 [Mass/Vol] 20.7 ng/mL Low 31.0-80.0 [facility] Comment on above: Order Comment: Telmai men Type: BLOOD SPECIMENOrdering Facility: [facility] Address: [address] [place] [address] Result Comment: Clas sification of 25 [place] Vitamin D status: Deficiency/Insufficiency: < or = 30 ng/ml. Sufficiency/Optimal Levels: 31-80 ng/mL Toxicity: > 100 ng/mL. Test performed by chemiluminescent immunoassay. Performed By: #### 1 989-3 ####[facility] [id number] [place] [address] [place] 25-hydroxyvitamin D3 [Mass/V ol]on 03-13-2024 Interpretation and review of laboratory results Abnormal [facility] The reference range interval was based on an analysis of samples from healthy adults and may not pertain to children from 0-18 years old. [facility] ACTH BLDon 03-13-2024 Corticotropin (P) [Mass/Vol] 6.9 pg/mL Low 7.2 - 63.3 pg/mL [facility] Comment on above: ACTH Reference Range : 7-10 am: 7.2 - 63.3 pg/mL ACTH Plas-mCncon 03-13-2024 Corticotropin (P) [Mass/Vol] 6.9 pg/mL Low 7.2-63.3 [facility] Comment on above: Order Comment: Zulma baptiste Type: BLOOD SPECIMEN Ordering Facility: [facility] Address: [address] [place] [address] Result Comment: ACTH Reference Range: 7-10 am: 7.2 - 63.3 pg/mL Performed By: #### 2 141-0 #### [facility] CLIA [id number] [address] [place] [address] [place] RADHA BY IFA WITH REFLEXon Nuclear Ab Ql (S) Negative Normal Negative [facility] Comment on above: Order Comment: Zulma baptiste Type: BLOOD SPECIMENOrdering Facility: [facility] Address: [address] [place] [address] Result Comment: Anti -nuclear antibody test is used as an aid in diagnosis of systemic autoimmune diseases. Where positive and clinically warranted, follow-up using disease-specific testing is recommended. Low positive titers are not uncommon with advanced age, certain chronic infections, and malignancies among others. Test methodology: Indirect fluorescence immunoassay (IFA) using HEp-2 cells. Performed By: #### A NAIFArturo ####[facility] [id number] [place] [address] [place] CBC W Auto Differential pane l (Bld)on 03-13-2024 Basophils (Bld) [#/Vol] 0.07 10*3/uL [facility] Basophils/100 WBC (Bld) 1.1 % [facility] Differential cell count method Nom (Bld) Auto [facility] Eosinophils (Bld) [#/Vol] 0.20 10*3/uL [facility] Eosinophils/100 WBC (Bld) 3.1 % [facility] Erythrocyte distribution width (RBC) [Ratio] 12.7 % 11.5 - 15.0 % [facility] Hematocrit (Bld) [Volume fraction] 39.5 % 36.0 - 46.0 % [facility] Hemoglobin (Bld) [Mass/Vol] 12.7 g/dL 11.5 - 15.5 g/dL [facility] Immature granulocytes (Bld) [#/Vol] [facility] Immature granulocytes/100 WBC (Bld) 0.2 % [facility] Interpretation and review of laboratory results Abnormal [facility] Lymphocytes (Bld) [#/Vol] 2.74 10*3/uL [facility] Lymphocytes/100 WBC (Bld) 42.9 % [facility] MCH (RBC) [Entitic mass] 32.4 pg 26.0 - 34.0 pg [facility] MCHC (RBC) [Mass/Vol] 32.2 g/dL 30.5 - 36.0 g/dL [facility] MCV (RBC) [Entitic vol] 100.8 fL High 80.0 - 100.0 fL [facility] Monocytes (Bld) [#/Vol] 0.56 10*3/uL [facility] Monocytes/100 WBC (Bld) 8.8 % [facility] Neutrophils (Bld) [#/Vol] 2.81 10*3/uL [facility] Neutrophils/100 WBC (Bld) 43.9 % [facility] Nucleated RBC (Bld) [#/Vol] [facility] Nucleated RBC/100 WBC (Bld) [Ratio] 0.0 % /100 WBC [facility] Platelet mean volume (Bld) [Entitic vol] 12.3 fL 9.0 - 12.7 fL [facility] Platelets (Bld) [#/Vol] 306 10*3/uL [facility] RBC (Bld) [#/Vol] 3.92 10*6/uL 3.90 - 5.2 0 m/uL [facility] WBC (Bld) [#/Vol] 6.39 10*3/uL [facility] Basophils (Bld) [#/Vol] 0.07 10*3/uL Normal <0.11 [facility] Comment on above: Order Comment: Speci men Type: BLOOD SPECIMENOrdering Facility: [facility] Address: [address] [place] [address] Performed By: #### 4 537-7, 36644-2 ####[facility] [id number] [place] [address] [place] Basophils/100 WBC (Bld) 1.1 % Normal [facility] Comment on above: Order Comment: Speci men Type: BLOOD SPECIMENOrdering Facility: [facility] Address: [address] [place] [address] Performed By: #### 4 537-7, 00839-7 ####[facility] [id number] [place] [address] [place] Differential cell count method Nom (Bld) Auto Normal [facility] Comment on above: Order Comment: Speci men Type: BLOOD SPECIMENOrdering Facility: [facility] Address: [address] [place] [address] Performed By: #### 4 537-7, 32596-8 ####[facility] [id number] [place] [address] [place] Eosinophils (Bld) [#/Vol] 0.20 10*3/uL Normal <0.46 [facility] Comment on above: Order Comment: Speci men Type: BLOOD SPECIMENOrdering Facility: [facility] Address: [address] [place] [address] Performed By: #### 4 537-7, 27478-1 ####[facility] [id number] [place] [address] [place] Eosinophils/100 WBC (Bld) 3.1 % Normal [facility] Comment on above: Order Comment: Speci men Type: BLOOD SPECIMENOrdering Facility: [facility] Address: [address] [place] [address] Performed By: #### 4 537-7, 24574-1 ####[facility] [id number] [place] [address] [place] Erythrocyte distribution width (RBC) [Ratio] 12.7 % Normal 11.5-15.0 [facility] Comment on above: Order Comment: Speci men Type: BLOOD SPECIMENOrdering Facility: [facility] Address: [address] [place] [address] Performed By: #### 4 537-7, 79347-5 ####[facility] LABIA [id number] [place] [address] [place] Hematocrit (Bld) [Volume fraction] 39.5 % Normal 36.0-46.0 [facility] Comment on above: Order Comment: Speci men Type: BLOOD SPECIMENOrdering Facility: [facility] Address: [address] [place] [address] Performed By: #### 4 537-7, 91362-8 ####[facility] LAB[facility] [id number] [place] [address] [place] Hemoglobin (Bld) [Mass/Vol] 12.7 g/dL Normal 11.5-15.5 [facility] Comment on above: Order Comment: Speci men Type: BLOOD SPECIMENOrdering Facility: [facility] Address: [address] [place] [address] Performed By: #### 4 537-7, 84976-9 ####[facility] [id number] [place] [address] [place] Immature granulocytes (Bld) [#/Vol] 10*3/uL Normal <0.10 [facility] Comment on above: Order Comment: Speci men Type: BLOOD SPECIMENOrdering Facility: [facility] Address: [address] [place] [address] Performed By: #### 4 537-7, 21658-8 ####[facility] [id number] [place] [address] [place] Immature granulocytes/100 WBC (Bld) 0.2 % Normal [facility] Comment on above: Order Comment: Speci men Type: BLOOD SPECIMENOrdering Facility: [facility] Address: [address] [place] [address] Performed By: #### 4 537-7, 15925-4 ####[facility] [id number] [place] [address] [place] Lymphocytes (Bld) [#/Vol] 2.74 10*3/uL Normal 1.00-4.00 [facility] Comment on above: Order Comment: Speci men Type: BLOOD SPECIMENOrdering Facility: [facility] Address: [address] [place] [address] Performed By: #### 4 537-7, 53516-0 ####[facility] [id number] [place] [address] [place] Lymphocytes/100 WBC (Bld) 42.9 % Normal [facility] Comment on above: Order Comment: Speci men Type: BLOOD SPECIMENOrdering Facility: [facility] Address: [address] [place] [address] Performed By: #### 4 537-7, 79815-3 ####[facility] [id number] [place] [address] [place] MCH (RBC) [Entitic mass] 32.4 pg Normal 26.0-34.0 [facility] Comment on above: Order Comment: Speci men Type: BLOOD SPECIMENOrdering Facility: [facility] Address: [address] [place] [address] Performed By: #### 4 537-7, 70097-9 ####[facility] [id number] [place] [address] [place] MCHC (RBC) [Mass/Vol] 32.2 g/dL Normal 30.5-36.0 [facility] Comment on above: Order Comment: Speci men Type: BLOOD SPECIMENOrdering Facility: [facility] Address: [address] [place] [address] Performed By: #### 4 537-7, 54419-6 ####[facility] [id number] [place] [address] [place] MCV (RBC) [Entitic vol] 100.8 fL High 80.0-100.0 [facility] Comment on above: Order Comment: Speci men Type: BLOOD SPECIMENOrdering Facility: [facility] Address: [address] [place] [address] Performed By: #### 4 537-7, 72788-4 ####[facility] [id number] [place] [address] [place] Monocytes (Bld) [#/Vol] 0.56 10*3/uL Normal <0.87 [facility] Comment on above: Order Comment: Speci men Type: BLOOD SPECIMENOrdering Facility: [facility] Address: [address] [place] [address] Performed By: #### 4 537-7, 78536-0 ####[facility] [id number] [place] [address] [place] Monocytes/100 WBC (Bld) 8.8 % Normal [facility] Comment on above: Order Comment: Speci men Type: BLOOD SPECIMENOrdering Facility: [facility] Address: [address] [place] [address] Performed By: #### 4 537-7, 46027-5 ####[facility] [id number] [place] [address] [place] Neutrophils (Bld) [#/Vol] 2.81 10*3/uL Normal 1.45-7.50 [facility] Comment on above: Order Comment: Speci men Type: BLOOD SPECIMENOrdering Facility: [facility] Address: [address] [place] [address] Performed By: #### 4 537-7, 03595-6 ####[facility] [id number] [place] [address] [place] Neutrophils/100 WBC (Bld) 43.9 % Normal [facility] Comment on above: Order Comment: Speci men Type: BLOOD SPECIMENOrdering Facility: [facility] Address: [address] [place] [address] Performed By: #### 4 537-7, 57542-5 ####[facility] [id number] [place] [address] [place] Nucleated RBC (Bld) [#/Vol] 10*3/uL Normal <0.01 [facility] Comment on above: Order Comment: Speci men Type: BLOOD SPECIMENOrdering Facility: [facility] Address: [address] [place] [address] Performed By: #### 4 537-7, 88899-7 ####[facility] [id number] [place] [address] [place] Nucleated RBC/100 WBC (Bld) [Ratio] 0.0 /100 WBC Normal [facility] Comment on above: Order Comment: Speci men Type: BLOOD SPECIMENOrdering Facility: [facility] Address: [address] [place] [address] Performed By: #### 4 537-7, 58045-5 ####[facility] LABIA [id number] [place] [address] [place] Platelet mean volume (Bld) [Entitic vol] 12.3 fL Normal 9.0-12.7 [facility] Comment on above: Order Comment: Speci men Type: BLOOD SPECIMENOrdering Facility: [facility] Address: [address] [place] [address] Performed By: #### 4 537-7, 07604-2 ####[facility] [id number] [place] [address] [place] Platelets (Bld) [#/Vol] 306 10*3/uL Normal 150-400 [facility] Comment on above: Order Comment: Speci men Type: BLOOD SPECIMENOrdering Facility: [facility] Address: [address] [place] [address] Performed By: #### 4 537-7, 53099-5 ####[facility] [id number] [place] [address] [place] RBC (Bld) [#/Vol] 3.92 10*6/uL Normal 3.90-5.[address] [facility] Comment on above: Order Comment: Speci men Type: BLOOD SPECIMENOrdering Facility: [facility] Address: [address] [place] [address] Performed By: #### 4 537-7, 02530-8 ####[facility] LABIA [id number] [place] [address] [place] WBC (Bld) [#/Vol] 6.39 10*3/uL Normal 3.70-11.[address] [facility] Comment on above: Order Comment: Speci men Type: BLOOD SPECIMENOrdering Facility: [facility] Address: [address] [place] [address] Performed By: #### 4 537-7, 14879-0 ####[facility] [id number] [place] [address] [place] CELIAC SCREENon 03-13-2024 GLIAD DEAMIDATED IGA QUAL Negative Normal Negative, Test not Indicated [facility] Comment on above: Order Comment: Speci emile Type: BLOOD SPECIMEN [facility] Address: [address] [place] [address] Result Comment: This is used as an aid in diagnosis of celiac disease. Clinical correlation is required. The following results were obtained with an [employer] QUANTA Lite Gliadin IgA MILEY Gliadin. Gliadin IgA values obtained with different manufacturers' assay methods may not be used interchangeably. The magnitude of the reported IgA levels cannot be correlated to an endpoint titer. Performed By: #### 3 3935-8 #### [facility] CLIA [id number] [address] [place] [address] [place] Gliadin peptide IgA Qn (S) 3 Units Normal <20 [facility] Comment on above: Order Comment: Speci emile Type: BLOOD SPECIMEN [facility] Address: [address] [place] [address] Performed By: #### 3 3935-8 #### [facility] CLIA [id number] [address] [place] [address] [place] INTERPRETATION No serological evide nce of celiac disease, however, if celiac disease is clinically suspected and patient is not on gluten-free diet, histological diagnosis may be considered. HLA testing may help with risk assessment. Normal [facility] Comment on above: Order Comment: Zulma baptiste Type: BLOOD SPECIMEN [facility] Address: [address] [place] [address] Performed By: #### 3 3935-8 #### [facility] CLIA [id number] [address] [place] [address] [place] TRANSGLUTAMINASE IGA ABS INTERPRETATION Negative Normal Negative [facility] Comment on above: Order Comment: Zulma baptiste Type: BLOOD SPECIMEN [facility] Address: [address] [place] [address] Result Comment: The following results were obtained with [employer]ite R h-tTG IgA MILEY.???R h-tTG IgA values obtained with different manufacturers' assay methods may not be used interchangeably. The magnitude of the reported IgA levels cannot be corelated to an endpoint???concentration. This is used as an aid in diagnosis of celiac disease. Clinical correlation is required. Performed By: #### 3 3935-8 #### [facility] CLIA [id number] [address] [place] [address] tTG IgA Qn (S) <2 Normal <4 [facility] Comment on above: Order Comment: Zulma baptiste Type: BLOOD SPECIMEN [facility] Address: [address] [place] [address] Performed By: #### 3 3935-8 #### [facility] CLIA [id number] [address] [place] [address] [facility] CNOVon 03-13-2024 CNOV Office Visit (RHEUMN ) -------- CHRISTEL SAUCEDA ([id number]) 1965 F Date Time Provider Department 03/13/24 3:00 PM LOUISE CONTRERAS RHEUMN During your visit today, we recorded the following information about you: Temperature Pulse Blood pressure Weight 98 degrees 54/minute 132/45 58.1 kg Height 1.626 m Louise Contreras MD 03/14/2024 7:24 AM Signed Referred by: Self-referral (Referred by her sister who is my patient) PCP: Dr. Cheryle Babcock, DO [facility] [address] [place] [address] [place] [address] Ms. Christel Sauceda is a 59-year-old female. Chief Complaint: Ms. Christel Sauceda presents today for evaluation of osteoarthritis and possible Sjogren's syndrome. History of Present Illness: 03/11/2024 Her chief complaints include severe generalized joint and muscle pain, severe malaise and fatigue, difficulty sleeping, and brain fog. She has lost a lot of weight. She was working all the time, up to 80 hours a week. Then she developed generalized pain. She now has a job that requires her to be on her feet all day. She gets very brief breaks Her pain is in her lower back, and hips, knees, and both feet. The muscles in the upper and lower parts of legs are also painful. Most of her pain is in her lower extremities. She also complains of periodic muscle twitching/jerks in her upper extremities. She has not seen a neurologist. She has been following an autoimmune practitioner (Dr. Velasquez) locally. She was receiving injections once a week. She has very dry eyes and dry mouth. She may have Sjogren syndrome, has not had laboratory confirmation, ocular staining score, Maureen's test, or minor salivary gland biopsy. She said that she cannot relax at night. She gets up 2-3 times. Her mind constantly races and she has numerous thoughts. She has been seen by a apprentice painter hand. Currently she is on buprenorphine for pain control. She has been following with a local revenue settlements administrator in [place], [place] (Dr. Digna Ruelas MD). She has been diagnosed with inflammatory arthritis, for which she has been on methotrexate and etanercept (Enbrel). She has become more sick after starting these strong immunosuppressive medications. She said that she got COVID after being started on methotrexate and Enbrel. She had an infection of COVID-19 about 6 months ago. She is unable to eat during the day, as she does not feel hungry. She only eats at night time. She has been losing weight. Today, her body mass index is 21.99 kg/m?. She has significant pain and stiffness in her knees. She has received intra-articular steroid injections in her knees, which were very helpful. However, after the knees were injected, she started experiencing pain in her hips. She also received steroid injections in her back (spine), after which she was unable to stand up because she was in significant pain. She has obstructive sleep apnea and uses a BiPAP machine. She denies having COPD. Her primary care provider, Dr. Babcock, took her off Lexapro. She was put on mirtazapine to stimulate her appetite. Through the last few weeks she has not had an appetite. She denies any personal or family history of celiac disease. She used to have diarrhea every morning with blood. However, now she has a difficult time using the bathroom these days. She was taking Cymbalta which previously caused her to have a rash and blisters. She does not have any extracurricular activities. She does not socialize. She falls asleep right after coming home from work because she is in so much pain. She wakes up to eat a couple bites of food and then falls back asleep. She has not taken other vaccines besides the COVID vaccine. She gets bruises without a reason. According to her mother, who is accompanying her today, her body is warm all the time. She is bothered by bright lights, strong odors, and loud noises (central sensitization). In fact, she is bothered by any strong stimulus. Her previous doctors told her that any type of physical therapy would be bad for her. Hence, she never tried physical or aquatic therapy. She was told that One of her legs is shorter than the other (leg length discrepancy). =======- Pertinent prior Office Visits or Imaging: No pertinent office visits. Pertinent prior Lab Studies: No recent lab work. Current Outpatient Medications Medication Sig ALPRAZolam (XANAX) 1 mg tablet TAKE 1 MG ORALLY 4 TIMES A DAY FOR FREE FLOATING ANXIETY EVERY 6 HRS NEEDED buprenorphine SL (SUBUTEX) 2 mg subl TAKE 1 TABLET UNDER THE TONGUE DAILY metoprolol tartrate, short acting, (LOPRESSOR) 25 mg tablet Take 25 mg by mouth daily at bedtime. mirtazapine (REMERON) 30 mg ta (more content not included)... Normal [facility] CRP SerPl-mCncon 03-13-2024 CRP [Mass/Vol] mg/L Normal <0.9 [facility] Comment on above: Order Comment: Speci men Type: BLOOD SPECIMENOrdering Facility: [facility] Address: [address] [place] [address] Performed By: #### 3 024-7, 54842-5, 1987-5, 3016-3 ####[facility] [id number] [place] [address] [place] Centromere Ab IF Ql (S)on Centromere Ab Qn (S) <0.2 Normal <1.0 [facility] Comment on above: Order Comment: Speci men Type: BLOOD SPECIMENOrdering Facility: [facility] Address: [address] [place] [address] Result Comment: Anti -centromere antibody is used as in aid in diagnosis of systemic sclerosis. Clinical correlation is required. Test Methodology: Multiplex flow immunoassay. Performed By: #### 5 1775-5, 16513-1, 54752-9, 91461-2, 51945-2, 91889-5, 49314-7, 24253-5 ####[facility] [id number] [place] [address] [place] CENTROMERE AB QUAL Negative Normal Negative [facility] Comment on above: Order Comment: Speci men Type: BLOOD SPECIMENOrdering Facility: [facility] Address: [address] [place] [address] Performed By: #### 5 1775-5, 47511-7, 28636-0, 89694-3, 93707-2, 43607-2, 85423-7, 91770-0 ####[facility] [id number] [place] [address] [place] Chromatin Ab Qnon 03-13-2024 CHROMATIN AB QUAL Negative Normal Negative [facility] Comment on above: Order Comment: Speci men Type: BLOOD SPECIMENOrdering Facility: [facility] Address: [address] [place] [address] Performed By: #### 5 1775-5, 75612-6, 41524-2, 22051-9, 79563-9, 56877-7, 75282-0, 19298-4 ####[facility] [id number] [place] [address] [place] Chromatin Ab SerPl-aCncon Chromatin Ab Qn <0.2 Normal <1.0 [facility] Comment on above: Order Comment: Speci men Type: BLOOD SPECIMENOrdering Facility: [facility] Address: [address] [place] [address] Result Comment: Test Methodology: Multiplex flow immunoassay. Performed By: #### 5 1775-5, 75004-1, 86537-2, 30678-7, 25622-3, 07420-1, 60101-8, 72903-9 ####[facility] [id number] [place] [address] [place] Comprehensive metabolic 2000 panelon 03-13-2024 Albumin [Mass/Vol] 4.8 g/dL Normal 3.9-4.9 [facility] Comment on above: Order Comment: Speci men Type: BLOOD SPECIMENOrdering Facility: [facility] Address: [address] [place] [address] Performed By: #### 3 024-7, 34093-9, 1987-5, 3016-3 ####[facility] [id number] [place] [address] [place] ALP [Catalytic activity/Vol] 81 U/L Normal 34-123 [facility] Comment on above: Order Comment: Speci men Type: BLOOD SPECIMENOrdering Facility: [facility] Address: [address] [place] [address] Performed By: #### 3 024-7, , 1987-09, 3015-07 ####[facility] [id number] [place] [address] [place] ALT [Catalytic activity/Vol] 13 U/L Normal 7-38 [facility] Comment on above: Order Comment: Speci men Type: BLOOD SPECIMENOrdering Facility: [facility] Address: [address] [place] [address] Performed By: #### 3 024-7, , 1987-09, 3015-07 ####[facility] [id number] [place] [address] [place] Anion gap [Moles/Vol] 13 mmol/L Normal 8-15 [facility] Comment on above: Order Comment: Speci men Type: BLOOD SPECIMENOrdering Facility: [facility] Address: [address] [place] [address] Performed By: #### 3 024-7, , 1987-09, 3015-07 ####[facility] [id number] [place] [address] [place] AST [Catalytic activity/Vol] 22 U/L Normal 13-35 [facility] Comment on above: Order Comment: Speci men Type: BLOOD SPECIMENOrdering Facility: [facility] Address: [address] [place] [address] Performed By: #### 3 024-7, 09715-5, 1987-09, 3015-07 ####[facility] [id number] [place] [address] [place] Bilirubin [Mass/Vol] 0.3 mg/dL Normal 0.2-1.3 [facility] Comment on above: Order Comment: Speci men Type: BLOOD SPECIMENOrdering Facility: [facility] Address: [address] [place], [place] [address] Performed By: #### 3 024-7, 51987-5, 1987-09, 3015-07 ####[facility] [id number] [address] [address] [place] Calcium [Mass/Vol] 9.9 mg/dL Normal 8.5-10.2 [facility] Comment on above: Order Comment: Speci men Type: BLOOD SPECIMENOrdering Facility: [facility] Address: [address] [place], [place] [address] Performed By: #### 3 024-7, 05276-2, 1987-09, 3015-07 ####[facility] [id number] [place] [address] [place] Chloride [Moles/Vol] 104 mmol/L Normal 98-107 [facility] Comment on above: Order Comment: Speci men Type: BLOOD SPECIMENOrdering Facility: [facility] Address: [address] [place], [place] [address] Performed By: #### 3 024-7, , 1987-09, 3015-07 ####[facility] [id number] [place] [address] [place] CO2 [Moles/Vol] 26 mmol/L Normal 22-30 [facility] Comment on above: Order Comment: Speci men Type: BLOOD SPECIMENOrdering Facility: [facility] Address: [address] [place], [place] [address] Performed By: #### 3 024-7, 90150-7, 1987-09, 3015-07 ####[facility] [id number] [place] [id number] [place] Creatinine [Mass/Vol] 0.76 mg/dL Normal 0.58-0.96 [facility] Comment on above: Order Comment: Speci men Type: BLOOD SPECIMENOrdering Facility: [facility] Address: [address] [place] [address] Performed By: #### 3 024-7, 72389-6, 3015-07 ####[facility] [id number] [place] [address] [place] Creatinine and Glomerular filtration rate.predicted panel (S/P/Bld) 92 mL/min/1.73m??? Normal >=60 [facility] Comment on above: Order Comment: Zulma baptiste Type: BLOOD SPECIMENOrdering Facility: [facility] Address: [address] [place] [address] Result Comment: Jen mated Glomerular Filtration Rate (eGFR) is calculated using the 2020 CKD-EPI creatinine equation. This equation utilizes serum creatinine, sex, and age as parameters. The creatinine assay has traceable calibration to isotope dilution-mass spectrometry. Refer to KDIGO guidelines for clinical interpretation. In patients with unstable renal function, e.g. those with acute kidney injury, the eGFR may not accurately reflect actual GFR. Performed By: #### 3 024-7, 60813-0, 3015-07 ####[facility] [id number] [place] [address] [place] Glucose [Mass/Vol] 77 mg/dL Normal 74-99 [facility] Comment on above: Order Comment: Zulma baptiste Type: BLOOD SPECIMENOrdering Facility: [facility] Address: [address] [place] [address] Result Comment: The [place] Diabetes Association (ADA) provides guidance for cutoff values for fasting glucose and random glucose. The ADA defines fasting as no caloric intake for at least 8 hours. Fasting plasma glucose results between 100 to 125 mg/dL indicate increased risk for diabetes (prediabetes). Fasting plasma glucose results greater than or equal to 126 mg/dL meet the criteria for diagnosis of diabetes. In the absence of unequivocal hyperglycemia, results should be confirmed by repeat testing. In a patient with classic symptoms of hyperglycemia or hyperglycemic crisis, random plasma glucose results greater than or equal to 200 mg/dL meet the criteria for diagnosis of diabetes. Reference: Standards of Medical Care in Diabetes 2016, [place] [employer] Association. Diabetes Care. 2016.39(Suppl 1). Performed By: #### 3 024-7, 86808-5, 1987-09, 3015-07 ####[facility] [id number] [place] [id number] [place] Potassium [Moles/Vol] 4.0 mmol/L Normal 3.7-5.1 [facility] Comment on above: Order Comment: Speci men Type: BLOOD SPECIMENOrdering Facility: [facility] Address: [address] [place] [address] Performed By: #### 3 024-7, 49264-3, 1987-09, 3015-07 ####[facility] [id number] [place] [address] [place] Protein [Mass/Vol] 7.5 g/dL Normal 6.3-8.0 [facility] Comment on above: Order Comment: Speci men Type: BLOOD SPECIMENOrdering Facility: [facility] Address: [address] [place], [place] [address] Performed By: #### 3 024-7, , 1987-09, 3015-07 ####[facility] [id number] [place] [address] [place] Sodium [Moles/Vol] 143 mmol/L Normal 136-144 [facility] Comment on above: Order Comment: Speci men Type: BLOOD SPECIMENOrdering Facility: [facility] Address: [address] [place] [address] Performed By: #### 3 024-7, 66706-9, 1987-09, 3015-07 ####[facility] [id number] [place] [id number] [place] Urea nitrogen [Mass/Vol] 15 mg/dL Normal 7-21 [facility] Comment on above: Order Comment: Speci men Type: BLOOD SPECIMENOrdering Facility: [facility] Address: [address] [place] [address] Performed By: #### 3 024-7, 88714-7, 1988-5, 3016-3 ####[facility] [id number] [place] [address] [place] Corticotropin (P) [Mass/Vol] on 03-13-2024 Interpretation and review of laboratory results Abnormal [facility] RAFAT Jo1 Ab Ser-aCncon 2023 Sho-1 extractable nuclear Ab Qn (S) <0.2 Normal <1.0 [facility] Comment on above: Order Comment: Speci men Type: BLOOD SPECIMENOrdering Facility: [facility] Address: [address] [place] [address] Performed By: #### 5 1775-5, 63874-6, 77253-2, 16546-9, 65292-0, 68325-1, 28782-1, 32230-6 ####[facility] [id number] [place] [address] [place] RAFAT SQL TECH Ab Ser-aCncon 2023 Ribonucleoprotein extractable nuclear Ab Qn (S) <0.2 Normal <1.0 [facility] Comment on above: Order Comment: Speci men Type: BLOOD SPECIMENOrdering Facility: [facility] Address: [address] [place] [address] Performed By: #### 5 1775-5, 12942-2, 96366-7, 61283-2, 37996-6, 54883-2, 50156-6, 10377-2 ####[facility] [id number] [place] [address] [place] RAFAT SM IgG Ser-aCncon 2023 Parrish extractable nuclear IgG Qn (S) <0.2 Normal <1.0 [facility] Comment on above: Order Comment: Speci men Type: BLOOD SPECIMENOrdering Facility: [facility] Address: [address] [place] [address] Performed By: #### 5 1775-5, 46874-1, 65056-6, 72273-4, 51129-7, 64315-8, 16017-5, 61012-6 ####[facility] [id number] [address] [place] RAFAT SS-A Ab Ser-aCncon 03-13 Sjogrens syndrome-A extractable nuclear Ab Qn (S) <0.2 Normal <1.0 [facility] Comment on above: Order Comment: Speci men Type: BLOOD SPECIMENOrdering Facility: [facility] Address: [address] [place] [address] Result Comment: Test Methodology: Multiplex flow immunoassay. Performed By: #### 5 1775-5, 42948-1, 43535-3, 35250-9, 90151-3, 32814-5, 49629-5, 34851-0 ####[facility] [id number] [address] RAFAT SS-B Ab Ser-aCncon 03-13 Sjogrens syndrome-B extractable nuclear Ab Qn (S) <0.2 Normal <1.0 [facility] Comment on above: Order Comment: Speci men Type: BLOOD SPECIMENOrdering Facility: [facility] Address: [address] [place] [address] Result Comment: Anti -SSB (anti-La) antibody is used as an aid in diagnosis of a variety of systemic autoimmune diseases, especially for Sjogren's syndrome and systemic lupus erythematosus. Clinical correlation is required. Test Methodology: Multiplex flow immunoassay. Performed By: #### 5 1775-5, 47930-2, 62228-0, 55243-6, 04318-6, 94303-5, 88370-2, 44451-6 ####[facility] [id number] [place] [address] [place] ESR Westergren method (Bld) [Velocity]on 03-13-2024 ESR (Bld) [Velocity] 12 mm/h [facility] Interpretation and review of laboratory results Normal [facility] ESR (Bld) [Velocity] 12 mm/h Normal 0-20 [facility] Comment on above: Order Comment: Speci emile Type: BLOOD SPECIMENOrdering Facility: [facility] Address: [address] [place] [address] Performed By: #### 4 537-7, 04004-5 ####[facility] [id number] [place] [address] [place] IgA SerPl-mCncon 03-13-2024 IgA [Mass/Vol] 213 mg/dL Normal 70-400 [facility] Comment on above: Order Comment: Speci emile Type: BLOOD SPECIMEN [facility] Address: [address] [place] [address] Performed By: #### 3 3935-8 #### [facility] CLIA [id number] [address] [place] [address] [place] Sho-1 extractable nuclear Ab Qn (S)on 03-13-2024 SHO 1 ANTIBODY QUAL Negative Normal Negative [facility] Comment on above: Order Comment: Speci emile Type: BLOOD SPECIMENOrdering Facility: [facility] Address: [address] [place] [address] Result Comment: Anti -SHO-1 antibody is used as an aid in diagnosis of polymyositis and dermatomyositis especially with pulmonary involvement. A negative result cannot rule out polymyositis or dermatomyositis. Clinical correlation is required. Test Methodology: Multiplex flow immunoassay. Performed By: #### 5 1775-5, 25739-8, 14255-2, 30829-7, 74596-6, 27003-7, 68672-2, 61900-8 ####[facility] [id number] [place] [address] [place] Ribonucleoprotein extractabl e nuclear Ab Qn (S)on 03-13-2024 ANTI-SQL TECH QUAL Negative Normal Negative [facility] Comment on above: Order Comment: Speci men Type: BLOOD SPECIMENOrdering Facility: [facility] Address: [address] [place] [address] Performed By: #### 5 1775-5, 70569-9, 61964-8, 31695-9, 57981-0, 16900-3, 46502-2, 81106-1 ####[facility] [id number] [address] [address] [place] RIBOSOMAL SQL TECH QUAL Negative Normal Negative [facility] Comment on above: Order Comment: Speci men Type: BLOOD SPECIMENOrdering Facility: [facility] Address: [address] [place] [address] Result Comment: Anti -Ribosomal RNA (Ribosomal P) antibody is used as an aid in diagnosis of systemic autoimmune diseases especially systemic lupus erythematosus and mixed connective tissue disease. Cross-reactivity with Anti-parrish antibody is not uncommon. Clinical correlation is required. Test Methodology: Multiplex flow immunoassay. Performed By: #### 5 1775-5, 26620-8, 49430-2, 78633-8, 59348-1, 19736-8, 63346-6, 29923-3 ####[facility] [id number] [place] [id number] [place] SCL-70 extractable nuclear I gG IA Qn (S)on 03-13-2024 SCLERODERMA AB QUAL Negative Normal Negative [facility] Comment on above: Order Comment: Speci men Type: BLOOD SPECIMENOrdering Facility: [facility] Address: [address] [place] [address] Performed By: #### 5 1775-5, 29749-4, 62502-2, 56429-1, 37543-9, 83375-1, 22676-3, 00357-6 ####[facility] [id number] [place] [id number] [place] SCLERODERMA IGG AB <0.2 Normal <1.0 [facility] Comment on above: Order Comment: Speci men Type: BLOOD SPECIMENOrdering Facility: [facility] Address: [address] [place] [address] Result Comment: Scl- 70/Scleroderma antibody test is used as an aid in diagnosis of systemic sclerosis especially the diffuse cutaneous form. A negative result cannot rule out systemic sclerosis. The final interpretation should consider clinical picture and other test results such as anti-centromere antibody. Test Methodology: Multiplex flow immunoassay. Performed By: #### 5 1775-5, 13914-3, 21373-5, 56071-5, 07663-7, 07225-4, 90264-6, 14701-6 ####[facility] [id number] [place] [address] [place] Sjogrens syndrome-A extracta ble nuclear Ab Qn (S)on 03-13-2024 SSA ANTIBODY QUAL Negative Normal Negative [facility] Comment on above: Order Comment: Speci men Type: BLOOD SPECIMENOrdering Facility: [facility] Address: [address] [place] [address] Performed By: #### 5 1775-5, 11130-8, 06936-7, 21295-2, 47914-7, 78250-0, 81830-5, 03447-7 ####[facility] [id number] [place] [id number] [place] Sjogrens syndrome-B extracta ble nuclear Ab Qn (S)on 03-13-2024 SSB ANTIBODY QUAL Negative Normal Negative [facility] Comment on above: Order Comment: Speci men Type: BLOOD SPECIMENOrdering Facility: [facility] Address: [address] [place] [address] Performed By: #### 5 1775-5, 39710-1, 95895-3, 96989-0, 13999-3, 65585-1, 03065-0, 58027-4 ####[facility] [id number] [address] [address] [place] Parrish extractable nuclear Ig G Qn (S)on 03-13-2024 SM ANTIBODY QUAL Negative Normal Negative [facility] Comment on above: Order Comment: Speci men Type: BLOOD SPECIMENOrdering Facility: [facility] Address: [address] [place] [address] Result Comment: Anti -Sm (Parrish) antibody is used as an aid in diagnosis of systemic lupus erythematosus and its presence is associated with renal disease. A negative result cannot rule out systemic lupus erythematosus. Clinical correlation is required. Test Methodology: Multiplex flow immunoassay. Performed By: #### 5 1775-5, 53153-8, 01145-2, 06357-7, 11118-1, 73545-8, 59315-0, 94823-2 ####[facility] [id number] [place] [address] [place] T4 Free SerPl-mCncon 024 Free T4 [Mass/Vol] 1.0 ng/dL Normal 0.9-1.7 [facility] Comment on above: Order Comment: Speci men Type: BLOOD SPECIMENOrdering Facility: [facility] Address: [address] [place] [address] Performed By: #### 3 024-7, 18367-5, 1987-09, 3015-07 ####[facility] [id number] [place] [address] [place] TSH SerPl-aCncon 03-13-2024 TSH Qn 0.947 m[IU]/L Normal 0.270-4.200 [facility] Comment on above: Order Comment: Speci men Type: BLOOD SPECIMENOrdering Facility: [facility] Address: [address] [place] [address] Performed By: #### 3 024-7, 49235-3, 1987-09, 3015-07 ####[facility] [id number] [place] [id number] [place] VITAMIN Con 03-13-2024 VITAMIN C 8 umol/L Low 23-114 [facility] Comment on above: Order Comment: Speci men Type: BLOOD SPECIMEN [facility] Address: [address] [place] [address] Result Comment: Vitamin C concentrations lower than 11 umol/L indicate deficiency. Concentrations between 11 and 23 umol/L are consistent with a moderate risk of deficiency due to inadequate tissue stores. Vitamin C concentration is reported as micromoles per liter (umol/L). To convert concentration to milligrams per deciliter (mg/dL), multiply the result by 0.0176. This test was developed and its performance characteristics determined by [facility]. It has not been cleared or approved by the [place] Food and Drug Administration. This test was performed in a CLIA certified laboratory and is intended for clinical purposes. Performed By: [facility] [address] [place] [id number] Service Tester: Amos Saldivar MD, PhD CLIA Number: [id number] Performed By: #### 3 3935-8 #### [facility] CLIA [id number] [address] [place] [address] [place] VITAMIN D 25 HYDROXYon 03-13 25-hydroxyvitamin D3 [Mass/Vol] 20.7 ng/mL Low 31.0 - 80.0 ng/mL [facility] Comment on above: Classification of 25 [place] Vitamin D status: Deficiency/Insufficiency: < or = 30 ng/ml. Sufficiency/Optimal Levels: 31-80 ng/mL Toxicity: > 100 ng/mL. Test performed by chemiluminescent immunoassay. XR KNEE 1 OR 2 VIEWS RIGHTon 09-14-2023 XR KNEE 1 OR 2 VIEWS RIGHT ORIGINAL EXAMINATION: TWO XRAY VIEWS OF THE RIGHT KNEE 09/14/2023 4:37 pm COMPARISON: Radiograph of the knee December 09, 2022. HISTORY: ORDERING SYSTEM PROVIDED HISTORY: Reason for Exam: pain with movement, fall 2 days ago FINDINGS: No fracture or dislocation. Mild infiltration of Hoffa's fat pad, nonspecific although could be posttraumatic. No significant joint fluid. No radiopaque foreign body. IMPRESSION: No fracture or dislocation. Interpreted by: Kian Meyer Preliminary Report By: Kian Meyer Electronically signed By Kian Meyer Dictated Date: 09/14/2023 4:45:11 PM Prelim Date: 09/14/2023 4:45:52 PM Sign Date: 09/14/2023 4:45:52 PM Ordering Provider: CARLOS Lu [facility] ([place]) .Auto Diffon 08-25-2023 Basophil, Absolute 0.0 10 3/mcL Normal 0.0-0.2 [facility] ([place]) Comment on above: Performed By: #### C BC, ADIFF, GFR, ANEU, CMP #### [address] [address] Basophils/100 WBC (Bld) 0.7 % Normal 0.0-2.5 A [facility] ([place]) Comment on above: Performed By: #### C BC, ADIFF, GFR, ANEU, CMP #### [address] [address] Eosinophil, Absolute 0.0 10 3/mcL Normal 0.0-0.4 [facility] ([place] Comment on above: Performed By: #### C BC, ADIFF, GFR, ANEU, CMP #### [address] [address] Eosinophils/100 WBC (Bld) 0.2 % Normal 0.0-7.0 [facility] ([place]) Comment on above: Performed By: #### C BC, ADIFF, GFR, ANEU, CMP #### [address] [address] Lymphocyte, Absolute 2.0 10 3/mcL Normal 0.8-3.9 [facility] ([place]) Comment on above: Performed By: #### C BC, ADIFF, GFR, ANEU, CMP #### [address] [address] Lymphocytes/100 WBC (Bld) 35.3 % Normal 10.0-50.0 [facility] ([place]) Comment on above: Performed By: #### C BC, ADIFF, GFR, ANEU, CMP #### [address] [address] Monocyte, Absolute 0.2 10 3/mcL Normal 0.2-1.0 [facility] ([place]) Comment on above: Performed By: #### C BC, ADIFF, GFR, ANEU, CMP #### [address] [address] Monocytes/100 WBC (Bld) 4.3 % Normal 1.7-13.0 A [facility] ([place]) Comment on above: Performed By: #### C BC, ADIFF, GFR, ANEU, CMP #### [address] [address] Neutrophils/100 WBC (Bld) 59.5 % Normal 37.0-80.0 [facility] ([place]) Comment on above: Performed By: #### C BC, ADIFF, GFR, ANEU, CMP #### [address] [address] .GFRon 08-25-2023 GFR Non- 64 ml/min/1.73sqm Normal [facility] ([place]) Comment on above: Result Comment: GFR Population mean for , Non- Americans Ages 20-29 = 116 mL/min/1.73 sq.m. Ages 30-39 = 107 mL/min/1.73 sq.m. Ages 40-49 = 99 mL/min/1.73 sq.m. Ages 50-59 = 93 mL/min/1.73 sq.m. Ages 60-69 = 85 mL/min/1.73 sq.m. Ages 70+ = 75 mL/min/1.73 sq.m. Chronic Kidney Disease: Less than 60 mL/min/1.73 square meters End Stage Renal Disease: Less than 15 mL/min/1.73 square meters Performed By: #### C BC, ADIFF, GFR, ANEU, CMP #### [address] [address] GFR 78 ml/min/1.73sqm Normal [facility] ([place]) Comment on above: Result Comment: GFR Population mean for , Non- Americans Ages 20-29 = 116 mL/min/1.73 sq.m. Ages 30-39 = 107 mL/min/1.73 sq.m. Ages 40-49 = 99 mL/min/1.73 sq.m. Ages 50-59 = 93 mL/min/1.73 sq.m. Ages 60-69 = 85 mL/min/1.73 sq.m. Ages 70+ = 75 mL/min/1.73 sq.m. Chronic Kidney Disease: Less than 60 mL/min/1.73 square meters End Stage Renal Disease: Less than 15 mL/min/1.73 square meters Performed By: #### C BC, ADIFF, GFR, ANEU, CMP #### [place] [id number] .NEUABSon 08-25-2023 Neutrophil, Absolute 3.4 10 3/mcL Normal 2.9-6.2 [facility] ([place]) Comment on above: Performed By: #### C BC, ADIFF, GFR, ANEU, CMP #### [place] [address] CBCon 08-25-2023 Erythrocyte distribution width (RBC) [Ratio] 13.7 % Normal 11.5-14.5 [facility] ([place]) Comment on above: Performed By: #### C BC, ADIFF, GFR, ANEU, CMP #### [place] [address] Hematocrit (Bld) [Volume fraction] 35.9 % Low 37.0-47.0 [facility] ([place]) Comment on above: Performed By: #### C BC, ADIFF, GFR, ANEU, CMP #### [place] [address] Hgb 12.2 G/dL Normal 12.0-16.0 [facility] ([place]) Comment on above: Performed By: #### C BC, ADIFF, GFR, ANEU, CMP #### [place] [address] MCH (RBC) [Entitic mass] 33.7 pg High 27.0-31.2 [facility] ([place]) Comment on above: Performed By: #### C BC, ADIFF, GFR, ANEU, CMP #### [place] [address] MCHC 33.9 G/dL Normal 33.0-37.0 [facility] ([place]) Comment on above: Performed By: #### C BC, ADIFF, GFR, ANEU, CMP #### [address] [address] MCV (RBC) [Entitic vol] 99.5 fL High 80.0-94.0 A [facility] ([place]) Comment on above: Performed By: #### C BC, ADIFF, GFR, ANEU, CMP #### [address] [address] Platelet 228 10 3/mcL Normal 130-400 [facility] ([place]) Comment on above: Performed By: #### C BC, ADIFF, GFR, ANEU, CMP #### [address] [address] Platelet mean volume (Bld) [Entitic vol] 9.9 fL Normal 7.4-10.4 [facility] ([place]) Comment on above: Performed By: #### C BC, ADIFF, GFR, ANEU, CMP #### [address] [address] RBC 3.61 10 6/mcL Low 4.20-5.40 [facility] ([place]) Comment on above: Performed By: #### C BC, ADIFF, GFR, ANEU, CMP #### [address] [address] WBC 5.8 10 3/mcL Normal 4.6-10.8 [facility] ([place]) Comment on above: Performed By: #### C BC, ADIFF, GFR, ANEU, CMP #### [address] [address] CMPon 08-25-2023 Albumin Level 4.0 G/dL Normal 3.5-5.0 [facility] ([place]) Comment on above: Performed By: #### C BC, ADIFF, GFR, ANEU, CMP #### [address] [address] Albumin/Globulin [Mass ratio] 1.5 {ratio} Normal 1.1-2.5 [facility] ([place]) Comment on above: Performed By: #### C BC, ADIFF, GFR, ANEU, CMP #### [address] [address] ALP [Catalytic activity/Vol] 89 U/L Normal 40-135 [facility] ([place]) Comment on above: Performed By: #### C BC, ADIFF, GFR, ANEU, CMP #### [address] [address] ALT [Catalytic activity/Vol] 18 U/L Normal 14-59 [facility] ([place]) Comment on above: Performed By: #### C BC, ADIFF, GFR, ANEU, CMP #### [place] [id number] AST [Catalytic activity/Vol] 15 U/L Normal 10-40 [facility] ([place]) Comment on above: Performed By: #### C BC, ADIFF, GFR, ANEU, CMP #### [address] [address] Bili Total 0.2 mg/dL Normal 0.2-1.0 [facility] ([place]) Comment on above: Result Comment: Use of this assay is not recommended for patients undergoing treatment with eltrombopag due to the potential for falsely elevated results. Performed By: #### C BC, ADIFF, GFR, ANEU, CMP #### [address] [address] BUN/Creatinine Ratio 15 ratio Normal 7-27 [facility] ([place]) Comment on above: Performed By: #### C BC, ADIFF, GFR, ANEU, CMP #### [address] [address] Calcium [Mass/Vol] 8.6 mg/dL Normal 8.4-10.2 [facility] ([place]) Comment on above: Performed By: #### C BC, ADIFF, GFR, ANEU, CMP #### [address] [address] Chloride [Moles/Vol] 105 mmol/L Normal 98-107 [facility] ([place]) Comment on above: Performed By: #### C BC, ADIFF, GFR, ANEU, CMP #### [address] [address] CO2 [Moles/Vol] 29 mmol/L Normal 22-29 [facility] ([place]) Comment on above: Performed By: #### C BC, ADIFF, GFR, ANEU, CMP #### [place] [id number] Creatinine [Mass/Vol] 0.91 mg/dL Normal 0.55-1.02 [facility] ([place]) Comment on above: Performed By: #### C BC, ADIFF, GFR, ANEU, CMP #### [place] [address] Electrolyte Balance 9.0 mEq/L Normal 4.0-15.0 [facility] ([place]) Comment on above: Performed By: #### C BC, ADIFF, GFR, ANEU, CMP #### [place] [address] Globulin 2.6 G/dL Normal [facility] ([place]) Comment on above: Performed By: #### C BC, ADIFF, GFR, ANEU, CMP #### [place] [address] Glucose [Mass/Vol] 110 mg/dL High 70-105 [facility] ([place]) Comment on above: Performed By: #### C BC, ADIFF, GFR, ANEU, CMP #### [place] [address] Potassium [Moles/Vol] 4.5 mmol/L Normal 3.5-5.1 [facility] ([place]) Comment on above: Performed By: #### C BC, ADIFF, GFR, ANEU, CMP #### [place] [address] Sodium [Moles/Vol] 143 mmol/L Normal 136-145 [facility] ([place]) Comment on above: Performed By: #### C BC, ADIFF, GFR, ANEU, CMP #### [address] [place], [place] [address] Total Protein 6.6 G/dL Normal 6.4-8.2 [facility] ([place]) Comment on above: Performed By: #### C BC, ADJAMEL, GFR, ANEU, CMP #### [place] [address] [place], [place] [address] Urea nitrogen [Mass/Vol] 14 mg/dL Normal 7-18 [facility] ([place]) Comment on above: Performed By: #### C BC, ADIFF, GFR, ANEU, CMP #### [place] [address] [place], [place] [address] LABORATORYOrdered By: SYSTEM SYSTEM on 08-25-2023 Albumin BCP dye [Mass/Vol] 4.0 G/dL Normal 3.5 - 5.0 G/dL AO ADM SS Albumin/Globulin [Mass ratio] 1.5 {ratio} Normal 1.1 - 2.5 ratio AO ADM SS ALP [Catalytic activity/Vol] 89 U/L Normal 40 - 135 U/L AO ADM SS ALT With P-5'-P [Catalytic activity/Vol] 18 U/L Normal 14 - 59 U/L AO ADM SS AST With P-5'-P [Catalytic activity/Vol] 15 U/L Normal 10 - 40 U/L AO ADM SS Basophil, Absolute 0.0 103/mcL Normal 0.0 - 0.2 10^3/mcL AO Workflow SS Basophils/100 WBC (Bld) 0.7 % Normal 0.0 - 2.5 % AO Workflow SS Bilirubin [Mass/Vol] 0.2 mg/dL Normal 0.2 - 1 .0 mg/dL AO ADM SS Comment on above: Interpretive Data: U se of this assay is not recommended for patients undergoing treatment with eltrombopag due to the potential for falsely elevated results. Calcium [Mass/Vol] 8.6 mg/dL Normal 8.4 - 10. 2 mg/dL AO ADM SS Chloride [Moles/Vol] 105 mmol/L Normal 98 - 10 7 mmol/L AO ADM SS CO2 [Moles/Vol] 29 mmol/L Normal 22 - 29 mmol/L AO ADM SS Creatinine [Mass/Vol] 0.91 mg/dL Normal 0.55 - 1.02 mg/dL AO ADM SS Electrolyte Balance 9.0 mEq/L Normal 4.0 - 15 .0 mEq/L AO ADM SS Eosinophil, Absolute 0.0 103/mcL Normal 0.0 - 0 .4 10^3/mcL AO Workflow SS Eosinophils/100 WBC (Bld) 0.2 % Normal 0.0 - 7.0 % AO Workflow SS Erythrocyte distribution width (RBC) [Ratio] 13.7 % Normal 11.5 - 14.5 % AO Workflow SS GFR/1.73 sq M.predicted among blacks MDRD (S/P/Bld) [Vol rate/Area] 78 ml/min/1.73sqm Invalid Interpretation Code AO Chemistry S Comment on above: Interpretive Data: GFR Population mean for , Non- Americans Ages 20-29 = 116 mL/min/1.73 sq.m. Ages 30-39 = 107 mL/min/1.73 sq.m. Ages 40-49 = 99 mL/min/1.73 sq.m. Ages 50-59 = 93 mL/min/1.73 sq.m. Ages 60-69 = 85 mL/min/1.73 sq.m. Ages 70+ = 75 mL/min/1.73 sq.m. Chronic Kidney Disease: Less than 60 mL/min/1.73 square meters End Stage Renal Disease: Less than 15 mL/min/1.73 square meters GFR/1.73 sq M.predicted among non-blacks MDRD (S/P/Bld) [Vol rate/Area] 64 ml/min/1.73sqm Invalid Interpretation Code AO Chemistry S Comment on above: Interpretive Data: GFR Population mean for , Non- Americans Ages 20-29 = 116 mL/min/1.73 sq.m. Ages 30-39 = 107 mL/min/1.73 sq.m. Ages 40-49 = 99 mL/min/1.73 sq.m. Ages 50-59 = 93 mL/min/1.73 sq.m. Ages 60-69 = 85 mL/min/1.73 sq.m. Ages 70+ = 75 mL/min/1.73 sq.m. Chronic Kidney Disease: Less than 60 mL/min/1.73 square meters End Stage Renal Disease: Less than 15 mL/min/1.73 square meters Globulin 2.6 G/dL Invalid Interpretation Code AO ADM SS Glucose [Mass/Vol] 110 mg/dL High 70 - 105 mg/dL AO ADM SS Hematocrit (Bld) [Volume fraction] 35.9 % Low 37.0 - 47.0 % AO Workflow SS Hemoglobin (Bld) [Mass/Vol] 12.2 G/dL Normal 12.0 - 16.0 G/dL AO Workflow SS Lymphocyte, Absolute 2.0 103/mcL Normal 0.8 - 3 .9 10^3/mcL AO Workflow SS Lymphocytes/100 WBC (Bld) 35.3 % Normal 10.0 - 50.0 % AO Workflow SS MCH (RBC) [Entitic mass] 33.7 pg High 27.0 - 31.2 pg AO Workflow SS MCHC 33.9 G/dL Normal 33.0 - 37.0 G/dL AO Workflow SS MCV (RBC) [Entitic vol] 99.5 fL High 80.0 - 94.0 fL AO Workflow SS Monocyte, Absolute 0.2 103/mcL Normal 0.2 - 1.0 10^3/mcL AO Workflow SS Monocytes/100 WBC (Bld) 4.3 % Normal 1.7 - 13.0 % AO Workflow SS Neutrophil, Absolute 3.4 103/mcL Normal 2.9 - 6 .2 10^3/mcL AO Workflow SS Neutrophils/100 WBC (Bld) 59.5 % Normal 37.0 - 80.0 % AO Workflow SS Platelet mean volume (Bld) [Entitic vol] 9.9 fL Normal 7.4 - 10.4 fL AO Workflow SS Platelets (Bld) [#/Vol] 228 103/mcL Normal 130 - 400 10^3/mcL AO Workflow SS Potassium [Moles/Vol] 4.5 mmol/L Normal 3.5 - 5.1 mmol/L AO ADM SS Protein [Mass/Vol] 6.6 G/dL Normal 6.4 - 8.2 G/dL AO ADM SS RBC (Bld) [#/Vol] 3.61 106/mcL Low 4.20 - 5.4 0 10^6/mcL AO Workflow SS Sodium [Moles/Vol] 143 mmol/L Normal 136 - 145 mmol/L AO ADM SS Urea nitrogen [Mass/Vol] 14 mg/dL Normal 7 - 18 mg/dL AO ADM SS Urea nitrogen/Creatinine [Mass ratio] 15 ratio Normal 7 - 27 ratio AO ADM SS WBC (Bld) [#/Vol] 5.8 103/mcL Normal 4.6 - 10.8 10^3/mcL AO Workflow SS .Auto Diffon 06-04-2023 Basophil, Absolute 0.0 10 3/mcL Normal 0.0-0.2 [facility] ([place]) Comment on above: Performed By: #### U A, UAMICAO #### [address] [address] Basophils/100 WBC (Bld) 0.3 % Normal 0.0-2.5 A [facility] ([place]) Comment on above: Performed By: #### U A, UAMICAO #### [address] [address] Eosinophil, Absolute 0.2 10 3/mcL Normal 0.0-0.4 [facility] ([place] Comment on above: Performed By: #### U A UAMICAO #### [address] [address] Eosinophils/100 WBC (Bld) 2.6 % Normal 0.0-7.0 [facility] ([place]) Comment on above: Performed By: #### U A UAMICAO #### [address] [address] Lymphocyte, Absolute 3.3 10 3/mcL Normal 0.8-3.9 [facility] ([place] Comment on above: Performed By: #### U A, UAMICAO #### [address] [address] Lymphocytes/100 WBC (Bld) 38.6 % Normal 10.0-50.0 [facility] ([place]) Comment on above: Performed By: #### U A, UAMICAO #### [address] [address] Monocyte, Absolute 0.7 10 3/mcL Normal 0.2-1.0 [facility] ([place]) Comment on above: Performed By: #### U A, UAMICAO #### [address] [address] Monocytes/100 WBC (Bld) 8.1 % Normal 1.7-13.0 A [facility] ([place]) Comment on above: Performed By: #### LENORA Veliz #### [address] [address] Neutrophils/100 WBC (Bld) 50.4 % Normal 37.0-80.0 [facility] ([place]) Comment on above: Performed By: #### LENORA Veliz #### [address] [address] .GFRon 06-04-2023 GFR 63 ml/min/1.73sqm Normal [facility] ([place]) Comment on above: Result Comment: GFR Population mean for , Non- Americans Ages 20-29 = 116 mL/min/1.73 sq.m. Ages 30-39 = 107 mL/min/1.73 sq.m. Ages 40-49 = 99 mL/min/1.73 sq.m. Ages 50-59 = 93 mL/min/1.73 sq.m. Ages 60-69 = 85 mL/min/1.73 sq.m. Ages 70+ = 75 mL/min/1.73 sq.m. Chronic Kidney Disease: Less than 60 mL/min/1.73 square meters End Stage Renal Disease: Less than 15 mL/min/1.73 square meters Performed By: #### LENORA Veliz #### [address] [address] GFR Non- 52 ml/min/1.73sqm Normal [facility] ([place]) Comment on above: Result Comment: GFR Population mean for , Non- Americans Ages 20-29 = 116 mL/min/1.73 sq.m. Ages 30-39 = 107 mL/min/1.73 sq.m. Ages 40-49 = 99 mL/min/1.73 sq.m. Ages 50-59 = 93 mL/min/1.73 sq.m. Ages 60-69 = 85 mL/min/1.73 sq.m. Ages 70+ = 75 mL/min/1.73 sq.m. Chronic Kidney Disease: Less than 60 mL/min/1.73 square meters End Stage Renal Disease: Less than 15 mL/min/1.73 square meters Performed By: #### LENORA Veliz #### [place] [id number] .NEUABSon 06-04-2023 Neutrophil, Absolute 4.3 10 3/mcL Normal 2.9-6.2 [facility] ([place]) Comment on above: Performed By: #### Chris Morgan UAMICAO #### [place] [address] CBCon 06-04-2023 Erythrocyte distribution width (RBC) [Ratio] 16.3 % High 11.5-14.5 [facility] ([place]) Comment on above: Performed By: #### LENORA Veliz #### [place] [address] Hematocrit (Bld) [Volume fraction] 37.8 % Normal 37.0-47.0 [facility] ([place]) Comment on above: Performed By: #### JOAQUIN VelizMICAO #### [place] [address] Hgb 13.1 G/dL Normal 12.0-16.0 [facility] ([place]) Comment on above: Performed By: #### Chris Morgan UAMICAO #### [address] [address] MCH (RBC) [Entitic mass] 33.3 pg High 27.0-31.2 [facility] ([place]) Comment on above: Performed By: #### U Eddie UAMICAO #### [place] [address] MCHC 34.6 G/dL Normal 33.0-37.0 [facility] ([place]) Comment on above: Performed By: #### U Eddie UAMICAO #### [address] [address] MCV (RBC) [Entitic vol] 96.3 fL High 80.0-94.0 A [facility] ([place]) Comment on above: Performed By: #### U A UAMICAO #### [address] [address] Platelet 355 10 3/mcL Normal 130-400 [facility] ([place]) Comment on above: Performed By: #### U A, UAMICAO #### [address] [address] Platelet mean volume (Bld) [Entitic vol] 8.6 fL Normal 7.4-10.4 [facility] ([place]) Comment on above: Performed By: #### U A, UAMICAO #### [address] [address] RBC 3.93 10 6/mcL Low 4.20-5.40 [facility] ([place]) Comment on above: Performed By: #### U A, UAMICAO #### [address] [address] WBC 8.4 10 3/mcL Normal 4.6-10.8 [facility] ([place]) Comment on above: Performed By: #### Chris Morgan, UAMICAO #### [address] [address] CMPon 06-04-2023 Albumin Level 3.5 G/dL Normal 3.5-5.0 [facility] ([place]) Comment on above: Performed By: #### U Eddie, UAMICAO #### [address] [address] Albumin/Globulin [Mass ratio] 1.0 {ratio} Low 1.1-2.5 [facility] ([place]) Comment on above: Performed By: #### U A, UAMICAO #### [address] [address] ALP [Catalytic activity/Vol] 126 U/L Normal 40-135 [facility] ([place]) Comment on above: Performed By: #### U A, UAMICAO #### [address] [address] ALT [Catalytic activity/Vol] 30 U/L Normal 14-59 [facility] ([place]) Comment on above: Performed By: #### U A UAMICAO #### [address] [address] AST [Catalytic activity/Vol] 13 U/L Normal 10-40 [facility] ([place]) Comment on above: Performed By: #### U A UAMICAO #### [address] [address] Bili Total 0.2 mg/dL Normal 0.2-1.0 [facility] ([place]) Comment on above: Result Comment: Use of this assay is not recommended for patients undergoing treatment with eltrombopag due to the potential for falsely elevated results. Performed By: #### Chris Morgan UAMICAO #### [address] [address] BUN/Creatinine Ratio 23 ratio Normal 7-27 [facility] ([place]) Comment on above: Performed By: #### U Eddie UAMICAO #### [address] [address] Calcium [Mass/Vol] 9.2 mg/dL Normal 8.4-10.2 [facility] ([place]) Comment on above: Performed By: #### U Eddie UAMICAO #### [address] [address] Chloride [Moles/Vol] 103 mmol/L Normal 98-107 [facility] ([place]) Comment on above: Performed By: #### U Eddie UAMICAO #### [address] [address] CO2 [Moles/Vol] 26 mmol/L Normal 22-29 [facility] ([place]) Comment on above: Performed By: #### U Eddie UAMICAO #### [address] [address] Creatinine [Mass/Vol] 1.09 mg/dL High 0.55-1.02 [facility] ([place]) Comment on above: Performed By: #### U A UAMICAO #### [address] [address] Electrolyte Balance 14.0 mEq/L Normal 4.0-15.0 [facility] ([place]) Comment on above: Performed By: #### U Eddie UAMICAO #### [address] [address] Globulin 3.6 G/dL Normal [facility] ([place]) Comment on above: Performed By: #### U A, UAMICAO #### [address] [address] Glucose [Mass/Vol] 122 mg/dL High 70-105 [facility] ([place]) Comment on above: Performed By: #### U Eddie UAMICAO #### [address] [address] Potassium [Moles/Vol] 4.3 mmol/L Normal 3.5-5.1 [facility] ([place]) Comment on above: Performed By: #### Chris Morgan UAMICAO #### [address] [address] Sodium [Moles/Vol] 143 mmol/L Normal 136-145 [facility] ([place]) Comment on above: Performed By: #### Chris Morgan UAMICAO #### [address] [address] Total Protein 7.1 G/dL Normal 6.4-8.2 [facility] ([place]) Comment on above: Performed By: #### U Eddie UAMICAO #### [address] [address] Urea nitrogen [Mass/Vol] 25 mg/dL High 7-18 [facility] ([place]) Comment on above: Performed By: #### U Eddie UAMICAO #### [address] [address] Absolute lymphocyte countOrd ered By: Sekou Ayala on 04-28-2023 Lymphocytes Auto (Unsp spec) [#/Vol] 0.92 10*3/uL 0.83-4.51 [facility] Basophil percentageOrdered B y: Sekou Ayala on 04-28-2023 Basophils/100 WBC (Bld) 0.6 % 0-1 [facility] Bilirubin [Mass/Vol] 0.20 mg/dL 0.20-1.00 [facility] Comment on above: For patients on eltr ombopag therapy, use of Dimension [place] TBIL is not recommended. Chloride [Moles/Vol] 107 mmol/L 98-107 [facility] Eosinophils/100 WBC (Bld) 0.3 % 0-5 [facility] Glucose [Mass/Vol] 152 mg/dL 74-106 [facility] Comment on above: Fasting Glucose resu lt greater than or equal to 126 mg/dL suggests DIABETES MELLITUS per A.D.A. criteria. Neutrophils (Bld) [#/Vol] 6.4 10*3/uL 2.0-7.7 [facility] Neutrophils/100 WBC (Bld) 82.3 % 47-70 [facility] Potassium [Moles/Vol] 3.8 mmol/L 3.5-5.1 [facility] Protein [Mass/Vol] 7.5 g/dL 6.4-8.2 [facility] Sodium [Moles/Vol] 138 mmol/L 136-145 [facility] WBC (Bld) [#/Vol] 7.8 10*3/uL 4.4-11.0 [facility] Blood erythrocytes count (nu mber/volume)Ordered By: Sekou Ayala on 04-28-2023 RBC (Bld) [#/Vol] 4.17 10*6/uL 4.2-5.[address] [facility] Blood hemoglobin measurement (mass/volume)Ordered By: Sekou Ayala on 04-28-2023 Hemoglobin (Bld) [Mass/Vol] 12.9 g/dL 12.0-15.0 [facility] Blood lymphocytes/100 leukoc ytesOrdered By: Sekou Ayala on 04-28-2023 Lymphocytes/100 WBC (Bld) 11.9 % 19-41 [facility] Blood monocytes/100 leukocyt esOrdered By: Sekou Ayala on 04-28-2023 Monocytes/100 WBC (Bld) 4.4 % 0-10 [facility] Blood platelet mean volumeOr dered By: Sekou Ayala on 04-28-2023 Platelet mean volume (Bld) [Entitic vol] 11.4 fL 6.2-12.0 [facility] Determination of erythrocyte mean corpuscular volume (MCV)Ordered By: Sekou Ayala on 04-28-2023 MCV (RBC) [Entitic vol] 95.0 fL 81-99 [facility] Hematocrit Auto (Bld) [Volum e fraction]Ordered By: Sekou Ayala on 04-28-2023 Hematocrit (Bld) [Volume fraction] 39.6 % 37-47 [facility] Laboratory - Chemistry and C hemistry - challengeOrdered By: Sekou Ayala on 04-28-2023 ALP [Catalytic activity/Vol] 107 U/L 45-117 [facility] ALT [Catalytic activity/Vol] 16 U/L 13-56 [facility] CO2 [Moles/Vol] 25.0 mmol/L 21.0-32.0 [facility] Globulin (S) [Mass/Vol] 4.1 g/dL 2.2-4.2 [facility] Urea nitrogen/Creatinine [Mass ratio] 17.7 mg/mg 10-20 [facility] Laboratory - Hematology and Cell countsOrdered By: Sekou Ayala on 04-28-2023 Erythrocyte distribution width (RBC) [Entitic vol] 51.5 fL 35.1-43.9 [facility] Erythrocyte distribution width (RBC) [Ratio] 14.8 % 11.6-14.6 [facility] Immature granulocytes/100 WBC (Bld) 0.500 % 0.0-0.9 [facility] Comment on above: IG% - Immature Granu locytes (promyelocytes, myelocytes and metamyelocytes) > 1% indicates that a LEFT SHIFT is Present. MCH (RBC) [Entitic mass] 30.9 pg 27.0-32.0 [facility] Nucleated RBC/100 WBC (Bld) [Ratio] 0 % 0-5 [facility] MCHC Auto (RBC) [Mass/Vol]Or dered By: Sekou Ayala on 04-28-2023 MCHC (RBC) [Mass/Vol] 32.6 g/dL 32-36 [facility] No Panel InformationOrdered By: Sekou Ayala on 04-28-2023 Estimated GFR (MDRD) Amer 83 mL/min >60 [facility] Comment on above: GFR Calc Estimated GFR (MDRD) Non-Af Amer 68 mL/min >60 [facility] Comment on above: Non- GFR Calc Platelets bldOrdered By: Bhavin mehta Jamie on 04-28-2023 Platelets (Bld) [#/Vol] 330 10*3/uL 150-450 [facility] Serum or plasma albumin yoli urement (mass/volume)Ordered By: Sekou Ayala on 04-28-2023 Albumin [Mass/Vol] 3.4 g/dL 3.2-5.0 [facility] Serum or plasma albumin/glob ulin mass ratioOrdered By: Sekou Ayala on 04-28-2023 Albumin/Globulin [Mass ratio] 0.8 {ratio} 0.9-2.4 [facility] Serum or plasma calcium yoli urement (mass/volume)Ordered By: Sekou Ayala on 04-28-2023 Calcium [Mass/Vol] 9.5 mg/dL 8.5-10.1 [facility] Serum or plasma creatinine m easurement (mass/volume)Ordered By: Sekou Ayala on 04-28-2023 Creatinine [Mass/Vol] 0.90 mg/dL 0.55-1.02 [facility] Comment on above: The validity of the calculated GFR & GFRAA in patients over 70 years has not been determined. Clinical correlation is essential. Serum or plasma urea nitroge n measurement (mass/volume)Ordered By: Sekou Ayala on 04-28-2023 Urea nitrogen [Mass/Vol] 16 mg/dL 7-18 [facility] Thin prep Papanicolaou smear with manual screeningOrdered By: Sekou Ayala on 04-28-2023 Thin prep Papanicolaou smear with manual screening 13 U/L 15-37 [facility] Thin prep Papanicolaou smear with manual screening 6 5-15 [facility] .Auto Diffon 04-18-2023 Basophil, Absolute 0.1 10 3/mcL Normal 0.0-0.2 [facility] ([place] Comment on above: Performed By: #### U A, UAMICAO #### [address] [address] Basophils/100 WBC (Bld) 0.7 % Normal 0.0-2.5 A [facility] ([place]) Comment on above: Performed By: #### U A, UAMICAO #### [address] [address] Eosinophil, Absolute 0.1 10 3/mcL Normal 0.0-0.4 [facility] ([place]) Comment on above: Performed By: #### U A, UAMICAO #### [address] [address] Eosinophils/100 WBC (Bld) 0.8 % Normal 0.0-7.0 [facility] ([place]) Comment on above: Performed By: #### U A, UAMICAO #### [address] [address] Lymphocyte, Absolute 3.3 10 3/mcL Normal 0.8-3.9 [facility] ([place]) Comment on above: Performed By: #### U A, UAMICAO #### [address] [address] Lymphocytes/100 WBC (Bld) 33.0 % Normal 10.0-50.0 [facility] ([place]) Comment on above: Performed By: #### U A, UAMICAO #### [address] [address] Monocyte, Absolute 0.7 10 3/mcL Normal 0.2-1.0 [facility] ([place]) Comment on above: Performed By: #### U A, UAMICAO #### [address] [address] Monocytes/100 WBC (Bld) 6.7 % Normal 1.7-13.0 A [facility] ([place]) Comment on above: Performed By: #### U A, UAMICAO #### [address] [address] Neutrophils/100 WBC (Bld) 58.8 % Normal 37.0-80.0 [facility] ([place]) Comment on above: Performed By: #### U A, UAMICAO #### [address] [address] .GFRon 04-18-2023 GFR 108 ml/min/1.73sqm Normal [facility] ([place]) Comment on above: Result Comment: GFR Population mean for , Non- Americans Ages 20-29 = 116 mL/min/1.73 sq.m. Ages 30-39 = 107 mL/min/1.73 sq.m. Ages 40-49 = 99 mL/min/1.73 sq.m. Ages 50-59 = 93 mL/min/1.73 sq.m. Ages 60-69 = 85 mL/min/1.73 sq.m. Ages 70+ = 75 mL/min/1.73 sq.m. Chronic Kidney Disease: Less than 60 mL/min/1.73 square meters End Stage Renal Disease: Less than 15 mL/min/1.73 square meters Performed By: #### U A, UAMICAO #### [address] [address] GFR Non- 90 ml/min/1.73sqm Normal [facility] ([place]) Comment on above: Result Comment: GFR Population mean for , Non- Americans Ages 20-29 = 116 mL/min/1.73 sq.m. Ages 30-39 = 107 mL/min/1.73 sq.m. Ages 40-49 = 99 mL/min/1.73 sq.m. Ages 50-59 = 93 mL/min/1.73 sq.m. Ages 60-69 = 85 mL/min/1.73 sq.m. Ages 70+ = 75 mL/min/1.73 sq.m. Chronic Kidney Disease: Less than 60 mL/min/1.73 square meters End Stage Renal Disease: Less than 15 mL/min/1.73 square meters Performed By: #### U A, UAMICAO #### [address] [address] .MDWon 04-18-2023 Monocyte Distribution Width 23.29 High 0.00-20.00 [facility] ([place]) Comment on above: Result Comment: For adults in ED, MDW>20.0 may be associated with a higher risk of sepsis during the first 12hrs of hospital admission Performed By: #### U Eddie UAMICAO #### [address] [address] .NEUABSon 04-18-2023 Neutrophil, Absolute 6.0 10 3/mcL Normal 2.9-6.2 [facility] ([place] Comment on above: Performed By: #### U A, UAMICAO #### [address] [address] .Urinalysis Microscopic (AO) on 04-18-2023 UA RBC 0-5 Abnormal None Seen [facility] ([place]) Comment on above: Performed By: #### U A, UAMICAO #### [address] [address] UA Squam Epithelial 0-5 Abnormal None Seen [facility] ([place]) Comment on above: Performed By: #### U A, UAMICAO #### [address] [address] UA WBC 0-5 Abnormal None Seen [facility] ([place]) Comment on above: Performed By: #### U A UAMICAO #### [address] [address] BMPon 04-18-2023 BUN/Creatinine Ratio 28 ratio High 7-27 [facility] ([place] Comment on above: Performed By: #### U A, UAMICAO #### [address] [address] Calcium [Mass/Vol] 9.5 mg/dL Normal 8.4-10.2 [facility] ([place]) Comment on above: Performed By: #### U A, UAMICAO #### [address] [address] Chloride [Moles/Vol] 102 mmol/L Normal 98-107 [facility] ([place]) Comment on above: Performed By: #### U A, UAMICAO #### [address] [address] CO2 [Moles/Vol] 27 mmol/L Normal 22-29 [facility] ([place]) Comment on above: Performed By: #### U A, UAMICAO #### [address] [address] Creatinine [Mass/Vol] 0.68 mg/dL Normal 0.55-1.02 [facility] ([place] Comment on above: Performed By: #### U A, UAMICAO #### [address] [address] Electrolyte Balance 10.0 mEq/L Normal 4.0-15.0 [facility] ([place]) Comment on above: Performed By: #### U A, UAMICAO #### [address] [address] Glucose [Mass/Vol] 87 mg/dL Normal 70-105 [facility] ([place]) Comment on above: Performed By: #### U A, UAMICAO #### [address] [address] Potassium [Moles/Vol] 4.3 mmol/L Normal 3.5-5.1 [facility] ([place] Comment on above: Performed By: #### U A, UAMICAO #### [address] [address] Sodium [Moles/Vol] 139 mmol/L Normal 136-145 [facility] ([place] Comment on above: Performed By: #### U A, UAMICAO #### [address] [address] Urea nitrogen [Mass/Vol] 19 mg/dL High 7-18 [facility] ([place]) Comment on above: Performed By: #### U A, UAMICAO #### [address] [address] CBCon 04-18-2023 Erythrocyte distribution width (RBC) [Ratio] 16.2 % High 11.5-14.5 [facility] ([place]) Comment on above: Performed By: #### U A, UAMICAO #### [address] [address] Hematocrit (Bld) [Volume fraction] 39.0 % Normal 37.0-47.0 [facility] ([place]) Comment on above: Performed By: #### U A, UAMICAO #### [address] [address] Hgb 13.4 G/dL Normal 12.0-16.0 [facility] ([place]) Comment on above: Performed By: #### U A, UAMICAO #### [address] [address] MCH (RBC) [Entitic mass] 32.0 pg High 27.0-31.2 [facility] ([place]) Comment on above: Performed By: #### U A, UAMICAO #### [address] [address] MCHC 34.2 G/dL Normal 33.0-37.0 [facility] ([place]) Comment on above: Performed By: #### U A, UAMICAO #### [address] [address] MCV (RBC) [Entitic vol] 93.6 fL Normal 80.0-94.0 A [facility] ([place] Comment on above: Performed By: #### U A, UAMICAO #### [address] [address] Platelet 315 10 3/mcL Normal 130-400 [facility] ([place]) Comment on above: Performed By: #### U A, UAMICAO #### [address] [address] Platelet mean volume (Bld) [Entitic vol] 8.5 fL Normal 7.4-10.4 [facility] ([place]) Comment on above: Performed By: #### U A, UAMICAO #### [address] [address] RBC 4.17 10 6/mcL Low 4.20-5.40 [facility] ([place]) Comment on above: Performed By: #### JOAQUIN VelizMICAO #### [address] [address] WBC 10.1 10 3/mcL Normal 4.6-10.8 [facility] ([place]) Comment on above: Performed By: #### JOAQUIN VelizMICGEOFFREY #### [address] [address] [id number] 04-18-2023 SARS-CoV-2 (COVID-19) RNA NEWTON+probe Ql (Unsp spec) Negative Normal Negative [facility] ([place]) Comment on above: Performed By: #### F AMIE COVBraden9 #### [address] [address] SARS-CoV-2 (COVID-19) RNA NEWTON+probe Ql (Unsp spec) Normal [facility] ([place]) Comment on above: Result Comment: Nega tive results do not preclude SARS-CoV-2 infection and should not be used as the sole basis for patient management decisions. Negative results must be combined with clinical observations, patient history, and epidemiological information. There is a risk of false negative values resulting from improperly collected, transported, or handled specimens. There is a risk of false negative values due to the presence of sequence variants in the pathogen targets of the assay, procedural errors, amplification inhibitors in specimens, or inadequate numbers of organisms for amplification. JOHN SARS-CoV-2 Assay is a Real-Time reverse-transcriptase polymerase chain reaction (RT-PCR) based qualitative in vitro diagnostic test intended for the qualitative detection of nucleic acid from the SARS-CoV-2 in nasopharyngeal swab specimens collected from individuals suspected of COVID-19 by their healthcare provider. Testing is limited to laboratories certified under the Clinical Laboratory Improvement Amendments of 1988 (CLIA), 42 U.S.C. ?263a, to perform moderate and high complexity tests. COVID-19 Int Performed By: #### F AMIE [email or web address] #### [place] [address] [address] [address] HEAD OR BRAIN W/O CONTRAS Ton 04-18-2023 CT HEAD OR BRAIN W/O CONTRAST ORIGINAL EXAMINATION: CT OF THE HEAD WITHOUT CONTRAST 04/18/2023 6:00 pm TECHNIQUE: CT of the head was performed without the administration of intravenous contrast. Automated exposure control, iterative reconstruction, and/or weight based adjustment of the mA/kV was utilized to reduce the radiation dose to as low as reasonably achievable. COMPARISON: None. HISTORY: ORDERING SYSTEM PROVIDED HISTORY: Reason for Exam: pt c/o sinus pressure. pain FINDINGS: BRAIN/VENTRICLES: There is no acute intracranial hemorrhage, mass effect or midline shift. No abnormal extra-axial fluid collection. The watkins-white differentiation is maintained without evidence of an acute infarct. There is no evidence of hydrocephalus. Incidental cavum septum pellucidum ORBITS: The visualized portion of the orbits demonstrate no acute abnormality. SINUSES: The visualized paranasal sinuses and mastoid air cells demonstrate no acute abnormality. Nonspecific partially opacified left inferior mastoid air cells. SOFT TISSUES/SKULL: No acute abnormality of the visualized skull or soft tissues. IMPRESSION: No acute intracranial abnormality. I have personally reviewed the images of this examination and agree with the resident's findings and interpretation. Interpreted by: Kian Meyer Preliminary Report By: Nunu Gallardo Electronically signed By Kian Meyer Dictated Date: 04/18/2023 6:22:43 PM Prelim Date: 04/18/2023 6:26:40 PM Sign Date: 04/18/2023 6:49:59 PM Ordering Provider: KVNG SWAIN Normal [facility] ([place]) FLUEileen 04-18-2023 Flu A PCR (AO) Negative Normal Negative [facility] ([place]) Comment on above: Result Comment: Posi tive Results: Positive Flu A/B or RSV for by PCR. Positive test results do not rule out bacterial infection or co-infection with other pathogens. Test results should be interpreted in conjunction with other laboratory and clinical data. Negative Results: Negative for by PCR. Negative test results do not preclude influenza virus or RSV infection and should not be used as the sole basis for diagnosis, treatment, or other management decisions. There is a risk of false negative RSV results when at low concentration and in the presence of co-infection with high concentration of influenza A. Invalid Results: An Invalid result (INV) was obtained. The test was repeated with similar results. REPEAT COLLECTION AND TESTING IS RECOMMENDED. The John Flu A/B & RSV Assay is a real-time polymerase chain reaction (PCR) based qualitative in vitro diagnostic test for the direct detection and differentiation of influenza A virus, influenza B virus, and respiratory syncytial virus (RSV) nucleic acid in nasopharyngeal swab ([employer]) specimens from patients with signs and symptoms of respiratory infection in conjunction with clinical and laboratory findings. The test is intended for use as an aid in the differential diagnosis of influenza A virus, influenza B virus, and RSV in humans and is not intended to detect influenza C. Performed By: #### F AMIE [email or web address] #### [address] [address] Flu B PCR (AO) Negative Normal Negative [facility] ([place]) Comment on above: Result Comment: Posi tive Results: Positive Flu A/B or RSV for by PCR. Positive test results do not rule out bacterial infection or co-infection with other pathogens. Test results should be interpreted in conjunction with other laboratory and clinical data. Negative Results: Negative for by PCR. Negative test results do not preclude influenza virus or RSV infection and should not be used as the sole basis for diagnosis, treatment, or other management decisions. There is a risk of false negative RSV results when at low concentration and in the presence of co-infection with high concentration of influenza A. Invalid Results: An Invalid result (INV) was obtained. The test was repeated with similar results. REPEAT COLLECTION AND TESTING IS RECOMMENDED. The John Flu A/B & RSV Assay is a real-time polymerase chain reaction (PCR) based qualitative in vitro diagnostic test for the direct detection and differentiation of influenza A virus, influenza B virus, and respiratory syncytial virus (RSV) nucleic acid in nasopharyngeal swab ([employer]) specimens from patients with signs and symptoms of respiratory infection in conjunction with clinical and laboratory findings. The test is intended for use as an aid in the differential diagnosis of influenza A virus, influenza B virus, and RSV in humans and is not intended to detect influenza C. Performed By: #### F AMIE [id number] #### [address] [place], [place] [address] RSV PCR (AO) Negative Normal Negative [facility] ([place]) Comment on above: Result Comment: Posi tive Results: Positive Flu A/B or RSV for by PCR. Positive test results do not rule out bacterial infection or co-infection with other pathogens. Test results should be interpreted in conjunction with other laboratory and clinical data. Negative Results: Negative for by PCR. Negative test results do not preclude influenza virus or RSV infection and should not be used as the sole basis for diagnosis, treatment, or other management decisions. There is a risk of false negative RSV results when at low concentration and in the presence of co-infection with high concentration of influenza A. Invalid Results: An Invalid result (INV) was obtained. The test was repeated with similar results. REPEAT COLLECTION AND TESTING IS RECOMMENDED. The V[employer] Flu A/B & RSV Assay is a real-time polymerase chain reaction (PCR) based qualitative in vitro diagnostic test for the direct detection and differentiation of influenza A virus, influenza B virus, and respiratory syncytial virus (RSV) nucleic acid in nasopharyngeal swab ([employer]) specimens from patients with signs and symptoms of respiratory infection in conjunction with clinical and laboratory findings. The test is intended for use as an aid in the differential diagnosis of influenza A virus, influenza B virus, and RSV in humans and is not intended to detect influenza C. Performed By: #### F LURSSiobhan, [id number] #### [place] [address] LABORATORYOrdered By: Junaid Fisher on 04-18-2023 Appearance (U) Clear (04/18/23 5:34 PM) Normal Clear AO Auto Urine SS Bilirubin Ql (U) Negative (04/18/23 5:34 PM) Normal Negative AO Auto Urine SS Color (U) Yellow (04/18/23 5:34 PM) Normal AO Auto Urine SS FLUAV RNA NEWTON+probe Ql (Upper resp) Negative 4 (04/18/23 5:34 PM) Normal Negative AO Auto Urine SS Comment on above: Interpretive Data: P ositive Results: Positive Flu A/B or RSV for by PCR. Positive test results do not rule out bacterial infection or co-infection with other pathogens. Test results should be interpreted in conjunction with other laboratory and clinical data. Negative Results: Negative for by PCR. Negative test results do not preclude influenza virus or RSV infection and should not be used as the sole basis for diagnosis, treatment, or other management decisions. There is a risk of false negative RSV results when at low concentration and in the presence of co-infection with high concentration of influenza A. Invalid Results: An Invalid result (INV) was obtained. The test was repeated with similar results. REPEAT COLLECTION AND TESTING IS RECOMMENDED. The John Flu A/B & RSV Assay is a real-time polymerase chain reaction (PCR) based qualitative in vitro diagnostic test for the direct detection and differentiation of influenza A virus, influenza B virus, and respiratory syncytial virus (RSV) nucleic acid in nasopharyngeal swab ([employer]) specimens from patients with signs and symptoms of respiratory infection in conjunction with clinical and laboratory findings. The test is intended for use as an aid in the differential diagnosis of influenza A virus, influenza B virus, and RSV in humans and is not intended to detect influenza C. FLUBV RNA NEWTON+probe Ql (Upper resp) Negative 5 (04/18/23 5:34 PM) Normal Negative AO Auto Urine SS Comment on above: Interpretive Data: P ositive Results: Positive Flu A/B or RSV for by PCR. Positive test results do not rule out bacterial infection or co-infection with other pathogens. Test results should be interpreted in conjunction with other laboratory and clinical data. Negative Results: Negative for by PCR. Negative test results do not preclude influenza virus or RSV infection and should not be used as the sole basis for diagnosis, treatment, or other management decisions. There is a risk of false negative RSV results when at low concentration and in the presence of co-infection with high concentration of influenza A. Invalid Results: An Invalid result (INV) was obtained. The test was repeated with similar results. REPEAT COLLECTION AND TESTING IS RECOMMENDED. The John Flu A/B & RSV Assay is a real-time polymerase chain reaction (PCR) based qualitative in vitro diagnostic test for the direct detection and differentiation of influenza A virus, influenza B virus, and respiratory syncytial virus (RSV) nucleic acid in nasopharyngeal swab ([employer]) specimens from patients with signs and symptoms of respiratory infection in conjunction with clinical and laboratory findings. The test is intended for use as an aid in the differential diagnosis of influenza A virus, influenza B virus, and RSV in humans and is not intended to detect influenza C. Glucose Test strip (U) [Mass/Vol] Negative Normal Negative AO Auto Urine SS Hemoglobin Auto test strip (U) [Mass/Vol] Trace *ABN* (04/18/23 5:34 PM) Invalid Interpretation Code Negative AO Auto Urine SS Ketones Ql (U) Negative Normal Negative AO Auto Urine SS RSV RNA NEWTON+probe Ql (Upper resp) Negative 6 (04/18/23 5:34 PM) Normal Negative AO Auto Urine SS Comment on above: Interpretive Data: P ositive Results: Positive Flu A/B or RSV for by PCR. Positive test results do not rule out bacterial infection or co-infection with other pathogens. Test results should be interpreted in conjunction with other laboratory and clinical data. Negative Results: Negative for by PCR. Negative test results do not preclude influenza virus or RSV infection and should not be used as the sole basis for diagnosis, treatment, or other management decisions. There is a risk of false negative RSV results when at low concentration and in the presence of co-infection with high concentration of influenza A. Invalid Results: An Invalid result (INV) was obtained. The test was repeated with similar results. REPEAT COLLECTION AND TESTING IS RECOMMENDED. The V[employer] Flu A/B & RSV Assay is a real-time polymerase chain reaction (PCR) based qualitative in vitro diagnostic test for the direct detection and differentiation of influenza A virus, influenza B virus, and respiratory syncytial virus (RSV) nucleic acid in nasopharyngeal swab ([employer]) specimens from patients with signs and symptoms of respiratory infection in conjunction with clinical and laboratory findings. The test is intended for use as an aid in the differential diagnosis of influenza A virus, influenza B virus, and RSV in humans and is not intended to detect influenza C. SARS-CoV-2 (COVID-19) RNA NEWTON+probe Ql (Resp) Negative results do not preclude SARS-CoV-2 infection and should not be used as the sole basis for patient management decisions. Negative results must be combined with clinical observations, patient history, and epidemiological information.There is a risk of false negative values resulting from improperly collected, transported, or handled specimens.There is a risk of false negative values due to the presence of sequence variants in the pathogen targets of the assay, procedural errors, amplification inhibitors in specimens, or inadequate numbers of organisms for amplification.Advebs SARS-CoV-2 Assay is a Real-Time reverse-transcriptase polymerase chain reaction (RT-PCR) based qualitative in vitro diagnostic test intended for the qualitative detection of nucleic acid from the SARS-CoV-2 in nasopharyngeal swab specimens collected from individuals suspected of COVID-19 by their healthcare provider. Testing is limited to laboratories certified under the Clinical Laboratory Improvement Amendments of 1988 (CLIA), 42 U.S.C. 263a, to perform moderate and high complexity tests. Invalid Interpretation Code AO Auto Urine SS UA Leuk Est Negative (04/18/23 5:34 PM) Normal Negative AO Auto Urine SS UA Nitrite Negative (04/18/23 5:34 PM) Normal Negative AO Auto Urine SS UA pH 6.5 (04/18/23 5:34 PM) Normal 5.0 - 8.0 AO Auto Urine SS UA Protein 30 mg/dL Normal Negative AO Auto Urine SS UA RBC 0-5 /HPF Invalid Interpretation Code None Seen AO Auto Urine SS UA Spec Grav 1.025 (04/18/23 5:34 PM) Normal 1.015-1.025 AO Auto Urine SS UA Specimen Type Clean Catch (04/18/23 5:34 PM) Normal AO Auto Urine SS UA Squam Epithelial 0-5 /HPF Invalid Interpretation Code None Seen AO Auto Urine SS UA Urobilinogen 0.2 E.U./dL Normal 0.2-1.0 AO Auto Urine SS WBC LM.HPF (Urine sed) [#/Area] 0-5 /HPF Invalid Interpretation Code None Seen AO Auto Urine SS LABORATORYOrdered By: SYSTEM SYSTEM on 04-18-2023 Basophil, Absolute 0.1 103/mcL Normal 0.0 - 0.2 10^3/mcL AO Workflow SS Basophils/100 WBC (Bld) 0.7 % Normal 0.0 - 2.5 % AO Workflow SS Calcium [Mass/Vol] 9.5 mg/dL Normal 8.4 - 10. 2 mg/dL AO ADM SS Chloride [Moles/Vol] 102 mmol/L Normal 98 - 10 7 mmol/L AO ADM SS CO2 [Moles/Vol] 27 mmol/L Normal 22 - 29 mmol/L AO ADM SS Creatinine [Mass/Vol] 0.68 mg/dL Normal 0.55 - 1.02 mg/dL AO ADM SS Electrolyte Balance 10.0 mEq/L Normal 4.0 - 15 .0 mEq/L AO ADM SS Eosinophil, Absolute 0.1 103/mcL Normal 0.0 - 0 .4 10^3/mcL AO Workflow SS Eosinophils/100 WBC (Bld) 0.8 % Normal 0.0 - 7.0 % AO Workflow SS Erythrocyte distribution width (RBC) [Ratio] 16.2 % High 11.5 - 14.5 % AO Workflow SS GFR/1.73 sq M.predicted among blacks MDRD (S/P/Bld) [Vol rate/Area] 108 ml/min/1.73sqm Invalid Interpretation Code AO Chemistry S Comment on above: Interpretive Data: GFR Population mean for , Non- Americans Ages 20-29 = 116 mL/min/1.73 sq.m. Ages 30-39 = 107 mL/min/1.73 sq.m. Ages 40-49 = 99 mL/min/1.73 sq.m. Ages 50-59 = 93 mL/min/1.73 sq.m. Ages 60-69 = 85 mL/min/1.73 sq.m. Ages 70+ = 75 mL/min/1.73 sq.m. Chronic Kidney Disease: Less than 60 mL/min/1.73 square meters End Stage Renal Disease: Less than 15 mL/min/1.73 square meters GFR/1.73 sq M.predicted among non-blacks MDRD (S/P/Bld) [Vol rate/Area] 90 ml/min/1.73sqm Invalid Interpretation Code AO Chemistry S Comment on above: Interpretive Data: GFR Population mean for , Non- Americans Ages 20-29 = 116 mL/min/1.73 sq.m. Ages 30-39 = 107 mL/min/1.73 sq.m. Ages 40-49 = 99 mL/min/1.73 sq.m. Ages 50-59 = 93 mL/min/1.73 sq.m. Ages 60-69 = 85 mL/min/1.73 sq.m. Ages 70+ = 75 mL/min/1.73 sq.m. Chronic Kidney Disease: Less than 60 mL/min/1.73 square meters End Stage Renal Disease: Less than 15 mL/min/1.73 square meters Glucose [Mass/Vol] 87 mg/dL Normal 70 - 105 mg/dL AO ADM SS Hematocrit (Bld) [Volume fraction] 39.0 % Normal 37.0 - 47.0 % AO Workflow SS Hemoglobin (Bld) [Mass/Vol] 13.4 G/dL Normal 12.0 - 16.0 G/dL AO Workflow SS Lymphocyte, Absolute 3.3 103/mcL Normal 0.8 - 3 .9 10^3/mcL AO Workflow SS Lymphocytes/100 WBC (Bld) 33.0 % Normal 10.0 - 50.0 % AO Workflow SS MCH (RBC) [Entitic mass] 32.0 pg High 27.0 - 31.2 pg AO Workflow SS MCHC 34.2 G/dL Normal 33.0 - 37.0 G/dL AO Workflow SS MCV (RBC) [Entitic vol] 93.6 fL Normal 80.0 - 94.0 fL AO Workflow SS Monocyte distribution width Auto (Bld) [Entitic vol] 23.29 1 High 0.00 - 20.00 AO Workflow SS Comment on above: Result Comment: For adults in ED, MDW>20.0 may be associated with a higher risk of sepsis during the first 12hrs of hospital admission Monocyte, Absolute 0.7 103/mcL Normal 0.2 - 1.0 10^3/mcL AO Workflow SS Monocytes/100 WBC (Bld) 6.7 % Normal 1.7 - 13.0 % AO Workflow SS Neutrophil, Absolute 6.0 103/mcL Normal 2.9 - 6 .2 10^3/mcL AO Workflow SS Neutrophils/100 WBC (Bld) 58.8 % Normal 37.0 - 80.0 % AO Workflow SS Platelet mean volume (Bld) [Entitic vol] 8.5 fL Normal 7.4 - 10.4 fL AO Workflow SS Platelets (Bld) [#/Vol] 315 103/mcL Normal 130 - 400 10^3/mcL AO Workflow SS Potassium [Moles/Vol] 4.3 mmol/L Normal 3.5 - 5.1 mmol/L AO ADM SS RBC (Bld) [#/Vol] 4.17 106/mcL Low 4.20 - 5.4 0 10^6/mcL AO Workflow SS Sodium [Moles/Vol] 139 mmol/L Normal 136 - 145 mmol/L AO ADM SS Urea nitrogen [Mass/Vol] 19 mg/dL High 7 - 18 mg/dL AO ADM SS Urea nitrogen/Creatinine [Mass ratio] 28 ratio High 7 - 27 ratio AO ADM SS WBC (Bld) [#/Vol] 10.1 103/mcL Normal 4.6 - 10.8 10^3/mcL AO Workflow SS UAon 04-18-2023 Color (U) Yellow Normal [facility] ([place]) Comment on above: Performed By: #### U AJOAQUINMICAO #### [address] [address] Glucose (U) [Mass/Vol] Negative Normal Negative [facility] ([place]) Comment on above: Performed By: #### U A, UAMICAO #### [address] [address] Ketones Ql (U) Negative Normal Negative [facility] ([place]) Comment on above: Performed By: #### U A, UAMICAO #### [place] [address] UA Appear Clear Normal Clear [facility] ([place]) Comment on above: Performed By: #### U A, UAMICAO #### [place] [address] UA Blood Trace Abnormal Negative [facility] ([place]) Comment on above: Performed By: #### U A, UAMICAO #### [place] [address] UA Leuk Est Negative Normal Negative [facility] ([place]) Comment on above: Performed By: #### U A, UAMICAO #### [place] [address] UA Nitrite Negative Normal Negative [facility] ([place]) Comment on above: Performed By: #### U A, UAMICAO #### [place] [address] UA pH 6.5 Normal 5.0 - 8.0 [facility] ([place]) Comment on above: Performed By: #### U A, UAMICAO #### [place] [address] UA Protein 30 mg/dL Normal Negative [facility] ([place]) Comment on above: Performed By: #### U A, UAMICAO #### [place] [address] UA Spec Grav 1.025 Normal 1.015-1.025 [facility] ([place]) Comment on above: Performed By: #### U A, UAMICAO #### [place] [address] UA Specimen Type Clean Catch Normal [facility] ([place]) Comment on above: Performed By: #### U A, UAMICAO #### [address] [place], [place] [address] UA Urobilinogen 0.2 E.U./dL Normal 0.2-1.0 [facility] ([place]) Comment on above: Performed By: #### U A, UAMICAO #### [address] [address] Urobilinogen (U) [Mass/Vol] Negative Normal Negative [facility] ([place]) Comment on above: Performed By: #### U A, UAMICAO #### [address] [address] XR CHEST 2 VIEWSon 3 XR CHEST 2 VIEWS ORIGINAL EXAMINATION: TWO XRAY VIEWS OF THE CHEST 04/18/2023 6:02 pm COMPARISON: Radiograph of the chest August 27, 2014 HISTORY: ORDERING SYSTEM PROVIDED HISTORY: Reason for Exam: pain FINDINGS: Cardiomediastinal silhouette is unchanged in size. Costophrenic angles are sharp. No focal consolidation, pleural effusion or pneumothorax. Osseous structures grossly unchanged. IMPRESSION: No focal consolidation. Interpreted by: Kian Meyer Preliminary Report By: Kian Meyer Electronically signed By Kian Meyer Dictated Date: 04/18/2023 6:22:56 PM Prelim Date: 04/18/2023 6:23:20 PM Sign Date: 04/18/2023 6:23:20 PM Ordering Provider: KVNG Lu [facility] ([place]) .Auto Diffon 04-08-2023 Basophil, Absolute 0.1 10 3/mcL Normal 0.0-0.2 [facility] ([place]) Comment on above: Performed By: #### U A, UAMICAO #### [address] [address] Basophils/100 WBC (Bld) 0.9 % Normal 0.0-2.5 A [facility] ([place] Comment on above: Performed By: #### U A, UAMICAO #### [address] [address] Eosinophil, Absolute 0.1 10 3/mcL Normal 0.0-0.4 [facility] ([place] Comment on above: Performed By: #### LENORA Veliz #### [address] [address] Eosinophils/100 WBC (Bld) 2.2 % Normal 0.0-7.0 [facility] ([place]) Comment on above: Performed By: #### Chris Morgan UAMICAO #### [address] [address] Lymphocyte, Absolute 3.1 10 3/mcL Normal 0.8-3.9 [facility] ([place] Comment on above: Performed By: #### LENORA Veliz #### [address] [address] Lymphocytes/100 WBC (Bld) 46.7 % Normal 10.0-50.0 [facility] ([place]) Comment on above: Performed By: #### LENORA Veliz #### [address] [address] Monocyte, Absolute 0.5 10 3/mcL Normal 0.2-1.0 [facility] ([place] Comment on above: Performed By: #### LENORA Veliz #### [address] [address] Monocytes/100 WBC (Bld) 8.3 % Normal 1.7-13.0 A [facility] ([place] Comment on above: Performed By: #### Chris Morgan UAMICGEOFFREY #### [address] [address] Neutrophils/100 WBC (Bld) 41.9 % Normal 37.0-80.0 [facility] ([place]) Comment on above: Performed By: #### Chris Morgan UAMICAO #### [address] [address] .GFRon 04-08-2023 GFR 70 ml/min/1.73sqm Normal [facility] ([place]) Comment on above: Result Comment: GFR Population mean for , Non- Americans Ages 20-29 = 116 mL/min/1.73 sq.m. Ages 30-39 = 107 mL/min/1.73 sq.m. Ages 40-49 = 99 mL/min/1.73 sq.m. Ages 50-59 = 93 mL/min/1.73 sq.m. Ages 60-69 = 85 mL/min/1.73 sq.m. Ages 70+ = 75 mL/min/1.73 sq.m. Chronic Kidney Disease: Less than 60 mL/min/1.73 square meters End Stage Renal Disease: Less than 15 mL/min/1.73 square meters Performed By: #### LENORA Veliz #### [address] [address] GFR Non- 58 ml/min/1.73sqm Normal [facility] ([place]) Comment on above: Result Comment: GFR Population mean for , Non- Americans Ages 20-29 = 116 mL/min/1.73 sq.m. Ages 30-39 = 107 mL/min/1.73 sq.m. Ages 40-49 = 99 mL/min/1.73 sq.m. Ages 50-59 = 93 mL/min/1.73 sq.m. Ages 60-69 = 85 mL/min/1.73 sq.m. Ages 70+ = 75 mL/min/1.73 sq.m. Chronic Kidney Disease: Less than 60 mL/min/1.73 square meters End Stage Renal Disease: Less than 15 mL/min/1.73 square meters Performed By: #### LENORA Veliz #### [place] [address] [address] .NEUABSon 04-08-2023 Neutrophil, Absolute 2.8 10 3/mcL Low 2.9-6.2 [facility] ([place] Comment on above: Performed By: #### LENORA Veliz #### [place] [address] [address] CBCon 04-08-2023 Erythrocyte distribution width (RBC) [Ratio] 16.7 % High 11.5-14.5 [facility] ([place]) Comment on above: Performed By: #### U Eddie, UAMICAO #### [address] [address] Hematocrit (Bld) [Volume fraction] 40.1 % Normal 37.0-47.0 [facility] ([place]) Comment on above: Performed By: #### U A, UAMICAO #### [address] [address] Hgb 13.2 G/dL Normal 12.0-16.0 [facility] ([place]) Comment on above: Performed By: #### U A, UAMICAO #### [address] [address] MCH (RBC) [Entitic mass] 31.5 pg High 27.0-31.2 [facility] ([place]) Comment on above: Performed By: #### U A, UAMICAO #### [address] [address] MCHC 33.0 G/dL Normal 33.0-37.0 [facility] ([place]) Comment on above: Performed By: #### U A, UAMICAO #### [address] [address] MCV (RBC) [Entitic vol] 95.4 fL High 80.0-94.0 A [facility] ([place] Comment on above: Performed By: #### U A, UAMICAO #### [address] [address] Platelet 348 10 3/mcL Normal 130-400 [facility] ([place]) Comment on above: Performed By: #### U A, UAMICAO #### [address] [address] Platelet mean volume (Bld) [Entitic vol] 8.6 fL Normal 7.4-10.4 [facility] ([place]) Comment on above: Performed By: #### U A, UAMICAO #### [address] [address] RBC 4.20 10 6/mcL Normal 4.20-5.40 [facility] ([place]) Comment on above: Performed By: #### U Eddie UAMICAO #### [address] [address] WBC 6.6 10 3/mcL Normal 4.6-10.8 [facility] ([place]) Comment on above: Performed By: #### U Eddie UAMICAO #### [address] [address] CMPon 04-08-2023 Albumin Level 4.2 G/dL Normal 3.5-5.0 [facility] ([place]) Comment on above: Performed By: #### Chris Morgan UAMICAO #### [address] [address] Albumin/Globulin [Mass ratio] 1.2 {ratio} Normal 1.1-2.5 [facility] ([place]) Comment on above: Performed By: #### Chris Morgan UAMICAO #### [address] [address] ALP [Catalytic activity/Vol] 119 U/L Normal 40-135 [facility] ([place]) Comment on above: Performed By: #### Chris Morgan UAMICAO #### [address] [address] ALT [Catalytic activity/Vol] 30 U/L Normal 14-59 [facility] ([place]) Comment on above: Performed By: #### U Eddie UAMICAO #### [address] [address] AST [Catalytic activity/Vol] 16 U/L Normal 10-40 [facility] ([place]) Comment on above: Performed By: #### U A UAMICAO #### [address] [address] Bili Total 0.2 mg/dL Normal 0.2-1.0 [facility] ([place]) Comment on above: Result Comment: Use of this assay is not recommended for patients undergoing treatment with eltrombopag due to the potential for falsely elevated results. Performed By: #### U Eddie UAMICAO #### [address] [address] BUN/Creatinine Ratio 18 ratio Normal 7-27 [facility] ([place] Comment on above: Performed By: #### U A, UAMICAO #### [address] [address] Calcium [Mass/Vol] 9.4 mg/dL Normal 8.4-10.2 [facility] ([place]) Comment on above: Performed By: #### U A, UAMICAO #### [address] [address] Chloride [Moles/Vol] 103 mmol/L Normal 98-107 [facility] ([place] Comment on above: Performed By: #### U A, UAMICAO #### [address] [address] CO2 [Moles/Vol] 28 mmol/L Normal 22-29 [facility] ([place]) Comment on above: Performed By: #### U A, UAMICAO #### [address] [address] Creatinine [Mass/Vol] 0.99 mg/dL Normal 0.55-1.02 [facility] ([place] Comment on above: Performed By: #### U A, UAMICAO #### [address] [address] Electrolyte Balance 9.0 mEq/L Normal 4.0-15.0 [facility] ([place]) Comment on above: Performed By: #### U A, UAMICAO #### [address] [address] Globulin 3.6 G/dL Normal [facility] ([place]) Comment on above: Performed By: #### U A, UAMICAO #### [address] [address] Glucose [Mass/Vol] 89 mg/dL Normal 70-105 [facility] ([place]) Comment on above: Performed By: #### U A, UAMICAO #### [address] [place] [address] Potassium [Moles/Vol] 3.9 mmol/L Normal 3.5-5.1 [facility] ([place] Comment on above: Performed By: #### U A, UAMICAO #### [place] [place], [place] [address] Sodium [Moles/Vol] 140 mmol/L Normal 136-145 [facility] ([place]) Comment on above: Performed By: #### U A, UAMICAO #### [address] [address] Total Protein 7.8 G/dL Normal 6.4-8.2 [facility] ([place]) Comment on above: Performed By: #### U A, UAMICAO #### [address] [address] Urea nitrogen [Mass/Vol] 18 mg/dL Normal 7-18 [facility] ([place]) Comment on above: Performed By: #### U A, UAMICAO #### [address] [address] LABORATORYOrdered By: SYSTEM SYSTEM on 04-08-2023 Albumin BCP dye [Mass/Vol] 4.2 G/dL Normal 3.5 - 5.0 G/dL AO ADM SS Albumin/Globulin [Mass ratio] 1.2 {ratio} Normal 1.1 - 2.5 ratio AO ADM SS ALP [Catalytic activity/Vol] 119 U/L Normal 40 - 135 U/L AO ADM SS ALT With P-5'-P [Catalytic activity/Vol] 30 U/L Normal 14 - 59 U/L AO ADM SS AST With P-5'-P [Catalytic activity/Vol] 16 U/L Normal 10 - 40 U/L AO ADM SS Basophil, Absolute 0.1 103/mcL Normal 0.0 - 0.2 10^3/mcL AO Workflow SS Basophils/100 WBC (Bld) 0.9 % Normal 0.0 - 2.5 % AO Workflow SS Bilirubin [Mass/Vol] 0.2 mg/dL Normal 0.2 - 1 .0 mg/dL AO ADM SS Comment on above: Interpretive Data: U se of this assay is not recommended for patients undergoing treatment with eltrombopag due to the potential for falsely elevated results. Calcium [Mass/Vol] 9.4 mg/dL Normal 8.4 - 10. 2 mg/dL AO ADM SS Chloride [Moles/Vol] 103 mmol/L Normal 98 - 10 7 mmol/L AO ADM SS CO2 [Moles/Vol] 28 mmol/L Normal 22 - 29 mmol/L AO ADM SS Creatinine [Mass/Vol] 0.99 mg/dL Normal 0.55 - 1.02 mg/dL AO ADM SS Electrolyte Balance 9.0 mEq/L Normal 4.0 - 15 .0 mEq/L AO ADM SS Eosinophil, Absolute 0.1 103/mcL Normal 0.0 - 0 .4 10^3/mcL AO Workflow SS Eosinophils/100 WBC (Bld) 2.2 % Normal 0.0 - 7.0 % AO Workflow SS Erythrocyte distribution width (RBC) [Ratio] 16.7 % High 11.5 - 14.5 % AO Workflow SS GFR/1.73 sq M.predicted among blacks MDRD (S/P/Bld) [Vol rate/Area] 70 ml/min/1.73sqm Invalid Interpretation Code AO Chemistry S Comment on above: Interpretive Data: GFR Population mean for , Non- Americans Ages 20-29 = 116 mL/min/1.73 sq.m. Ages 30-39 = 107 mL/min/1.73 sq.m. Ages 40-49 = 99 mL/min/1.73 sq.m. Ages 50-59 = 93 mL/min/1.73 sq.m. Ages 60-69 = 85 mL/min/1.73 sq.m. Ages 70+ = 75 mL/min/1.73 sq.m. Chronic Kidney Disease: Less than 60 mL/min/1.73 square meters End Stage Renal Disease: Less than 15 mL/min/1.73 square meters GFR/1.73 sq M.predicted among non-blacks MDRD (S/P/Bld) [Vol rate/Area] 58 ml/min/1.73sqm Invalid Interpretation Code AO Chemistry S Comment on above: Interpretive Data: GFR Population mean for , Non- Americans Ages 20-29 = 116 mL/min/1.73 sq.m. Ages 30-39 = 107 mL/min/1.73 sq.m. Ages 40-49 = 99 mL/min/1.73 sq.m. Ages 50-59 = 93 mL/min/1.73 sq.m. Ages 60-69 = 85 mL/min/1.73 sq.m. Ages 70+ = 75 mL/min/1.73 sq.m. Chronic Kidney Disease: Less than 60 mL/min/1.73 square meters End Stage Renal Disease: Less than 15 mL/min/1.73 square meters Globulin 3.6 G/dL Invalid Interpretation Code AO ADM SS Glucose [Mass/Vol] 89 mg/dL Normal 70 - 105 mg/dL AO ADM SS Hematocrit (Bld) [Volume fraction] 40.1 % Normal 37.0 - 47.0 % AO Workflow SS Hemoglobin (Bld) [Mass/Vol] 13.2 G/dL Normal 12.0 - 16.0 G/dL AO Workflow SS Lymphocyte, Absolute 3.1 103/mcL Normal 0.8 - 3 .9 10^3/mcL AO Workflow SS Lymphocytes/100 WBC (Bld) 46.7 % Normal 10.0 - 50.0 % AO Workflow SS MCH (RBC) [Entitic mass] 31.5 pg High 27.0 - 31.2 pg AO Workflow SS MCHC 33.0 G/dL Normal 33.0 - 37.0 G/dL AO Workflow SS MCV (RBC) [Entitic vol] 95.4 fL High 80.0 - 94.0 fL AO Workflow SS Monocyte, Absolute 0.5 103/mcL Normal 0.2 - 1.0 10^3/mcL AO Workflow SS Monocytes/100 WBC (Bld) 8.3 % Normal 1.7 - 13.0 % AO Workflow SS Neutrophil, Absolute 2.8 103/mcL Low 2.9 - 6 .2 10^3/mcL AO Workflow SS Neutrophils/100 WBC (Bld) 41.9 % Normal 37.0 - 80.0 % AO Workflow SS Platelet mean volume (Bld) [Entitic vol] 8.6 fL Normal 7.4 - 10.4 fL AO Workflow SS Platelets (Bld) [#/Vol] 348 103/mcL Normal 130 - 400 10^3/mcL AO Workflow SS Potassium [Moles/Vol] 3.9 mmol/L Normal 3.5 - 5.1 mmol/L AO ADM SS Protein [Mass/Vol] 7.8 G/dL Normal 6.4 - 8.2 G/dL AO ADM SS RBC (Bld) [#/Vol] 4.20 106/mcL Normal 4.20 - 5.4 0 10^6/mcL AO Workflow SS Sodium [Moles/Vol] 140 mmol/L Normal 136 - 145 mmol/L AO ADM SS Urea nitrogen [Mass/Vol] 18 mg/dL Normal 7 - 18 mg/dL AO ADM SS Urea nitrogen/Creatinine [Mass ratio] 18 ratio Normal 7 - 27 ratio AO ADM SS WBC (Bld) [#/Vol] 6.6 103/mcL Normal 4.6 - 10.8 10^3/mcL AO Workflow SS Absolute lymphocyte countOrd ered By: Digna Russell on 03-09-2023 Lymphocytes Auto (Unsp spec) [#/Vol] 1.75 10*3/uL 0.83-4.51 [facility] Basophil percentageOrdered B y: Digna Russell on 03-09-2023 Basophils/100 WBC (Bld) 0.5 % 0-1 [facility] Bilirubin [Mass/Vol] 0.20 mg/dL 0.20-1.00 [facility] Comment on above: For patients on eltr ombopag therapy, use of Dimension [place] TBIL is not recommended. Chloride [Moles/Vol] 110 mmol/L 98-107 [facility] Eosinophils/100 WBC (Bld) 0.2 % 0-5 [facility] Glucose [Mass/Vol] 112 mg/dL 74-106 [facility] Comment on above: Fasting Glucose resu lt from 100 to 125 mg/dL suggests IMPAIRED HOMEOSTASIS per A.D.A. criteria. Neutrophils (Bld) [#/Vol] 4.2 10*3/uL 2.0-7.7 [facility] Neutrophils/100 WBC (Bld) 66.9 % 47-70 [facility] Potassium [Moles/Vol] 4.0 mmol/L 3.5-5.1 [facility] Protein [Mass/Vol] 7.4 g/dL 6.4-8.2 [facility] Sodium [Moles/Vol] 139 mmol/L 136-145 [facility] WBC (Bld) [#/Vol] 6.2 10*3/uL 4.4-11.0 [facility] Blood erythrocytes count (nu mber/volume)Ordered By: Digna Russell on 03-09-2023 RBC (Bld) [#/Vol] 3.79 10*6/uL 4.2-5.[address] [facility] Blood hemoglobin measurement (mass/volume)Ordered By: Digna Russell on 03-09-2023 Hemoglobin (Bld) [Mass/Vol] 11.7 g/dL 12.0-15.0 [facility] Blood lymphocytes/100 leukoc ytesOrdered By: Digna Russell on 03-09-2023 Lymphocytes/100 WBC (Bld) 28.2 % 19-41 [facility] Blood monocytes/100 leukocyt esOrdered By: Digna Russell on 03-09-2023 Monocytes/100 WBC (Bld) 3.9 % 0-10 [facility] Blood platelet mean volumeOr dered By: Digna Russell on 03-09-2023 Platelet mean volume (Bld) [Entitic vol] 10.6 fL 6.2-12.0 [facility] Determination of erythrocyte mean corpuscular volume (MCV)Ordered By: Digna Russell on 03-09-2023 MCV (RBC) [Entitic vol] 95.5 fL 81-99 [facility] Hematocrit Auto (Bld) [Volum e fraction]Ordered By: Digna Russell on 03-09-2023 Hematocrit (Bld) [Volume fraction] 36.2 % 37-47 [facility] Laboratory - Chemistry and C hemistry - challengeOrdered By: Digna Russell on 03-09-2023 ALP [Catalytic activity/Vol] 112 U/L 45-117 [facility] ALT [Catalytic activity/Vol] 38 U/L 13-56 [facility] CO2 [Moles/Vol] 24.0 mmol/L 21.0-32.0 [facility] Globulin (S) [Mass/Vol] 3.7 g/dL 2.2-4.2 [facility] Urea nitrogen/Creatinine [Mass ratio] 19.2 mg/mg 10-20 [facility] Laboratory - Hematology and Cell countsOrdered By: Digna Russell on 03-09-2023 Erythrocyte distribution width (RBC) [Entitic vol] 47.3 fL 35.1-43.9 [facility] Erythrocyte distribution width (RBC) [Ratio] 13.6 % 11.6-14.6 [facility] Immature granulocytes/100 WBC (Bld) 0.300 % 0.0-0.9 [facility] Comment on above: IG% - Immature Granu locytes (promyelocytes, myelocytes and metamyelocytes) > 1% indicates that a LEFT SHIFT is Present. MCH (RBC) [Entitic mass] 30.9 pg 27.0-32.0 [facility] Nucleated RBC/100 WBC (Bld) [Ratio] 0 % 0-5 [facility] MCHC Auto (RBC) [Mass/Vol]Or dered By: Digna Russell on 03-09-2023 MCHC (RBC) [Mass/Vol] 32.3 g/dL 32-36 [facility] No Panel InformationOrdered By: Digna Russell on 03-09-2023 Estimated GFR (MDRD) Amer 91 mL/min >60 [facility] Comment on above: GFR Calc Estimated GFR (MDRD) Non-Af Amer 75 mL/min >60 [facility] Comment on above: Non- GFR Calc Platelets bldOrdered By: Janis Russell on 03-09-2023 Platelets (Bld) [#/Vol] 313 10*3/uL 150-450 [facility] Qualitative QuantiFERON-TB g old in tube testOrdered By: Digna Russell on 03-09-2023 M. tuberculosis tuberculin stim IFN-g Ql (Bld) 0 IU/mL . [facility] Serum or plasma albumin yoli urement (mass/volume)Ordered By: Digna Russell on 03-09-2023 Albumin [Mass/Vol] 3.7 g/dL 3.2-5.0 [facility] Serum or plasma albumin/glob ulin mass ratioOrdered By: Digna Russell on 03-09-2023 Albumin/Globulin [Mass ratio] 1.0 {ratio} 0.9-2.4 [facility] Serum or plasma calcium yoli urement (mass/volume)Ordered By: Digna Russell on 03-09-2023 Calcium [Mass/Vol] 8.8 mg/dL 8.5-10.1 [facility] Serum or plasma creatinine m easurement (mass/volume)Ordered By: Digna Russell on 03-09-2023 Creatinine [Mass/Vol] 0.84 mg/dL 0.55-1.02 [facility] Comment on above: The validity of the calculated GFR & GFRAA in patients over 70 years has not been determined. Clinical correlation is essential. Serum or plasma urea nitroge n measurement (mass/volume)Ordered By: Digna Russell on 03-09-2023 Urea nitrogen [Mass/Vol] 16 mg/dL 7-18 [facility] Thin prep Papanicolaou smear with manual screeningOrdered By: Digna Russell on 03-09-2023 Thin prep Papanicolaou smear with manual screening 19 U/L 15-37 [facility] Thin prep Papanicolaou smear with manual screening 5 5-15 [facility] Thin prep Papanicolaou smear with manual screening Comment . [facility] Comment on above: QuantiFERON-TB Gold Plus is a qualitative indirect test forM tuberculosis infection (including disease) and isintended for use in conjunction with risk assessment,radiography, and other medical and diagnostic evaluations.The QuantiFERON-TB Gold Plus result is determined bysubtracting the Nil value from either TB antigen (Ag)value. The Mitogen tube serves as a control for the test. Thin prep Papanicolaou smear with manual screening 0.02 IU/mL . [facility] Thin prep Papanicolaou smear with manual screening > 10.00 IU/mL . [facility] Thin prep Papanicolaou smear with manual screening Negative Negative [facility] Comment on above: No response to M tub erculosis antigens detected.Infection with M tuberculosis is unlikely, but high riskindividuals should be considered for additional testing(ATS/IDSA/CDC Clinical Practice Guidelines, 2017). Thereference range is an Antigen minus Nil result of <0.35IU/mL.The specimen received for QuantiFERON testing was incubatedby the ordering institution. Specific procedures outlinedin our Directory of Services and in the package insert forthe QuantiFERON Gold (In Tube) test must be followed toenable for proper stimulation of cells for the productionof interferon gamma. Chemiluminescence immunoassaymethodologyPerformed at: - [facility] [id number] [place], [place] [id number] Director: Bhargav Shrestha PhD, Phone: [phone] Absolute lymphocyte countOrd ered By: Digna Russell on 01-31-2023 Lymphocytes Auto (Unsp spec) [#/Vol] 1.74 10*3/uL 0.83-4.51 [facility] Basophil percentageOrdered B y: Digna Russell on 01-31-2023 Basophils/100 WBC (Bld) 0.9 % 0-1 [facility] Bilirubin [Mass/Vol] 0.20 mg/dL 0.20-1.00 [facility] Comment on above: For patients on eltr ombopag therapy, use of Dimension [place] TBIL is not recommended. Chloride [Moles/Vol] 108 mmol/L 98-107 [facility] Eosinophils/100 WBC (Bld) 1.9 % 0-5 [facility] Glucose [Mass/Vol] 133 mg/dL 74-106 [facility] Comment on above: Fasting Glucose resu lt greater than or equal to 126 mg/dL suggests DIABETES MELLITUS per A.D.A. criteria. Neutrophils (Bld) [#/Vol] 3.4 10*3/uL 2.0-7.7 [facility] Neutrophils/100 WBC (Bld) 59.3 % 47-70 [facility] Potassium [Moles/Vol] 3.4 mmol/L 3.5-5.1 [facility] Protein [Mass/Vol] 7.7 g/dL 6.4-8.2 [facility] Sodium [Moles/Vol] 142 mmol/L 136-145 [facility] WBC (Bld) [#/Vol] 5.7 10*3/uL 4.4-11.0 [facility] Bilirubin Test strip Ql (U)O rdered By: Digna Russell on 01-31-2023 Bilirubin Ql (U) Negative Negative [facility] Blood erythrocytes count (nu mber/volume)Ordered By: Digna Russell on 01-31-2023 RBC (Bld) [#/Vol] 4.13 10*6/uL 4.2-5.[address] [facility] Blood hemoglobin measurement (mass/volume)Ordered By: Digna Russell on 01-31-2023 Hemoglobin (Bld) [Mass/Vol] 12.6 g/dL 12.0-15.0 [facility] Blood lymphocytes/100 leukoc ytesOrdered By: Digna Russell on 01-31-2023 Lymphocytes/100 WBC (Bld) 30.4 % 19-41 [facility] Blood monocytes/100 leukocyt esOrdered By: Digna Russell on 01-31-2023 Monocytes/100 WBC (Bld) 7.3 % 0-10 [facility] Blood platelet mean volumeOr dered By: Digna Russell on 01-31-2023 Platelet mean volume (Bld) [Entitic vol] 11.1 fL 6.2-12.0 [facility] Determination of erythrocyte mean corpuscular volume (MCV)Ordered By: Digna Russell on 01-31-2023 MCV (RBC) [Entitic vol] 94.4 fL 81-99 [facility] Hematocrit Auto (Bld) [Volum e fraction]Ordered By: Digna Russell on 01-31-2023 Hematocrit (Bld) [Volume fraction] 39.0 % 37-47 [facility] Ketones Test strip Ql (U)Ord ered By: Digna Russell on 01-31-2023 Ketones Ql (U) Negative Negative [facility] Laboratory - Chemistry and C hemistry - challengeOrdered By: Digna Russell on 01-31-2023 ALP [Catalytic activity/Vol] 111 U/L 45-117 [facility] ALT [Catalytic activity/Vol] 31 U/L 13-56 [facility] CO2 [Moles/Vol] 25.0 mmol/L 21.0-32.0 [facility] Globulin (S) [Mass/Vol] 3.9 g/dL 2.2-4.2 [facility] Urea nitrogen/Creatinine [Mass ratio] 14.9 mg/mg 10-20 [facility] Laboratory - Hematology and Cell countsOrdered By: Digna Russell on 01-31-2023 Erythrocyte distribution width (RBC) [Entitic vol] 43.6 fL 35.1-43.9 [facility] Erythrocyte distribution width (RBC) [Ratio] 12.6 % 11.6-14.6 [facility] Immature granulocytes/100 WBC (Bld) 0.200 % 0.0-0.9 [facility] Comment on above: IG% - Immature Granu locytes (promyelocytes, myelocytes and metamyelocytes) > 1% indicates that a LEFT SHIFT is Present. MCH (RBC) [Entitic mass] 30.5 pg 27.0-32.0 [facility] Nucleated RBC/100 WBC (Bld) [Ratio] 0 % 0-5 [facility] MCHC Auto (RBC) [Mass/Vol]Or dered By: Digna Russell on 01-31-2023 MCHC (RBC) [Mass/Vol] 32.3 g/dL 32-36 [facility] Nitrite Test strip Ql (U)Ord ered By: Digna Russell on 01-31-2023 Nitrite Ql (U) Negative Negative [facility] No Panel InformationOrdered By: Digna Russell on 01-31-2023 Miscellaneous Test Comment MAILED SPECIMEN [facility] Estimated GFR (MDRD) Amer 87 mL/min >60 [facility] Comment on above: GFR Calc Estimated GFR (MDRD) Non-Af Amer 72 mL/min >60 [facility] Comment on above: Non- GFR Calc Hepatitis B Surface Antigen Non-Reactive Nonreactive [facility] Hepatitis C Antibody Non-Reactive Nonreactive [facility] Comment on above: Non Reactive: < 0.8 Equivocal: >/= 0.8 to < 1.0 Reactive: >/= 1.0The CDC recommends that a reactive/equivocal HCV antibody result be followed up by the HCV Nucleic Acid Amplificationtest (436132) Platelets bldOrdered By: Janis Russell on 01-31-2023 Platelets (Bld) [#/Vol] 341 10*3/uL 150-450 [facility] Protein Test strip Ql (U)Ord ered By: Digna Russell on 01-31-2023 Protein Ql (U) Negative Negative [facility] Serum hepatitis B virus surf leroy antibody IgG detectionOrdered By: Digna Russell on 01-31-2023 HBV surface IgG Ql (S) Non-Reactive [facility] Comment on above: Non Reactive: Incons istent with immunity less than <10 mIU/mL Reactive: Consistent with immunity greater than or equal to 10 mIU/mL Serum or plasma albumin yoli urement (mass/volume)Ordered By: Digna Russell on 01-31-2023 Albumin [Mass/Vol] 3.8 g/dL 3.2-5.0 [facility] Serum or plasma albumin/glob ulin mass ratioOrdered By: Digna Russell on 01-31-2023 Albumin/Globulin [Mass ratio] 1.0 {ratio} 0.9-2.4 [facility] Serum or plasma calcium yoli urement (mass/volume)Ordered By: Digna Russell on 01-31-2023 Calcium [Mass/Vol] 9.1 mg/dL 8.5-10.1 [facility] Serum or plasma creatinine m easurement (mass/volume)Ordered By: Digna Russell on 01-31-2023 Creatinine [Mass/Vol] 0.87 mg/dL 0.55-1.02 [facility] Comment on above: The validity of the calculated GFR & GFRAA in patients over 70 years has not been determined. Clinical correlation is essential. Serum or plasma urea nitroge n measurement (mass/volume)Ordered By: Digna Russell on 01-31-2023 Urea nitrogen [Mass/Vol] 13 mg/dL 7-18 [facility] Thin prep Papanicolaou smear with manual screeningOrdered By: Digna Russell on 01-31-2023 Thin prep Papanicolaou smear with manual screening 20 U/L 15-37 [facility] Thin prep Papanicolaou smear with manual screening 9 5-15 [facility] Urine blood detectionOrdered By: Digna Russell on 01-31-2023 RBC Ql (U) 25 /ul Negative [facility] Urine clarityOrdered By: Janis Russell on 01-31-2023 Clarity (U) Clear Clear [facility] Urine color determinationOrd ered By: Digna Russell on 01-31-2023 Color (U) Yellow Yellow [facility] Urine creatinine measurement (mass/volume)Ordered By: Digna Russell on 01-31-2023 Creatinine (U) [Mass/Vol] 57.40 mg/dL NO RANGE EST. [facility] Urine glucose detectionOrder ed By: Digna Russell on 01-31-2023 Glucose Ql (U) Normal mg/dl Normal [facility] Urine leukocyte esterase det ection by dipstickOrdered By: Digna Russell on 01-31-2023 Leukocyte esterase Test strip Ql (U) Negative Negative [facility] Urine pHOrdered By: Digna galaviz on 01-31-2023 pH (U) 6.0 [pH] 5.0 - 8.0 [facility] Urine protein measurement (m ass/volume)Ordered By: Digna Russell on 01-31-2023 Protein (U) [Mass/Vol] 6.4 mg/dL 0.0-11.8 [facility] Urine protein/creatinine mas s ratioOrdered By: Digna Russell on 01-31-2023 Protein/Creatinine (U) [Mass ratio] 112 mg/g CRE 0-200 [facility] Urine specific gravity measu rementOrdered By: Digna Russell on 01-31-2023 Specific gravity (U) [Rel density] 1.015 1.002-1.030 [facility] Urobilinogen Auto test strip Ql (U)Ordered By: Digna Russell on 01-31-2023 Urobilinogen Ql (U) Normal mg/dl Normal [facility] Erythrocyte sedimentation ra teOrdered By: Gladys Pichardo on 12-27-2022 ESR (Bld) [Velocity] 27 mm/h 0-30 [facility] Laboratory - Chemistry and C hemistry - challengeOrdered By: Gladys Pichardo on 12-27-2022 Cobalamin (Vitamin B12) [Mass/Vol] 300 pg/mL 211-911 [facility] No Panel InformationOrdered By: Gladys Pichardo on 12-27-2022 Thyroid Stimulating Hormone (TSH) 1.14 uIU/mL 0.358-3.74 [facility] Vitamin D 25-Hydroxy 18.7 ng/mL [facility] Comment on above: Vitamin D 25(OH) Sta tus Range Deficiency <20 ng/mL (50nmol/L) Insufficiency 20 - 30 ng/mL (50 - 75 nmol/L) Sufficiency 30 - 100 ng/mL (75 - 250 nmol/L) Toxicity >100 ng/mL (>250 nmol/L) Serum cyclic citrullinated p eptide IgG antibody assay (units/volume)Ordered By: Gladys Pichardo on 12-27-2022 Cyclic citrullinated peptide IgG Qn 3 units 0-19 [facility] Comment on above: Negative <20 Weak po sitive 20 - 39 Moderate positive 40 - 59 Strong positive >59Performed at: [facility] [address] [id number] Director: Bhargav Shrestha PhD, Phone: [phone] Serum nuclear antibody titer by immunofluorescenceOrdered By: Gladys Pichardo on 12-27-2022 Nuclear Ab IF (S) [Titer] Positive . [facility] Comment on above: Negative <1:80 Borde rline 1:80 Positive >1:80Speckled Pattern 1:160 High ICAP nomenclature: AC-2,4,5,29For more information about Hep-2 cell patterns useANApatterns.org, the official website for the InternationalConsensus on Antinuclear Antibody (RADHA) Patterns (ICAP). ----- Note: A positive RADHA result may occur in healthy individualsor be associated with a variety of diseases. Seeinterpretation below:Pattern Antigen Detected Suggested Disease Association Homogenous DNA(ds,ss,n), High titers - SLE (Smooth) Histone Speckled Sm,SQL TECH,SCL-70, SLE,MCTD, Scleroderma, SS-A/SS-B Sjogrens Nucleolar SCL-70,PM-1/SCL High titers Scleroderma Polymyositis/scleroderma over- lap Centromere Centromere PSS w/Crest syndrome variable Nuclear Dot [id number] Primary Biliary Cirrhosis Nuclear GP210, Primary Biliary CirrhosisMembrane aylin A,B,C TESTING PERFORMED AT [facility]. ORIGINAL REPORT ON FILE IN LAB CONTAINS ADDITIONAL TEST SITE INFORMATION. Previous reported result: Positive Edited by: FANTASMA on 12/29/22:1048 AMENDED REPORT 12/29/22 1048 RADHA by IFA previously reported as: Positive H Negative <1:80 Borderline 1:80 Positive >1:80 Serum or plasma C reactive p rotein measurement (mass/volume)Ordered By: Gladys Pichardo on 12-27-2022 CRP [Mass/Vol] 15.10 mg/L 0.0-3.0 [facility] Comment on above: C-Reactive Protein ( CRP) provides useful information for thediagnosis, therapy and monitoring of inflammatory processesand associated diseases. For the evaluation of Relative Riskfor Cardiovascular Disease, a High Sensitivity CRP (HSCRP)should be ordered. Absolute lymphocyte counton 11-02-2021 Lymphocytes Auto (Unsp spec) [#/Vol] 1.78 10*3/uL 0.83-4.51 [facility] Work Phone: Basophil percentageon 2021 Basophil percentage < 0.2 AI 0.0-0.[address] [facility] Work Phone: Basophils/100 WBC (Bld) 0.9 % 0-1 [facility] Work Phone: Eosinophils/100 WBC (Bld) 1.0 % 0-5 [facility] Work Phone: Neutrophils (Bld) [#/Vol] 6.0 10*3/uL 2.0-7.7 [facility] Work Phone: Neutrophils/100 WBC (Bld) 69.5 % 47-70 [facility] Work Phone: WBC (Bld) [#/Vol] 8.6 10*3/uL 4.4-11.0 [facility] Work Phone: Blood erythrocytes count (nu mber/volume)on 11-02-2021 RBC (Bld) [#/Vol] 4.55 10*6/uL 4.2-5.[address] [facility] Work Phone: Blood hemoglobin measurement (mass/volume)on 11-02-2021 Hemoglobin (Bld) [Mass/Vol] 14.4 g/dL 12.0-15.0 [facility] Work Phone: Blood lymphocytes/100 leukoc yteson 11-02-2021 Lymphocytes/100 WBC (Bld) 20.7 % 19-41 [facility] Work Phone: Blood monocytes/100 leukocyt eson 11-02-2021 Monocytes/100 WBC (Bld) 7.4 % 0-10 [facility] Work Phone: Blood platelet mean volumeon 11-02-2021 Platelet mean volume (Bld) [Entitic vol] 11.1 fL 6.2-12.0 [facility] Work Phone: Determination of erythrocyte mean corpuscular volume (MCV)on 11-02-2021 MCV (RBC) [Entitic vol] 94.3 fL 81-99 [facility] Work Phone: Erythrocyte sedimentation ra heaven 11-02-2021 ESR (Bld) [Velocity] 32 mm[facility]h 0-30 [facility]: Hematocrit Auto (Bld) [Volum e fraction]on 11-02-2021 Hematocrit (Bld) [Volume fraction] 42.9 % 37-47 [facility] Work Phone: Laboratory - Hematology and Cell countson 11-02-2021 Erythrocyte distribution width (RBC) [Entitic vol] 44.2 fL 35.1-43.9 [facility] Work Phone: Erythrocyte distribution width (RBC) [Ratio] 12.8 % 11.6-14.6 [facility] Work Phone: Immature granulocytes/100 WBC (Bld) 0.500 % 0.0-0.9 [facility] Work Phone: Comment on above: IG% - Immature Granu locytes (promyelocytes, myelocytes and metamyelocytes) > 1% indicates that a LEFT SHIFT is Present. MCH (RBC) [Entitic mass] 31.6 pg 27.0-32.0 [facility] Work Phone: Nucleated RBC/100 WBC (Bld) [Ratio] 0 % 0-5 [facility] Work Phone: MCHC Auto (RBC) [Mass/Vol]on 11-02-2021 MCHC (RBC) [Mass/Vol] 33.6 g/dL 32-36 [facility] Work Phone: No Panel Informationon 11-02 Centromere B Antibody <0.2 AI 0.0-0.9 [facility] Work Phone: SQL TECH Antibody <0.2 AI 0.0-0.9 [facility] Work Phone: Platelets bldon 11-02-2021 Platelets (Bld) [#/Vol] 346 10*3/uL 150-450 [facility] Work Phone: Serum DNA double strand anti body assay (units/volume)on 11-02-2021 DNA double strand Ab Qn (S) 2 [IU]/mL 0-9 [facility] Work Phone: Comment on above: Negative <5 Equivoca l 5 - 9 Positive >9 Serum Sho-1 antibody assay (u nits/volume)on 11-02-2021 Sho-1 extractable nuclear Ab Qn (S) <0.2 AI 0.0-0.9 [facility] Work Phone: Serum Scl-70 extractable nuc lear antibody assay (units/volume)on 11-02-2021 SCL-70 extractable nuclear Ab Qn (S) <0.2 AI 0.0-0.9 [facility] Work Phone: Serum Parrish extractable nucl ear antibody detectionon 11-02-2021 Parrish extractable nuclear Ab Ql (S) <0.2 AI 0.0-0.9 [facility] Work Phone: Serum or plasma C reactive p rotein measurement (mass/volume)on 11-02-2021 CRP [Mass/Vol] 5.17 mg/L 0.0-3.0 [facility] Work Phone: Comment on above: C-Reactive Protein ( CRP) provides useful information for thediagnosis, therapy and monitoring of inflammatory processesand associated diseases. For the evaluation of Relative Riskfor Cardiovascular Disease, a High Sensitivity CRP (HSCRP)should be ordered. Serum rheumatoid factor dete ctionon 11-02-2021 Rheumatoid factor Ql (S) < 10.0 IU/mL <15 [facility] Work Phone: Absolute lymphocyte counton 09-21-2021 Lymphocytes Auto (Unsp spec) [#/Vol] 2.11 10*3/uL 0.83-4.51 [facility] Work Phone: Basophil percentageon 2021 Basophils/100 WBC (Bld) 0.9 % 0-1 [facility] Work Phone: Bilirubin [Mass/Vol] 0.20 mg/dL 0.20-1.00 [facility] Work Phone: Comment on above: For patients on eltr ombopag therapy, use of Dimension [place] TBIL is not recommended. Chloride [Moles/Vol] 111 mmol/L 98-107 [facility] Work Phone: Cholesterol [Mass/Vol] 249 mg/dL <200 [facility] Work Phone: Comment on above: <200 mg/dL Desirable 200-240 mg/dL Borderline >240 mg/dL High Risk Eosinophils/100 WBC (Bld) 1.8 % 0-5 [facility] Work Phone: Glucose [Mass/Vol] 82 mg/dL 74-106 [facility] Work Phone: Neutrophils (Bld) [#/Vol] 5.6 10*3/uL 2.0-7.7 [facility] Work Phone: Neutrophils/100 WBC (Bld) 66.3 % 47-70 [facility] Work Phone: Potassium [Moles/Vol] 4.0 mmol/L 3.5-5.1 [facility] Work Phone: Protein [Mass/Vol] 7.0 g/dL 6.4-8.2 [facility] Work Phone: Sodium [Moles/Vol] 142 mmol/L 136-145 [facility] Work Phone: Triglyceride [Mass/Vol] 69 mg/dL <199 [facility] Work Phone: Comment on above: The drugs N-Acetylcy steine and Metamizole may falsely depress this assay.Serum Triglycerides Reference Interval Normal <150 mg/dL Borderline high 150 - 199 mg/dL High 200 - 499 mg/dL Very High > or = 500 mg/dL WBC (Bld) [#/Vol] 8.4 10*3/uL 4.4-11.0 [facility] Work Phone: Blood erythrocytes count (nu mber/volume)on 09-21-2021 RBC (Bld) [#/Vol] 3.92 10*6/uL 4.2-5.[address] [facility] Work Phone: Blood hemoglobin measurement (mass/volume)on 09-21-2021 Hemoglobin (Bld) [Mass/Vol] 12.4 g/dL 12.0-15.0 [facility] Work Phone: Blood lymphocytes/100 leukoc yteson 09-21-2021 Lymphocytes/100 WBC (Bld) 25.0 % 19-41 [facility] Work Phone: Blood monocytes/100 leukocyt eson 09-21-2021 Monocytes/100 WBC (Bld) 5.5 % 0-10 [facility] Work Phone: Blood platelet mean volumeon 09-21-2021 Platelet mean volume (Bld) [Entitic vol] 11.4 fL 6.2-12.0 [facility] Work Phone: Determination of erythrocyte mean corpuscular volume (MCV)on 09-21-2021 MCV (RBC) [Entitic vol] 95.9 fL 81-99 [facility] Work Phone: Hematocrit Auto (Bld) [Volum e fraction]on 09-21-2021 Hematocrit (Bld) [Volume fraction] 37.6 % 37-47 [facility] Work Phone: Laboratory - Chemistry and C hemistry - challengeon 09-21-2021 ALP [Catalytic activity/Vol] 87 U/L 45-117 [facility] Work Phone: ALT [Catalytic activity/Vol] 18 U/L 13-56 [facility] Work Phone: CO2 [Moles/Vol] 26.0 mmol/L 21.0-32.0 [facility] Work Phone: Globulin (S) [Mass/Vol] 3.5 g/dL 2.2-4.2 [facility] Work Phone: Urea nitrogen/Creatinine [Mass ratio] 22.8 mg/mg 10-20 [facility] Work Phone: Laboratory - Hematology and Cell countson 09-21-2021 Erythrocyte distribution width (RBC) [Entitic vol] 46.2 fL 35.1-43.9 [facility] Work Phone: Erythrocyte distribution width (RBC) [Ratio] 13.0 % 11.6-14.6 [facility] Work Phone: Immature granulocytes/100 WBC (Bld) 0.500 % 0.0-0.9 [facility] Work Phone: Comment on above: IG% - Immature Granu locytes (promyelocytes, myelocytes and metamyelocytes) > 1% indicates that a LEFT SHIFT is Present. MCH (RBC) [Entitic mass] 31.6 pg 27.0-32.0 [facility] Work Phone: Nucleated RBC/100 WBC (Bld) [Ratio] 0 % 0-5 [facility] Work Phone: MCHC Auto (RBC) [Mass/Vol]on 09-21-2021 MCHC (RBC) [Mass/Vol] 33.0 g/dL 32-36 [facility] Work Phone: No Panel Informationon 09-21 Estimated GFR (MDRD) Amer 111 mL/min >60 [facility] Work Phone: Comment on above: GFR Calc Estimated GFR (MDRD) Non-Af Amer 92 mL/min >60 [facility] Work Phone: Comment on above: Non- GFR Calc Platelets bldon 09-21-2021 Platelets (Bld) [#/Vol] 311 10*3/uL 150-450 [facility] Work Phone: Serum or plasma albumin yoli urement (mass/volume)on 09-21-2021 Albumin [Mass/Vol] 3.5 g/dL 3.2-5.0 [facility] Work Phone: Serum or plasma albumin/glob ulin mass ratioon 09-21-2021 Albumin/Globulin [Mass ratio] 1.0 {ratio} 0.9-2.4 [facility] Work Phone: Serum or plasma calcium yoli urement (mass/volume)on 09-21-2021 Calcium [Mass/Vol] 8.9 mg/dL 8.5-10.1 [facility] Work Phone: Serum or plasma cholesterol in HDL measurement (mass/volume)on 09-21-2021 Cholesterol in HDL [Mass/Vol] 64 mg/dL >40 [facility] Work Phone: Comment on above: The drugs N-Acetylcy steine and Metamizole may falsely depress this assay. Reference Range HDL <40 mg/dL Low HDL Cholesterol HDL >or= 60 mg/dL High HDL Cholesterol Serum or plasma cholesterol in VLDL measurement (mass/volume)on 09-21-2021 Cholesterol in VLDL [Mass/Vol] 14 mg/dL 5-40 [facility] Work Phone: Serum or plasma creatinine m easurement (mass/volume)on 09-21-2021 Creatinine [Mass/Vol] 0.70 mg/dL 0.55-1.02 [facility] Work Phone: Comment on above: The validity of the calculated GFR & GFRAA in patients over 70 years has not been determined. Clinical correlation is essential. Serum or plasma low density lipoprotein (LDL) cholesterol measurement (mass/volume)on 09-21-2021 Cholesterol in LDL [Mass/Vol] 171 mg/dL 0-130 [facility] Work Phone: Serum or plasma urea nitroge n measurement (mass/volume)on 09-21-2021 Urea nitrogen [Mass/Vol] 16 mg/dL 7-18 [facility] Work Phone: Thin prep Papanicolaou smear with manual screeningon 09-21-2021 Thin prep Papanicolaou smear with manual screening 18 U/L 15-37 [facility] Work Phone: Thin prep Papanicolaou smear with manual screening 5 5-15 [facility] Work Phone: Vital Signs Date Time Vital Sign Value Performing Clinician Facility 12-26-2024 11:13-0400 Body height 165.1 cm Nicole Mily PA-C Work Phone: [facility] 12-26-2024 11:13-0400 Body mass index (BMI) [Ratio] 21.87 kg/m2 Nicole Mily PA-C Work Phone: [facility] 12-26-2024 11:13-0400 Body weight 59.6 kg Nicole Mily PA-C Work Phone: [facility] 12-26-2024 11:13-0400 Diastolic blood pressure 48 mm[Hg] Nicole Mily PA-C Work Phone: [facility] 12-26-2024 11:13-0400 Heart rate 47 /min Nicole Mily PA-C Work Phone: [facility] 12-26-2024 11:13-0400 SaO2% (BldA) [Mass fraction] 98 % Nicole Mily PA-C Work Phone: [facility] 12-26-2024 11:13-0400 Systolic blood pressure 110 mm[Hg] Nicole Mily PA-C Work Phone: [facility] 05-14-2024 14:47-[address] Cuff Size DR AYDEN FAYE DO [facility] 05-14-2024 14:47-[address] AYDEN FAYE DO [facility] 05-14-2024 14:47-[address] AYDEN FAYE DO [facility] 05-14-2024 14:47-0500 Body temperature 97.88 [degF] DR AYDEN FAYE DO [facility] 05-14-2024 14:47-0500 Diastolic Blood Pressure Non-Invasive 87 mm[Hg] DR AYDEN FAYE DO [facility] 05-14-2024 14:47-0500 Heart rate 84 /min DR AYDEN FAYE DO [facility] 05-14-2024 14:47-0500 Respiratory rate 16 /min DR AYDEN FAYE DO [facility] 05-14-2024 14:47-0500 Systolic Blood Pressure Non-Invasive 152 mm[Hg] DR AYDEN FAYE DO [facility] 05-07-2024 12:12-0500 Body mass index (BMI) [Ratio] 21.38 kg/m2 Dannie Moomaw [employer] SAL[employer]ESSION[employer] Work Phone: [facility] 05-07-2024 12:12-0500 Body temperature 98.91 [degF] Dannie Moomaw [employer] SALESMAN.[employer]UCATION PAR[employer]OFESSIONAL Work Phone: [facility] 05-07-2024 12:12-0500 Body weight 56.5 kg Dannie Moomaw BOOK SALESMAN.EDUCATION PARAPROFESSIONAL Work Phone: [facility] 05-07-2024 12:12-0500 Diastolic blood pressure 72 mm[Hg] Dannie Moomaw BOOK SALESMAN.EDUCATION PARAPROFESSIONAL Work Phone: [facility] 05-07-2024 12:12-0500 Heart rate 80 /min Dannie Moomaw [employer]OOK SALESMAN.EDUCATION PARAPROFESSIONAL Work Phone: [facility] 05-07-2024 12:12-0500 Respiratory rate 16 /min Dannie Moomaw BOOK SALESMAN.EDUCATION PARAPROFESSIONAL Work Phone: [facility] 05-07-2024 12:12-0500 SaO2% (BldA) [Mass fraction] 96 % Dannie Moomaw BOOK SALESMAN.EDUCATION PARAPROFESSIONAL Work Phone: [facility] 05-07-2024 12:12-0500 Systolic blood pressure 122 mm[Hg] Dannie Moomaw [employer]OOK SALESMAN.EDUCATION PARAPROFESSIONAL Work Phone: [facility] 04-05-2024 14:55-0500 Body mass index (BMI) [Ratio] 23.12 kg/m2 Hamzah Pendlebury BOOK SALESMAN.EDUCATION PARAPROFESSIONAL Work Phone: [facility] 04-05-2024 14:55-0500 Body temperature 97.59 [degF] [facility] [employer] SALESMAN.EDUCATION PARAPROFESSIONAL Work Phone: [facility] 04-05-2024 14:55-0500 Body weight 61.1 kg [facility] [employer]OOK SALESMAN.EDUCATION PARAPROFESSIONAL Work Phone: [facility] 04-05-2024 14:55-0500 Diastolic blood pressure 69 mm[Hg] [facility] [employer] SALESMAN.EDUCATION PARAPROFESSIONAL Work Phone: [facility] 04-05-2024 14:55-0500 Heart rate 68 /min Hamzah Pendlebury BOOK SALESMAN.EDUCATION PARAPROFESSIONAL Work Phone: [facility] 04-05-2024 14:55-0500 Respiratory rate 18 /min Hamzah Pendlebury BOOK SALESMAN.EDUCATION PARAPROFESSIONAL Work Phone: [facility] 04-05-2024 14:55-0500 SaO2% (BldA) [Mass fraction] 96 % [facility] [employer]OOK SALESMAN.EDUCATION PARAPROFESSIONAL Work Phone: [facility] 04-05-2024 14:55-0500 Systolic blood pressure 123 mm[Hg] Hamzah Pendlebury BOOK SALESMAN.EDUCATION PARAPROFESSIONAL Work Phone: [facility] 03-27-2024 15:13-0500 Body mass index (BMI) [Ratio] 22.71 kg/m2 [facility] B[employer] SALESMAN.EDUCATION PARAPROFESSIONAL Work Phone: [facility] 03-27-2024 15:13-0500 Body temperature 97.3 [degF] [facility] [employer] SALESMAN.EDUCATION PARAPROFESSIONAL Work Phone: [facility] 03-27-2024 15:13-0500 Body weight 60 kg [facility] [employer] SALESMAN.[employer]UCATION PARAPROFESSIONAL Work Phone: [facility] 03-27-2024 15:13-0500 Diastolic blood pressure 44 mm[Hg] [facility] [employer] SALESMAN.[employer]UCATION PARAPROFESSIONAL Work Phone: [facility] 03-27-2024 15:13-0500 Heart rate 60 /min [facility] [employer] SALESMAN.[employer]UCATION PARAPROFESSIONAL Work Phone: [facility] 03-27-2024 15:13-0500 Respiratory rate 20 /min [facility] B[employer] SALESMAN.[employer]UCATION PARAPROFESSIONAL Work Phone: [facility] 03-27-2024 15:13-0500 SaO2% (BldA) [Mass fraction] 97 % [facility] B[employer] SALESMAN.EDUCATION PARAPROFESSIONAL Work Phone: [facility] 03-27-2024 15:13-0500 Systolic blood pressure 121 mm[Hg] [facility] [employer] SALESMAN.[employer]UCATION PARAPROFESSIONAL Work Phone: [facility] 03-13-2024 15:04-0400 Body height 162.6 cm Louise Contreras MD Work Phone: [facility] 03-13-2024 15:04-0400 Body mass index (BMI) [Ratio] 21.99 kg/m2 Louise Contreras MD Work Phone: [facility] 03-13-2024 15:04-0400 Body temperature 98.01 [degF] Louise Contreras MD Work Phone: [facility] 03-13-2024 15:04-0400 Body weight 58.1 kg Louise Contreras MD Work Phone: [facility] 03-13-2024 15:04-0400 Diastolic blood pressure 45 mm[Hg] Louise Contreras MD Work Phone: [facility] 03-13-2024 15:04-0400 Heart rate 54 /min Louise Contreras MD Work Phone: [facility] 03-13-2024 15:04-0400 Systolic blood pressure 132 mm[Hg] Louise Contreras MD Work Phone: [facility] 12-16-2023 17:00-0400 Body temperature 98.78 [degF] MELI GONZALEZ DO [facility] 12-16-2023 17:00-0400 Body weight 62 kg MELI GONZALEZ DO [facility] 12-16-2023 17:00-0400 Diastolic Blood Pressure Non-Invasive 63 mm[Hg] MELI GONZALEZ DO [facility] 12-16-2023 17:00-0400 Heart rate 72 /min MELI GONZALEZ DO [facility] 12-16-2023 17:00-0400 Respiratory rate 16 /min MELI GONZALEZ DO [facility] 12-16-2023 17:00-0400 Systolic Blood Pressure Non-Invasive 117 mm[Hg] MELI LISA DO [facility] 12-06-2023 11:27-0400 Body temperature 98.06 [degF] SANDRA VIVEROS MD [facility] 12-06-2023 11:27-0400 Diastolic Blood Pressure Non-Invasive 62 mm[Hg] SANDRA VIVEROS MD [facility] 12-06-2023 11:27-0400 Heart rate 66 /min SANDRA VIVEROS MD [facility] 12-06-2023 11:27-0400 Respiratory rate 16 /min SANDRA VIVEROS MD [facility] 12-06-2023 11:27-0400 Systolic Blood Pressure Non-Invasive 122 mm[Hg] SANDRA VIVEROS MD [facility] 09-14-2023 16:05-0400 Blood Pressure Location SANDRA VIVEROS MD [facility] 09-14-2023 16:05-0400 Blood Pressure Method SANDRA VIVEROS MD [facility] 09-14-2023 16:05-0400 Body temperature 98.42 [degF] SANDRA VIVEROS MD [facility] 09-14-2023 16:05-0400 Diastolic Blood Pressure Non-Invasive 65 mm[Hg] SANDRA VIVEROS MD [facility] 09-14-2023 16:05-0400 Heart rate 78 /min SANDRA VIVEROS MD [facility] 09-14-2023 16:05-0400 Respiratory rate 18 /min SANDRA VIVEROS MD [facility] 09-14-2023 16:05-0400 Systolic Blood Pressure Non-Invasive 117 mm[Hg] SANDRA VIVEROS MD [facility] 06-17-2023 07:57-0500 Body height 165.[address] Cheryle Babcock Work Phone: [facility] 06-17-2023 07:57-0500 Body mass index (BMI) [Ratio] 25.6 kg/m2 Dr. Cheryle Babcock Work Phone: [facility] 06-17-2023 07:57-0500 Body temperature 97.6 [degF] Dr. Cheryle Babcock Work Phone: [facility] 06-17-2023 07:57-0500 Body weight 69.[address] Cheryle Babcock Work Phone: [facility] 06-17-2023 07:57-0500 Diastolic blood pressure 84 mm[Hg] Dr. Cheryle Babcock Work Phone: [facility] 06-17-2023 07:57-0500 Heart rate 73 /min Dr. Cheryle Babcock Work Phone: [facility] 06-17-2023 07:57-0500 Respiratory rate 16 /min Dr. Cheryle Babcock Work Phone: [facility] 06-17-2023 07:57-0500 SaO2% (BldA) [Mass fraction] 97 % Dr. Cheryle Babcock Work Phone: [facility] 06-17-2023 07:57-0500 Systolic blood pressure 140 mm[Hg] Dr. Cheryle Babcock Work Phone: [facility] 05-05-2023 14:53-0500 Body mass index (BMI) [Ratio] 24.1 kg/m2 Dr. Cheryle Babcock Work Phone: [facility] 05-05-2023 14:53-0500 Body temperature 98.5 [degF] Dr. Cheryle Babcock Work Phone: [facility] 05-05-2023 14:53-0500 Body weight 65.[address] Cheryle Babcock Work Phone: [facility] 05-05-2023 14:53-0500 Diastolic blood pressure 64 mm[Hg] Dr. Cheryle Babcock Work Phone: [facility] 05-05-2023 14:53-0500 Heart rate 84 /min Dr. Cheryle Babcock Work Phone: [facility] 05-05-2023 14:53-0500 Respiratory rate 14 /min Dr. Cheryle Babcock Work Phone: [facility] 05-05-2023 14:53-0500 SaO2% (BldA) [Mass fraction] 95 % Dr. Cheryle Babcock Work Phone: [facility] 05-05-2023 14:53-0500 Systolic blood pressure 110 mm[Hg] Dr. Cheryle Babcock Work Phone: [facility] 05-03-2023 09:55-0500 Body temperature 97.8 [degF] Dr. Cheryle Babcock Work Phone: [facility] 05-03-2023 09:55-0500 Diastolic blood pressure 60 mm[Hg] Dr. Cheryle Babcock Work Phone: [facility] 05-03-2023 09:55-0500 Heart rate 68 /min Dr. Cheryle Babcock Work Phone: [facility] 05-03-2023 09:55-0500 Respiratory rate 16 /min Dr. Cheryle Babcock Work Phone: [facility] 05-03-2023 09:55-0500 SaO2% (BldA) [Mass fraction] 93 % Dr. Cheryle Babcock Work Phone: [facility] 05-03-2023 09:55-0500 Systolic blood pressure 104 mm[Hg] Dr. Cheryle Babcock Work Phone: [facility] 05-03-2023 08:40-0500 Body height 165.[address] Cheryle Babcock Work Phone: [facility] 05-03-2023 08:40-0500 Body mass index (BMI) [Ratio] 23.4 kg/m2 Dr. Cheryle Babcock Work Phone: [facility] 05-03-2023 08:40-0500 Body weight [address] Cheryle Babcock Work Phone: [facility] 04-21-2023 14:08-0500 Body mass index (BMI) [Ratio] 24.3 kg/m2 Dr. Cheryle Babcock Work Phone: [facility] 04-21-2023 14:08-0500 Body temperature 98.5 [degF] Dr. Cheryle Babcock Work Phone: [facility] 04-21-2023 14:08-0500 Body weight 66.[address] Cheryle Babcock Work Phone: [facility] 04-21-2023 14:08-0500 Diastolic blood pressure 80 mm[Hg] Dr. Cheryle Babcock Work Phone: [facility] 04-21-2023 14:08-0500 Heart rate 96 /min Dr. Cheryle Babcock Work Phone: [facility] 04-21-2023 14:08-0500 Respiratory rate 16 /min Dr. Cheryle Babcock Work Phone: [facility] 04-21-2023 14:08-0500 SaO2% (BldA) [Mass fraction] 95 % Dr. Cheryle Babcock Work Phone: [facility] 04-21-2023 14:08-0500 Systolic blood pressure 158 mm[Hg] Dr. Cheryle Babcock Work Phone: [facility] 04-18-2023 19:08-0500 Blood Pressure Location NIDAL CHOUJAA DO [facility] 04-18-2023 19:08-0500 Blood Pressure Method NIDAL CHOUJAA DO [facility] 04-18-2023 19:08-0500 Diastolic Blood Pressure Non-Invasive 80 mm[Hg] NIDAL CHOUJAA DO [facility] 04-18-2023 19:08-0500 Heart rate 90 /min NIDAL CHOUJAA DO [facility] 04-18-2023 19:08-0500 Respiratory rate 18 /min NIDAL CHOUJAA DO [facility] 04-18-2023 19:08-0500 Systolic Blood Pressure Non-Invasive 138 mm[Hg] NIDAL CHOUJAA DO [facility] 04-18-2023 16:12-0500 Blood Pressure Location NIDAL CHOUJAA DO [facility] 04-18-2023 16:12-0500 Blood Pressure Method NIDAL CHOUJAA DO [facility] 04-18-2023 16:12-0500 Body temperature 98.24 [degF] NIDAL CHOUJAA DO [facility] 04-18-2023 16:12-0500 Body weight 70.5 kg NIDAL CHOUJAA DO [facility] 04-18-2023 16:12-0500 Diastolic Blood Pressure Non-Invasive 81 mm[Hg] NIDAL CHOUJAA DO [facility] 04-18-2023 16:12-0500 Heart rate 92 /min NIDAL CHOUJAA DO [facility] 04-18-2023 16:12-0500 Respiratory rate 18 /min NIDAL CHOUJAA DO [facility] 04-18-2023 16:12-0500 Systolic Blood Pressure Non-Invasive 144 mm[Hg] NIDAL CHOUJAA DO [facility] 04-11-2023 09:36-0500 Diastolic blood pressure 68 mm[Hg] Dr. Cheryle Babcock Work Phone: [facility] 04-11-2023 09:36-0500 Respiratory rate 16 /min Dr. Cheryle Babcock Work Phone: [facility] 04-11-2023 09:36-0500 Systolic blood pressure 163 mm[Hg] Dr. Cheryle Babcock Work Phone: [facility] 02-09-2023 16:15-0400 Body height 165.[address] Cheryle Babcock Work Phone: [facility] 02-09-2023 16:15-0400 Body mass index (BMI) [Ratio] 24.8 kg/m2 Dr. Cheryle Babcock Work Phone: [facility] 02-09-2023 16:15-0400 Body temperature 98.8 [degF] Dr. Cheryle Babcock Work Phone: [facility] 02-09-2023 16:15-0400 Body weight 67.[address] Cheryle Babcock Work Phone: [facility] 02-09-2023 16:15-0400 Diastolic blood pressure 80 mm[Hg] Dr. Cheryle Babcock Work Phone: [facility] 02-09-2023 16:15-0400 Heart rate 66 /min Dr. Cheryle Babcock Work Phone: [facility] 02-09-2023 16:15-0400 Respiratory rate 18 /min Dr. Cheryle Babcock Work Phone: [facility] 02-09-2023 16:15-0400 SaO2% (BldA) [Mass fraction] 99 % Dr. Cheryle Babcock Work Phone: [facility] 02-09-2023 16:15-0400 Systolic blood pressure 130 mm[Hg] Dr. Cheryle Babcock Work Phone: [facility] 12-27-2022 10:04-0400 Body height 164.[address] Cheryle Babcock Work Phone: [facility] 12-27-2022 10:04-0400 Body mass index (BMI) [Ratio] 24.5 kg/m2 Dr. Cheryle Babcock Work Phone: [facility] 12-27-2022 10:04-0400 Body temperature 98.3 [degF] Dr. Cheryle Babcock Work Phone: [facility] 12-27-2022 10:04-0400 Body weight 66.[address] Cheryle Babcock Work Phone: [facility] 12-27-2022 10:04-0400 Diastolic blood pressure 78 mm[Hg] Dr. Cheryle Babcock Work Phone: [facility] 12-27-2022 10:04-0400 Heart rate 65 /min Dr. Cheryle Babcock Work Phone: [facility] 12-27-2022 10:04-0400 Respiratory rate 16 /min Dr. Cheryle Babcock Work Phone: [facility] 12-27-2022 10:04-0400 SaO2% (BldA) [Mass fraction] 98 % Dr. Cheryle Babcock Work Phone: [facility] 12-27-2022 10:04-0400 Systolic blood pressure 148 mm[Hg] Dr. Cheryle Babcock Work Phone: [facility] 12-09-2022 11:33-[address] DEMAR SANDS MD [facility] 12-09-2022 11:33-[address] DEMAR SANDS MD [facility] 12-09-2022 11:33-0400 Body temperature 97.7 [degF] DR DEMAR SANDS MD [facility] 12-09-2022 11:33-0400 Diastolic Blood Pressure Non-Invasive [address] DEMAR SANDS MD [facility] 12-09-2022 11:33-0400 Heart rate 87 /min DR DEMAR SANDS MD [facility] 12-09-2022 11:33-0400 Respiratory rate 18 /min DR DEMAR SANDS MD [facility] 12-09-2022 11:33-0400 Systolic Blood Pressure Non-Invasive [address] DEMAR SANDS MD [facility] 11-03-2022 16:02-0400 Body mass index (BMI) [Ratio] 23.7 kg/m2 Dr. Cheryle Babcock Work Phone: [facility] 11-03-2022 16:02-0400 Body temperature 95 [degF] Dr. Cheryle Babcock Work Phone: [facility] 11-03-2022 16:02-0400 Body weight 64.[address] Cheryle Babcock Work Phone: [facility] 11-03-2022 16:02-0400 Diastolic blood pressure 90 mm[Hg] Dr. Cheryle Babcock Work Phone: [facility] 11-03-2022 16:02-0400 Heart rate 86 /min Dr. Cheryle Babcock Work Phone: [facility] 11-03-2022 16:02-0400 Respiratory rate 18 /min Dr. Cheryle Babcock Work Phone: [facility] 11-03-2022 16:02-0400 SaO2% (BldA) [Mass fraction] 96 % Dr. Cheryle Babcock Work Phone: [facility] 11-03-2022 16:02-0400 Systolic blood pressure 148 mm[Hg] Dr. Cheryle Babcock Work Phone: [facility] 02-11-2022 15:34-0400 Body height 164.[address] Cheryle Babcock Work Phone: [facility] Work Phone: 02-11-2022 15:34-0400 Body mass index (BMI) [Ratio] 20.2 kg/m2 Dr. Cheryle Babcock Work Phone: [facility] Work Phone: 02-11-2022 15:34-0400 Body temperature 98 [degF] Dr. Cheryle Babcock Work Phone: [facility] Work Phone: 02-11-2022 15:34-0400 Body weight 54.[address] Cheryle Babcock Work Phone: [facility] Work Phone: 02-11-2022 15:34-0400 Diastolic blood pressure 74 mm[Hg] Dr. Cheryle Babcock Work Phone: [facility] Work Phone: 02-11-2022 15:34-0400 Heart rate 92 /min Dr. Cheryle Babcock Work Phone: [facility] Work Phone: 02-11-2022 15:34-0400 Respiratory rate 18 /min Dr. Cheryle Babcock Work Phone: [facility] Work Phone: 02-11-2022 15:34-0400 SaO2% (BldA) [Mass fraction] 98 % Dr. Cheryle Babcock Work Phone: [facility] Work Phone: 02-11-2022 15:34-0400 Systolic blood pressure 166 mm[Hg] Dr. Cheryle Babcock Work Phone: [facility] Work Phone: 02-03-2022 13:55-0400 Body mass index (BMI) [Ratio] 20.5 kg/m2 Dr. Cheryle Babcock Work Phone: [facility] Work Phone: 02-03-2022 13:55-0400 Body temperature 97.3 [degF] Dr. Cheryle Babcock Work Phone: [facility] Work Phone: 02-03-2022 13:55-0400 Body weight 55.[address] Cheryle Babcock Work Phone: [facility] Work Phone: 02-03-2022 13:55-0400 Diastolic blood pressure 64 mm[Hg] Dr. Cheryle Babcock Work Phone: [facility] Work Phone: 02-03-2022 13:55-0400 Heart rate 82 /min Dr. Cheryle Babcock Work Phone: [facility] Work Phone: 02-03-2022 13:55-0400 Respiratory rate 18 /min Dr. Cheryle Babcock Work Phone: [facility] Work Phone: 02-03-2022 13:55-0400 SaO2% (BldA) [Mass fraction] 99 % Dr. Cheryle Babcock Work Phone: [facility] Work Phone: 02-03-2022 13:55-0400 Systolic blood pressure 110 mm[Hg] Dr. Cheryle Babcock Work Phone: [facility] Work Phone: 11-03-2021 09:38-0400 Body height 164.[address] Cheryle Babcock Work Phone: [facility] Work Phone: 11-03-2021 09:38-0400 Body mass index (BMI) [Ratio] 19.4 kg/m2 Dr. Cheryle Babcock Work Phone: [facility] Work Phone: 11-03-2021 09:38-0400 Body weight 52.[address] Cheryle Babcock Work Phone: [facility] Work Phone: 11-03-2021 09:38-0400 Diastolic blood pressure 61 mm[Hg] Dr. Cheryle Babcock Work Phone: [facility] Work Phone: 11-03-2021 09:38-0400 Respiratory rate 18 /min Dr. Cheryle Babcock Work Phone: [facility] Work Phone: 11-03-2021 09:38-0400 Systolic blood pressure 130 mm[Hg] Dr. Cheryle Babcock Work Phone: [facility] Work Phone: 11-02-2021 14:02-0400 Body mass index (BMI) [Ratio] 19 kg/m2 Dr. Cheryle Babcock Work Phone: [facility] Work Phone: 11-02-2021 14:02-0400 Body temperature 97.6 [degF] Dr. Cheryle Babcock Work Phone: [facility] Work Phone: 11-02-2021 14:02-0400 Body weight 51.[address] Cheryle Babcock Work Phone: [facility] Work Phone: 11-02-2021 14:02-0400 Diastolic blood pressure 70 mm[Hg] Dr. Cheryle Babcock Work Phone: [facility] Work Phone: 11-02-2021 14:02-0400 Heart rate 71 /min Dr. Cheryle Babcock Work Phone: [facility] Work Phone: 11-02-2021 14:02-0400 Respiratory rate 18 /min Dr. Cheryle Babcock Work Phone: [facility] Work Phone: 11-02-2021 14:02-0400 SaO2% (BldA) [Mass fraction] 96 % Dr. Cheryle Babcock Work Phone: [facility] Work Phone: 11-02-2021 14:02-0400 Systolic blood pressure 144 mm[Hg] Dr. Cheryle Babcock Work Phone: [facility] Work Phone: 09-30-2021 08:35-0400 Body mass index (BMI) [Ratio] 19.3 kg/m2 Dr. Cheryle Babcock Work Phone: [facility] Work Phone: 09-30-2021 08:35-0400 Body temperature 97.9 [degF] Dr. Cheryle Babcock Work Phone: [facility] Work Phone: 09-30-2021 08:35-0400 Body weight 52.[address] Cheryle Babcock Work Phone: [facility] Work Phone: 09-30-2021 08:35-0400 Diastolic blood pressure 78 mm[Hg] Dr. Cheryle Babcock Work Phone: [facility] Work Phone: 09-30-2021 08:35-0400 Heart rate 78 /min Dr. Cheryle Babcock Work Phone: [facility] Work Phone: 09-30-2021 08:35-0400 Respiratory rate 14 /min Dr. Cheryle Babcock Work Phone: [facility] Work Phone: 09-30-2021 08:35-0400 SaO2% (BldA) [Mass fraction] 99 % Dr. Cheryle Babcock Work Phone: [facility] Work Phone: 09-30-2021 08:35-0400 Systolic blood pressure 122 mm[Hg] Dr. Cheryle Babcock Work Phone: [facility] Work Phone: 09-21-2021 11:04-0400 Body mass index (BMI) [Ratio] 19.4 kg/m2 Dr. Cheryle Babcock Work Phone: [facility] Work Phone: 09-21-2021 11:04-0400 Body temperature 98.1 [degF] Dr. Cheryle Babcock Work Phone: [facility] Work Phone: 09-21-2021 11:04-0400 Body weight 52.[address] Cheryle Babcock Work Phone: [facility] Work Phone: 09-21-2021 11:04-0400 Diastolic blood pressure 70 mm[Hg] Dr. Cheryle Babcock Work Phone: [facility] Work Phone: 09-21-2021 11:04-0400 Heart rate 77 /min Dr. Cheryle Babcock Work Phone: [facility] Work Phone: 09-21-2021 11:04-0400 Respiratory rate 14 /min Dr. Cheryle Babcock Work Phone: [facility] Work Phone: 09-21-2021 11:04-0400 SaO2% (BldA) [Mass fraction] 98 % Dr. Cheryle Babcock Work Phone: [facility] Work Phone: 09-21-2021 11:04-0400 Systolic blood pressure 124 mm[Hg] Dr. Cheryle Babcock Work Phone: [facility] Work Phone: 09-21-2021 11:04-0400 Body height 164.[address] Cheryle Babcock Work Phone: [facility] Work Phone: 09-21-2021 11:04-0400 Body mass index (BMI) [Ratio] 19.4 kg/m2 Dr. Cheryle Babcock Work Phone: [facility] Work Phone: 09-21-2021 11:04-0400 Body temperature 98.1 [degF] Dr. Cheryle Babcock Work Phone: [facility] Work Phone: 09-21-2021 11:04-0400 Body weight 52.[address] Cheryle Babcock Work Phone: [facility] Work Phone: 09-21-2021 11:04-0400 Diastolic blood pressure 70 mm[Hg] Dr. Cheryle Babcock Work Phone: [facility] Work Phone: 09-21-2021 11:04-0400 Heart rate 77 /min Dr. Cheryle Babcock Work Phone: [facility] Work Phone: 09-21-2021 11:04-0400 Respiratory rate 14 /min Dr. Cehryle Babcock Work Phone: [facility] Work Phone: 09-21-2021 11:04-0400 SaO2% (BldA) [Mass fraction] 98 % Dr. Cheryle Babcock Work Phone: [facility] Work Phone: 09-21-2021 11:04-0400 Systolic blood pressure 124 mm[Hg] Dr. Cheryle Babcock Work Phone: [facility] Work Phone: 08-18-2021 12:59-0400 Body mass index (BMI) [Ratio] 18.6 kg/m2 Dr. Cheryle Babcock Work Phone: [facility] Work Phone: 08-18-2021 12:59-0400 Body temperature 97.6 [degF] Dr. Cheryle Babcock Work Phone: [facility] Work Phone: 08-18-2021 12:59-0400 Body weight 50.[address] Cheryle Babcock Work Phone: [facility] Work Phone: 08-18-2021 12:59-0400 Diastolic blood pressure 60 mm[Hg] Dr. Cheryle Babcock Work Phone: [facility] Work Phone: 08-18-2021 12:59-0400 Heart rate 81 /min Dr. Cheryle Babcock Work Phone: [facility] Work Phone: 08-18-2021 12:59-0400 Respiratory rate 16 /min Dr. Cheryle Babcock Work Phone: [facility] Work Phone: 08-18-2021 12:59-0400 SaO2% (BldA) [Mass fraction] 96 % Dr. Cheryle Babcock Work Phone: [facility] Work Phone: 08-18-2021 12:59-0400 Systolic blood pressure 116 mm[Hg] Dr. Cheryle Babcock Work Phone: [facility] Work Phone: 08-18-2021 12:59-0400 Body mass index (BMI) [Ratio] 18.6 kg/m2 Dr. Cheryle Babcock Work Phone: [facility] Work Phone: 08-18-2021 12:59-0400 Body temperature 97.6 [degF] Dr. Cheryle Babcock Work Phone: [facility] Work Phone: 08-18-2021 12:59-0400 Body weight 50.[address] Cheryle Babcock Work Phone: [facility] Work Phone: 08-18-2021 12:59-0400 Diastolic blood pressure 60 mm[Hg] Dr. Cheryle Babcock Work Phone: [facility] Work Phone: 08-18-2021 12:59-0400 Heart rate 81 /min Dr. Cheryle Babcock Work Phone: [facility] Work Phone: 08-18-2021 12:59-0400 Respiratory rate 16 /min Dr. Cheryle Babcock Work Phone: [facility] Work Phone: 08-18-2021 12:59-0400 SaO2% (BldA) [Mass fraction] 96 % Dr. Cheryle Babcock Work Phone: [facility] Work Phone: 08-18-2021 12:59-0400 Systolic blood pressure 116 mm[Hg] Dr. Cheryle Babcock Work Phone: [facility] Work Phone: 06-18-2021 07:46-0500 Body temperature 98.7 [degF] Dr. Cheryle Babcock Work Phone: [facility] Work Phone: 06-18-2021 07:46-0500 Body weight 48.[address] Cheryle Babcock Work Phone: [facility] Work Phone: 06-18-2021 07:46-0500 Diastolic blood pressure 74 mm[Hg] Dr. Cheryle Babcock Work Phone: [facility] Work Phone: 06-18-2021 07:46-0500 Heart rate 62 /min Dr. Cheryle Babcock Work Phone: [facility] Work Phone: 06-18-2021 07:46-0500 Respiratory rate 14 /min Dr. Cheryle Babcock Work Phone: [facility] Work Phone: 06-18-2021 07:46-0500 SaO2% (BldA) [Mass fraction] 99 % Dr. Cheryle Babcock Work Phone: [facility] Work Phone: 06-18-2021 07:46-0500 Systolic blood pressure 136 mm[Hg] Dr. Cheryle Babcock Work Phone: [facility] Work Phone: 04-12-2021 13:00-0500 Body temperature 97.7 [degF] ELANA LEMOS MD [facility] 04-12-2021 13:00-0500 Diastolic blood pressure 57 mm[Hg] ELANA LEMOS MD [facility] 04-12-2021 13:00-0500 Heart rate 63 /min ELANA LEMOS MD [facility] 04-12-2021 13:00-0500 Respiratory rate 20 /min ELANA LEMOS MD [facility] 04-12-2021 13:00-0500 Systolic blood pressure 104 mm[Hg] ELANA LEMOS MD [facility] 12-18-2020 11:10-0400 Body mass index (BMI) [Ratio] 16.7 kg/m2 Dr. Cheryle Babcock Work Phone: [facility] Work Phone: Encounters Encounter Date Encounter Type Care Provider Facility Start: 03-26-2025 End: 03-26-2025 ambulatory Rain Etienne Facility:[facility] Start: 03-12-2025 ambulatory Cheryle Babcock Facilit y:[facility] Start: 02-20-2025 End: 02-20-2025 ambulatory NICOLE MINOR Facility:[facility] Start: 02-13-2025 End: 02-13-2025 ambulatory Cheryle Babcock Facility:[facility] Start: 01-16-2025 End: 01-16-2025 ambulatory NICOLE MINOR PA-C Facility:[facility] Start: 01-16-2025 End: 01-16-2025 Patient encounter procedure NICOLE Jefferson MILY PA-C [facility] Start: 01-03-2025 End: 01-03-2025 Telephone encounter Rupesh Bernardo RDMS, RVT Radiology Comment on above: Appointment Start: 01-02-2025 End: 01-03-2025 Telephone encounter Nicole Mily PA-C Work Phone: Rheumatology Start: 12-27-2024 End: 12-27-2024 Telephone encounter Nicole Mily PA-C Work Phone: Rheumatology Comment on above: Received Outside [facility] Records (Eye Dr. Nuñez 10/29/24 [facility]) Start: 12-26-2024 End: 12-26-2024 ambulatory NICOLE MILY Facility:[facility] Start: 12-26-2024 End: 12-26-2024 Subsequent hospital visit by physician [facility] Work Phone: Radiology Comment on above: Polyarthralgia [M25. 50] Start: 12-26-2024 End: 12-26-2024 Patient encounter procedure Nicole Mily PA-C Work Phone: Rheumatology Comment on above: Polyarthralgia (Prim karen Dx); Constipation, unspecified constipation type; Intermittent diarrhea; Bruising; Fibromyalgia; Severe depression (HCC); Anxiety; Rash of face; Rash and nonspecific skin eruption; Intractable headache, unspecified chronicity pattern, unspecified headache type; Eye inflammation; Chronic midline low back pain, unspecified whether sciatica present; Sicca syndrome (HCC) Start: 12-26-2024 End: 12-26-2024 ambulatory [facility] Facility:[facility] Start: 12-20-2024 End: 12-20-2024 ambulatory Cheryle Babcock Facility:[facility] Start: 11-14-2024 End: 11-14-2024 ambulatory Cheryle Babcock Facility:[facility] Start: 09-28-2024 ambulatory Marcos smith:[facility] Start: 08-15-2024 End: 08-15-2024 ambulatory Cheryle Babcock Facility:[facility] Start: 08-15-2024 End: 08-15-2024 ambulatory Cheryle R Yoko Facility:[facility] Start: 08-08-2024 End: 08-08-2024 ambulatory Digna Hemantzhaomicky Facility:[facility] Start: 07-24-2024 End: 07-24-2024 ambulatory NARAYAN LEOS MD Facility:[facility] Start: 07-19-2024 End: 07-19-2024 ambulatory Narayan Leos Facility:[facility] Start: 07-09-2024 End: 07-09-2024 ambulatory Cheryle Babcock Facility:[facility] Start: 07-04-2024 End: 07-04-2024 ambulatory Cheryle R Yoko Facility:[facility] Start: 06-20-2024 End: 06-20-20[facility] Start: 05-15-2024 End: 05-15-2024 ambulatory [facility] Facility:[facility] Start: 05-14-2024 End: 05-14-2024 Emergency department patient visit DR AYDEN FAYE DO [facility] Start: 05-11-2024 End: 05-11-2024 Telephone encounter Louise Contreras MD Work Phone: Rheumatology Comment on above: Patient Update Start: 05-10-2024 End: 05-10-2024 Emergency department patient visit Francisco J Guzman Facility:[facility] Start: 05-07-2024 End: 05-07-2024 ambulatory CHERYLE Arturo YOKO Facility:[facility] Start: 05-07-2024 End: 05-07-2024 Patient encounter procedure Dannie Bartholomew APRN.CNP Work Phone: [facility] Comment on above: Nausea and vomiting, unspecified vomiting type (Primary Dx); Bacterial sinusitis Start: 05-04-2024 End: 05-04-2024 ambulatory Cheryle Babcock Facility:[facility] Start: 04-19-2024 End: 04-19-2024 ambulatory Cheryle Babcock Facility:[facility] Start: 04-10-2024 End: 04-10-2024 [facility] Facility:[facility] Start: 04-09-2024 End: 04-09-2024 Telephone encounter Louise Contreras MD Work Phone: Rheumatology Comment on above: Patient Update Start: 04-05-2024 End: 04-05-2024 [facility] Facility:[facility] Start: 04-05-2024 End: 04-05-2024 Office outpatient visit 15 minutes Hamzah Cali [employer] SALESMAN.[employer]UCATION PARAPROFESSIONAL Work Phone: [facility] Comment on above: Eye discomfort, righ t (Primary Dx) Start: 04-03-2024 End: 04-04-2024 [facility] Facility:[facility] Start: 03-29-2024 End: 03-29-2024 Telephone encounter Louise Contreras MD Work Phone: Rheumatology Comment on above: Patient Question Start: 03-27-2024 End: 03-27-2024 [facility] Facility:[facility] Start: 03-27-2024 End: 03-27-2024 Office outpatient visit 15 minutes Hamzahtony Cali BOOK SALESMAN.EDUCATION PARAPROFESSIONAL Work Phone: [facility] Comment on above: Sore throat (Primary Dx); Thrush Start: 03-19-2024 End: 03-19-2024 Telephone encounter Louise Contreras MD Work Phone: Rheumatology Comment on above: Patient Update Start: 03-14-2024 End: 03-14-2024 ambulatory LOUISE CONTRERAS Facility:[facility] Start: 03-13-2024 End: 03-13-2024 ambulatory LOUISE CONTRERAS Facility:[facility] Start: 03-13-2024 End: 03-13-2024 Patient encounter procedure Louise Contreras MD Work Phone: Rheumatology Comment on above: Polyarthralgia (Prim karen Dx); Weight loss, unintentional; Constipation, unspecified constipation type; Intermittent diarrhea; Bruising; Fibromyalgia; Severe depression (HCC); Anxiety Start: 12-16-2023 End: 12-16-2023 Emergency department patient visit MELI GONZALEZ DO [facility] Start: 12-06-2023 End: 12-06-2023 Emergency department patient visit SANDRA VIVEROS MD [facility] Start: 09-14-2023 End: 09-14-2023 Emergency department patient visit SANDRA VIVEROS MD [facility] Start: 08-25-2023 End: 08-25-[address] DIGNA RUSSELL MD Facility:[facility] Start: 08-25-2023 End: 08-25-[address] DIGNA RUSSELL MD [facility] Start: 06-17-2023 End: 06-17-[address] Cheryle Babcock Work Phone: [facility] Work Phone: Start: 06-17-2023 End: 06-17-[address] Cheryle Babcock Work Phone: [facility] Work Phone: Start: 06-17-2023 End: 06-17-[address] Cheryle Babcock Work Phone: [facility] Work Phone: Start: 06-04-2023 End: 06-04-[address] DIGNA RUSSELL MD Facility:[facility] Start: 05-05-2023 End: 05-05-[address] Cheryle Babcock Work Phone: [facility] Work Phone: Start: 05-03-2023 Non-patient / Non-visit Dr. Sanchez Work Phone: [facility] Start: 05-03-2023 End: 05-03-2023 Admission to same day surgery center Dr. Cheryle Babcock Work Phone: [facility] Work Phone: Start: 04-28-2023 End: 04-28-[address] Cheryle Babcock Work Phone: [facility] Work Phone: Start: 04-28-2023 End: 04-28-[address] [facility] Babcock [facility] Start: 04-21-2023 End: 04-21-[address] Cheryle Babcock Work Phone: [facility] Work Phone: Start: 04-18-2023 End: 04-18-2023 Emergency department patient visit KVNG SWAIN DO [facility] Start: 04-11-2023 End: 04-11-[address] Cheryle Babcock Work Phone: [facility] Work Phone: Start: 04-08-2023 End: 04-08-[address] DIGNA RUSSELL MD Facility:[facility] Start: 04-08-2023 End: 04-08-[address] DIGNA RUSSELL MD [facility] Start: 03-09-2023 End: 03-09-[address] Cheryle Babcock Work Phone: [facility] Work Phone: Start: 03-09-2023 End: 03-09-[address] Cheryle Babcock Work Phone: [facility] Work Phone: Start: 02-09-2023 End: 02-09-[address] Cheryle Babcock Work Phone: [facility] Work Phone: Start: 01-31-2023 End: 01-31-[address] Cheryle Babcock Work Phone: [facility] Work Phone: Start: 01-31-2023 End: 01-31-[address] Cheryle Babcock Work Phone: [facility] Work Phone: Start: 01-13-2023 End: 01-13-[address] Cheryle Babcock Work Phone: [facility] Work Phone: Start: 01-05-[address] Elmira Babcock [facility] Work [facility]: Start: 12-27-2022 End: 12-27-[address] Cheryle Babcock Work Phone: [facility] Work Phone: Start: 12-27-2022 End: 12-27-[address] Cheryle Babcock Work Phone: [facility] Work Phone: Start: 12-09-2022 End: 12-09-2022 Emergency department patient visit DR DEMAR SANDS MD [facility] Start: 11-03-2022 End: 11-03-[address] Cheryle Babcock Work Phone: [facility] Work Phone: Start: 02-18-2022 End: 02-18-[address] Cheryle Babcock Work Phone: [facility] Work Phone: Start: 02-18-2022 End: 02-18-[address] Cheryle Babcock Work Phone: [facility] Start: 02-11-2022 End: 02-11-[address] Cheryle Babcock Work Phone: [facility] Start: 02-03-2022 End: 02-03-[address] Cheryle Babcock Work Phone: [facility] Start: 11-03-2021 End: 11-03-[address] Cheryle Babcock Work Phone: [facility] Start: 11-02-2021 End: 11-02-[address] Cheryle Babcock Work Phone: [facility] Start: 09-30-2021 End: 09-30-[address] Cheryle Babcock Work Phone: [facility] Start: 09-22-2021 End: 09-22-[address] Cheryle Babcock Work Phone: [facility] Spec[facility] Start: 09-21-2021 End: 09-21-[address] Cheryle Babcock Work Phone: [facility] Start: 08-18-2021 End: 08-18-[address] Cheryle Babcock Work Phone: [facility] Start: 06-18-2021 End: 06-18-[address] Cheryle Babcock Work Phone: [facility] Start: 04-12-2021 End: 04-12-2021 Emergency department patient visit ELANA LEMOS MD [facility] Procedures Date Procedure Procedure Detail Performing Clinician Start: 03-27-2024 STREP Eddie MOLECULAR (POC) Jamia Mclaughlin PA-C Work Phone: Start: 06-17-2023 End: 06-17-2023 Radiologic examination of knee Dr. Cheryle Babcock Work Phone: Start: 05-03-[address] Isac Babcock Work Phone: Start: 02-18-2022 X-ray of chest posteroanterior view Dr. Cheryle Babcock Work Phone: Start: 09-30-2021 X-ray of both feet Dr. Cheryle Babcock Work Phone: Start: 09-22-2021 End: 09-22-2021 Measurement of occult blood in stool specimen using immunoassay Dr. Cheryle Babcock Work Phone: Appendectomy ELANA Pickett Entire knee region ( body structure) ELANA LEMOS MD Comment on above: right knee surgery Hysterectomy ELANA Pickett Measurement of occul t blood in stool specimen using immunoassay Dr. Cheryle Babcock Work Phone: Plan of Treatment Date Care Activity Detail Author Start: 12-27-2027 Diabetes Screening Diabetes Screenin g [facility] Start: 03-13-2027 Diabetes Screening Diabetes Screenin g [facility] Start: 01-14-2025 Influenza vaccination Influenza Vacc ine (#1) [facility] Start: 12-26-2024 End: 03-26-2025 C reactive protein [Mass/volume] in Serum or Plasma [facility] Comment on above: Expected: 12/26/2024 , Expires: 03/26/2025 Start: 12-26-2024 End: 03-26-2025 Cyclic citrullinated peptide IgG Ab [Units/volume] in Serum or Plasma [facility] Comment on above: Expected: 12/26/2024 , Expires: 03/26/2025 Start: 12-26-2024 End: 03-26-2025 Rheumatoid factor [Units/volume] in Serum or Plasma [facility] Comment on above: Expected: 12/26/2024 , Expires: 03/26/2025 Start: 12-26-2024 End: 03-26-2025 SJOGREN ABS SSA/SSB [facility] Comment on above: Expected: 12/26/2024 , Expires: 03/26/2025 Start: 09-19-2024 End: 09-19-2024 Patient encounter procedure 09/19/2024 9:30 AM EDT Office Visit Rheumatology [address] [address] Louise Contreras MD [address] [place] [address] 6mth follow up regarding Osteoarthritis Rheumatology Comment on above: 6mth follow up gina ding Osteoarthritis Start: 06-11-2024 End: 06-11-2024 Patient encounter procedure 06/11/2024 9:00 AM EST Office Visit Rheumatology [address] [address] Shannan Katz PA-C [address] [place] [address] 3mth Osteoarthritis follow up Rheumatology Comment on above: 3mth Osteoarthritis follow up Start: 03-13-2024 End: 06-12-2024 RADHA BY IFA WITH REFLEX [facility] Comment on above: Expected: 03/13/2024 , Expires: 06/12/2024 Start: 03-13-2024 End: 06-12-2024 Ascorbate [Mass/volume] in Serum or Plasma [facility] Comment on above: Expected: 03/13/2024 , Expires: 06/12/2024 Start: 03-13-2024 End: 06-12-2024 C reactive protein [Mass/volume] in Serum or Plasma [facility] Comment on above: Expected: 03/13/2024 , Expires: 06/12/2024 Start: 03-13-2024 End: 06-12-2024 CELIAC SCREEN WITH REFLEX [facility] Comment on above: Expected: 03/13/2024 , Expires: 06/12/2024 Start: 03-13-2024 End: 06-12-2024 Comprehensive metabolic 2000 panel - Serum or Plasma [facility] Work Phone: Comment on above: Expected: 03/13/2024 , Expires: 06/12/2024 Start: 03-13-2024 End: 06-12-2024 Cortisol [Mass/volume] in Serum or Plasma CORTISOL, SERUM Lab Routine Polyarthralgia Expected: 03/13/2024, Expires: 06/12/2024 [facility] Comment on above: Expected: 03/13/2024 , Expires: 06/12/2024 Start: 03-13-2024 End: 06-12-2024 Extractable nuclear Ab panel - Serum [facility] Comment on above: Expected: 03/13/2024 , Expires: 06/12/2024 Start: 03-13-2024 End: 06-12-2024 Thyrotropin [Units/volume] in Serum or Plasma [facility] Comment on above: Expected: 03/13/2024 , Expires: 06/12/2024 Start: 03-13-2024 End: 06-12-2024 Thyroxine (T4) free [Mass/volume] in Serum or Plasma [facility] Comment on above: Expected: 03/13/2024 , Expires: 06/12/2024 Start: 01-15-2024 Covid-19 Vaccine ( season) Covid-19 Vaccine () [facility] Start: 01-15-2024 Influenza vaccination Influenza Vacc ine (#1) [facility] Start: 05-03-2023 Colonoscopy w/biopsy single/multiple COLONOSCOPY AND BIOPSY [facility] Start: 05-03-2023 Egd transoral biopsy single/multiple EGD BIOPSY SINGLE/MULTIPLE [facility] Start: 05-03-2023 Patient discharge [facility] Start: 01-13-2023 Patient referral [facility] Work Phone: Start: 12-27-2022 Patient referral [facility] Work Phone: Start: 11-02-2021 [facility] Work Phone: Start: 09-21-2021 Patient referral [facility] Work Phone: Start: 2017 Shingrix Vaccine (1 of 2) Shingrix Vaccine (1 of 2) [facility] Start: 01-23-2012 Diabetes Screening Diabetes Screenin g [facility] Start: 01-23-2012 Lipid panel Lipid Screening [facility] Start: 01-23-2012 Screening for malign ant neoplasm of colon [facility] Start: 2007 Screening for malign ant neoplasm of breast Mammogram Screening [facility] Start: 01-23-1988 Screening for malign ant neoplasm of cervix Cervical Cancer Screening [facility] Start: 1986 Hepatitis B Vaccine (1 of 3 - 19+ 3-dose series) Hepatitis B Vaccine (1 of 3 - 19+ 3-dose series) [facility] Start: 1986 Pneumococcal Vaccine : 50+ (1 of 2 - PCV) Pneumococcal Vaccine: 50+ (1 of 2 - PCV) [facility] Start: 1986 Urine microalbumin profile DTaP,Tdap,Td Vaccine (1 - Tdap) [facility] Start: 1985 Hepatitis C screening Hepatitis C Sc reening [facility] Start: 1985 HIV screening HIV Screening [facility] Start: 1973 Pneumococcal vaccination Pneum ococcal Vaccine (1 of 2 - PCV) [facility] Antibody to lupus La protein measurement [facility] Work Phone: Antibody to SS-A measurement [facility] Work Phone: Centromere protein B Ab [Units/volume] in Serum [facility] Work Phone: Chromatin Ab [Units/volume] in Serum or Plasma [facility] Work Phone: Colonoscopy [facility] Work Phone: DNA double strand Ab [Units/volume] in Serum [facility] Work Phone: Sho-1 extractable nuc lear Ab [Units/volume] in Serum [facility] Work Phone: MG Breast - bilatera l Screening [facility] Work Phone: Patient referral [facility] Work Phone: SCL-70 extractable nuclear Ab [Units/volume] in Serum by Immunoassay [facility] Work Phone: Parrish extractable nuclear Ab [Presence] in Serum [facility] Work Phone: Urinalysis complete panel - Urine [facility] End: 02-01-2026 US Lower extremity - left US FOOT/ANKLE SYNOVIAL SCREEN LEFT Radiology Routine Bilateral foot pain Polyarthralgia 1 Occurrences starting 01/02/2025 until 02/01/2026 [facility] Comment on above: 1 Occurrences starti ng 01/02/2025 until 02/01/2026 End: 02-01-2026 US Lower extremity - right US FOOT/ANKLE SYNOVIAL SCREEN RIGHT Radiology Routine Bilateral foot pain Polyarthralgia 1 Occurrences starting 01/02/2025 until 02/01/2026 [facility] Work Phone: Comment on above: 1 Occurrences starti ng 01/02/2025 until 02/01/2026 End: 01-25-2026 XR Foot - bilateral AP and Lateral and oblique XR FOOT GENERAL 3V AP/LAT/OBL BILATERAL Radiology Routine Polyarthralgia Constipation, unspecified constipation type Intermittent diarrhea Bruising Fibromyalgia Severe depression (HCC) Anxiety 1 Occurrences starting 12/26/2024 until 01/25/2026 [facility] Comment on above: 1 Occurrences starti ng 12/26/2024 until 01/25/2026 XR Foot - bilateral AP and Lateral and oblique XR FOOT GENERAL 3V AP/LAT/OBL BILATERAL Radiology Routine Polyarthralgia Weight loss, unintentional Constipation, unspecified constipation type Intermittent diarrhea Bruising Fibromyalgia Severe depression (HCC) Anxiety 12/26/2024 1:22 PM EDT [facility] XR Foot GE 3 Views [facility] End: 01-25-2026 XR Hand - bilateral PA and Lateral and Oblique XR HAND GENERAL 3V PA/LAT/OBL BILATERAL Radiology Routine Polyarthralgia Constipation, unspecified constipation type Intermittent diarrhea Bruising Fibromyalgia Severe depression (HCC) Anxiety 1 Occurrences starting 12/26/2024 until 01/25/2026 [facility] Work Phone: Comment on above: 1 Occurrences starti ng 12/26/2024 until 01/25/2026 XR Hand - bilateral PA and Lateral and Oblique XR HAND GENERAL 3V PA/LAT/OBL BILATERAL Radiology Routine Polyarthralgia Weight loss, unintentional Constipation, unspecified constipation type Intermittent diarrhea Bruising Fibromyalgia Severe depression (HCC) Anxiety 12/26/2024 1:21 PM EDT [facility] End: 01-25-2026 XR HIP BILATERAL 5V PEL/AP/LAT EACH HIP XR HIP BILATERAL 5V PEL/AP/LAT EACH HIP Radiology Routine Polyarthralgia Constipation, unspecified constipation type Intermittent diarrhea Bruising Fibromyalgia Severe depression (HCC) Anxiety 1 Occurrences starting 12/26/2024 until 01/25/2026 [facility] Comment on above: 1 Occurrences starti ng 12/26/2024 until 01/25/2026 XR HIP BILATERAL 5V PEL/AP/LAT EACH HIP XR HIP BILATERAL 5V PEL/AP/LAT EACH HIP Radiology Routine Polyarthralgia Weight loss, unintentional Constipation, unspecified constipation type Intermittent diarrhea Bruising Fibromyalgia Severe depression (HCC) Anxiety 12/26/2024 1:23 PM EDT [facility] XR Knee 3 Views [facility] End: 01-25-2026 XR Sacroiliac Joint Views XR SACROILIAC JOINTS 2V AP PELVIS/FERGUESON Radiology Routine Polyarthralgia 1 Occurrences starting 12/26/2024 until 01/25/2026 [facility] Comment on above: 1 Occurrences starti ng 12/26/2024 until 01/25/2026 XR Sacroiliac Joint Views XR SACROILIAC JOINTS 2V AP PELVIS/FERGUESON Radiology Routine Polyarthralgia 12/26/2024 1:24 PM EDT [facility] Immunizations Immunization Date Immunization Notes Care Provider Fa isiah 07-24-2020 Radha (Vishnu & Vishnu) Dr. Cheryle Babcock Work Phone: [facility] Payers Date Payer Category Payer Medicaid [id number] 2024 Unknown [id number] 2024 Private Health Insurance [id number] 2024 Private Health Insurance [id number] 2024 Self-pay [id number] 2023 Unknown [id number]. [id number] 2023 Unknown [id number] 1967 Unknown [id number] 2.16.840.1.516410.3.579.2. 627 1967 Unknown [id number] 2.16.840.1.799990.3.579.2. 1967 Unknown [id number] 2.16.840.1.580322.3.579.2. 1967 Unknown [id number] 2.16.840.1.496281.3.579.2. 1967 Unknown [id number] 2.16.840.1.637552.3.579.2. 1967 Unknown [id number] 2.16.840.1.796362.3.579.2. 1967 Unknown [id number] 2.16.840.1.689093.3.579.2. 1967 Unknown [id number] 2.16.840.1.938788.3.579.2. 1967 Unknown [id number] 2.16.840.1.515836.3.579.2. 1967 Unknown [id number] 2.16.840.1.688287.3.579.2. Self-pay [employer] *COLLECT SELFPAY [id number] Unknown SELF PAY INSURANCE [id number] 1 [id number] Unknown [id number] Unknown [facility] PACKAGE [facility]AN [id number] Unknown [id number] 2.16.840.1.706575.3.579.2. 462 Unknown [id number] 2.16.840.1.773964.3.579.2. 462 Unknown [id number] 2.16.840.1.390696.3.579.2. 462 Unknown [id number] 2.16.840.1.119648.3.579.2. 462 Unknown [id number] 2.16.840.1.539404.3.579.2. 462 Unknown [id number] 2.16.840.1.630662.3.579.2. 462 Unknown [id number] 2.16.840.1.115839.3.579.2. 462 Unknown [id number] 2.16.840.1.713574.3.579.2. 462 Unknown [id number] 2.16.840.1.045801.3.579.2. 462 Unknown [id number] 2.16.840.1.649996.3.579.2. 462 Unknown [id number] 2.16.840.1.001593.3.579.2. 462 Unknown [id number] 2.16.840.1.633862.3.579.2. 462 Unknown [id number] 2.16.840.1.485520.3.579.2. 462 Unknown [id number] 2.16.840.1.450152.3.579.2. 462 Unknown [id number] 2.16.840.1.670716.3.579.2. 462 Unknown [id number] 2.16.840.1.858421.3.579.2. 462 Unknown [id number] 2.16.840.1.085032.3.579.2. 462 Unknown [id number] 2.16.840.1.690455.3.579.2. 462 Unknown [id number] 2.16.840.1.433435.3.579.2. 462 Unknown [id number] 2.16.840.1.603179.3.579.2. 462 Unknown [id number] 2.16.840.1.532561.3.579.2. 462 Social History Date Type Detail Facility Start: 03-13-2024 Smokes tobacco daily (finding) [facility] Sex Assigned At [facility] Start: 09-21-2021 End: 06-17-2023 Tobacco smoking status WVIS Unknown if ever smoked [facility] Start: 09-11-2018 Cigarettes [facility] Start: 1965 Sex Assigned At Female [facility] History of tobacco use Cigarette Smoker [facility] Start: 03-13-2024 End: 12-26-2024 Tobacco use and exposure User of smokeless tobacco [facility] Start: 03-13-2024 End: 12-26-2024 History of Social function [facility] Start: 03-13-2024 End: 12-26-2024 Tobacco use panel [facility] Start: 04-16-2012 National Score (1-100), lower number is lower risk 60 [facility] Start: 1965 Sex assigned at Not on file [facility] Start: 06-24-2005 Sex Female (finding) [facility] Start: 12-26-2024 Tobacco smoking status NHIS Occasional tobacco smoker [facility] NEGATED: Highlighted row [facility] Goals Date Patient Goal Desired Activity /State Functional Status Date Assessment Result Facility 05-14-2024 Functional Status Independent [facility] 05-14-2024 Functional Status Ambulation in [place], Ambulation in Room [facility] 12-16-2023 Functional Status ID band on, Allergy Band on, Call device within reach, Bed in low position, Wheels locked, Upper/Half-Length side-rails up, Bedside Cart Locked, Safety level maintained [facility] 12-06-2023 Functional Status ID band on, Allergy Band on, Call device within reach, Bed in low position, Wheels locked, Upper/Half-Length side-rails up, Phone within reach, personal items within reach [facility] 09-14-2023 Functional Status Independent [facility] 09-14-2023 Functional Status ID band on, Allergy Band on, Call device within reach, Bed in low position, Wheels locked, Upper/Half-Length side-rails up, Safety level maintained [facility] 04-18-2023 Functional Status Independent [facility] 04-18-2023 Functional Status ID band on, Allergy Band on, Call device within reach, Bed in low position, Wheels locked, Upper/Half-Length side-rails up, Safety level maintained [facility] 12-09-2022 Functional Status Independent [facility] 12-09-2022 Functional Status ID band on, Call device within reach, Bed in low position, Wheels locked, Upper/Half-Length side-rails up, Visitor at bedside [facility] Mental Status Date Assessment Result Facility 05-14-2024 Mental Status Orientation Oriented x 4 [facility] 05-14-2024 Mental Status [facility] 12-16-2023 Mental Status Oriented x 4 [facility] 12-06-2023 Mental Status Oriented x 4 [facility] 09-14-2023 Mental Status Orientation Oriented x 4 [facility] 09-14-2023 Mental Status [facility] 05-03-2023 Cognitive function Voice/Name;Touch/Mikel pool [facility] Work Phone: 04-18-2023 Mental Status Orientation Oriented x 4 [facility] 04-18-2023 Mental Status [facility] 12-09-2022 Mental Status Orientation Oriented x 4 [facility] 12-09-2022 Mental Status [facility] Clinical Notes 04-12-2021 to 02-20-2025 Telephone Encounter - Sheri Mace RN - 01/03/2025 2:15 PM EDTTelephone Encounter - Sheri Mace RN - 01/03/2025 2:15 PM EDTTelephone Encounter - Sheri Mace RN - 01/03/2025 12:15 PM EDT Note Date & Type Note Facility 02-20-2025 Note HNO ID: [id number] Author: JESSICA BARROS MD Service: ? Author Type: Physician Type: Progress Notes Filed: 02/20/2025 16:21 Note Text: Assessment and Plan 1. Dry eye syndrome of both eyes (Primary) 2. Pain of both eyes 3. Eye redness -main complaint is discharge in the am upon waking up and redness. Also burning and itching pain /10 and redness and swelling -worse for the past 1-1.5 years -unclear trigger Dry Eye Treatment: Artificial tears Effective?: No Warm compresses Effective?: Partially Lid hygiene Effective?: No Ointment Effective?: No Steroid drops Effective?: No Plan: -refresh azalea-3 three times a day both eyes -erythromycin ointment at bedtime both eyes -3-month dissolvable collagen plug size 0.3 placed lower puncta both eyes 02/20/25 -follow-up 3 months / sooner as needed . To consider miebo vs tryptyr vs autologous serum tears I have confirmed and edited as necessary the relevant ophthalmic history, ROS, and the neuro exam findings as obtained by others. I have seen and examined Christel Sauceda. I have discussed the case and the management of this patient's care with the Resident/Fellow, if applicable. I also have reviewed and agree with the assessment and plan as stated above and agree with all of its relevant components. Jessica Barros MD February 20, 2025 4:00 PM [facility] 01-03-2025 Telephone encounter Note Patient called and given the below information and new orders. Sheri Mace RN [facility] 01-03-2025 Miscellaneous Notes Patient called and given the below information and new orders. Sheri Mace RN Reviewed external X-Ray report of lumbar Spine and knees as below: XR L knee 06/17/23 - mild narrowing of medial joint compartment XR R knee - mild degenerative arthrosis of medial femorotibial compartment XR Lumbar Spine 02/02/24 Moderate multilevel Degenerative disc disease and spondylosis Spine medicine referral placed for low back pain with radiculopathy I recommend physical therapy for the knee. We could also do PT for her spine as well. Both order placed Patient called and given below message and results. Patient reporting increased lower back, Right leg/Right hip pain since having xrays done. Patient also reports issues behind right knee. Patient to have foot ultrasounds done. Sheri Mace RN Please call patient: X-Rays show mild osteoarthritis in the SI joints, and normal X-Rays of the hips, hands and feet. Given the trial of multiple biologic DMARDs and non-biologic DMARDs without significant benefit, negative serologies, negative imaging for RA, and absence of obvious synovitis on exam at my initial visit, I'm questioning whether she truly has RA. I would defer further treatment at this time, unless we have objective evidence of inflammation/synovitis. Please advise the patient I can order synovial ultrasounds to be done to look into this further if she continues to have persistent foot pain. Or if there are certain areas that are more bothersome, we can consider advanced imaging of that area. Most of her pain is likely chronic in nature from chronic pain syndrome/fibromyalgia. Also some osteoarthritis/degenerative changes. I recommend chronic pain recovery program for management of this. She should schedule follow up after ultrasounds of her feet, or if there are other areas that are more bothersome than her feet, we can schedule follow up to evaluate those separately and consider advanced imaging. Nicole Minor PA-C Reviewed External rheumatology records: Past meds include: Methotrexate 15 mg weekly, folic acid and leucovorin Orencia- discontinued not effective Enbrel Cimzia 400 mg given in office 08/2024 with plan to continue 200 mg every 2 weeks thereafter Also prior IM steroid injection without significant benefit documented in this encounter [facility] 01-03-2025 Telephone encounter Note Reviewed external X-Ray report of lumbar Spine and knees as below: XR L knee 06/17/23 - mild narrowing of medial joint compartment XR R knee - mild degenerative arthrosis of medial femorotibial compartment XR Lumbar Spine 02/02/24 Moderate multilevel Degenerative disc disease and spondylosis Spine medicine referral placed for low back pain with radiculopathy I recommend physical therapy for the knee. We could also do PT for her spine as well. Both order placed [facility] 01-03-2025 Telephone encounter Note Called patient on January 03, 2025 at 12:56 PM to schedule their MSK US exam. PT declined to schedule due to location availability. [facility] 01-03-2025 Miscellaneous Notes Called patient on January 03, 2025 at 12:56 PM to schedule their MSK US exam. PT declined to schedule due to location availability. Visit Type: MSK SYN Visit Length: 45, 50 OR 60 MINUTES Order Name/Protocol: US FOOT/ANKLE SYNOVIAL SCREEN RT+LT Preferred Provider: N/A Comment: N/A Location: ANY FACILITY Slot held: N/A documented in this encounter [facility] 01-03-2025 Telephone encounter Note Visit Type: MSK SYN Visit Length: 45, 50 OR 60 MINUTES Order Name/Protocol: US FOOT/ANKLE SYNOVIAL SCREEN RT+LT Preferred Provider: N/A Comment: N/A Location: ANY FACILITY Slot held: N/A [facility] 01-03-2025 Telephone encounter Note Patient called and given below message and results. Patient reporting increased lower back, Right leg/Right hip pain since having xrays done. Patient also reports issues behind right knee. Patient to have foot ultrasounds done. 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 Given the trial of multiple biologic DMARDs and non-biologic DMARDs without significant benefit, negative serologies, negative imaging for RA, and absence of obvious synovitis on exam at my initial visit, I'm questioning whether she truly has RA. I would defer further treatment at this time, unless we have objective evidence of inflammation/synovitis. Please advise the patient I can order synovial ultrasounds to be done to look into this further if she continues to have persistent foot pain. Or if there are certain areas that are more bothersome, we can consider advanced imaging of that area. Most of her pain is likely chronic in nature from chronic pain syndrome/fibromyalgia. Also some osteoarthritis/degenerative changes. I recommend chronic pain recovery program for management of this. She should schedule follow up after ultrasounds of her feet, or if there are other areas that are more bothersome than her feet, we can schedule follow up to evaluate those separately and consider advanced imaging. Nicole Minor PA-C [facility] 01-02-2025 Telephone encounter Note Reviewed External rheumatology records: Past meds include: Methotrexate 15 mg weekly, folic acid and leucovorin Orencia- discontinued not effective Enbrel Cimzia 400 mg given in office 08/2024 with plan to continue 200 mg every 2 weeks thereafter Also prior IM steroid injection without significant benefit [facility] 12-27-2024 Telephone encounter Note Received outside records from Dr. [facility] Dated 10/29/24 Their impression: Floppy eyelid syndrome, SPK, Atopic dermatitis, meibomian gland dysfunction, ocular rosacea, and ptosis of L eyelid No mention of inflammatory eye disease, episcleritis, Uveitis. Will send for scanning T [facility] Work Phone: 12-27-2024 Miscellaneous Notes Received outside records from Dr. [facility] Dated 10/29/24 Their impression: Floppy eyelid syndrome, SPK, Atopic dermatitis, meibomian gland dysfunction, ocular rosacea, and ptosis of L eyelid No mention of inflammatory eye disease, episcleritis, Uveitis. Will send for scanning documented in this encounter [facility] 12-26-2024 History of Present illness Narrative Radiology Service Progress Note PATIENT NAME: Christel Sauceda DATE OF SERVICE: December 26, 2024 TIME: 1:26 PM PATIENT IDENTITY VERIFICATION COMPLETED USING TWO (2) IDENTIFIERS: Name and Date of confirmed by patient verbally. FALL SCREENING: Has the patient had 2 falls in the last year or 1 fall with injury or currently using an Ambulatory Assistive Device (Walker, Cane, Wheelchair, Crutches, etc.)? No PATIENT GENDER DATA: Assigned female at . status: : No status: NO. PATIENT RELEVANT IMPLANT DATA REVIEWED: Not Applicable PATIENT PRESENTS WITH AN IMPLANTABLE OR ATTACHED OPERATIONS WELDER: No RADIOLOGY DEPARTMENT: General X-ray: Exam(s) Completed: Pelvis X-Ray: Pelvis General AP, Pelvis with Hip Bilateral, and sacroiliac joints Lower Extremity X-Ray(s): Feet, Bilateral and Wt. Bearing Upper Extremity X-Ray(s): Hand, bilateral PERIPHERAL IV DATA: Not applicable SIGNED BY: RT Qian(Arturo) December 26, 2024 1:26 PM documented in this encounter [facility] 12-26-2024 Note HNO ID: [id number] Author: TIARA HERNANDES RT(Arturo) Service: ? Author Type: Technologist Type: Progress Notes Filed: 12/26/2024 13:27 Note Text: Radiology Service Progress Note PATIENT NAME: Christel Sauceda DATE OF SERVICE: December 26, 2024 TIME: 1:26 PM PATIENT IDENTITY VERIFICATION COMPLETED USING TWO (2) IDENTIFIERS: Name and Date of confirmed by patient verbally. FALL SCREENING: Has the patient had 2 falls in the last year or 1 fall with injury or currently using an Ambulatory Assistive Device (Walker, Cane, Wheelchair, Crutches, etc.)? No PATIENT GENDER DATA: Assigned female at . status: : No status: NO. PATIENT RELEVANT IMPLANT DATA REVIEWED: Not Applicable PATIENT PRESENTS WITH AN IMPLANTABLE OR ATTACHED OPERATIONS WELDER: No RADIOLOGY DEPARTMENT: General X-ray: Exam(s) Completed: Pelvis X-Ray: Pelvis General AP, Pelvis with Hip Bilateral, and sacroiliac joints Lower Extremity X-Ray(s): Feet, Bilateral and Wt. Bearing Upper Extremity X-Ray(s): Hand, bilateral PERIPHERAL IV DATA: Not applicable SIGNED BY: Tiara Hernandes, RT(R) December 26, 2024 1:26 PM [facility] 12-26-2024 Instructions Nicole Minor PA-C - 12/26/2024 12:06 PM EDT Please discuss low coritsol and ACTH with primary care Dr. documented in this encounter [facility] 12-26-2024 Note HNO ID: [id number] Author: NICOLE MINOR PA-C Service: ? Author Type: Physician Naturopathic Physician Type: Progress Notes Filed: 12/26/2024 13:19 Note Text: Rheumatology CONSULTATION Date of Service: 12/26/2024 Patient: Christel Sauceda Medical Record: [id number] Primary Care Physician: Cheryle Babcock DO DO Last Rheumatology visit: 03/13/2024 (with Louise Contreras) Referring Provider: No referring provider defined for this encounter. Recording using [employer] software for draft documentation of the visit was discussed with the patient/authorized traffic workforce representative; all questions welcomed and answered. Patient/authorized traffic workforce representative agreed to proceed History of Present Illness Christel Sauceda is a 59-year-old female with a history of seronegative rheumatoid arthritis, fibromyalgia, and sicca syndrome, presenting for evaluation of chronic joint pain and recent eye issues. Christel reports a current pain level of 4 . She describes the pain as Dull, Aching. The pain is Continuous, and has lasted for 5 Years. Interventions tried include Other: See comment (none). Her most recent RADHA was negative (03/13/2024). Christel reports chronic joint pain involving the lower back, bilateral knees, ankles, feet, and thumbs. The pain began a few years ago and was initially attributed to long work hours, but persisted even after reducing work hours. She experiences significant morning stiffness lasting approximately two hours and notes that the pain worsens throughout the day. Walking exacerbates the pain in her feet, and knee flexion increases discomfort. She also reports severe pain in her thumbs, starting at the middle knuckle and extending to the CMC joints bilaterally. She denies current swelling but previously experienced swelling in her feet and knees. She has difficulty with stairs due to knee pain and describes hip pain as both lateral and groin-related. 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 Rosariorena experiences flare-ups causing pain from her lower back to her toes, followed by muscle cramping and shooting pains attributed to fibromyalgia. She has not seen a internet database specialist or pain management for her back issues, which she was told are due to arthritis. She has a longstanding history of right-sided sciatica. She has tried various medications, including methotrexate (up to 6 tablets of 2.5 mg weekly), Enbrel, and Orencia, without relief. She was advised against using anti-inflammatories and currently takes prednisone 5 mg daily as needed, though she reports it is ineffective. She is also on tetracycline for recent eye issues, which were initially thought to be allergic but later attributed to arthritis by her primary care physician, Dr. Babcock. The eye issues have improved with treatment. She reports hot flashes and facial erythema, which she associates with methotrexate use. She denies fevers, chills, unexplained weight loss, hair loss, nail changes, mouth sores, or chest pain. She experiences daily headaches with sinus pressure but no nasal congestion or discharge. She denies hemoptysis, hematochezia, or hematuria. She has difficulty swallowing and has had multiple episodes of choking requiring the Heimlich maneuver. She is scheduled for a swallow study. She takes sucralfate to manage diarrhea, which has been effective. She has a low pulse rate of 47 bpm and plans to discuss this with her primary care physician. She has a history of low vitamin D and serum cortisol levels. She denies psoriasis or scaly skin rashes but reports easy bruising and a persistent facial rash. She has upper and lower dentures. Pain Evaluation 04/05/2024 05/07/2024 12/26/2024 Pain Evaluation Pain Score 3 8 4 Location Eye-Right Generalized -- Location Comment multiple sites Description Pressure Aching Dull;Aching Duration (#) 1 1 5 Duration (Timeframe) Days Days Years Frequency Continuous Continuous Continuous Intervention Medication Other: See comment Data saved with a previous flowsheet row definition Patient-Entered Data N/A Review of Systems Review of Systems CONSTITUTION: Negative for: Fever and Recent weight change + night sweats, hot and cold flucuations, Hot flashes HEENT: Positive for: Trouble swallowing and Dry mouth Negative for: Nosebleeds and Mouth sores Sinus pressure behind eyes and head RESPIRATORY: Positive for: Cough and Shortness of breath (occasional with exertion) Negative for: Pain with breathing and Coughing up blood GASTROINTESTINAL: Negative for: Melena, Diarrhea and Heartburn History of multiple upper and lower scopes - 3 episodes of chocking On sucralfate for daily diarrhea and helped this issue. MUSCULOSKELETAL: Positive for: Arthralgias, Myalgias, Muscle weakness, Joint swelling and Morning Joint Stiffness NEUROLOGICAL: Positive for: Headaches (Daily, frontal, (more content not included)... [facility] 12-26-2024 History of Present illness Narrative Images from the original note were not included. Rheumatology CONSULTATION Date of Service: 12/26/2024 Patient: Christel Sauceda Medical Record: [id number] Primary Care Physician: Cheryle Babcock DO, DO Last Rheumatology visit: 03/13/2024 (with Louise Contreras) Referring Provider: No referring provider defined for this encounter. Recording using [employer] software for draft documentation of the visit was discussed with the patient/authorized traffic workforce representative; all questions welcomed and answered. Patient/authorized traffic workforce representative agreed to proceed History of Present Illness Christel Sauceda is a 59-year-old female with a history of seronegative rheumatoid arthritis, fibromyalgia, and sicca syndrome, presenting for evaluation of chronic joint pain and recent eye issues. Christel reports a current pain level of 4 . She describes the pain as Dull, Aching. The pain is Continuous, and has lasted for 5 Years. Interventions tried include Other: See comment (none). Her most recent RADHA was negative (03/13/2024). Christel reports chronic joint pain involving the lower back, bilateral knees, ankles, feet, and thumbs. The pain began a few years ago and was initially attributed to long work hours, but persisted even after reducing work hours. She experiences significant morning stiffness lasting approximately two hours and notes that the pain worsens throughout the day. Walking exacerbates the pain in her feet, and knee flexion increases discomfort. She also reports severe pain in her thumbs, starting at the middle knuckle and extending to the CMC joints bilaterally. She denies current swelling but previously experienced swelling in her feet and knees. She has difficulty with stairs due to knee pain and describes hip pain as both lateral and groin-related. 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 Subrena experiences flare-ups causing pain from her lower back to her toes, followed by muscle cramping and shooting pains attributed to fibromyalgia. She has not seen a internet database specialist or pain management for her back issues, which she was told are due to arthritis. She has a longstanding history of right-sided sciatica. She has tried various medications, including methotrexate (up to 6 tablets of 2.5 mg weekly), Enbrel, and Orencia, without relief. She was advised against using anti-inflammatories and currently takes prednisone 5 mg daily as needed, though she reports it is ineffective. She is also on tetracycline for recent eye issues, which were initially thought to be allergic but later attributed to arthritis by her primary care physician, Dr. Babcock. The eye issues have improved with treatment. She reports hot flashes and facial erythema, which she associates with methotrexate use. She denies fevers, chills, unexplained weight loss, hair loss, nail changes, mouth sores, or chest pain. She experiences daily headaches with sinus pressure but no nasal congestion or discharge. She denies hemoptysis, hematochezia, or hematuria. She has difficulty swallowing and has had multiple episodes of choking requiring the Heimlich maneuver. She is scheduled for a swallow study. She takes sucralfate to manage diarrhea, which has been effective. She has a low pulse rate of 47 bpm and plans to discuss this with her primary care physician. She has a history of low vitamin D and serum cortisol levels. She denies psoriasis or scaly skin rashes but reports easy bruising and a persistent facial rash. She has upper and lower dentures. Pain Evaluation 04/05/2024 05/07/2024 12/26/2024 Pain Evaluation Pain Score 3 8 4 Location Eye-Right Generalized -- Location Comment multiple sites Description Pressure Aching Dull;Aching Duration (#) 1 1 5 Duration (Timeframe) Days Days Years Frequency Continuous Continuous Continuous Intervention Medication Other: See comment Data saved with a previous flowsheet row definition Patient-Entered Data N/A Review of Systems Review of Systems CONSTITUTION: Negative for: Fever and Recent weight change + night sweats, hot and cold flucuations, Hot flashes HEENT: Positive for: Trouble swallowing and Dry mouth Negative for: Nosebleeds and Mouth sores Sinus pressure behind eyes and head RESPIRATORY: Positive for: Cough and Shortness of breath (occasional with exertion) Negative for: Pain with breathing and Coughing up blood GASTROINTESTINAL: Negative for: Melena, Diarrhea and Heartburn History of multiple upper and lower scopes - 3 episodes of chocking On sucralfate for daily diarrhea and helped this issue. MUSCULOSKELETAL: Positive for: Arthralgias, Myalgias, Muscle weakness, Joint swelling and Morning Joint Stiffness NEUROLOGICAL: Positive for: Headaches (Daily, frontal, eyes, into temporal region.) SKIN: Positive for: Rash (face rash), Sun Sensitive Rash and Skin changes Negative for: Hair loss and Nail changes EYES: Positive for: Eye pain, Eye redness and Eye dryness Negative for: visual disturbance CARDIOVASCULAR: Negative for: Chest pain and Leg swelling GENITOURINARY: Negative for: Hematuria HEMATOLOGIC/LYMPHATIC: RHEUMATOLOGIC REVIEW OF SYSTEMS: + chronic back pain No history of psoriasis All other reviewed and negative other than HPI. Past Medical History No past medical history on file. Past Surgical History No past surgical history on file. Family History No family history on file. Sister with RA - Sees Dr. Contreras Social History SOCIAL HISTORY[1] Current Medications Current Outpatient Medications Medication Sig escitalopram oxalate (LEXAPRO) 20 mg tablet Take 1 tablet by mouth once daily. tetracycline (SUMYCIN) 500 mg cap Take 1 capsule by mouth every 12 hours. sucralfate (CARAFATE) 1 gram tablet Take 1 g by mouth four times daily. predniSONE (DELTASONE) 5 mg tablet Take 5 mg by mouth every morning. estradiol (ESTRACE) 1 mg tablet Take 1 mg by mouth once daily. HYDROcodone-Acetaminophen (NORCO) 7.5-325 mg per tablet Take 1 tablet by mouth every 6 hours as needed. ondansetron orally disintegrating (ZOFRAN ODT) 4 mg disintegrating tablet Take 1 tablet by mouth every 8 hours as needed for nausea/vomiting. gabapentin (NEURONTIN) 800 mg tablet Take 800 mg by mouth three times a day. ALPRAZolam (XANAX) 1 mg tablet TAKE 1 MG ORALLY 4 TIMES A DAY FOR FREE FLOATING ANXIETY EVERY 6 HRS NEEDED metoprolol tartrate, short acting, (LOPRESSOR) 25 mg tablet Take 25 mg by mouth daily at bedtime. pantoprazole DR (PROTONIX) 40 mg tablet Take 40 mg by mouth once daily. Labs Latest Ref Rng & Units 11/23/2002 03/13/2024 12/26/2024 CBC WBC 3.70 - 11.00 k/uL 6.39 6.73 Hemoglobin 11.5 - 15.5 g/dL 12.7 12.8 Hemoglobin, [place] 12.0 - 16.0 g/dL 12.8 Hematocrit 36.0 - 46.0 % 39.5 36.6 Platelet Count 150 - 400 k/uL 306 319 Abs Neut (ANC) 1.45 - 7.50 k/uL 2.81 4.20 Abs Neut, Marie 2.0 - 8.1 k/uL 4.6 Abs Lymp, Marie 1.0 - 5.5 k/uL 2.3 Abs Lymph 1.00 - 4.00 k/uL 2.74 2.06 Latest Ref Rng & Units 11/23/2002 03/13/2024 CMP Sodium 136 - 144 mmol/L 143 Potassium 3.7 - 5.1 mmol/L 4.0 Chloride 98 - 107 mmol/L 104 CO2 22 - 30 mmol/L 26 Glucose 74 - 99 mg/dL 77 BUN 7 - 21 mg/dL 15 BUN, [place] 7 - 18 mg/dL 11 Creatinine 0.58 - 0.96 mg/dL 0.76 Creatinine, Marie 0.6 - 1.0 mg/dL 0.7 Calcium 8.5 - 10.2 mg/dL 9.9 AST 13 - 35 U/L 22 ALT 7 - 38 U/L 13 Alkaline Phosphatase 34 - 123 U/L 81 Latest Ref Rng & Units 03/13/2024 ESR, WSR WSR 0 - 20 mm/hr 12 Latest Ref Rng & Units 03/13/2024 CRP CRP <0.9 mg/dL <0.3 Latest Ref Rng & Units 03/13/2024 Antibodies RADHA Negative Negative Anti-Sm <1.0 AI <0.2 Sm Antibody Negative Negative Ribosomal SQL TECH Ab <1.0 AI <0.2 Ribosomal SQL TECH Qualitative Negative Negative Chromatin Ab <1.0 AI <0.2 Chromatin Ab Qual Negative Negative SSA Antibody Qual Negative Negative Anti-SSA <1.0 AI <0.2 Anti-SSB <1.0 AI <0.2 SQL TECH Antibody QUAL Negative Negative Scleroderma Ab Qual Negative Negative Scl-70 Abs, EIA <1.0 AI <0.2 Centromere Ab <1.0 AI <0.2 CENTROMERE AB QUAL Negative Negative SHO-1 ANTIBODY, IGG <1.0 AI <0.2 SHO 1 ANTIBODY QUAL Negative Negative Imaging OUTSIDE STUDIES / DATA External records reviewed: Labs: 11/04/21 Sed rate 32, CRP 5.17 (normal<3) DsDNA neg, Sm neg RF neg, Ssa/SSB negative RAFAT negative 12/27/22 Sed rate 27 (normal), crp 15.10 RADHA positive 1:160 Speckled CCP negative Vit D3 18.7 Low 01/2023 UA with + occult blood Hep remote panel negative Protein creat ratio 6.4 02/2023 Hgb 11.7, hct 36.2 Blood TB negative 04/04/24 ACTH 11.9 normal Cortisol 4.7 normal Acetychloine receptor ab test negative 04/2025 labs Hgb improved, sed rate normal 3, CRP normal <2.9 Blood TB negative 06/2024 hgb 11.3, Hct 35.7 07/2024 Hgb 11.9, Hct36.2 External imaging: XR L knee 06/17/23 - mild narrowing of medial joint compartment XR R knee - mild degenerative arthrosis of medial femorotibial compartment XR Lumbar Spine 02/02/24 Moderate multilevel Degenerative disc disease and spondylosis Last XR Chest - Impression Only No resulted procedures found. Health Maintenance Current Immunizations Reviewed on 03/13/2024 Name Date COVID-19 vaccine ([employer]) 07/24/2020 Physical Exam VITAL SIGNS: BP 110/48 Pulse 47 Ht 5' 5 (1.65m) Wt 131 lb 6.4 oz (59.6kg) SpO2 98% BMI 21.87 kg/(m^2). Physical Exam GENERAL APPEARANCE: Well groomed. Alert and oriented x 3. In no distress. SKIN: No rash, skin thickening, nodules, or discoloration. Mild hyperpigmentation across the face, does not spare nasolabial fold. Erythematous hyperemia noted in chest distribution. EYES: normal conjunctiva ,dry no erythema or drainage HENT: Normal external examination of the ears and nose, lips, oropharynx and tongue. No oropharyngeal lesions, exudate, or sores. Dry Mucous membranes. Upper and lower dentures noted NECK: No mass or asymmetry. No LAD RESPIRATORY: Normal respiratory effort. Clear to auscultation CARDIOVASCULAR: Heart RRR without gallop, murmur, or rub ABDOMEN: BS normal. No bruits, No tenderness NEUROLOGIC: Sensory exam normal. MUSCULOSKELETAL EXAMINATION: Soft tissue tender points: Generalized tenderness across lumbar back, outer hips, knees, ankles. Motor exam: Normal bulk and tone. Spine: Cervical spine: No visible abnormalities. No tenderness to palpation. Thoracic spine: No visible abnormalities. No tenderness to palpation. Lumbar spine: No visible abnormalities. + tenderness to palpation in midline and bandlike paraspinal distribution throughout lumbar region. SI Joints: +Generalized tenderness to palpation. Upper extremities: Shoulders: Good overhead ROM, no tenderness to palpation. No swelling or effusion. Elbows: Full ROM in flexion and extension. No swelling or effusion. Wrists: Full ROM in all kulkarni. No swelling or synovitis. No tenderness to palpation Hands: Full ROM in flexion and extension. 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 No swelling or synovitis along the MCPs, PIPs, and DIPs. Mid IP tenderness to bilateral thumbs, and CMC tenderness bilaterally. No tenderness along the MCPs, PIPs, and DIPs. Lower extremities: Hips: Able to get on/off exam table and up from chair without significant difficulty. + tenderness to palpation along greater trochanter bilaterally as well as buttocks region. Knees: Full ROM in flexion and extension. No swelling or effusion. Generalized tenderness noted Ankles: Full ROM in all kulkarni. No swelling or effusion. R ankle tenderness at joint margin, no significant swelling or synovitis noted. Feet: Full ROM in toe flexion/extension. No effusion. No tenderness to palpation. No evidence of MTP swelling. Impression # Polyarthralgia (M25.50) Chronic pain in lower back, knees, ankles, feet, and thumbs. Pain worsens throughout the day and is associated with morning stiffness lasting several hours. Externally diagnosed with seronegative rheumatoid arthritis and Sjogren's syndrome. No outside records to review from Dr. Russell- will request them to review. Prior consultation with Dr. Gerard felt to be non-inflammatory joint pain. Outside labs show mildly elevated inflammatory markers. Outside imaging shows osteoarthritis in the knee and DDD in the lumbar spine. Previous treatments with methotrexate, Enbrel, and Orencia were ineffective. No significant swelling noted on examination. Overall based on symptoms today and history at this time, I'm favoring non-inflammatory etiology of her symptoms. Back and lower extremity symptoms are more likely related to degenerative changes given absence of synovitis on EXAM. But will review outside records per patient request. - Ordered X-rays of hands, hips, feet, and SI joints to evaluate for osteoarthritis or other structural abnormalities. - Ordered blood work including metabolic panel, CBC, rheumatoid tests, inflammation markers, and Sjogren's antibodies. - Follow-up after results are available to discuss further management. # Intermittent diarrhea (R19.7) Previously experienced daily diarrhea, now managed with Sucralfate through PCP. Follow up with PCP for further mnagement # Bruising (T14.8XXA) Reports easy bruising; previous labs indicated possible vitamin C deficiency. - Recommended increasing dietary intake of vitamin C. # Fibromyalgia (M79.7) Reports muscle cramping and shooting pains, especially after flare-ups. - Consider chronic pain recovery program - Discussed potential benefits and risks of massage therapy. # Severe depression (HCC) (F32.2) # Anxiety (F41.9) Currently managed with Xanax and Lexapro. - Follow with PCP for management of these symptoms # Rash of face (R21) # Rash and nonspecific skin eruption (R21) Chronic facial rash as well as erythema in chest region; no dermatology consultation yet. Seems mores consistent with rosacea rather than lupus or CTD rash - Recommended dermatology referral for further evaluation. # Intractable headache, unspecified chronicity pattern, unspecified headache type (R51.9) Reports daily headaches with associated sinus pressure and eye pain. - ESR/CRP labs as ordered. - Follow up with Pcp/ Consider neuro eval. # Eye inflammation (H57.89) Previous episodes of eye inflammation treated with topical salve and drops; currently on Tetracycline and Prednisone 5 mg daily. Exact etiology unclear. 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 - Requested records from [facility] for further review. - Consider second opinion from [facility] ophthalmology if it recurs for possible inflammatory eye disease # Chronic midline low back pain, unspecified whether sciatica present (M54.50) Chronic low back pain with tenderness on examination; Lumbar DDD noted on external X-Ray from [facility] - Ordered X-rays of the lumbar spine. 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 Maybe due to possible interaction with methotrexate. - As long as she is off methotrexate and no other medical comorbidity would limit it, it seems reasonable to try NSAID for pain relief, will revisit at follow up visit, or can discuss with primary care provider #Sicca Syndrome, Outside SSA/SSB negative - Sjogren's less likely but not impossible given negative serology. - Consider further workup including lip biopsy, Maureen score, ocular staining, etc. Plan As Explained to Patient via After visit Summary Orders this visit: Office Visit on 12/26/24 XR HAND GENERAL 3V PA/LAT/OBL BILATERAL XR FOOT GENERAL 3V AP/LAT/OBL BILATERAL XR HIP BILATERAL 5V PEL/AP/LAT EACH HIP XR KNEE GENERAL 4V AP BOTH/PA BOTH/LAT/MERC BILATERAL *Canceled* XR SACROILIAC JOINTS 2V AP PELVIS/FERGUESON XR LUMBAR GENERAL 3V AP/LAT/L5-S1 *Canceled* RHEUMATOID FACTOR CCP ANTIBODY IGG SJOGREN ABS SSA/SSB C-REACTIVE PROTEIN SEDIMENTATION RATE, WESTERGREN COMPLETE BLOOD COUNT AND DIFFERENTIAL COMPREHENSIVE METABOLIC PANEL SEDIMENTATION RATE, WESTERGREN C-REACTIVE PROTEIN CONSULT TO DERMATOLOGY escitalopram oxalate (LEXAPRO) 20 mg tablet tetracycline (SUMYCIN) 500 mg cap sucralfate (CARAFATE) 1 gram tablet predniSONE (DELTASONE) 5 mg tablet estradiol (ESTRACE) 1 mg tablet HYDROcodone-Acetaminophen (NORCO) 7.5-325 mg per tablet - Complete the lab tests ordered today: basic metabolic panel, complete blood count, rheumatoid panel and inflammatory markers, plus Sj gren s antibody testing. - Obtain x-rays of your feet, hands (especially thumbs), hips, knees, and sacroiliac (SI) joints as discussed. - Sign and return the records-release forms so [facility] and Dr. Harrison s office can send their consultation notes to us. - Schedule and complete a barium swallow study (esophagram) to evaluate your swallowing difficulties. - Follow up with your primary care provider about your low blood pressure, slow pulse, and the previously low cortisol level. Discuss whether your metoprolol dose needs adjustment and whether referral to an software design analyst is appropriate. - Arrange a dermatology appointment to assess your chronic chest rash (possible rosacea). - Take prednisone 5 mg daily as prescribed for your arthritis-related eye symptoms. - Continue your current medications exactly as directed: - Xanax - Lexapro - Estrace - Gabapentin - Central as needed - Metoprolol - Tetracycline antibiotic (for your eye condition) - Sucralfate (to manage morning diarrhea) - Return to this clinic for a follow-up visit after your imaging and lab results are available; our office will contact you to schedule. No follow-ups on file. I spent a total of 75 minutes on the date of the service which included preparing to see the patient, [id number] patient care, completing clinical documentation, obtaining and/or reviewing separately obtained history, performing a medically appropriate examination, counseling and educating the patient/family/caregiver, ordering medications, tests, or procedures, and communicating results to the patient/family/caregiver. ___ Nicole Minor PA-C Rheumatology Date: December 26, 2024 Time: 1:16 PM [1] Social History Tobacco Use Smoking status: Some Days Types: Cigarettes Smokeless tobacco: Current Vaping Use Vaping status: current everyday user Substances: Nicotine Substance Use Topics Drug use: Not Currently documented in this encounter [facility] 05-14-2024 Hospital Discharge instructions Patient Education 05/14/2024 16:56:28 Back Pain (Acute or Chronic) Back Pain (Acute or Chronic) Back pain is one of the most common problems. The good news is that most people feel better in 1 to 2 weeks, and most of the rest in 1 to 2 months. Most people can remain active. People who have pain describe it differently not everyone is the same. The pain can be sharp, stabbing, shooting, aching, cramping or burning. Movement, standing, bending, lifting, sitting, or walking may worsen pain. It can be localized to one spot or area, or it can be more generalized. It can spread or radiate upwards, to the front, or go down your arms or legs (sciatica). It can cause muscle spasm. Most of the time, mechanical problems with the muscles or spine cause the pain. Mechanical problems are usually caused by an injury to the muscles or ligaments. While illness can cause back pain, it is usually not caused by a serious illness. Mechanical problems include: Physical activity such as sports, exercise, work, or normal activity Overexertion, lifting, pushing, pulling incorrectly or too aggressively Sudden twisting, bending, or stretching from an accident, or accidental movement Poor posture Stretching or moving wrong, without noticing pain at the time Poor coordination, lack of regular exercise (check with your doctor about this) Spinal disc disease or arthritis Stress Pain can also be related to , or illness like appendicitis, bladder or kidney infections, pelvic infections, and many other things. Acute back pain usually gets better in 1 to 2 weeks. Back pain related to disk disease, arthritis in the spinal joints or spinal stenosis (narrowing of the spinal canal) can become chronic and last for months or years. Unless you had a physical injury (for example, a car accident or fall) X-rays are usually not needed for the initial evaluation of back pain. If pain continues and does not respond to medical treatment, X-rays and other tests may be needed. Home care Try these home care recommendations: When in bed, try to find a position of comfort. A firm mattress is best. Try lying flat on your back with pillows under your knees. You can also try lying on your side with your knees bent up towards your chest and a pillow between your knees. At first, do not try to stretch out the sore spots. If there is a strain, it is not like the good soreness you get after exercising without an injury. In this case, stretching may make it worse. Don't sit for long periods, as in a long car ride or during other travel. This puts more stress on the lower back than standing or walking. During the first 24 to 72 hours after an acute injury or flare up of chronic back pain, apply an ice pack to the painful area for 20 minutes and then remove it for 20 minutes. Do this over a period of 60 to 90 minutes or several times a day. This will reduce swelling and pain. Wrap the ice pack in a thin towel or plastic to protect your skin. You can start with ice, then switch to heat. Heat (hot shower, hot bath, or heating pad) reduces pain and works well for muscle spasms. Heat can be applied to the painful area for 20 minutes then remove it for 20 minutes. Do this over a period of 60 to 90 minutes or several times a day. Do not sleep on a heating pad. It can lead to skin jurado or tissue damage. You can alternate ice and heat therapy. Talk with your doctor about the best treatment for your back pain. Therapeutic massage can help relax the back muscles without stretching them. Be aware of safe lifting methods and do not lift anything without stretching first. Medicines Talk to your doctor before using medicine, especially if you have other medical problems or are taking other medicines. You may use [id number] medicine as directed on the bottle to control pain, unless another pain medicine was prescribed. If you have chronic conditions like diabetes, liver or kidney disease, stomach ulcers, or gastrointestinal bleeding, or are taking blood thinners, talk to your doctor before taking any medicine. Be careful if you are given a prescription medicines, narcotics, or medicine for muscle spasms. They can cause drowsiness, affect your coordination, reflexes, and judgement. Do not drive or operate heavy machinery. Follow-up care Follow up with your healthcare provider, or as advised. A radiologist will review any X-rays that were taken. Your provide will notify you of any new findings that may affect your care. Call 911 Call 911 if any of the following occur: Trouble breathing Confusion Very drowsy or trouble awakening Fainting or loss of consciousness Rapid or very slow heart rate Loss of bowel or bladder control When to seek medical advice Call your healthcare provider right away if any of these occur: Pain becomes worse or spreads to your legs Weakness or numbness in one or both legs Numbness in the groin or genital area [id number] [employer]. [address] [place] [address], [place] [address]. All rights reserved. This information is not intended as a substitute for professional medical care. Always follow your healthcare professional's instructions. Follow Up Care 05/14/2024 14:40:41 With:Your revenue settlements administrator as scheduled Address: When: Unknown [facility] 05-14-2024 Note Discharge Instructions Thank you for allowing [facility] to assist you with your healthcare needs. The following is important discharge information regarding your hospital visit. Diagnosis from Today's Visit Back pain What to Do Next Instructions from Your Care Team No qualifying data available. Post Acute Orders No qualifying data available. You Need to Schedule the Following Appointments Follow Up with Your revenue settlements administrator as scheduled Allergies Cymbalta Effexor Tequin Medications Please ask your primary doctor or pharmacist before taking any other medication not listed, including over the counter drugs, herbal medications, vitamins and or supplements as they may interact with your home medications. What How Much When Why Instructions Last Dose New acetaminophen-oxyCODONE (Percocet 5 mg-325 mg oral tablet) 1 tab(s) by mouth Every 6 hours as needed for for pain Back pain Duration: 3 Days Printed Prescription New diclofenac topical (diclofenac 1% topical gel) 1 application Topical Four (4) times a day Printed Prescription Changed cyclobenzaprine (cyclobenzaprine 5 mg oral tablet) 1 tab(s) by mouth Three (3) times a day Duration: 7 Days Printed Prescription Changed cyclobenzaprine (Flexeril use cyclobenzaprine ) 5 Milligram by mouth Three (3) times a day Spasm of back muscles Unchanged acetaminophen-hydrocodone (Central 325- 5 mg oral tablet) 1 tab(s) by mouth Every 6 hours as needed for as needed for pain Spasm of back muscles Duration: 3 Days Unchanged acetaminophen-hydrocodone (Central 325- 5 mg oral tablet) 1 tab(s) by mouth Every 6 hours Contusion of rib Duration: 3 Days Unchanged ALPRAZolam (Xanax 0.5 mg oral tablet) 1 tab(s) by mouth Three (3) times a day as needed for for anxiety Unchanged escitalopram (Lexapro) 20 Milligram by mouth Once a day Unchanged estradiol (estradiol 1 mg oral tablet) 1 tab(s) by mouth Once a day Unchanged gabapentin (gabapentin 800 mg oral tablet) 1 tab(s) by mouth Two (2) times a day Unchanged lidocaine topical (Lidoderm 5% topical film) 1 patch(es) Topical Once a day Unchanged pantoprazole (pantoprazole 40 mg oral enteric coated tablet) 1 tab(s) by mouth Once a day Unchanged sucralfate (Carafate 1 g oral tablet) 1 tab(s) by mouth Four (4) times daily-before meals and at bedtime Please take this list to your next doctor s visit. Bring all medications you take, including over the counter medications, herbals and other supplements with you to your doctor s visit. Patients and families are reminded to discard old lists and to update any records with all medication providers or retail pharmacies. Education Materials Back Pain (Acute or Chronic) Back pain is one of the most common problems. The good news is that most people feel better in 1 to 2 weeks, and most of the rest in 1 to 2 months. Most people can remain active. People who have pain describe it differently not everyone is the same. The pain can be sharp, stabbing, shooting, aching, cramping or burning. Movement, standing, bending, lifting, sitting, or walking may worsen pain. It can be localized to one spot or area, or it can be more generalized. It can spread or radiate upwards, to the front, or go down your arms or legs (sciatica). It can cause muscle spasm. Most of the time, mechanical problems with the muscles or spine cause the pain. Mechanical problems are usually caused by an injury to the muscles or ligaments. While illness can cause back pain, it is usually not caused by a serious illness. Mechanical problems include: Physical activity such as sports, exercise, work, or normal activity Overexertion, lifting, pushing, pulling incorrectly or too aggressively Sudden twisting, bending, or stretching from an accident, or accidental movement Poor posture Stretching or moving wrong, without noticing pain at the time Poor coordination, lack of regular exercise (check with your doctor about this) Spinal disc disease or arthritis Stress Pain can also be related to , or illness like appendicitis, bladder or kidney infections, pelvic infections, and many other things. Acute back pain usually gets better in 1 to 2 weeks. Back pain related to disk disease, arthritis in the spinal joints or spinal stenosis (narrowing of the spinal canal) can become chronic and last for months or years. Unless you had a physical injury (for example, a car accident or fall) X-rays are usually not needed for the initial evaluation of back pain. If pain continues and does not respond to medical treatment, X-rays and other tests may be needed. Home care Try these home care recommendations: When in bed, try to find a position of comfort. A firm mattress is best. Try lying flat on your back with pillows under your knees. You can also try lying on your side with your knees bent up towards your chest and a pillow between your knees. At first, do not try to stretch out the sore spots. If there is a strain, it is not like the good soreness you get after exercising without an injury. In this case, stretching may make it worse. Don't sit for long periods, as in a long car ride or during other travel. This puts more stress on the lower back than standing or walking. During the first 24 to 72 hours after an acute injury or flare up of chronic back pain, apply an ice pack to the painful area for 20 minutes and then remove it for 20 minutes. Do this over a period of 60 to 90 minutes or several times a day. This will reduce swelling and pain. Wrap the ice pack in a thin towel or plastic to protect your skin. You can start with ice, then switch to heat. Heat (hot shower, hot bath, or heating pad) reduces pain and works well for muscle spasms. Heat can be applied to the painful area for 20 minutes then remove it for 20 minutes. Do this over a period of 60 to 90 minutes or several times a day. Do not sleep on a heating pad. It can lead to skin jurado or tissue damage. You can alternate ice and heat therapy. Talk with your doctor about the best treatment for your back pain. Therapeutic massage can help relax the back muscles without stretching them. Be aware of safe lifting methods and do not lift anything without stretching first. Medicines Talk to your doctor before using medicine, especially if you have other medical problems or are taking other medicines. You may use [id number] medicine as directed on the bottle to control pain, unless another pain medicine was prescribed. If you have chronic conditions like diabetes, liver or kidney disease, stomach ulcers, or gastrointestinal bleeding, or are taking blood thinners, talk to your doctor before taking any medicine. Be careful if you are given a prescription medicines, narcotics, or medicine for muscle spasms. They can cause drowsiness, affect your coordination, reflexes, and judgement. Do not drive or operate heavy machinery. Follow-up care Follow up with your healthcare provider, or as advised. A radiologist will review any X-rays that were taken. Your provide will notify you of any new findings that may affect your care. Call 911 Call 911 if any of the following occur: Trouble breathing Confusion Very drowsy or trouble awakening Fainting or loss of consciousness Rapid or very slow heart rate Loss of bowel or bladder control When to seek medical advice Call your healthcare provider right away if any of these occur: Pain becomes worse or spreads to your legs Weakness or numbness in one or both legs Numbness in the groin or genital area [id number] [employer]. [address] [place] [address]. All rights reserved. This information is not intended as a substitute for professional medical care. Always follow your healthcare professional's instructions. Additional Information VACCINATE! IT SAVES LIVES! Members of the community who have not yet received the COVID-19 vaccine and would like to receive it can visit one of [facility] vaccine clinics. There are many vaccine clinic locations within the [facility]. For locations and available times, please visit [email or web address] It is important to note that some COVID mobile vaccine clinics are held outdoors and may be canceled in rainy or stormy conditions. To learn more about pediatric vaccinations (ages 5-11), we invite you to visit the [facility] webpage. [email or web address].[email or web address].org/pag [email or web address]-Fcejz-Hubtcbnfehw-Frequent qh-Ildtc-Qwrfrgrxb.html To learn more about the COVID-19 vaccine, we invite you to visit the CDC website for a list of frequently asked questions. https://www.cdc.gov/coronavirus/-ncov/vaccines/faq.html [facility] Patient Portal Access Instructions: Stay connected with your healthcare team and access your personal medical information anytime with the [facility] Patient Portal. If you would like a full copy of your medical records please contact the [facility] Medical Records Department Tuesday through Tuesday between 8a.m. and 4:30p.m. Please follow the directions below to access the portal: 1.Access the email account you provided upon registration to the hospital.2.Look for an invitation email from [facility].3.Open the email and access the invitation link: Accept Invitation to [email or web address].Fill in the required kulkarni to create your account. Sign into [email or web address] with your username and password that you created in the above steps to stay up to date. You can then view a summary of results, a summary of your visits, and the ability to download your summaries to your computer or send the information securely to a physician. Remember that your healthcare information is confidential, so carefully consider who you will allow to register on the [email or web address] Patient Portal for access to your information. You can also access the [email or web address] Patient Portal on the [employer] re[employer]. Simply click on Health Records under Health Data and then click on the [facility] logo. HOW TO SAFELY DISPOSE OF PRESCRIPTION MEDICATIONS Please use one of the following methods to safely dispose of your unused medications. 1.Use a drug disposal kit: the drug disposal pouch allows you to safely discard your old and unused drugs. Ask your nurse to give you one when you are discharged.2.Visit a local take-back location: Many local pharmacies and police departments have programs that collect old and unwanted prescription drugs. Call your local pharmacy or go to http://Hair [employer]nce[facility]/0W7Qu1r to find one close to you.3.Make use of household items: Use cat litter or old coffee grounds to dispose medications if other options are not available. Mix your drugs with these household products, seal them in an airtight container and throw it into the garbage. Call [facility]: [phone] to be sure your drugs can be disposed of in this way. Some medicines may require a different approach.4.Never flush your medications down the toilet. IF YOU HAVE BEEN PRESCRIBED AN OPIOIDS FOR PAIN If you have been prescribed an opioid (such as hydrocodone, oxycodone or morphine), it is critical to understand the possible side effects and risks of opioid pain medications. Even when taken as directed, opioids can have several side effects including: Tolerance, meaning you might need to take more of a medication for the same pain relief. Nausea, vomiting and/or constipation. Sleepiness, dizziness, dry mouth, confusion, depression or itching. Physical dependence, meaning you have withdrawal symptoms when a medication is stopped ? this can develop within a few days. KNOW YOUR RESPONSIBILITIES It is important to know exactly how much and how often to take the opioid pain medications you are prescribed. Never take opioids in higher amounts or more often than prescribed. Do not combine opioids with alcohol or other drugs that cause drowsiness, such as benzodiazepines, also known as benzos, including diazepam and alprazolam, muscle relaxants or sleep aids. Never sell or share prescription opioids. This is illegal. Store opioids in a secure place and out of reach of others (including children, family, friends and visitors). The last page(s) of this document has been signed and retained as a CHART COPY Signatures Patient Education Materials Back Pain (Acute or Chronic) Medication Leaflets My discharge plan and instructions have been reviewed and explained to me and ISOHAIL SUBRENA F understand my current condition and have read and understand these discharge instructions. I have received a written copy of the plan/instructions. If I have questions, I am aware that I should contact my doctor. 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 Contreras, patient should go back to the ER for further evaluation. She states understanding. So Harp RN [facility] 05-11-[address] Contreras, patient should go back to the ER for further evaluation. She states understanding. So Harp RN Pt called and request provider or nurse reach out to her Pt was in ER last week with lower back pain/ knee pain/ and foot pain Pt was vomiting and lost 30 pounds within 2 weeks Pt states that she is having a flare up and pt states that her BP is elevated due to the pain Pt could be reached at [phone] Thank you documented in this encounter [facility] 05-11-2024 Telephone encounter Note Pt called and request provider or nurse reach out to her Pt was in ER last week with lower back pain/ knee pain/ and foot pain Pt was vomiting and lost 30 pounds within 2 weeks Pt states that she is having a flare up and pt states that her BP is elevated due to the pain Pt could be reached at [phone] Thank you [facility] 05-07-2024 Note HNO ID: [id number] Author: DANNIE BARTHOLOMEW APRN.[employer]UCATION [employer] Service: ? Author Type: Nurse Practitioner Type: Progress Notes Filed: 05/07/2024 12:34 Note Text: This note was created using Sush.ioriter. Subjective Christel Sauceda is a 59 year old female. HPI For the last few weeks pt has not been feeling well. Pt now notes intermittent fever, nausea and vomiting that started about three days ago. She is unable to tolerate oral intake. She is only urinating 1-2 times per day. She notes generalized abdominal pain and diarrhea. Also complains of 7-10 days of sinus pain pressure and drainage. Patient feels that this may be the cause of her nausea and vomiting. Review of Systems Objective BP 122/72 Pulse 80 Temp 37.2 ?C (98.9 ?F) Resp 16 Wt 56.5 kg (124 lb 9 oz) SpO2 96% BMI 21.38 kg/m? Physical Exam Vitals and nursing note reviewed. Constitutional: General: She is not in acute distress. Appearance: Normal appearance. She is not ill-appearing. HENT: Head: Normocephalic. Mouth/Throat: Mouth: Mucous membranes are dry. Eyes: Conjunctiva/sclera: Conjunctivae normal. Cardiovascular: Rate and Rhythm: Normal rate and regular rhythm. Pulmonary: Effort: Pulmonary effort is normal. Breath sounds: Normal breath sounds. Abdominal: Palpations: Abdomen is soft. Tenderness: There is abdominal tenderness. Comments: Mild diffuse tenderness Musculoskeletal: General: Normal range of motion. Cervical back: Normal range of motion. Skin: General: Skin is warm and dry. Neurological: General: No focal deficit present. Mental Status: She is alert. Psychiatric: Mood and Affect: Mood normal. Behavior: Behavior normal. Assessment and Plan ASSESSMENT/PLAN: 1. Nausea and vomiting, unspecified vomiting type - ICD9: 787.01, ICD10: R11.2 (primary diagnosis) Patient given prescription for Zofran. I instructed her that if she is not able to urinate at least 3-4 times per day or she noticed that her heart rate is climbing she needs to go to the ER for evaluation of possible IV hydration. Patient understands and is agreeable. - ONDANSETRON 4 MG DISINTEGRATING TABLET 2. Bacterial sinusitis - ICD9: 473.9, 041.9, ICD10: J32.9, B96.89 - Will begin treatment with as per antibiotic as written, see orders - Follow up in one week if symptoms persist or worsen. - AMOXICILLIN 875 MG-POTASSIUM CLAVULANATE 125 MG TABLET Dannie Bartholomew APRN.[facility] 05-07-2024 History of Present illness Narrative This note was created using NoteWriter. Subjective Christel Sauceda is a 59 year old female. HPI For the last few weeks pt has not been feeling well. Pt now notes intermittent fever, nausea and vomiting that started about three days ago. She is unable to tolerate oral intake. She is only urinating 1-2 times per day. She notes generalized abdominal pain and diarrhea. Also complains of 7-10 days of sinus pain pressure and drainage. Patient feels that this may be the cause of her nausea and vomiting. Review of Systems Objective BP 122/72 Pulse 80 Temp 37.2 C (98.9 F) Resp 16 Wt 56.5 kg (124 lb 9 oz) SpO2 96% BMI 21.38 kg/m Physical Exam Vitals and nursing note reviewed. Constitutional: General: She is not in acute distress. Appearance: Normal appearance. She is not ill-appearing. HENT: Head: Normocephalic. Mouth/Throat: Mouth: Mucous membranes are dry. Eyes: Conjunctiva/sclera: Conjunctivae normal. Cardiovascular: Rate and Rhythm: Normal rate and regular rhythm. Pulmonary: Effort: Pulmonary effort is normal. Breath sounds: Normal breath sounds. Abdominal: Palpations: Abdomen is soft. Tenderness: There is abdominal tenderness. Comments: Mild diffuse tenderness Musculoskeletal: General: Normal range of motion. Cervical back: Normal range of motion. Skin: General: Skin is warm and dry. Neurological: General: No focal deficit present. Mental Status: She is alert. Psychiatric: Mood and Affect: Mood normal. Behavior: Behavior normal. Assessment and Plan ASSESSMENT/PLAN: 1. Nausea and vomiting, unspecified vomiting type - ICD9: 787.01, ICD10: R11.2 (primary diagnosis) Patient given prescription for Zofran. I instructed her that if she is not able to urinate at least 3-4 times per day or she noticed that her heart rate is climbing she needs to go to the ER for evaluation of possible IV hydration. Patient understands and is agreeable. - ONDANSETRON 4 MG DISINTEGRATING TABLET 2. Bacterial sinusitis - ICD9: 473.9, 041.9, ICD10: J32.9, B96.89 - Will begin treatment with as per antibiotic as written, see orders - Follow up in one week if symptoms persist or worsen. - AMOXICILLIN 875 MG-POTASSIUM CLAVULANATE 125 MG TABLET Dannie Bartholomew APRN.EDUCATION PAR[employer]ESSION[employer] documented in this encounter [facility] 04-09-2024 Telephone encounter Note Called patient. Advised that per Dr. Contreras, she should follow up with her eye doctor, and see dermatology for the rash. She needs another evaluation, has appointment with Shannan Katz scheduled in May. Patient advising that the lymph nodes in her groin hurt sometimes, she wanted to let Dr. Contreras know. Also discussed the Subutex, and that per Dr. Ramires results letter she should not be taking narcotics for fibromyalgia. Discussed that this is between the provider ordering the medication, and patient, and that we advise she discuss it with the ordering provider. She states understanding. So Harp RN [facility] 04-09-2024 Miscellaneous Notes Called patient. Advised that per Dr. Contreras, she should follow up with her eye doctor, and see dermatology for the rash. She needs another evaluation, has appointment with Shannan Katz scheduled in May. Patient advising that the lymph nodes in her groin hurt sometimes, she wanted to let Dr. Contreras know. Also discussed the Subutex, and that per Dr. Ramires results letter she should not be taking narcotics for fibromyalgia. Discussed that this is between the provider ordering the medication, and patient, and that we advise she discuss it with the ordering provider. She states understanding. So Harp RN Received patient phone call. She states that she's continued experiencing eye issues following telephone enc from 03/29. Patient states she's seen eye doctor for this and they've prescribed erythromycin ophthalmic. Patient states swelling is going down, but that now her left eye is swelling as well and she would rather refer to Dr. Contreras since she believes it's due to Sjogren's. Patient notes that she did run into a door around this time, so her nose is bruised and face in general has swelled up. Patient also wants to make provider aware of rashes on her cheeks, which has been ongoing about 1.5 weeks. Patient says rash continues to get worse. She also states she has a few unexplainable bruises on her arms that she was told to let the doctor know about if she saw them. Patient also wants clarification regarding medication, as she says she was told in rheum visit notes to not use narcotics, but her PCP prescribed her 2mg of subutex for pain. Patient is inquiring as to if it's OK to take this medication. Call back #[phone] (cell) documented in this encounter [facility] 04-09-2024 Telephone encounter Note Received patient phone call. She states that she's continued experiencing eye issues following telephone enc from 03/29. Patient states she's seen eye doctor for this and they've prescribed erythromycin ophthalmic. Patient states swelling is going down, but that now her left eye is swelling as well and she would rather refer to Dr. Contreras since she believes it's due to Sjogren's. Patient notes that she did run into a door around this time, so her nose is bruised and face in general has swelled up. Patient also wants to make provider aware of rashes on her cheeks, which has been ongoing about 1.5 weeks. Patient says rash continues to get worse. She also states she has a few unexplainable bruises on her arms that she was told to let the doctor know about if she saw them. Patient also wants clarification regarding medication, as she says she was told in rheum visit notes to not use narcotics, but her PCP prescribed her 2mg of subutex for pain. Patient is inquiring as to if it's OK to take this medication. Call back #[phone] (cell) [facility] 04-05-2024 Note HNO ID: [id number] Author: HAMAZH CALI APRN.[employer] Service: ? Author Type: Nurse Practitioner Type: Progress Notes Filed: 04/05/2024 15:18 Note Text: Subjective HPI Nontoxic-appearing female presents urgent care chief plaint right eyelid swelling. Duration of symptoms today. Associated symptoms listed above. States swelling was worse this morning. Has went down some. States feels like she has a bump underneath her eyelid. No eye trauma. Does not wear contacts. No visual acuity changes. No flashes light or floaters. No EOMs. No fevers. Past medical history prescription medications allergies reviewed. .Patient presents with: Eye Lid Swelling: R eye lid swelling and redness x this AM No past medical history on file. No past surgical history on file. ALLERGIES Diclofenac-Silicone, Adhesive; Gatifloxacin; and Venlafaxine MEDICATIONS gabapentin (NEURONTIN) 800 mg tablet Take 800 mg by mouth three times a day. ALPRAZolam (XANAX) 1 mg tablet TAKE 1 MG ORALLY 4 TIMES A DAY FOR FREE FLOATING ANXIETY EVERY 6 HRS NEEDED buprenorphine SL (SUBUTEX) 2 mg subl TAKE 1 TABLET UNDER THE TONGUE DAILY metoprolol tartrate, short acting, (LOPRESSOR) 25 mg tablet Take 25 mg by mouth daily at bedtime. mirtazapine (REMERON) 30 mg tablet Take 30 mg by mouth daily at bedtime. pantoprazole DR (PROTONIX) 40 mg tablet Take 40 mg by mouth once daily. No family history on file. Social History Tobacco Use Smoking status: Every Day Types: Cigarettes Smokeless tobacco: Current Substance Use Topics Drug use: Not Currently BP 123/69 Pulse 68 Temp 36.4 ?C (97.6 ?F) Resp 18 Wt 61.1 kg (134 lb 11.2 oz) SpO2 96% BMI 23.12 kg/m? Review of Systems Constitutional: Negative for chills, fever and malaise/fatigue. HENT: Negative for congestion, ear discharge, ear pain, sinus pain and sore throat. Eyes: Negative for blurred vision, double vision, photophobia, pain, discharge and redness. Respiratory: Negative for cough, hemoptysis, sputum production, shortness of breath, wheezing and stridor. Cardiovascular: Negative for chest pain. Gastrointestinal: Negative for abdominal pain, diarrhea, nausea and vomiting. Musculoskeletal: Negative for myalgias. Skin: Negative for itching and rash. Neurological: Negative for dizziness and headaches. Objective Physical Exam Constitutional: General: She is not in acute distress. Appearance: She is not diaphoretic. HENT: Head: Normocephalic. Jaw: No trismus, tenderness, swelling or pain on movement. Mouth/Throat: Mouth: Mucous membranes are moist. Pharynx: Oropharynx is clear. Uvula midline. No pharyngeal swelling, oropharyngeal exudate, posterior oropharyngeal erythema or uvula swelling. Eyes: General: Lids are normal. Lids are everted, no foreign bodies appreciated. Vision grossly intact. Right eye: No foreign body or discharge. Extraocular Movements: Right eye: Normal extraocular motion and no nystagmus. Conjunctiva/sclera: Conjunctivae normal. Right eye: Right conjunctiva is not injected. No chemosis, exudate or hemorrhage. Pupils: Pupils are equal, round, and reactive to light. Comments: Limbus clear. Visual acuity unchanged. Cardiovascular: Rate and Rhythm: Normal rate and regular rhythm. Heart sounds: Normal heart sounds. Pulmonary: Effort: Pulmonary effort is normal. No tachypnea, accessory muscle usage or respiratory distress. Breath sounds: Normal breath sounds. No stridor. No wheezing, rhonchi or rales. Abdominal: General: There is no distension. Palpations: Abdomen is soft. Tenderness: There is no abdominal tenderness. There is no guarding or rebound. Musculoskeletal: Cervical back: Normal range of motion and neck supple. No edema, erythema, rigidity or tenderness. No pain with movement. Normal range of motion. Lymphadenopathy: Cervical: No cervical adenopathy. Skin: General: Skin is warm and dry. Neurological: Mental Status: She is alert and oriented to person, place, and time. ASSESSMENT/PLAN: 1. Eye discomfort, right - ICD9: 379.91, ICD10: H57.11 Diagnosed with right eye discomfort. Symptoms are improving. Placed on erythromycin ophthalmic. Red flags for ophthalmology follow-up discussed. Patient was educated on supportive therapies. Patient will follow up with primary care provider as needed. Patient was instructed to immediately proceed to emergency room for any new, worsening, or symptoms lasting longer than anticipated. The patient's clinical presentation is otherwise unremarkable at this time. Based on exam and clinical finding, the patient is stable for discharge. Plan of care was discussed with patient. Patient verbalizes understanding and agrees to plan of care. This note was generated using [employer] software. It may contain errors in wording, punctuation, or spelling. Hamzah Cali APRN.[facility] 04-05-2024 History of Present illness Narrative Subjective HPI Nontoxic-appearing female presents urgent care chief plaint right eyelid swelling. Duration of symptoms today. Associated symptoms listed above. States swelling was worse this morning. Has went down some. States feels like she has a bump underneath her eyelid. No eye trauma. Does not wear contacts. No visual acuity changes. No flashes light or floaters. No EOMs. No fevers. Past medical history prescription medications allergies reviewed. .Patient presents with: Eye Lid Swelling: R eye lid swelling and redness x this AM No past medical history on file. No past surgical history on file. ALLERGIES Diclofenac-Silicone, Adhesive; Gatifloxacin; and Venlafaxine MEDICATIONS gabapentin (NEURONTIN) 800 mg tablet Take 800 mg by mouth three times a day. ALPRAZolam (XANAX) 1 mg tablet TAKE 1 MG ORALLY 4 TIMES A DAY FOR FREE FLOATING ANXIETY EVERY 6 HRS NEEDED buprenorphine SL (SUBUTEX) 2 mg subl TAKE 1 TABLET UNDER THE TONGUE DAILY metoprolol tartrate, short acting, (LOPRESSOR) 25 mg tablet Take 25 mg by mouth daily at bedtime. mirtazapine (REMERON) 30 mg tablet Take 30 mg by mouth daily at bedtime. pantoprazole DR (PROTONIX) 40 mg tablet Take 40 mg by mouth once daily. No family history on file. Social History Tobacco Use Smoking status: Every Day Types: Cigarettes Smokeless tobacco: Current Substance Use Topics Drug use: Not Currently BP 123/69 Pulse 68 Temp 36.4 C (97.6 F) Resp 18 Wt 61.1 kg (134 lb 11.2 oz) SpO2 96% BMI 23.12 kg/m Review of Systems Constitutional: Negative for chills, fever and malaise/fatigue. HENT: Negative for congestion, ear discharge, ear pain, sinus pain and sore throat. Eyes: Negative for blurred vision, double vision, photophobia, pain, discharge and redness. Respiratory: Negative for cough, hemoptysis, sputum production, shortness of breath, wheezing and stridor. Cardiovascular: Negative for chest pain. Gastrointestinal: Negative for abdominal pain, diarrhea, nausea and vomiting. Musculoskeletal: Negative for myalgias. Skin: Negative for itching and rash. Neurological: Negative for dizziness and headaches. Objective Physical Exam Constitutional: General: She is not in acute distress. Appearance: She is not diaphoretic. HENT: Head: Normocephalic. Jaw: No trismus, tenderness, swelling or pain on movement. Mouth/Throat: Mouth: Mucous membranes are moist. Pharynx: Oropharynx is clear. Uvula midline. No pharyngeal swelling, oropharyngeal exudate, posterior oropharyngeal erythema or uvula swelling. Eyes: General: Lids are normal. Lids are everted, no foreign bodies appreciated. Vision grossly intact. Right eye: No foreign body or discharge. Extraocular Movements: Right eye: Normal extraocular motion and no nystagmus. Conjunctiva/sclera: Conjunctivae normal. Right eye: Right conjunctiva is not injected. No chemosis, exudate or hemorrhage. Pupils: Pupils are equal, round, and reactive to light. Comments: Limbus clear. Visual acuity unchanged. Cardiovascular: Rate and Rhythm: Normal rate and regular rhythm. Heart sounds: Normal heart sounds. Pulmonary: Effort: Pulmonary effort is normal. No tachypnea, accessory muscle usage or respiratory distress. Breath sounds: Normal breath sounds. No stridor. No wheezing, rhonchi or rales. Abdominal: General: There is no distension. Palpations: Abdomen is soft. Tenderness: There is no abdominal tenderness. There is no guarding or rebound. Musculoskeletal: Cervical back: Normal range of motion and neck supple. No edema, erythema, rigidity or tenderness. No pain with movement. Normal range of motion. Lymphadenopathy: Cervical: No cervical adenopathy. Skin: General: Skin is warm and dry. Neurological: Mental Status: She is alert and oriented to person, place, and time. ASSESSMENT/PLAN: 1. Eye discomfort, right - ICD9: 379.91, ICD10: H57.11 Diagnosed with right eye discomfort. Symptoms are improving. Placed on erythromycin ophthalmic. Red flags for ophthalmology follow-up discussed. Patient was educated on supportive therapies. Patient will follow up with primary care provider as needed. Patient was instructed to immediately proceed to emergency room for any new, worsening, or symptoms lasting longer than anticipated. The patient's clinical presentation is otherwise unremarkable at this time. Based on exam and clinical finding, the patient is stable for discharge. Plan of care was discussed with patient. Patient verbalizes understanding and agrees to plan of care. This note was generated using [employer] software. It may contain errors in wording, punctuation, or spelling. Hamzah Cali APRN.VINAY documented in this encounter [facility] 03-29-2024 Telephone encounter Note Patient called call center inquiring about her medical issues. Called patient to clarify. Per patient, she advises for a while it takes her a long time to urinate. She cannot get the urine stream to begin. She is also having severe pain in her hips. She has appointment with PCP on 04/17. She was recently diagnosed with thrush. She takes Subutex for pain. Says she woke up at 1AM this morning screaming from pain in her hip and knees. Her left eye is also bothering her. Closes all the time by itself. Has not seen her eye doctor. This has been going on for the past year. Discussed her fibromyalgia diagnosis, doing aquatic therapy, not hitting the exhaustion wall as well as good sleep hygiene. She will call her PCP about the urination issue, and discuss the eye problem with her eye doctor. So Harp RN [facility] 03-29-2024 Miscellaneous Notes Patient called call center inquiring about her medical issues. Called patient to clarify. Per patient, she advises for a while it takes her a long time to urinate. She cannot get the urine stream to begin. She is also having severe pain in her hips. She has appointment with PCP on 04/17. She was recently diagnosed with thrush. She takes Subutex for pain. Says she woke up at 1AM this morning screaming from pain in her hip and knees. Her left eye is also bothering her. Closes all the time by itself. Has not seen her eye doctor. This has been going on for the past year. Discussed her fibromyalgia diagnosis, doing aquatic therapy, not hitting the exhaustion wall as well as good sleep hygiene. She will call her PCP about the urination issue, and discuss the eye problem with her eye doctor. So Harp RN documented in this encounter [facility] 03-27-2024 Note HNO ID: [id number] Author: HAMZAH CALI APRN.EDUCATION PAR[employer]OFESSION[employer] Service: ? Author Type: Nurse Practitioner Type: Progress Notes Filed: 03/27/2024 15:40 Note Text: Subjective HPI Nontoxic-appearing female presents urgent care chief complaint headache sore throat. Duration of symptoms 1 day. Associated symptoms listed above. Most prominent symptom today sore throat and white spots in her mouth. No difficulty swallowing he no secretion decreased range of motion of neck or trismus. Past medical history prescription medications allergies reviewed. .Patient presents with: Headache: Sore throat, fluid for ears, congestion x History reviewed. No pertinent past medical history. History reviewed. No pertinent surgical history. ALLERGIES Diclofenac-Silicone, Adhesive; Gatifloxacin; and Venlafaxine MEDICATIONS gabapentin (NEURONTIN) 800 mg tablet Take 800 mg by mouth three times a day. ALPRAZolam (XANAX) 1 mg tablet TAKE 1 MG ORALLY 4 TIMES A DAY FOR FREE FLOATING ANXIETY EVERY 6 HRS NEEDED buprenorphine SL (SUBUTEX) 2 mg subl TAKE 1 TABLET UNDER THE TONGUE DAILY metoprolol tartrate, short acting, (LOPRESSOR) 25 mg tablet Take 25 mg by mouth daily at bedtime. mirtazapine (REMERON) 30 mg tablet Take 30 mg by mouth daily at bedtime. pantoprazole DR (PROTONIX) 40 mg tablet Take 40 mg by mouth once daily. History reviewed. No pertinent family history. Social History Tobacco Use Smoking status: Every Day Types: Cigarettes Smokeless tobacco: Current Substance Use Topics Drug use: Not Currently BP (!) 121/44 Pulse 60 Temp 36.3 ?C (97.3 ?F) Resp 20 Wt 60 kg (132 lb 4.4 oz) SpO2 97% BMI 22.71 kg/m? Review of Systems Constitutional: Negative for chills, fever and malaise/fatigue. HENT: Positive for congestion and sore throat. Negative for ear discharge, ear pain and sinus pain. Eyes: Negative for blurred vision, pain, discharge and redness. Respiratory: Negative for cough, hemoptysis, sputum production, shortness of breath, wheezing and stridor. Cardiovascular: Negative for chest pain. Gastrointestinal: Negative for abdominal pain, diarrhea, nausea and vomiting. Musculoskeletal: Negative for myalgias. Skin: Negative for itching and rash. Neurological: Negative for dizziness and headaches. Objective Physical Exam Constitutional: General: She is not in acute distress. Appearance: She is not diaphoretic. HENT: Head: Normocephalic. Jaw: No trismus, tenderness, swelling or pain on movement. Mouth/Throat: Mouth: Mucous membranes are moist. Pharynx: Oropharynx is clear. Uvula midline. No pharyngeal swelling, oropharyngeal exudate, posterior oropharyngeal erythema or uvula swelling. Comments: Few white spots noted. Eyes: Conjunctiva/sclera: Conjunctivae normal. Pupils: Pupils are equal, round, and reactive to light. Cardiovascular: Rate and Rhythm: Normal rate and regular rhythm. Heart sounds: Normal heart sounds. Pulmonary: Effort: Pulmonary effort is normal. No tachypnea, accessory muscle usage or respiratory distress. Breath sounds: Normal breath sounds. No stridor. No wheezing, rhonchi or rales. Abdominal: General: There is no distension. Palpations: Abdomen is soft. Tenderness: There is no abdominal tenderness. There is no guarding or rebound. Musculoskeletal: Cervical back: Normal range of motion and neck supple. No edema, erythema, rigidity or tenderness. No pain with movement. Normal range of motion. Lymphadenopathy: Cervical: No cervical adenopathy. Skin: General: Skin is warm and dry. Neurological: Mental Status: She is alert and oriented to person, place, and time. ASSESSMENT/PLAN: 1. Sore throat - ICD9: 462, ICD10: J02.9 (primary diagnosis) - STREP A MOLECULAR (POC) 2. Thrush - ICD9: 112.0, ICD10: B37.0 Strep test negative. Will treat for thrush with oral nystatin. Patient was educated on supportive therapies. Patient will follow up with primary care provider as needed. Patient was instructed to immediately proceed to emergency room for any new, worsening, or symptoms lasting longer than anticipated. The patient's clinical presentation is otherwise unremarkable at this time. Based on exam and clinical finding, the patient is stable for discharge. Plan of care was discussed with patient. Patient verbalizes understanding and agrees to plan of care. This note was generated using [employer] software. It may contain errors in wording, punctuation, or spelling. Hamzah Cali APRN.[facility] 03-27-2024 History of Present illness Narrative Images from the original note were not included. Subjective HPI Nontoxic-appearing female presents urgent care chief complaint headache sore throat. Duration of symptoms 1 day. Associated symptoms listed above. Most prominent symptom today sore throat and white spots in her mouth. No difficulty swallowing he no secretion decreased range of motion of neck or trismus. Past medical history prescription medications allergies reviewed. .Patient presents with: Headache: Sore throat, fluid for ears, congestion x History reviewed. No pertinent past medical history. History reviewed. No pertinent surgical history. ALLERGIES Diclofenac-Silicone, Adhesive; Gatifloxacin; and Venlafaxine MEDICATIONS gabapentin (NEURONTIN) 800 mg tablet Take 800 mg by mouth three times a day. ALPRAZolam (XANAX) 1 mg tablet TAKE 1 MG ORALLY 4 TIMES A DAY FOR FREE FLOATING ANXIETY EVERY 6 HRS NEEDED buprenorphine SL (SUBUTEX) 2 mg subl TAKE 1 TABLET UNDER THE TONGUE DAILY metoprolol tartrate, short acting, (LOPRESSOR) 25 mg tablet Take 25 mg by mouth daily at bedtime. mirtazapine (REMERON) 30 mg tablet Take 30 mg by mouth daily at bedtime. pantoprazole DR (PROTONIX) 40 mg tablet Take 40 mg by mouth once daily. History reviewed. No pertinent family history. Social History Tobacco Use Smoking status: Every Day Types: Cigarettes Smokeless tobacco: Current Substance Use Topics Drug use: Not Currently BP (!) 121/44 Pulse 60 Temp 36.3 C (97.3 F) Resp 20 Wt 60 kg (132 lb 4.4 oz) SpO2 97% BMI 22.71 kg/m Review of Systems Constitutional: Negative for chills, fever and malaise/fatigue. HENT: Positive for congestion and sore throat. Negative for ear discharge, ear pain and sinus pain. Eyes: Negative for blurred vision, pain, discharge and redness. Respiratory: Negative for cough, hemoptysis, sputum production, shortness of breath, wheezing and stridor. Cardiovascular: Negative for chest pain. Gastrointestinal: Negative for abdominal pain, diarrhea, nausea and vomiting. Musculoskeletal: Negative for myalgias. Skin: Negative for itching and rash. Neurological: Negative for dizziness and headaches. Objective Physical Exam Constitutional: General: She is not in acute distress. Appearance: She is not diaphoretic. HENT: Head: Normocephalic. Jaw: No trismus, tenderness, swelling or pain on movement. Mouth/Throat: Mouth: Mucous membranes are moist. Pharynx: Oropharynx is clear. Uvula midline. No pharyngeal swelling, oropharyngeal exudate, posterior oropharyngeal erythema or uvula swelling. Comments: Few white spots noted. Eyes: Conjunctiva/sclera: Conjunctivae normal. Pupils: Pupils are equal, round, and reactive to light. Cardiovascular: Rate and Rhythm: Normal rate and regular rhythm. Heart sounds: Normal heart sounds. Pulmonary: Effort: Pulmonary effort is normal. No tachypnea, accessory muscle usage or respiratory distress. Breath sounds: Normal breath sounds. No stridor. No wheezing, rhonchi or rales. Abdominal: General: There is no distension. Palpations: Abdomen is soft. Tenderness: There is no abdominal tenderness. There is no guarding or rebound. Musculoskeletal: Cervical back: Normal range of motion and neck supple. No edema, erythema, rigidity or tenderness. No pain with movement. Normal range of motion. Lymphadenopathy: Cervical: No cervical adenopathy. Skin: General: Skin is warm and dry. Neurological: Mental Status: She is alert and oriented to person, place, and time. ASSESSMENT/PLAN: 1. Sore throat - ICD9: 462, ICD10: J02.9 (primary diagnosis) - STREP A MOLECULAR (POC) 2. Thrush - ICD9: 112.0, ICD10: B37.0 Strep test negative. Will treat for thrush with oral nystatin. Patient was educated on supportive therapies. Patient will follow up with primary care provider as needed. Patient was instructed to immediately proceed to emergency room for any new, worsening, or symptoms lasting longer than anticipated. The patient's clinical presentation is otherwise unremarkable at this time. Based on exam and clinical finding, the patient is stable for discharge. Plan of care was discussed with patient. Patient verbalizes understanding and agrees to plan of care. This note was generated using [employer] software. It may contain errors in wording, punctuation, or spelling. Hamzah Cali APRN.VINAY documented in this encounter [facility] 03-19-2024 Telephone encounter Note Called patient. Advised per Dr. Contreras, she should discuss her fibromyalgia symptoms with her PCP. Patient advises she called PCP, as she needs a work note for 03/15-03/16. PCP refused to provide her with this. Note was provided to her via [employer]. So Harp RN [facility] 03-19-2024 Miscellaneous Notes Called patient. Advised per Dr. Contreras, she should discuss her fibromyalgia symptoms with her PCP. Patient advises she called PCP, as she needs a work note for 03/15-03/16. PCP refused to provide her with this. Note was provided to her via [employer]. So Harp RN Per pt phone call she is experiencing a flare up and is feeling pain in her lower back, hips, feet, and in the muscle behind her knees. She stated that she gets hot, dizzy, and nauseous whenever she tries to move, this began to occur last Tuesday (03/13). Yesterday was the first day she was able to keep food down. She stated the pain is making her unable to get more than an hour of sleep and she had to miss work and Tuesday. Pt would like to be called back at #[phone]. documented in this encounter [facility] 03-19-2024 Telephone encounter Note Per pt phone call she is experiencing a flare up and is feeling pain in her lower back, hips, feet, and in the muscle behind her knees. She stated that she gets hot, dizzy, and nauseous whenever she tries to move, this began to occur last Tuesday (03/13). Yesterday was the first day she was able to keep food down. She stated the pain is making her unable to get more than an hour of sleep and she had to miss work and Tuesday. Pt would like to be called back at #[phone]. [facility] 03-13-2024 Instructions Louise Contreras MD - 03/13/2024 3:39 PM EDT If you would like me to provide secure electronic information about your patients please consider signing up for our [employer] service. This free service can be contacted at [email or web address] or , and most records for your patients would be available almost immediately after they are seen. For comfort, please use [id number] lubricating eye drops (artificial tears) in each eye as often as needed. If using the drops more than six times/day, please use non-preserved drops. Examples of brand-name lubricating eyedrops available without prescription include but are not limited to Soothe, Optive, GenTeal, Systane, Refresh, and Tears Naturelle. There are generic tear supplements, as well. Similarly, maqb-rya-[id number] artificial saliva preparations, e.g., Lubricity Dry Mouth Oral [place] or Saliva Orthana [place], can be used for dry mouth. Other prescription medications for Sjogren syndrome include Restasis, Xiidra, Miebo (for dry eyes), and Evoxac and Salagen (for dry mouth). Please keep drinking plenty of water and add humidity at home, especially in your bedroom, with a vaporizer (humidifier) or a water bowl by the heat vent. This will help to reduce your sinus congestion. [Case definition for Sj gren's syndrome (ACR / EULAR classification criteria): [employer]/ [employer] classification criteria for primary Sjogren s syndrome: The classification of primary Sjogren s syndrome applies to any individual who meets the inclusion criteria,* does not have any of the conditions listed as exclusion criteria, and has a score of >= 4 when the weights from the 5 criteria items below are summed. 1) Labial salivary gland biopsy showing focal lymphocytic sialadenitis and focus score of >= 1 foci/4 mm2 - Weight/score of 3 2) Anti-SS-A/Ro positive - Weight/score of 3 3) Ocular staining score >= 5 in at least 1 eye - Weight/score of 1 4) Maureen's test <= 5 mm/ 5 minutes in at least 1 eye - Weight/score of 1 5) Unstimulated whole saliva flow rate <= 0.1 ml/minute = Weight/score of 1 Arthritis & Rheumatology. Vol. 69, No. 1, May 2016, pp 35-45] [* These inclusion criteria are applicable to any patient with at least 1 symptoms of ocular or oral dryness, defined as positive response to at least 1 of the following questions: 1) Have you had daily, persistent, troublesome dry eyes for more than 3 months? 2) Do you have a recurrent sensation of sand or gravel in the eyes? 3) Do you use tear substitutes more than 3 times a day? 4) Have you had a daily feeling of dry mouth for more than 3 months? 5) Do you frequently drink liquids to aid in swallowing dry food?, or in whom there is suspicion of Sjogren s syndrome (SS) from the [employer] SS Disease Activity Index questionnaire (at least 1 domain with a positive item). The histopathologic examination should be performed by a pathologist with expertise in the diagnosis of focal lymphocytic sialadenitis and focus score count, using the protocol described by Parag et al (REF: Parag DEUTSCH, Adonay D, Ayesha DYSON, Elizabeth Ma, Blake A, Tesfaye H, et al. Associations between salivary gland histopathologic diagnoses and phenotypic features of Sj ogren s syndrome among 1,726 registry participants. Arthritis Rheum 2011;63:2021-30.). Patients who are normally taking anticholinergic drugs should be evaluated for objective signs of salivary hypofunction and ocular dryness after a sufficient interval without these medications in order for these components to be a valid measure of oral and ocular dryness. Ocular Staining Score described by Golden et al (REF: Golden JACKLYN, Ayesha CH, Ayesha SC, Christopher AM, Yany K, Leighton S, et al. A simplified quantitative method for assessing keratoconjunctivitis sicca from the Sjogren s Syndrome International Registry. Am J Ophthalmol 2010;149:405-15.) van Bijsterveld score described by choco Caba (REF: Choco Caba OP. Diagnostic tests in the Sicca syndrome. Arch Ophthalmol 1969;82:10-4) # Unstimulated whole saliva flow rate measurement described by Chrystal . (REF: Malick Ma, Carlin BRENNAN, [employer]. Measuring salivary flow: challenges and opportunities. J Am [place] Ass[employer] 2008;139 Suppl:35S-40S.)] documented in this encounter [facility] 03-13-2024 History of Present illness Narrative Referred by: Self-referral (Referred by her sister who is my patient) PCP: Dr. Cheryle Babcock, DO [facility] [address] [place], [place] [id number] Ms. Christel Sauceda is a 59-year-old female. Chief Complaint: Ms. Christel Sauceda presents today for evaluation of osteoarthritis and possible Sjogren's syndrome. History of Present Illness: 03/11/2024 Her chief complaints include severe generalized joint and muscle pain, severe malaise and fatigue, difficulty sleeping, and brain fog. She has lost a lot of weight. She was working all the time, up to 80 hours a week. Then she developed generalized pain. She now has a job that requires her to be on her feet all day. She gets very brief breaks Her pain is in her lower back, and hips, knees, and both feet. The muscles in the upper and lower parts of legs are also painful. Most of her pain is in her lower extremities. She also complains of periodic muscle twitching/jerks in her upper extremities. She has not seen a neurologist. She has been following an autoimmune practitioner (Dr. Velasquez) locally. She was receiving injections once a week. She has very dry eyes and dry mouth. She may have Sjogren syndrome, has not had laboratory confirmation, ocular staining score, Maureen's test, or minor salivary gland biopsy. She said that she cannot relax at night. She gets up 2-3 times. Her mind constantly races and she has numerous thoughts. She has been seen by a apprentice painter hand. Currently she is on buprenorphine for pain control. She has been following with a local revenue settlements administrator in [place], [place] (Dr. Digna Ruelas MD). She has been diagnosed with inflammatory arthritis, for which she has been on methotrexate and etanercept (Enbrel). She has become more sick after starting these strong immunosuppressive medications. She said that she got COVID after being started on methotrexate and Enbrel. She had an infection of COVID-19 about 6 months ago. She is unable to eat during the day, as she does not feel hungry. She only eats at night time. She has been losing weight. Today, her body mass index is 21.99 kg/m . She has significant pain and stiffness in her knees. She has received intra-articular steroid injections in her knees, which were very helpful. However, after the knees were injected, she started experiencing pain in her hips. She also received steroid injections in her back (spine), after which she was unable to stand up because she was in significant pain. She has obstructive sleep apnea and uses a BiPAP machine. She denies having COPD. Her primary care provider, Dr. Babcock, took her off Lexapro. She was put on mirtazapine to stimulate her appetite. Through the last few weeks she has not had an appetite. She denies any personal or family history of celiac disease. She used to have diarrhea every morning with blood. However, now she has a difficult time using the bathroom these days. She was taking Cymbalta which previously caused her to have a rash and blisters. She does not have any extracurricular activities. She does not socialize. She falls asleep right after coming home from work because she is in so much pain. She wakes up to eat a couple bites of food and then falls back asleep. She has not taken other vaccines besides the COVID vaccine. She gets bruises without a reason. According to her mother, who is accompanying her today, her body is warm all the time. She is bothered by bright lights, strong odors, and loud noises (central sensitization). In fact, she is bothered by any strong stimulus. Her previous doctors told her that any type of physical therapy would be bad for her. Hence, she never tried physical or aquatic therapy. She was told that One of her legs is shorter than the other (leg length discrepancy). Pertinent prior Office Visits or Imaging: No pertinent office visits. Pertinent prior Lab Studies: No recent lab work. Current Outpatient Medications Medication Sig ALPRAZolam (XANAX) 1 mg tablet TAKE 1 MG ORALLY 4 TIMES A DAY FOR FREE FLOATING ANXIETY EVERY 6 HRS NEEDED buprenorphine SL (SUBUTEX) 2 mg subl TAKE 1 TABLET UNDER THE TONGUE DAILY metoprolol tartrate, short acting, (LOPRESSOR) 25 mg tablet Take 25 mg by mouth daily at bedtime. mirtazapine (REMERON) 30 mg tablet Take 30 mg by mouth daily at bedtime. gabapentin (NEURONTIN) 800 mg tablet Take 800 mg by mouth three times a day. pantoprazole DR (PROTONIX) 40 mg tablet Take 40 mg by mouth once daily. No current facility-administered medications for this visit. Review of Systems CONSTITUTION: Positive for: Recent weight change Negative for: Fever HEENT: Positive for: Trouble swallowing and Dry mouth Negative for: Nosebleeds and Mouth sores RESPIRATORY: Positive for: Shortness of breath Negative for: Cough, Pain with breathing and Coughing up blood GASTROINTESTINAL: Positive for: Abdominal pain Negative for: Melena, Diarrhea and Heartburn MUSCULOSKELETAL: Positive for: Arthralgias, Myalgias, Muscle weakness, Joint swelling and Morning Joint Stiffness NEUROLOGICAL: Positive for: Numbness and Memory loss Negative for: Headaches SKIN: Positive for: Rash Negative for: Sun Sensitive Rash, Skin changes, Hair loss and Nail changes EYES: Positive for: Eye pain, Eye redness, Eye dryness and Visual disturbance CARDIOVASCULAR: Negative for: Chest pain and Leg swelling GENITOURINARY: Negative for: Dysuria, Hematuria and Ulcerations HEMATOLOGIC/LYMPHATIC: Negative for: Swollen glands Past medical history: Gastroesophageal reflux disease Obstructive sleep apnea (on BiPAP) Chronic pain (on buprenorphine) Endometriosis Pelvic inflammatory disease Menorrhagia Dysmenorrhea Dyspareunia Past surgical history: Total abdominal hysterectomy and right salpingo-oophorectomy (4 endometriosis and symptomatic uterine prolapse) Social history: Currently working: It is a very physical job. Everyday smoker. She vapes too. No alcohol use. Family history: Sister (my patient) has inflammatory polyarthritis, fibromyalgia, and recurrent nontraumatic rhabdomyolysis. No other autoimmune rheumatologic disease in the family Physical Exam: Vitals: BP (!) 132/45 Pulse (!) 54 Temp 36.7 C (98 F) (Temporal) Ht 162.6 cm (5' 4) Wt 58.1 kg (128 lb 1.4 oz) BMI 21.99 kg/m General appearance: Well appearing, alert, in no acute distress, well-hydrated, well nourished. Skin: Skin color, texture, turgor normal, no suspicious rashes or lesions Head: Normocephalic, no masses, lesions, tenderness or abnormalities Eyes: Dry eyes. Anicteric sclera. Pupils are equally round and reactive to light. Extraocular movements are intact. Ears: External ears normal, canals clear Nose/Sinuses: Nares normal, septum midline, mucosa normal, no drainage or sinus tenderness Oropharynx: Lips, mucosa, and tongue are dry. Teeth and gums normal, oropharynx normal Neck: Supple, no adenopathy; thyroid symmetric, normal size, no bruits. Neck tender. Back: Normal exam Lungs: lungs clear to auscultation. No wheezing, rhonchi, rales Heart: RRR without murmur, gallop, or rubs. No ectopy Abdomen: Normal abdominal exam, Abdomen soft, non-tender. Bowel sounds normal. No masses, organomegaly Extremities: No active clinical synovitis or joint deformity. Multiple areas of tenderness (more than 11 out of 18). Musculoskeletal: No joint swelling, deformity, or tenderness Peripheral pulses: Normal Neuro: Gait normal. Reflexes normal and symmetric. Sensation grossly intact. ======== Questionnaire scores: [place] sleepiness scale: 6 (Normal < 10) MDQ (Mood Disorder Questionnaire): 14 (Normal < 7) PHQ-9 (Patient Health Questionnaire): depression 24 (Normal < 5) IRISH-7(Generalized Anxiety Disorder) 21 (Normal < 5) Fibromyalgia evaluation: Widespread pain scale (WPI) 12, symptom severity (SS) 11 The patient fulfills the 2016 ACR ([place] [employer]) revised criteria for fibromyalgia (WPI >=7 AND SS >=5) or (WPI >=4-6 AND SS >=9) with a WPI of 12 and SS of 11 [REFERENCE: Mikey Nogueira, Francisco J Christie, Liliana Roque, Klever Carvajal, Neo bowers, Prudencio Moore, Win Bhatia, Marcos Dinero, Imtiaz Dinero, Joaquin Cannon. 2016 Revisions to the 2010/2011 fibromyalgia diagnostic criteria. Semin Arthritis Rheum. 2016 Dec;46(3):319-329]. ======== Assessment: Fibromyalgia (she fulfills the 2016 ACR revised criteria for fibromyalgia): Please see above. She complains of diffuse joint and muscle pain, fatigue, sleep disturbance, and brain fog. Dry eyes and mouth: Need to rule out Sj gren syndrome. Today, there is no definite CLINICAL evidence of an underlying autoimmune rheumatologic disorder including rheumatoid arthritis, lupus, systemic sclerosis (scleroderma), polymyositis / dermatomyositis, or systemic vasculitis. Recommendations: Will check labs. Coordinate plan of care accordingly. Please continue current medications. 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 This condition is associated with abnormal central processing of various peripheral stimuli, including pain. Fibromyalgia is a musculoskeletal manifestation of this condition. It is one of the most frequent generalized pain disorders with poorly understood neurobiological mechanisms. Despite extensive research, the exact cause of fibromyalgia remains unknown. Thus, unfortunately, no disease-modifying therapy is available for this condition (disease-modifying therapy represents pharmacologic and other interventions that can favorably alter the natural history/course of this disease). Fibromyalgia is a widespread condition and is a diagnosis of inclusion rather than exclusion, i.e., it can co-exist with other concomitant rheumatologic and/or non-rheumatologic conditions. A meta-analysis from the [facility] in [place] suggested that concomitant fibromyalgia is common in patients with inflammatory arthritis, which can significantly impact assessing disease severity and treatment decisions. The prevalence of fibromyalgia was 21% among patients with rheumatoid arthritis and 13% in ankylosing spondylitis. In contrast, the condition is reported in approximately 1% to 5% of the general population, according to John Sexton, [facility], Ph.D., of the [facility] in [place], and colleagues. The cornerstones of therapy for fibromyalgia (based on level 1 evidence) are regular aerobic exercise (stationary bike, pool therapy), optimal sleep, and optimal treatment of depression. Optimal quality sleep (especially deep sleep - i.e., phase 3/4 Non-REM sleep) is essential. If your sleep remains disturbed, you might need a sleep study to identify a primary sleep disorder requiring concomitant treatment. You might also benefit from relaxation techniques such as yoga, david chi, acupuncture, or biofeedback to help you deal better with stress. I emphasize that all three aspects of the treatment (sleep, exercise, depression) be addressed simultaneously for maximum benefit and effective treatment of this condition. Doing one or the other will result in less than optimal response to treatment. Medications sometimes used to treat fibromyalgia include those to help correct sleep disturbances and depression, such as low-dose antidepressants (Cymbalta or Savella) or qvu-rvoqy-hsemlbu sedatives and mild analgesics such as Tylenol. Lyrica (Pregabalin) is another drug that has been FDA-approved for treating fibromyalgia. Narcotics are ineffective, harmful, and habit-forming and should be avoided. Therapy must be highly individualized. Primary care providers can manage most signs and symptoms of fibromyalgia under the guidance of a specialist. So please discuss the following with your primary care provider: - Aquatic therapy - Routine low-grade aerobic exercise - Relaxation techniques/mindfulness/yoga/David Chi / Qi Gong - Improvement of sleep hygiene - Appropriately address depression/anxiety with SNRIs - Can use Gabapentin and Tricyclics for symptomatic benefit - Occupational therapy evaluation for desensitization therapy. The [place] [employer] for Rheumat[employer] (EULAR) revised its management guidelines for fibromyalgia in 2016 and now considers nonpharmacologic management as first-line therapy for pain reduction over pharmacologic therapies. The recommendation change was based on increasing the quantity and quality of evidence from the scientific literature. Evidence was evaluated according to the quality of the studies. Systematic reviews assessed a wide variety of nonpharmacologic options. Exercise programs had the most robust evidence of reducing pain. Both aerobic and resistance exercises are effective. Evidence supports the use of aquatic and land-based exercise. The recommendation for exercise as first-line therapy is supported by the strength of evidence derived from 14 studies that included nearly 2500 subjects. Other nonpharmacologic therapies studied had limitations regarding the number and quality of trials. However, several of these therapies did receive a weak for endorsement from EULAR: cognitive behavioral therapy, hydrotherapy/spa therapy, meditative movement (david chi, yoga, qigong), and mindfulness/mid-body therapy. There was insufficient evidence of benefit to recommend using biofeedback, hypnotherapy, or massage. For additional information, please visit the following excellent resources that also outline the management guidelines for fibromyalgia: (1) [email or web address] [email or web address] (2) [email or web address] (3) [email or web address]://www.youSferraube.com/watch?v=eO K_I-5cMHQ ======== Consult [facility] gastroenterology: Because of poor appetite and progressive weight loss. Consult to Physical and Aquatic therapy: She will arrange this locally in [facility]. Final treatment recommendations will be based on completed evaluation and establishment of a diagnosis. Follow-up: She can see an RENU in 3 months and me in 6 months or at the next available appointment. Scribe Attestation: By signing my name below, ITessy, attest that this documentation has been prepared under the direction and in the presence of Louise Contreras MD. Electronically Signed: raul Vaughan, March 13, 2024 3:50 PM Louise Weeks MD, personally performed the services described in this documentation. All medical record entries made by the scribe were at my direction and in my presence. I have reviewed the chart and agree that the record reflects my personal performance and is accurate and complete 03/14/2024 7:20 AM I spent a total of 65 minutes on the date of the service which included preparing to see the patient, completing clinical documentation, obtaining and/or reviewing separately obtained history, counseling and educating the patient/family/caregiver, ordering medications, tests, or procedures, communicating with other HCPs (not separately reported), independently interpreting results (not separately reported), communicating results to the patient/family/caregiver and care coordination (not separately reported). Louise Contreras MD documented in this encounter [facility] 03-13-2024 Note HNO ID: [id number] Author: LOUISE CONTRERAS MD Service: ? Author Type: Physician Type: Progress Notes Filed: 03/14/2024 07:24 Note Text: Referred by: Self-referral (Referred by her sister who is my patient) PCP: Dr. Cheryle Babcock, [facility] [address] [place] [address] Ms. Christel Sauceda is a 59-year-old female. Chief Complaint: Ms. Christel Sauceda presents today for evaluation of osteoarthritis and possible Sjogren's syndrome. History of Present Illness: 03/11/2024 Her chief complaints include severe generalized joint and muscle pain, severe malaise and fatigue, difficulty sleeping, and brain fog. She has lost a lot of weight. She was working all the time, up to 80 hours a week. Then she developed generalized pain. She now has a job that requires her to be on her feet all day. She gets very brief breaks Her pain is in her lower back, and hips, knees, and both feet. The muscles in the upper and lower parts of legs are also painful. Most of her pain is in her lower extremities. She also complains of periodic muscle twitching/jerks in her upper extremities. She has not seen a neurologist. She has been following an autoimmune practitioner (Dr. Velasquez) locally. She was receiving injections once a week. She has very dry eyes and dry mouth. She may have Sjogren syndrome, has not had laboratory confirmation, ocular staining score, Maureen's test, or minor salivary gland biopsy. She said that she cannot relax at night. She gets up 2-3 times. Her mind constantly races and she has numerous thoughts. She has been seen by a apprentice painter hand. Currently she is on buprenorphine for pain control. She has been following with a local revenue settlements administrator in [place], [place] (Dr. Digna Ruelas MD). She has been diagnosed with inflammatory arthritis, for which she has been on methotrexate and etanercept (Enbrel). She has become more sick after starting these strong immunosuppressive medications. She said that she got COVID after being started on methotrexate and Enbrel. She had an infection of COVID-19 about 6 months ago. She is unable to eat during the day, as she does not feel hungry. She only eats at night time. She has been losing weight. Today, her body mass index is 21.99 kg/m?. She has significant pain and stiffness in her knees. She has received intra-articular steroid injections in her knees, which were very helpful. However, after the knees were injected, she started experiencing pain in her hips. She also received steroid injections in her back (spine), after which she was unable to stand up because she was in significant pain. She has obstructive sleep apnea and uses a BiPAP machine. She denies having COPD. Her primary care provider, Dr. Babcock, took her off Lexapro. She was put on mirtazapine to stimulate her appetite. Through the last few weeks she has not had an appetite. She denies any personal or family history of celiac disease. She used to have diarrhea every morning with blood. However, now she has a difficult time using the bathroom these days. She was taking Cymbalta which previously caused her to have a rash and blisters. She does not have any extracurricular activities. She does not socialize. She falls asleep right after coming home from work because she is in so much pain. She wakes up to eat a couple bites of food and then falls back asleep. She has not taken other vaccines besides the COVID vaccine. She gets bruises without a reason. According to her mother, who is accompanying her today, her body is warm all the time. She is bothered by bright lights, strong odors, and loud noises (central sensitization). In fact, she is bothered by any strong stimulus. Her previous doctors told her that any type of physical therapy would be bad for her. Hence, she never tried physical or aquatic therapy. She was told that One of her legs is shorter than the other (leg length discrepancy). Pertinent prior Office Visits or Imaging: No pertinent office visits. Pertinent prior Lab Studies: No recent lab work. Current Outpatient Medications Medication Sig ALPRAZolam (XANAX) 1 mg tablet TAKE 1 MG ORALLY 4 TIMES A DAY FOR FREE FLOATING ANXIETY EVERY 6 HRS NEEDED buprenorphine SL (SUBUTEX) 2 mg subl TAKE 1 TABLET UNDER THE TONGUE DAILY metoprolol tartrate, short acting, (LOPRESSOR) 25 mg tablet Take 25 mg by mouth daily at bedtime. mirtazapine (REMERON) 30 mg tablet Take 30 mg by mouth daily at bedtime. gabapentin (NEURONTIN) 800 mg tablet Take 800 mg by mouth three times a day. pantoprazole DR (PROTONIX) 40 mg tablet Take 40 mg by mouth once daily. No current facility-administered medications for this visit. Review of Systems CONSTITUTION: Posi (more content not included)... [facility] 12-16-2023 Hospital Discharge instructions Patient Education 12/16/2023 18:08:09 Blister (Adult) Blister (Adult) A blister is a raised area of skin with clear, watery fluid inside. A blister can occur when the skin is damaged. Blisters can hurt when they are pressed, or if they break open. Blisters can be caused in many ways. This can happen if the skin is rubbed too hard or often. Or they can occur if the skin is hurt by the sun, a virus, or even a medicine. Most blisters need little treatment. They often dry up and go away in a few days to weeks after the cause is stopped. A blister may need to be cleaned. A broken (open) blister may be bandaged to prevent infection. Blisters caused by insect bites or drug reactions may be more serious. These should be looked at by a healthcare provider. Home care Your healthcare provider may prescribe pain medicine. He or she may also prescribe an antibiotic cream or ointment to put on an open blister. Follow all instructions when using these medicines. General care: Follow all instructions on how to care for the blister. If a bandage was put on, change the bandage as instructed. . If the blister breaks, the area will leak a clear fluid for a day or 2. Wash the area with soap and water every day or as advised by your healthcare provider. You may use pvin-vxf-[id number] pain medicines to control pain, unless another medicine was prescribed. If you have chronic liver or kidney disease, talk with your healthcare provider before using these medicines. Also talk with your provider if you've had a stomach ulcer or gastrointestinal bleeding. Follow-up care Follow up with your healthcare provider, or as advised. When to seek medical advice Call your healthcare provider right away if any of these occur: Fever of 100.4 F (38 C) or higher Redness or swelling that is new or gets worse Foul-smelling fluid leaking from the blister Pain doesn t go away, or gets worse Increase in size of the blister Blister doesn t get better after several days [id number] [employer]. [address] [place] [address]. All rights reserved. This information is not intended as a substitute for professional medical care. Always follow your healthcare professional's instructions. Follow Up Care 12/16/2023 16:54:45 With:Go to emergency room if symptoms worsen Address:Unknown When:2-4 days With:CHERYLE BABCOCK DO Address: [facility] [address] [place] [id number] [phone] When:2-4 days [facility] 12-16-2023 Note Discharge Instructions Thank you for allowing [facility] to assist you with your healthcare needs. The following is important discharge information regarding your hospital visit. Diagnosis from Today's Visit Nontraumatic blister of skin What to Do Next Instructions from Your Care Team Continue to monitor blister on back. If the adhesive on the bandage itches or is painful please removed to prevent additional localized skin reaction. Monitor for any additional spots or lesions or blisters. Follow-up with primary doctor. Return to the emergency department if develop acute worsening of lesions or if you develop fever or chills or systemic symptoms. No qualifying data available. Post Acute Orders No qualifying data available. You Need to Schedule the Following Appointments Follow Up with Go to emergency room if symptoms worsen When:Within 2-4 days Follow Up with CHERYLE BABCOCK DO When:Within 2-4 days Where:[facility] [place] [address]- [phone] Allergies Effexor Tequin Education Materials Blister (Adult) A blister is a raised area of skin with clear, watery fluid inside. A blister can occur when the skin is damaged. Blisters can hurt when they are pressed, or if they break open. Blisters can be caused in many ways. This can happen if the skin is rubbed too hard or often. Or they can occur if the skin is hurt by the sun, a virus, or even a medicine. Most blisters need little treatment. They often dry up and go away in a few days to weeks after the cause is stopped. A blister may need to be cleaned. A broken (open) blister may be bandaged to prevent infection. Blisters caused by insect bites or drug reactions may be more serious. These should be looked at by a healthcare provider. Home care Your healthcare provider may prescribe pain medicine. He or she may also prescribe an antibiotic cream or ointment to put on an open blister. Follow all instructions when using these medicines. General care: Follow all instructions on how to care for the blister. If a bandage was put on, change the bandage as instructed. . If the blister breaks, the area will leak a clear fluid for a day or 2. Wash the area with soap and water every day or as advised by your healthcare provider. You may use qupc-ipf-bqvaunp pain medicines to control pain, unless another medicine was prescribed. If you have chronic liver or kidney disease, talk with your healthcare provider before using these medicines. Also talk with your provider if you've had a stomach ulcer or gastrointestinal bleeding. Follow-up care Follow up with your healthcare provider, or as advised. When to seek medical advice Call your healthcare provider right away if any of these occur: Fever of 100.4 F (38 C) or higher Redness or swelling that is new or gets worse Foul-smelling fluid leaking from the blister Pain doesn t go away, or gets worse Increase in size of the blister Blister doesn t get better after several days [id number] [employer]. [address] [place] [address], [place] [address]. All rights reserved. This information is not intended as a substitute for professional medical care. Always follow your healthcare professional's instructions. Additional Information VACCINATE! IT SAVES LIVES! Members of the community who have not yet received the COVID-19 vaccine and would like to receive it can visit one of [facility] vaccine clinics. There are many vaccine clinic locations within the [facility]. For locations and available times, please visit [email or web address] It is important to note that some COVID mobile vaccine clinics are held outdoors and may be canceled in rainy or stormy conditions. To learn more about pediatric vaccinations (ages 5-11), we invite you to visit the [facility] webpage. https://www.[facility].org/pag es/5728-Foyke-Xhvbvwqkcmq-Frequent df-Eoicg-Uavoomrfu.html To learn more about the COVID-19 vaccine, we invite you to visit the CDC website for a list of frequently asked questions. https://www.cdc.gov/coronavirus/ 19-ncov/vaccines/faq.html [facility] Patient Portal Access Instructions: Stay connected with your healthcare team and access your personal medical information anytime with the [email or web address] Patient Portal. If you would like a full copy of your medical records please contact the [facility] Medical Records Department Tuesday through Tuesday between 8a.m. and 4:30p.m. Please follow the directions below to access the portal: 1.Access the email account you provided upon registration to the hospital.2.Look for an invitation email from [facility].3.Open the email and access the invitation link: Accept Invitation to [email or web address].Fill in the required kulkarni to create your account. Sign into [email or web address] with your username and password that you created in the above steps to stay up to date. You can then view a summary of results, a summary of your visits, and the ability to download your summaries to your computer or send the information securely to a physician. Remember that your healthcare information is confidential, so carefully consider who you will allow to register on the [facility] Patient Portal for access to your information. You can also access the [facility] Patient Portal on the [employer] re[employer]. Simply click on Health Records under Health Data and then click on the [facility] logo. HOW TO SAFELY DISPOSE OF PRESCRIPTION MEDICATIONS Please use one of the following methods to safely dispose of your unused medications. 1.Use a drug disposal kit: the drug disposal pouch allows you to safely discard your old and unused drugs. Ask your nurse to give you one when you are discharged.2.Visit a local take-back location: Many local pharmacies and police departments have programs that collect old and unwanted prescription drugs. Call your local pharmacy or go to http://Hair [email or web address]/5X1Lx1l to find one close to you.3.Make use of household items: Use cat litter or old coffee grounds to dispose medications if other options are not available. Mix your drugs with these household products, seal them in an airtight container and throw it into the garbage. Call [facility]: [phone] to be sure your drugs can be disposed of in this way. Some medicines may require a different approach.4.Never flush your medications down the toilet. IF YOU HAVE BEEN PRESCRIBED AN OPIOIDS FOR PAIN If you have been prescribed an opioid (such as hydrocodone, oxycodone or morphine), it is critical to understand the possible side effects and risks of opioid pain medications. Even when taken as directed, opioids can have several side effects including: Tolerance, meaning you might need to take more of a medication for the same pain relief. Nausea, vomiting and/or constipation. Sleepiness, dizziness, dry mouth, confusion, depression or itching. Physical dependence, meaning you have withdrawal symptoms when a medication is stopped ? this can develop within a few days. KNOW YOUR RESPONSIBILITIES It is important to know exactly how much and how often to take the opioid pain medications you are prescribed. Never take opioids in higher amounts or more often than prescribed. Do not combine opioids with alcohol or other drugs that cause drowsiness, such as benzodiazepines, also known as benzos, including diazepam and alprazolam, muscle relaxants or sleep aids. Never sell or share prescription opioids. This is illegal. Store opioids in a secure place and out of reach of others (including children, family, friends and visitors). The last page(s) of this document has been signed and retained as a CHART COPY Signatures Patient Education Materials Blister (Adult) Medication Leaflets My discharge plan and instructions have been reviewed and explained to me and I,CHRISTEL SAUCEDA understand my current condition and have read and understand these discharge instructions. I have received a written copy of the plan/instructions. If I have questions, I am aware that I should contact my doctor. 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 The following is important discharge information regarding your hospital visit. Diagnosis from Today's Visit Nontraumatic blister of skin What to Do Next Instructions from Your Care Team Continue to monitor blister on back. If the adhesive on the bandage itches or is painful please removed to prevent additional localized skin reaction. Monitor for any additional spots or lesions or blisters. Follow-up with primary doctor. Return to the emergency department if develop acute worsening of lesions or if you develop fever or chills or systemic symptoms. No qualifying data available. Post Acute Orders No qualifying data available. You Need to Schedule the Following Appointments Follow Up with Go to emergency room if symptoms worsen When:Within 2-4 days Follow Up with CHERYLE BBACOCK DO When:Within 2-4 days Where:[facility] [address] [facility] [place] [address] [phone] Allergies Effexor Tequin Medications Please ask your primary doctor or pharmacist before taking any other medication not listed, including over the counter drugs, herbal medications, vitamins and or supplements as they may interact with your home medications. What How Much When Why Instructions Last Dose Unchanged acetaminophen-hydrocodone (Central 325- 5 mg oral tablet) 1 tab(s) by mouth Every 6 hours as needed for as needed for pain Spasm of back muscles Duration: 3 Days Unchanged acetaminophen-hydrocodone (Central 325- 5 mg oral tablet) 1 tab(s) by mouth Every 6 hours Contusion of rib Duration: 3 Days Unchanged ALPRAZolam (Xanax 0.5 mg oral tablet) 1 tab(s) by mouth Three (3) times a day as needed for for anxiety Unchanged cyclobenzaprine (Flexeril use cyclobenzaprine ) 5 Milligram by mouth Three (3) times a day Spasm of back muscles Unchanged escitalopram (Lexapro) 20 Milligram by mouth Once a day Unchanged estradiol (estradiol 1 mg oral tablet) 1 tab(s) by mouth Once a day Unchanged gabapentin (gabapentin 800 mg oral tablet) 1 tab(s) by mouth Two (2) times a day Unchanged lidocaine topical (Lidoderm 5% topical film) 1 patch(es) Topical Once a day Unchanged pantoprazole (pantoprazole 40 mg oral enteric coated tablet) 1 tab(s) by mouth Once a day Unchanged sucralfate (Carafate 1 g oral tablet) 1 tab(s) by mouth Four (4) times daily-before meals and at bedtime Please take this list to your next doctor s visit. Bring all medications you take, including over the counter medications, herbals and other supplements with you to your doctor s visit. Patients and families are reminded to discard old lists and to update any records with all medication providers or retail pharmacies. Education Materials Blister (Adult) A blister is a raised area of skin with clear, watery fluid inside. A blister can occur when the skin is damaged. Blisters can hurt when they are pressed, or if they break open. Blisters can be caused in many ways. This can happen if the skin is rubbed too hard or often. Or they can occur if the skin is hurt by the sun, a virus, or even a medicine. Most blisters need little treatment. They often dry up and go away in a few days to weeks after the cause is stopped. A blister may need to be cleaned. A broken (open) blister may be bandaged to prevent infection. Blisters caused by insect bites or drug reactions may be more serious. These should be looked at by a healthcare provider. Home care Your healthcare provider may prescribe pain medicine. He or she may also prescribe an antibiotic cream or ointment to put on an open blister. Follow all instructions when using these medicines. General care: Follow all instructions on how to care for the blister. If a bandage was put on, change the bandage as instructed. . If the blister breaks, the area will leak a clear fluid for a day or 2. Wash the area with soap and water every day or as advised by your healthcare provider. You may use upcr-lrv-pyediev pain medicines to control pain, unless another medicine was prescribed. If you have chronic liver or kidney disease, talk with your healthcare provider before using these medicines. Also talk with your provider if you've had a stomach ulcer or gastrointestinal bleeding. Follow-up care Follow up with your healthcare provider, or as advised. When to seek medical advice Call your healthcare provider right away if any of these occur: Fever of 100.4 F (38 C) or higher Redness or swelling that is new or gets worse Foul-smelling fluid leaking from the blister Pain doesn t go away, or gets worse Increase in size of the blister Blister doesn t get better after several days [id number] [employer]. [address] [place], [place] [id number]. All rights reserved. This information is not intended as a substitute for professional medical care. Always follow your healthcare professional's instructions. Additional Information VACCINATE! IT SAVES LIVES! Members of the community who have not yet received the COVID-19 vaccine and would like to receive it can visit one of [facility] vaccine clinics. There are many vaccine clinic locations within the [facility]. For locations and available times, please visit [email or web address] It is important to note that some COVID mobile vaccine clinics are held outdoors and may be canceled in rainy or stormy conditions. To learn more about pediatric vaccinations (ages 5-11), we invite you to visit the [facility] webpage. https://www.[facility].org/pag es/3394-Tesnp-Lspczziunzd-Frequent qo-Fcnag-Szorcpklx.html To learn more about the COVID-19 vaccine, we invite you to visit the CDC website for a list of frequently asked questions. https://www.cdc.gov/coronavirus/-ncov/vaccines/faq.html [email or web address] Patient Portal Access Instructions: Stay connected with your healthcare team and access your personal medical information anytime with the [email or web address] Patient Portal. If you would like a full copy of your medical records please contact the [facility] Medical Records Department Tuesday through Tuesday between 8a.m. and 4:30p.m. Please follow the directions below to access the portal: 1.Access the email account you provided upon registration to the [facility].2.Look for an invitation email from [facility].3.Open the email and access the invitation link: Accept Invitation to [email or web address].Fill in the required kulkarni to create your account. Sign into [email or web address] with your username and password that you created in the above steps to stay up to date. You can then view a summary of results, a summary of your visits, and the ability to download your summaries to your computer or send the information securely to a physician. Remember that your healthcare information is confidential, so carefully consider who you will allow to register on the [email or web address] Patient Portal for access to your information. You can also access the [email or web address] Patient Portal on the [employer]. Simply click on Health Records under Health Data and then click on the [facility] logo. HOW TO SAFELY DISPOSE OF PRESCRIPTION MEDICATIONS Please use one of the following methods to safely dispose of your unused medications. 1.Use a drug disposal kit: the drug disposal pouch allows you to safely discard your old and unused drugs. Ask your nurse to give you one when you are discharged.2.Visit a local take-back location: Many local pharmacies and police departments have programs that collect old and unwanted prescription drugs. Call your local pharmacy or go to http://Hair Scynce[facility]/5X3Fn1r to find one close to you.3.Make use of household items: Use cat litter or old coffee grounds to dispose medications if other options are not available. Mix your drugs with these household products, seal them in an airtight container and throw it into the garbage. Call [facility]: [phone] to be sure your drugs can be disposed of in this way. Some medicines may require a different approach.4.Never flush your medications down the toilet. IF YOU HAVE BEEN PRESCRIBED AN OPIOIDS FOR PAIN If you have been prescribed an opioid (such as hydrocodone, oxycodone or morphine), it is critical to understand the possible side effects and risks of opioid pain medications. Even when taken as directed, opioids can have several side effects including: Tolerance, meaning you might need to take more of a medication for the same pain relief. Nausea, vomiting and/or constipation. Sleepiness, dizziness, dry mouth, confusion, depression or itching. Physical dependence, meaning you have withdrawal symptoms when a medication is stopped ? this can develop within a few days. KNOW YOUR RESPONSIBILITIES It is important to know exactly how much and how often to take the opioid pain medications you are prescribed. Never take opioids in higher amounts or more often than prescribed. Do not combine opioids with alcohol or other drugs that cause drowsiness, such as benzodiazepines, also known as benzos, including diazepam and alprazolam, muscle relaxants or sleep aids. Never sell or share prescription opioids. This is illegal. Store opioids in a secure place and out of reach of others (including children, family, friends and visitors). The last page(s) of this document has been signed and retained as a CHART COPY Signatures Patient Education Materials Blister (Adult) Medication Leaflets My discharge plan and instructions have been reviewed and explained to me and ISOHAIL SUBRENA F understand my current condition and have read and understand these discharge instructions. I have received a written copy of the plan/instructions. If I have questions, I am aware that I should contact my doctor. 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 An allergen is something that causes a person s immune system to react. When a person comes in contact with an allergen, it causes the body to release chemicals. These include the chemical histamine. Histamine causes swelling and itching. It may affect the entire body. This is called a general allergic reaction. Often symptoms affect only 1 part of the body. This is called a local allergic reaction. You are having an allergic reaction. Almost anything can cause one. Different people are allergic to different things. It is usually something that you ate or swallowed, came into contact with by getting or putting it on your skin or clothes, or something you breathed in the air. This can be very annoying and sometimes scary. Most of us think of allergic reactions when we have a rash or itchy skin. Symptoms can include: Itching of the eyes, nose, and roof of the mouth Runny or stuffy nose Watery eyes Sneezing or coughing A blocked feeling in the ear Red, itchy rash called hives Red and purple spots Rash, redness, welts, blisters Itching, burning, stinging, pain Dry, flaky, cracking, scaly skin Severe symptoms include: Swelling of the face, lips, or other parts of the body Hoarse voice Trouble swallowing, feeling like your throat is closing Trouble breathing, wheezing Nausea, vomiting, diarrhea, stomach cramps Feeling faint or lightheaded, rapid heart rate Sometimes the cause may be obvious. But there are so many things that can cause a reaction that you may not be able to figure out. The most important things to help find your allergen are: Remembering when it started What you were doing at the time or just before that Any activities you were involved in Any new products or contacts Below are some common causes. But remember that almost anything can cause a reaction. You may not even be aware that you came into contact with one of these things: Dust, mold, pollen Plants (common ones are poison agustin and poison oak, but there are many others) Animals Foods such as shrimp, shellfish, peanuts, milk products, gluten, and eggs. Also food colorings, flavorings, and additives. Insect bites or stings such as bees, mosquitos, fleas, ticks Medicines such as penicillin, sulfa medicines, amoxicillin, aspirin, and ibuprofen. But any medicine can cause a reaction. Jewelry such as nickel or gold. This can be new, or something you ve worn for a while, including zippers and buttons. Latex such as in gloves, clothes, toys, balloons, or some tapes. Some people allergic to latex may also have problems with foods like bananas, avocados, kiwi, papaya, or chestnuts. Lotions, perfumes, cosmetics, soaps, shampoos, skincare products, nail products Chemicals or dyes in clothing, linen, seed buyer, hair dyes, soaps, iodine Many viruses and common colds can cause a rash that is not an allergic reaction. Sometimes it is hard to tell the difference between allergies, sensitivity, or an intolerance to something. This is especially true with food. Many things can cause diarrhea, vomiting, stomach cramps, and skin irritation. Home care The goal of treatment is to help relieve the symptoms and get you feeling better. The rash will usually fade over several days. But it can sometimes last a couple of weeks. Over the next couple of days, there may be times when it is gets a little worse, and then better again. Here are some things to do: If you know what you are allergic to, stay away from it. Future reactions could be worse than this one. Avoid tight clothing and anything that heats up your skin (hot showers or baths, direct sunlight). Heat will make itching worse. An ice pack will relieve local areas of intense itching and redness. To make an ice pack, put ice cubes in a plastic bag that seals at the top. Wrap it in a thin, clean towel. Don t put the ice directly on the skin because it can damage the skin. Oral diphenhydramine is an rmoo-bqc-ylwpkoq antihistamine sold at pharmacy and grocery stores. Unless a prescription antihistamine was given, diphenhydramine may be used to reduce itching if large areas of the skin are involved. It may make you sleepy. So be careful using it in the daytime or when going to school, working, or driving. Note: Don t use diphenhydramine if you have glaucoma or if you are a man with trouble urinating due to an enlarged prostate. There are other antihistamines that won t make you so sleepy. These are good choices for daytime use. Ask your pharmacist for suggestions. Don t use diphenhydramine cream on your skin. It can cause a further reaction in some people. To help prevent an infection, don't scratch the affected area. Scratching may worsen the reaction and damage your skin. It can also lead to an infection. Always check the affected for signs of an infection. Call your healthcare provider and ask what you can use to help decrease the itching. To decrease allergic reactions, try the following: Use heat-steam to clean your home Use high-efficiency particulate (HEPA) vacuums and filters Stay away from food and pet triggers Kill any cockroaches Clean your house often Follow-up care Follow up with your healthcare provider, or as advised. If you had a severe reaction today, or if you have had several mild to medium allergic reactions in the past, ask your provider about allergy testing. This can help you find out what you are allergic to. If your reaction included dizziness, fainting, or trouble breathing or swallowing, ask your provider about carrying auto-injectable epinephrine. Call 911 Call 911 if any of these occur: Trouble breathing or swallowing, wheezing Cool, moist, pale skin Shortness of breath Hoarse voice or trouble speaking Confused Very drowsy or trouble awakening Fainting or loss of consciousness Rapid heart rate Feeling of dizziness or weakness or a sudden drop in blood pressure Feeling of doom Feeling lightheaded Severe nausea or vomiting, or diarrhea Seizure Swelling in the face, eyelids, lips, mouth, throat or tongue Drooling When to seek medical advice Call your healthcare provider right away if any of these occur: Spreading areas of itching, redness or swelling Nausea or stomach cramps or abdominal pain Continuing or recurring symptoms Spreading areas of redness, swelling, or itching Signs of infection at the affected site: oSpreading redness oIncreased pain or swelling oFluid or colored drainage from the site oFever of 100.4 F (38 C) or above lasting for 24 to 48 hours, or as directed by your provider [id number] [employer]. [address] [place] [address], [place] [address]. All rights reserved. This information is not intended as a substitute for professional medical care. Always follow your healthcare professional's instructions. Follow Up Care 12/06/2023 11:23:19 With:CHERYLE BABCOCK DO Address: [facility] [address] [place] [phone] When:2-4 days [facility] 12-06-2023 Note Discharge Instructions Thank you for allowing [facility] to assist you with your healthcare needs. The following is important discharge information regarding your hospital visit. Diagnosis from Today's Visit Allergic reaction What to Do Next Instructions from Your Care Team No qualifying data available. Post Acute Orders No qualifying data available. You Need to Schedule the Following Appointments Follow Up with CHERYLE BABCOCK DO When:Within 2-4 days Where:[facility] [address] [place] [phone] Allergies Effexor Tequin Medications Please ask your primary doctor or pharmacist before taking any other medication not listed, including over the counter drugs, herbal medications, vitamins and or supplements as they may interact with your home medications. What How Much When Why Instructions Last Dose New diphenhydrAMINE topical (diphenhydrAMINE 2% topical cream) 1 application Topical Once a day as needed for as needed for itching Duration: 5 Days to irritated skin of Left arm Printed Prescription Unchanged acetaminophen-hydrocodone (Central 325- 5 mg oral tablet) 1 tab(s) by mouth Every 6 hours as needed for as needed for pain Spasm of back muscles Duration: 3 Days Unchanged acetaminophen-hydrocodone (Central 325- 5 mg oral tablet) 1 tab(s) by mouth Every 6 hours Contusion of rib Duration: 3 Days Unchanged ALPRAZolam (Xanax 0.5 mg oral tablet) 1 tab(s) by mouth Three (3) times a day as needed for for anxiety Unchanged cyclobenzaprine (Flexeril use cyclobenzaprine ) 5 Milligram by mouth Three (3) times a day Spasm of back muscles Unchanged escitalopram (Lexapro) 20 Milligram by mouth Once a day Unchanged estradiol (estradiol 1 mg oral tablet) 1 tab(s) by mouth Once a day Unchanged gabapentin (gabapentin 800 mg oral tablet) 1 tab(s) by mouth Two (2) times a day Unchanged lidocaine topical (Lidoderm 5% topical film) 1 patch(es) Topical Once a day Unchanged pantoprazole (pantoprazole 40 mg oral enteric coated tablet) 1 tab(s) by mouth Once a day Unchanged sucralfate (Carafate 1 g oral tablet) 1 tab(s) by mouth Four (4) times daily-before meals and at bedtime Please take this list to your next doctor s visit. Bring all medications you take, including over the counter medications, herbals and other supplements with you to your doctor s visit. Patients and families are reminded to discard old lists and to update any records with all medication providers or retail pharmacies. Education Materials General Allergic Reactions An allergic reaction is a set of symptoms caused by an allergen. An allergen is something that causes a person s immune system to react. When a person comes in contact with an allergen, it causes the body to release chemicals. These include the chemical histamine. Histamine causes swelling and itching. It may affect the entire body. This is called a general allergic reaction. Often symptoms affect only 1 part of the body. This is called a local allergic reaction. You are having an allergic reaction. Almost anything can cause one. Different people are allergic to different things. It is usually something that you ate or swallowed, came into contact with by getting or putting it on your skin or clothes, or something you breathed in the air. This can be very annoying and sometimes scary. Most of us think of allergic reactions when we have a rash or itchy skin. Symptoms can include: Itching of the eyes, nose, and roof of the mouth Runny or stuffy nose Watery eyes Sneezing or coughing A blocked feeling in the ear Red, itchy rash called hives Red and purple spots Rash, redness, welts, blisters Itching, burning, stinging, pain Dry, flaky, cracking, scaly skin Severe symptoms include: Swelling of the face, lips, or other parts of the body Hoarse voice Trouble swallowing, feeling like your throat is closing Trouble breathing, wheezing Nausea, vomiting, diarrhea, stomach cramps Feeling faint or lightheaded, rapid heart rate Sometimes the cause may be obvious. But there are so many things that can cause a reaction that you may not be able to figure out. The most important things to help find your allergen are: Remembering when it started What you were doing at the time or just before that Any activities you were involved in Any new products or contacts Below are some common causes. But remember that almost anything can cause a reaction. You may not even be aware that you came into contact with one of these things: Dust, mold, pollen Plants (common ones are poison agustin and poison oak, but there are many others) Animals Foods such as shrimp, shellfish, peanuts, milk products, gluten, and eggs. Also food colorings, flavorings, and additives. Insect bites or stings such as bees, mosquitos, fleas, ticks Medicines such as penicillin, sulfa medicines, amoxicillin, aspirin, and ibuprofen. But any medicine can cause a reaction. Jewelry such as nickel or gold. This can be new, or something you ve worn for a while, including zippers and buttons. Latex such as in gloves, clothes, toys, balloons, or some tapes. Some people allergic to latex may also have problems with foods like bananas, avocados, kiwi, papaya, or chestnuts. Lotions, perfumes, cosmetics, soaps, shampoos, skincare products, nail products Chemicals or dyes in clothing, linen, seed buyer, hair dyes, soaps, iodine Many viruses and common colds can cause a rash that is not an allergic reaction. Sometimes it is hard to tell the difference between allergies, sensitivity, or an intolerance to something. This is especially true with food. Many things can cause diarrhea, vomiting, stomach cramps, and skin irritation. Home care The goal of treatment is to help relieve the symptoms and get you feeling better. The rash will usually fade over several days. But it can sometimes last a couple of weeks. Over the next couple of days, there may be times when it is gets a little worse, and then better again. Here are some things to do: If you know what you are allergic to, stay away from it. Future reactions could be worse than this one. Avoid tight clothing and anything that heats up your skin (hot showers or baths, direct sunlight). Heat will make itching worse. An ice pack will relieve local areas of intense itching and redness. To make an ice pack, put ice cubes in a plastic bag that seals at the top. Wrap it in a thin, clean towel. Don t put the ice directly on the skin because it can damage the skin. Oral diphenhydramine is an hwlv-zaz-mxryqgo antihistamine sold at pharmacy and grocery stores. Unless a prescription antihistamine was given, diphenhydramine may be used to reduce itching if large areas of the skin are involved. It may make you sleepy. So be careful using it in the daytime or when going to school, working, or driving. Note: Don t use diphenhydramine if you have glaucoma or if you are a man with trouble urinating due to an enlarged prostate. There are other antihistamines that won t make you so sleepy. These are good choices for daytime use. Ask your pharmacist for suggestions. Don t use diphenhydramine cream on your skin. It can cause a further reaction in some people. To help prevent an infection, don't scratch the affected area. Scratching may worsen the reaction and damage your skin. It can also lead to an infection. Always check the affected for signs of an infection. Call your healthcare provider and ask what you can use to help decrease the itching. To decrease allergic reactions, try the following: Use heat-steam to clean your home Use high-efficiency particulate (HEPA) vacuums and filters Stay away from food and pet triggers Kill any cockroaches Clean your house often Follow-up care Follow up with your healthcare provider, or as advised. If you had a severe reaction today, or if you have had several mild to medium allergic reactions in the past, ask your provider about allergy testing. This can help you find out what you are allergic to. If your reaction included dizziness, fainting, or trouble breathing or swallowing, ask your provider about carrying auto-injectable epinephrine. Call 911 Call 911 if any of these occur: Trouble breathing or swallowing, wheezing Cool, moist, pale skin Shortness of breath Hoarse voice or trouble speaking Confused Very drowsy or trouble awakening Fainting or loss of consciousness Rapid heart rate Feeling of dizziness or weakness or a sudden drop in blood pressure Feeling of doom Feeling lightheaded Severe nausea or vomiting, or diarrhea Seizure Swelling in the face, eyelids, lips, mouth, throat or tongue Drooling When to seek medical advice Call your healthcare provider right away if any of these occur: Spreading areas of itching, redness or swelling Nausea or stomach cramps or abdominal pain Continuing or recurring symptoms Spreading areas of redness, swelling, or itching Signs of infection at the affected site: oSpreading redness oIncreased pain or swelling oFluid or colored drainage from the site oFever of 100.4 F (38 C) or above lasting for 24 to 48 hours, or as directed by your provider [phone] [employer]. [address] [place] [address]. All rights reserved. This information is not intended as a substitute for professional medical care. Always follow your healthcare professional's instructions. Additional Information VACCINATE! IT SAVES LIVES! Members of the community who have not yet received the COVID-19 vaccine and would like to receive it can visit one of [facility] vaccine clinics. There are many vaccine clinic locations within the [facility]. For locations and available times, please visit [email or web address] It is important to note that some COVID mobile vaccine clinics are held outdoors and may be canceled in rainy or stormy conditions. To learn more about pediatric vaccinations (ages 5-11), we invite you to visit the [facility] webpage. https://www.[facility].org/pag es/8903-Ypyen-Yrdaazgwteq-Frequent wo-Nmpaj-Rzggqweul.html To learn more about the COVID-19 vaccine, we invite you to visit the CDC website for a list of frequently asked questions. https://www.cdc.gov/coronavirus/-ncov/vaccines/faq.html [facility] Patient Portal Access Instructions: Stay connected with your healthcare team and access your personal medical information anytime with the [facility] Patient Portal. If you would like a full copy of your medical records please contact the [facility] Medical Records Department Tuesday through Tuesday between 8a.m. and 4:30p.m. Please follow the directions below to access the portal: 1.Access the email account you provided upon registration to the [facility].2.Look for an invitation email from [facility].3.Open the email and access the invitation link: Accept Invitation to [email or web address].Fill in the required kulkarni to create your account. Sign into [email or web address] with your username and password that you created in the above steps to stay up to date. You can then view a summary of results, a summary of your visits, and the ability to download your summaries to your computer or send the information securely to a physician. Remember that your healthcare information is confidential, so carefully consider who you will allow to register on the [email or web address] Patient Portal for access to your information. You can also access the [email or web address] Patient Portal on the [employer]. Simply click on Health Records under Health Data and then click on the [facility] logo. HOW TO SAFELY DISPOSE OF PRESCRIPTION MEDICATIONS Please use one of the following methods to safely dispose of your unused medications. 1.Use a drug disposal kit: the drug disposal pouch allows you to safely discard your old and unused drugs. Ask your nurse to give you one when you are discharged.2.Visit a local take-back location: Many local pharmacies and police departments have programs that collect old and unwanted prescription drugs. Call your local pharmacy or go to http://[employer]/7O1Jk0a to find one close to you.3.Make use of household items: Use cat litter or old coffee grounds to dispose medications if other options are not available. Mix your drugs with these household products, seal them in an airtight container and throw it into the garbage. Call [facility]: [phone] to be sure your drugs can be disposed of in this way. Some medicines may require a different approach.4.Never flush your medications down the toilet. IF YOU HAVE BEEN PRESCRIBED AN OPIOIDS FOR PAIN If you have been prescribed an opioid (such as hydrocodone, oxycodone or morphine), it is critical to understand the possible side effects and risks of opioid pain medications. Even when taken as directed, opioids can have several side effects including: Tolerance, meaning you might need to take more of a medication for the same pain relief. Nausea, vomiting and/or constipation. Sleepiness, dizziness, dry mouth, confusion, depression or itching. Physical dependence, meaning you have withdrawal symptoms when a medication is stopped ? this can develop within a few days. KNOW YOUR RESPONSIBILITIES It is important to know exactly how much and how often to take the opioid pain medications you are prescribed. Never take opioids in higher amounts or more often than prescribed. Do not combine opioids with alcohol or other drugs that cause drowsiness, such as benzodiazepines, also known as benzos, including diazepam and alprazolam, muscle relaxants or sleep aids. Never sell or share prescription opioids. This is illegal. Store opioids in a secure place and out of reach of others (including children, family, friends and visitors). The last page(s) of this document has been signed and retained as a CHART COPY Signatures Patient Education Materials Allergic Reaction, Other (General) Medication Leaflets My discharge plan and instructions have been reviewed and explained to me and I,CHRISTEL SAUCEDA understand my current condition and have read and understand these discharge instructions. I have received a written copy of the plan/instructions. If I have questions, I am aware that I should contact my doctor. Patient/Top Cutter Signature: Date/Time: Relationship to Patient: ___ Witness Name/Signature: Date/Time: [facility] 09-14-2023 Hospital Discharge instructions Patient Education 09/14/2023 17:14:09 Reducing Knee Pain and Swelling Reducing Knee Pain and Swelling Many treatments can help reduce pain and swelling in your knee. Your healthcare provider or physical therapist may suggest one or more of the following treatments: Icing your knee. This helps reduce swelling. You may be asked to ice your knee once a day or more. Apply ice for about 15 to 20 minutes at a time, with at least 40 minutes between sessions. To make an ice pack, put ice cubes in a plastic bag that seals at the top. Wrap the bag in a clean, thin towel or cloth. Never put ice or an ice pack directly on the skin. Keeping your leg raised above your heart. This helps excess fluid flow out of your knee joint to reduce swelling. Compression. This means wrapping an elastic bandage or neoprene sleeve snugly around your knees. It keeps fluid from collecting in and around your knee joint. Electrical stimulation. This is done by a physical therapist or pre kindergarten teacher. It can help reduce excess fluid in your knee joint. Anti-inflammatory medicines. These may be prescribed by your healthcare provider. You may take pills or get shots (injections) in your knee. Isometric (anant) exercises. These strengthen the muscles that support your knee joint. They also help reduce excess fluid in your knee. Massage. This helps fluid drain away from your knee. 7327-[address] [employer] [place] [address]. All rights reserved. This information is not intended as a substitute for professional medical care. Always follow your healthcare professional's instructions. Follow Up Care 09/14/2023 15:59:19 With:CHERYLE BABCOCK DO Address: [facility] [address] [phone]- [phone] When:2-4 days [facility] 09-14-2023 Note Discharge Instructions Thank you for allowing [facility] to assist you with your healthcare needs. The following is important discharge information regarding your hospital visit. Diagnosis from Today's Visit Knee pain-swelling What to Do Next Instructions from Your Care Team No qualifying data available. Post Acute Orders No qualifying data available. You Need to Schedule the Following Appointments Follow Up with CHERYLE BABCOCK DO When Within 2-4 days Where: [facility] [address] [place] [address] [place] [phone]- [phone] Allergies Effexor Tequin Medications Please ask your primary doctor or pharmacist before taking any other medication not listed, including over the counter drugs, herbal medications, vitamins and or supplements as they may interact with your home medications. What How Much When Why Instructions Last Dose Changed cyclobenzaprine (cyclobenzaprine 10 mg oral tablet) 1 tab(s) by mouth Three (3) times a day Duration: 5 Days Printed Prescription Changed cyclobenzaprine (Flexeril use cyclobenzaprine ) 5 Milligram by mouth Three (3) times a day Spasm of back muscles Unchanged acetaminophen-hydrocodone (Central 325- 5 mg oral tablet) 1 tab(s) by mouth Every 6 hours as needed for as needed for pain Spasm of back muscles Duration: 3 Days Unchanged acetaminophen-hydrocodone (Central 325- 5 mg oral tablet) 1 tab(s) by mouth Every 6 hours Contusion of rib Duration: 3 Days Unchanged ALPRAZolam (Xanax 0.5 mg oral tablet) 1 tab(s) by mouth Three (3) times a day as needed for for anxiety Unchanged escitalopram (Lexapro) 20 Milligram by mouth Once a day Unchanged estradiol (estradiol 1 mg oral tablet) 1 tab(s) by mouth Once a day Unchanged gabapentin (gabapentin 800 mg oral tablet) 1 tab(s) by mouth Two (2) times a day Unchanged lidocaine topical (Lidoderm 5% topical film) 1 patch(es) Topical Once a day Unchanged pantoprazole (pantoprazole 40 mg oral enteric coated tablet) 1 tab(s) by mouth Once a day Unchanged sucralfate (Carafate 1 g oral tablet) 1 tab(s) by mouth Four (4) times daily-before meals and at bedtime Please take this list to your next doctor s visit. Bring all medications you take, including over the counter medications, herbals and other supplements with you to your doctor s visit. Patients and families are reminded to discard old lists and to update any records with all medication providers or retail pharmacies. Education Materials Reducing Knee Pain and Swelling Many treatments can help reduce pain and swelling in your knee. Your healthcare provider or physical therapist may suggest one or more of the following treatments: Icing your knee. This helps reduce swelling. You may be asked to ice your knee once a day or more. Apply ice for about 15 to 20 minutes at a time, with at least 40 minutes between sessions. To make an ice pack, put ice cubes in a plastic bag that seals at the top. Wrap the bag in a clean, thin towel or cloth. Never put ice or an ice pack directly on the skin. Keeping your leg raised above your heart. This helps excess fluid flow out of your knee joint to reduce swelling. Compression. This means wrapping an elastic bandage or neoprene sleeve snugly around your knees. It keeps fluid from collecting in and around your knee joint. Electrical stimulation. This is done by a physical therapist or pre kindergarten teacher. It can help reduce excess fluid in your knee joint. Anti-inflammatory medicines. These may be prescribed by your healthcare provider. You may take pills or get shots (injections) in your knee. Isometric (anant) exercises. These strengthen the muscles that support your knee joint. They also help reduce excess fluid in your knee. Massage. This helps fluid drain away from your knee. [id number] [employer]. [address] [place] [address], [place] [address]. All rights reserved. This information is not intended as a substitute for professional medical care. Always follow your healthcare professional's instructions. Additional Information VACCINATE! IT SAVES LIVES! Members of the community who have not yet received the COVID-19 vaccine and would like to receive it can visit one of [facility] vaccine clinics. There are many vaccine clinic locations within the [facility]. For locations and available times, please visit [email or web address] It is important to note that some COVID mobile vaccine clinics are held outdoors and may be canceled in rainy or stormy conditions. To learn more about pediatric vaccinations (ages 5-11), we invite you to visit the [facility] webpage. https://www.[facility].org/pag es/2411-Rlhvf-Fujclcxjgwg-Frequent xg-Zdoph-Bdigbqaxp.html To learn more about the COVID-19 vaccine, we invite you to visit the CDC website for a list of frequently asked questions. https://www.cdc.gov/coronavirus/20 19-ncov/vaccines/faq.html [facility] Patient Portal Access Instructions: Stay connected with your healthcare team and access your personal medical information anytime with the [facility] Patient Portal. If you would like a full copy of your medical records please contact the [facility] Medical Records Department Tuesday through Tuesday between 8a.m. and 4:30p.m. Please follow the directions below to access the portal: 1.Access the email account you provided upon registration to the [facility].2.Look for an invitation email from [facility].3.Open the email and access the invitation link: Accept Invitation to [email or web address].Fill in the required kulkarni to create your account. Sign into [email or web address] with your username and password that you created in the above steps to stay up to date. You can then view a summary of results, a summary of your visits, and the ability to download your summaries to your computer or send the information securely to a physician. Remember that your healthcare information is confidential, so carefully consider who you will allow to register on the [email or web address] Patient Portal for access to your information. You can also access the [email or web address] Patient Portal on the [employer] renu. Simply click on Health Records under Health Data and then click on the [employer] logo. HOW TO SAFELY DISPOSE OF PRESCRIPTION MEDICATIONS Please use one of the following methods to safely dispose of your unused medications. 1.Use a drug disposal kit: the drug disposal pouch allows you to safely discard your old and unused drugs. Ask your nurse to give you one when you are discharged.2.Visit a local take-back location: Many local pharmacies and police departments have programs that collect old and unwanted prescription drugs. Call your local pharmacy or go to http://H[employer]/8Y8In8c to find one close to you.3.Make use of household items: Use cat litter or old coffee grounds to dispose medications if other options are not available. Mix your drugs with these household products, seal them in an airtight container and throw it into the garbage. Call [facility]: [phone] to be sure your drugs can be disposed of in this way. Some medicines may require a different approach.4.Never flush your medications down the toilet. IF YOU HAVE BEEN PRESCRIBED AN OPIOIDS FOR PAIN If you have been prescribed an opioid (such as hydrocodone, oxycodone or morphine), it is critical to understand the possible side effects and risks of opioid pain medications. Even when taken as directed, opioids can have several side effects including: Tolerance, meaning you might need to take more of a medication for the same pain relief. Nausea, vomiting and/or constipation. Sleepiness, dizziness, dry mouth, confusion, depression or itching. Physical dependence, meaning you have withdrawal symptoms when a medication is stopped ? this can develop within a few days. KNOW YOUR RESPONSIBILITIES It is important to know exactly how much and how often to take the opioid pain medications you are prescribed. Never take opioids in higher amounts or more often than prescribed. Do not combine opioids with alcohol or other drugs that cause drowsiness, such as benzodiazepines, also known as benzos, including diazepam and alprazolam, muscle relaxants or sleep aids. Never sell or share prescription opioids. This is illegal. Store opioids in a secure place and out of reach of others (including children, family, friends and visitors). The last page(s) of this document has been signed and retained as a CHART COPY Signatures Patient Education Materials Reducing Knee Pain and Swelling Medication Leaflets My discharge plan and instructions have been reviewed and explained to me and I,CHRISTEL SAUCEDA understand my current condition and have read and understand these discharge instructions. I have received a written copy of the plan/instructions. If I have questions, I am aware that I should contact my doctor. Patient/Top Cutter Signature: Date/Time: Relationship to Patient: ___ Witness Name/Signature: Date/Time: [facility] 09-14-2023 Note ORIGINAL EXAMINATION: TWO XRAY VIEWS OF THE RIGHT KNEE 09/14/2023 4:37 pm COMPARISON: Radiograph of the knee December 09, 2022. HISTORY: ORDERING SYSTEM PROVIDED HISTORY: Reason for Exam: pain with movement, fall 2 days ago FINDINGS: No fracture or dislocation. Mild infiltration of Hoffa's fat pad, nonspecific although could be posttraumatic. No significant joint fluid. No radiopaque foreign body. IMPRESSION: No fracture or dislocation. Interpreted by: Kian Meyer Preliminary Report By: Kian Meyer Electronically signed By Kian Meyer Dictated Date: 09/14/2023 4:45:11 PM Prelim Date: 09/14/2023 4:45:52 PM Sign Date: 09/14/2023 4:45:52 PM Ordering Provider: CARLOS AKINS [facility] 04-21-2023 Note . MICRO - Microbiology PROCEDURE: Urine Culture [*1] SOURCE: Urine, Clean Catch BODY SITE: COLLECTED DATE/TIME: 04/18/2023 17:34 EST RECEIVED DATE/TIME: 04/19/2023 14:12 EST START DATE/TIME: 04/19/2023 14:12 EST FREE TEXT SOURCE: FINAL REPORTS Final Report [] Verified Date/Time/Personnel: 04/21/2023 07:28 EST No growth at 48 hours. PRELIMINARY REPORTS Preliminary Report [] Verified Date/Time/Personnel: 04/20/2023 10:31 EST No growth to date Performing Locations *1: This test was performed at: [facility], [address] [place] [address], [facility] , [facility] 04-18-2023 Hospital Discharge instructions Patient Education 04/18/2023 18:52:23 Vomiting (Adult) Vomiting (Adult) Vomiting is a common symptom that may be due to different causes. These include gastroenteritis (stomach flu), food poisoning and gastritis. There are other more serious causes of vomiting which may be hard to diagnose early in the illness. Therefore, it is important to watch for the warning signs listed below. The main danger from repeated vomiting is dehydration. This is due to excess loss of water and minerals from the body. When this occurs, your body fluids must be replaced. Home care If symptoms are severe, rest at home for the next 24 hours. Because your symptoms may be from an infection, wash your hands often and well. If soap and water are not available, use alcohol-based development advisor to keep from spreading the infection to others. Wash your hands for at least 20 seconds. Humming the happy birthday song twice while you wash is an easy way to make sure you've washed for 20 seconds. Wash your hands after using the toilet, before and after preparing food, before eating food, after changing a diaper, cleaning a wound, caring for a sick person, and blowing your nose, coughing, or sneezing. You should also wash your hands after caring for someone who is sick, touching pet food, or treats, and touching an animal, or animal waste. You may use acetaminophen or NSAID medicines like ibuprofen or naproxen to control fever, unless another medicine was prescribed. If you have chronic liver or kidney disease or ever had a stomach ulcer or gastrointestinal bleeding, talk with your doctor before using these medicines. Aspirin should never be used in anyone under 18 years of age who is ill with a fever. It may cause severe liver damage. Don't use NSAID medicines if you are already taking one for another condition (like arthritis) or are on aspirin (such as for heart disease, or after a stroke) Don't use tobacco and or drink alcohol, which may worsen your symptoms. If medicines for vomiting were prescribed, take as directed. Once vomiting stops, then follow these guidelines: During the first 12 to 24 hours follow the diet below: Fruit juices. Apple, grape juice, clear fruit drinks, and electrolyte replacement drinks. Beverages. Soft drinks without caffeine; mineral water (plain or flavored), decaffeinated tea and coffee. Soups. Clear broth and bouillon Desserts. Plain gelatin, ice pops, and fruit juice bars. As you feel better, you may add 6 to 8 ounces of yogurt per day. During the next 24 hours you may add the following to the above: Hot cereal, plain toast, bread, rolls, crackers Plain noodles, rice, mashed potatoes, chicken noodle or rice soup Unsweetened canned fruit such as applesauce, bananas (avoid pineapple and citrus) Limit caffeine and chocolate. No spices or seasonings except salt. During the next 24 hours: Gradually resume a normal diet, as you feel better and your symptoms lessen. Follow-up care Follow up with your healthcare provider, or as advised. When to seek medical advice Call your healthcare provider right away if any of these occur: Constant right-sided lower belly pain or increasing general belly pain Continued vomiting (unable to keep liquids down) for 24 hours Vomiting blood or coffee grounds Swollen belly Frequent diarrhea (more than 5 times a day); blood (red or black color) or mucus in diarrhea Reduced urine output or extreme thirst Weakness, dizziness or fainting Unusually drowsy or confused Fever of 100.4 F (38 C) oral or higher, or as directed Yellow color of the eyes or skin 2451-1737 The [employer]. [address] [place] [address], [place] [address]. All rights reserved. This information is not intended as a substitute for professional medical care. Always follow your healthcare professional's instructions. Follow Up Care 04/18/2023 16:08:35 With:CHERYLE BABCOCK DO Address: [facility] [address] [place] [address] [place] [address]- [phone] When:2-4 days [facility] 04-18-2023 Note Discharge Instructions Thank you for allowing [facility] to assist you with your healthcare needs. The following is important discharge information regarding your hospital visit. Diagnosis from Today's Visit Back pain Headache Musculoskeletal pain Nausea & vomiting What to Do Next Instructions from Your Care Team Discharge Return to Work, School, or Sports (Return to Work, School, or Sports) - Ordered -- 04/19/23, May return to: work, 04/18/23 18:52:00 EST Post Acute Orders No qualifying data available. You Need to Schedule the Following Appointments Follow Up with CHERYLE BABCOCK DO When Within 2-4 days Where: [facility] [address] [place] [address] [place] [address]- [phone] Allergies Effexor Tequin Medications Please ask your primary doctor or pharmacist before taking any other medication not listed, including over the counter drugs, herbal medications, vitamins and or supplements as they may interact with your home medications. What How Much When Why Instructions Last Dose New naproxen (naproxen 250 mg oral tablet) 1 tab(s) by mouth Two (2) times a day Duration: 7 Days Printed Prescription New ondansetron (ondansetron 4 mg oral tablet, disintegrating) 1 tab(s) by mouth Every 8 hours Duration: 5 Days Printed Prescription Unchanged acetaminophen-hydrocodone (Central 325- 5 mg oral tablet) 1 tab(s) by mouth Every 6 hours as needed for as needed for pain Spasm of back muscles Duration: 3 Days Unchanged acetaminophen-hydrocodone (Central 325- 5 mg oral tablet) 1 tab(s) by mouth Every 6 hours Contusion of rib Duration: 3 Days Unchanged ALPRAZolam (Xanax 0.5 mg oral tablet) 1 tab(s) by mouth Three (3) times a day as needed for for anxiety Unchanged cyclobenzaprine (Flexeril use cyclobenzaprine ) 5 Milligram by mouth Three (3) times a day Spasm of back muscles Unchanged escitalopram (Lexapro) 20 Milligram by mouth Once a day Unchanged estradiol (estradiol 1 mg oral tablet) 1 tab(s) by mouth Once a day Unchanged gabapentin (gabapentin 800 mg oral tablet) 1 tab(s) by mouth Two (2) times a day Unchanged lidocaine topical (Lidoderm 5% topical film) 1 patch(es) Topical Once a day Unchanged pantoprazole (pantoprazole 40 mg oral enteric coated tablet) 1 tab(s) by mouth Once a day Unchanged sucralfate (Carafate 1 g oral tablet) 1 tab(s) by mouth Four (4) times daily-before meals and at bedtime Please take this list to your next doctor s visit. Bring all medications you take, including over the counter medications, herbals and other supplements with you to your doctor s visit. Patients and families are reminded to discard old lists and to update any records with all medication providers or retail pharmacies. Medication Leaflets ondansetron (oral) (on LEIGH carrillo) What is the most important information I should know about ondansetron? You should not use ondansetron if you are also using apomorphine (Apokyn). What is ondansetron? Ondansetron blocks the actions of chemicals in the body that can trigger nausea and vomiting. Ondansetron is used to prevent nausea and vomiting that may be caused by surgery, cancer chemotherapy, or radiation treatment. Ondansetron may be used for purposes not listed in this medication guide. What should I discuss with my health care provider before taking ondansetron? You should not use ondansetron if: you are also using apomorphine (Apokyn); or you are allergic to ondansetron or similar medicines (dolasetron, granisetron, palonosetron). To make sure ondansetron is safe for you, tell your doctor if you have: liver disease; an electrolyte imbalance (such as low levels of potassium or magnesium in your blood); congestive heart failure, slow heartbeats; a personal or family history of long QT syndrome; or a blockage in your digestive tract (stomach or intestines). Ondansetron is not expected to harm an unborn baby. Tell your doctor if you are . It is not known whether ondansetron passes into breast milk or if it could harm a nursing baby. Tell your doctor if you are breast-feeding a baby. Ondansetron is not approved for use by anyone younger than 4 years old. Ondansetron orally disintegrating tablets may contain phenylalanine. Tell your doctor if you have phenylketonuria (PKU). How should I take ondansetron? Follow all directions on your prescription label. Do not take this medicine in larger or smaller amounts or for longer than recommended. Ondansetron can be taken with or without food. The first dose of ondansetron is usually taken before the start of your surgery, chemotherapy, or radiation treatment. Follow your doctor's dosing instructions very carefully. Take the ondansetron regular tablet with a full glass of water. To take the orally disintegrating tablet (Zofran ODT): Keep the tablet in its blister pack until you are ready to take it. Open the package and peel back the foil. Do not push a tablet through the foil or you may damage the tablet. Use dry hands to remove the tablet and place it in your mouth. Do not swallow the tablet whole. Allow it to dissolve in your mouth without chewing. Swallow several times as the tablet dissolves. To use ondansetron oral soluble film (strip) (Zuplenz): Keep the strip in the foil pouch until you are ready to use the medicine. Using dry hands, remove the strip and place it on your tongue. It will begin to dissolve right away. Do not swallow the strip whole. Allow it to dissolve in your mouth without chewing. Swallow several times after the strip dissolves. If desired, you may drink liquid to help swallow the dissolved strip. Wash your hands after using Zuplenz. Measure liquid medicine with the dosing syringe provided, or with a special dose-measuring spoon or medicine cup. If you do not have a dose-measuring device, ask your pharmacist for one. Store at room temperature away from moisture, heat, and light. Store liquid medicine in an upright position. What happens if I miss a dose? Take the missed dose as soon as you remember. Skip the missed dose if it is almost time for your next scheduled dose. Do not take extra medicine to make up the missed dose. What happens if I overdose? Seek emergency medical attention or call the Poison Help line at . Overdose symptoms may include sudden loss of vision, severe constipation, feeling light-headed, or fainting. What should I avoid while taking ondansetron? Ondansetron may impair your thinking or reactions. Be careful if you drive or do anything that requires you to be alert. What are the possible side effects of ondansetron? Get emergency medical help if you have signs of an allergic reaction: rash, hives; fever, chills, difficult breathing; swelling of your face, lips, tongue, or throat. Call your doctor at once if you have: severe constipation, stomach pain, or bloating; headache with chest pain and severe dizziness, fainting, fast or pounding heartbeats; fast or pounding heartbeats; jaundice (yellowing of the skin or eyes); blurred vision or temporary vision loss (lasting from only a few minutes to several hours); high levels of serotonin in the body--agitation, hallucinations, fever, fast heart rate, overactive reflexes, nausea, vomiting, diarrhea, loss of coordination, fainting. Common side effects may include: diarrhea or constipation; headache; drowsiness; or tired feeling. This is not a complete list of side effects and others may occur. Call your doctor for medical advice about side effects. You may report side effects to FDA at 5-865-CLQ-3646. What other drugs will affect ondansetron? Ondansetron can cause a serious heart problem, especially if you use certain medicines at the same time, including antibiotics, antidepressants, heart rhythm medicine, antipsychotic medicines, and medicines to treat cancer, malaria, HIV or AIDS. Tell your doctor about all medicines you use, and those you start or stop using during your treatment with ondansetron. Taking ondansetron while you are using certain other medicines can cause high levels of serotonin to build up in your body, a condition called 'serotonin syndrome,' which can be fatal. Tell your doctor if you also use: medicine to treat depression; medicine to treat a psychiatric disorder; a narcotic (opioid) medication; or medicine to prevent nausea and vomiting. This list is not complete and many other drugs can interact with ondansetron. This includes prescription and [id number] medicines, vitamins, and herbal products. Give a list of all your medicines to any healthcare provider who treats you. Where can I get more information? Your pharmacist can provide more information about ondansetron. Remember, keep this and all other medicines out of the reach of children, never share your medicines with others, and use this medication only for the indication prescribed. Every effort has been made to ensure that the information provided by [employer] is accurate, up-to-date, and complete, but no guarantee is made to that effect. Drug information contained herein may be time sensitive. [employer] information has been compiled for use by healthcare practitioners and consumers in the [place] and therefore [employer] does not warrant that uses outside of the [place] are appropriate, unless specifically indicated otherwise. [employer]'s drug information does not endorse drugs, diagnose patients or recommend therapy. [employer] drug information is an informational resource designed to assist licensed healthcare practitioners in caring for their patients and/or to serve consumers viewing this service as a supplement to, and not a substitute for, the expertise, skill, knowledge and judgment of healthcare practitioners. The absence of a warning for a given drug or drug combination in no way should be construed to indicate that the drug or drug combination is safe, effective or appropriate for any given patient. [employer] does not assume any responsibility for any aspect of healthcare administered with the aid of information [employer] provides. The information contained herein is not intended to cover all possible uses, directions, precautions, warnings, drug interactions, allergic reactions, or adverse effects. If you have questions about the drugs you are taking, check with your doctor, nurse or pharmacist. Copyright 4475-6826 [employer]. Version: 16.. Revision Date: 12/16/2022. naproxen (na PROX en) Aleve, Aleve Back and Muscle Pain, Aleve Easy Open Arthritis, Aleve Liquid Gels, Anaprox-DS, EC-Naprosyn, Naprelan, Naprosyn What is the most important information I should know about naproxen? Naproxen can increase your risk of fatal heart attack or stroke. Do not use this medicine just before or after heart bypass surgery (coronary artery bypass graft, or CABG). Naproxen may also cause stomach or intestinal bleeding, which can be fatal. What is naproxen? Naproxen is a nonsteroidal anti-inflammatory drug (NSAID). Naproxen is used to treat pain or inflammation caused by conditions such as arthritis, ankylosing spondylitis, tendinitis, bursitis, gout, or menstrual cramps. The delayed-release or extended-release tablets are slower-acting forms of naproxen that are used only for treating chronic conditions such as arthritis or ankylosing spondylitis. These forms of naproxen will not work fast enough to treat acute pain. Naproxen may also be used for purposes not listed in this medication guide. What should I discuss with my healthcare provider before taking naproxen? Naproxen can increase your risk of fatal heart attack or stroke, even if you don't have any risk factors. Do not use this medicine just before or after heart bypass surgery (coronary artery bypass graft, or CABG). Naproxen may also cause stomach or intestinal bleeding, which can be fatal. These conditions can occur without warning while you are using naproxen, especially in older adults. You should not use naproxen if you are allergic to it, or if you have ever had an asthma attack or severe allergic reaction after taking aspirin or an NSAID. Ask a doctor before giving naproxen to a child younger than 12 years old. Ask a doctor or pharmacist if this medicine is safe to use if you have: heart disease, high blood pressure, high cholesterol, diabetes, or if you smoke; a heart attack, stroke, or blood clot; stomach ulcers or bleeding; asthma; liver or kidney disease; fluid retention; or if you take aspirin to prevent heart attack or stroke. If you are , you should not take naproxen unless your doctor tells you to. Taking an NSAID during the last 20 weeks of can cause serious heart or kidney problems in the unborn baby and possible complications with your . It may not be safe to breastfeed while using this medicine. Ask your doctor about any risk. How should I take naproxen? Use exactly as directed on the label, or as prescribed by your doctor. Use the lowest dose that is effective in treating your condition. Shake the oral suspension (liquid) before you measure a dose. Measure a dose with the supplied measuring device (not a kitchen spoon). Take this medicine with food or milk if it upsets your stomach. Always follow directions on the medicine label about giving this medicine to a child. Naproxen doses are based on weight in children. Your child's dose needs may change if the child gains or loses weight. If you use naproxen long-term, you may need frequent medical tests. This medicine can affect the results of certain medical tests. Tell any doctor who treats you that you are using naproxen. Store at room temperature away from moisture, heat, and light. Keep the bottle tightly closed when not in use. What happens if I miss a dose? Since naproxen is used when needed, you may not be on a dosing schedule. Skip any missed dose if it's almost time for your next dose. Do not use two doses at one time. What happens if I overdose? Seek emergency medical attention or call the Poison Help line at . What should I avoid while taking naproxen? Avoid drinking alcohol. It may increase your risk of stomach bleeding. Avoid taking aspirin or other NSAIDs unless your doctor tells you to. Ask a doctor or pharmacist before using other medicines for pain, fever, swelling, or cold/flu symptoms. They may contain ingredients similar to naproxen (such as aspirin, ibuprofen, or ketoprofen). Ask your doctor before using an antacid, and use only the type your doctor recommends. Some antacids can make it harder for your body to absorb naproxen. What are the possible side effects of naproxen? Get emergency medical help if you have signs of an allergic reaction (runny or stuffy nose, wheezing or trouble breathing, hives, swelling in your face or throat) or a severe skin reaction (fever, sore throat, burning eyes, skin pain, red or purple skin rash with blistering and peeling). Stop using naproxen and seek medical treatment if you have a serious drug reaction that can affect many parts of your body. Symptoms may include skin rash, fever, swollen glands, muscle aches, severe weakness, unusual bruising, or yellowing of your skin or eyes. Get emergency medical help if you have signs of a heart attack or stroke: chest pain spreading to your jaw or shoulder, sudden numbness or weakness on one side of the body, slurred speech, leg swelling, feeling short of breath. Stop using naproxen and call your doctor at once if you have: shortness of breath (even with mild exertion); swelling or rapid weight gain; the first sign of any skin rash or blister, no matter how mild; signs of stomach bleeding--bloody or tarry stools, coughing up blood or vomit that looks like coffee grounds; liver problems--nausea, upper stomach pain, loss of appetite, dark urine, junior-colored stools, jaundice (yellowing of the skin or eyes); kidney problems--little or no urination, painful urination, swelling in your feet or ankles; or low red blood cells (anemia)--pale skin, unusual tiredness, feeling light-headed or short of breath, cold hands and feet. Common side effects may include: headache; indigestion, heartburn, stomach pain; or flu symptoms; This is not a complete list of side effects and others may occur. Call your doctor for medical advice about side effects. You may report side effects to FDA at 2-741-GWO-5589. What other drugs will affect naproxen? Ask your doctor before using naproxen if you take an antidepressant. Taking certain antidepressants with an NSAID may cause you to bruise or bleed easily. Ask a doctor or pharmacist before using naproxen with any other medications, especially: other NSAIDs or salicylates (diflunisal, salsalate); antacids and sucralfate; cholestyramine; cyclosporine; digoxin; lithium; methotrexate; pemetrexed; probenecid; warfarin (Coumadin, Jantoven) or similar blood thinners; a diuretic or 'water pill'; or heart or blood pressure medication. This list is not complete. Other drugs may affect naproxen, including prescription and qfvm-vbr-zissvto medicines, vitamins, and herbal products. Not all possible drug interactions are listed here. Where can I get more information? Your pharmacist can provide more information about naproxen. Remember, keep this and all other medicines out of the reach of children, never share your medicines with others, and use this medication only for the indication prescribed. Every effort has been made to ensure that the information provided by [employer]. ('[employer]') is accurate, up-to-date, and complete, but no guarantee is made to that effect. Drug information contained herein may be time sensitive. [employer] information has been compiled for use by healthcare practitioners and consumers in the [place] and therefore [employer] does not warrant that uses outside of the [place] are appropriate, unless specifically indicated otherwise. [employer] drug information does not endorse drugs, diagnose patients or recommend therapy. [employer] Outlet drug information is an informational resource designed to assist licensed healthcare practitioners in caring for their patients and/or to serve consumers viewing this service as a supplement to, and not a substitute for, the expertise, skill, knowledge and judgment of healthcare practitioners. The absence of a warning for a given drug or drug combination in no way should be construed to indicate that the drug or drug combination is safe, effective or appropriate for any given patient. [employer] does not assume any responsibility for any aspect of healthcare administered with the aid of information [employer] provides. The information contained herein is not intended to cover all possible uses, directions, precautions, warnings, drug interactions, allergic reactions, or adverse effects. If you have questions about the drugs you are taking, check with your doctor, nurse or pharmacist. Copyright 2014-2983 [employer]. Version: 22.. Revision Date: 12/16/2022. Education Materials Vomiting (Adult) Vomiting is a common symptom that may be due to different causes. These include gastroenteritis (stomach flu), food poisoning and gastritis. There are other more serious causes of vomiting which may be hard to diagnose early in the illness. Therefore, it is important to watch for the warning signs listed below. The main danger from repeated vomiting is dehydration. This is due to excess loss of water and minerals from the body. When this occurs, your body fluids must be replaced. Home care If symptoms are severe, rest at home for the next 24 hours. Because your symptoms may be from an infection, wash your hands often and well. If soap and water are not available, use alcohol-based development advisor to keep from spreading the infection to others. Wash your hands for at least 20 seconds. Humming the happy birthday song twice while you wash is an easy way to make sure you've washed for 20 seconds. Wash your hands after using the toilet, before and after preparing food, before eating food, after changing a diaper, cleaning a wound, caring for a sick person, and blowing your nose, coughing, or sneezing. You should also wash your hands after caring for someone who is sick, touching pet food, or treats, and touching an animal, or animal waste. You may use acetaminophen or NSAID medicines like ibuprofen or naproxen to control fever, unless another medicine was prescribed. If you have chronic liver or kidney disease or ever had a stomach ulcer or gastrointestinal bleeding, talk with your doctor before using these medicines. Aspirin should never be used in anyone under 18 years of age who is ill with a fever. It may cause severe liver damage. Don't use NSAID medicines if you are already taking one for another condition (like arthritis) or are on aspirin (such as for heart disease, or after a stroke) Don't use tobacco and or drink alcohol, which may worsen your symptoms. If medicines for vomiting were prescribed, take as directed. Once vomiting stops, then follow these guidelines: During the first 12 to 24 hours follow the diet below: Fruit juices. Apple, grape juice, clear fruit drinks, and electrolyte replacement drinks. Beverages. Soft drinks without caffeine; mineral water (plain or flavored), decaffeinated tea and coffee. Soups. Clear broth and bouillon Desserts. Plain gelatin, ice pops, and fruit juice bars. As you feel better, you may add 6 to 8 ounces of yogurt per day. During the next 24 hours you may add the following to the above: Hot cereal, plain toast, bread, rolls, crackers Plain noodles, rice, mashed potatoes, chicken noodle or rice soup Unsweetened canned fruit such as applesauce, bananas (avoid pineapple and citrus) Limit caffeine and chocolate. No spices or seasonings except salt. During the next 24 hours: Gradually resume a normal diet, as you feel better and your symptoms lessen. Follow-up care Follow up with your healthcare provider, or as advised. When to seek medical advice Call your healthcare provider right away if any of these occur: Constant right-sided lower belly pain or increasing general belly pain Continued vomiting (unable to keep liquids down) for 24 hours Vomiting blood or coffee grounds Swollen belly Frequent diarrhea (more than 5 times a day); blood (red or black color) or mucus in diarrhea Reduced urine output or extreme thirst Weakness, dizziness or fainting Unusually drowsy or confused Fever of 100.4 F (38 C) oral or higher, or as directed Yellow color of the eyes or skin 4418-7538 [employer]. [address] [place] [address], [place] [address]. All rights reserved. This information is not intended as a substitute for professional medical care. Always follow your healthcare professional's instructions. Additional Information VACCINATE! IT SAVES LIVES! Members of the community who have not yet received the COVID-19 vaccine and would like to receive it can visit one of [facility] vaccine clinics. There are many vaccine clinic locations within the [facility]. For locations and available times, please visit [email or web address] It is important to note that some COVID mobile vaccine clinics are held outdoors and may be canceled in rainy or stormy conditions. To learn more about pediatric vaccinations (ages 5-11), we invite you to visit the [facility] webpage. https://www.[employer].org/pag es/9345-Qhbdv-Apoxaiqdzut-Frequent um-Rmrsx-Nqkbnieau.html To learn more about the COVID-19 vaccine, we invite you to visit the CDC website for a list of frequently asked questions. https://www.cdc.gov/coronavirus/20 19-ncov/vaccines/faq.html [facility] Patient Portal Access Instructions: Stay connected with your healthcare team and access your personal medical information anytime with the [email or web address] Patient Portal. If you would like a full copy of your medical records please contact the [facility] Medical Records Department Tuesday through Tuesday between 8a.m. and 4:30p.m. Please follow the directions below to access the portal: 1.Access the email account you provided upon registration to the hospital.2.Look for an invitation email from [facility].3.Open the email and access the invitation link: Accept Invitation to [email or web address].Fill in the required kulkarni to create your account. Sign into [email or web address] with your username and password that you created in the above steps to stay up to date. You can then view a summary of results, a summary of your visits, and the ability to download your summaries to your computer or send the information securely to a physician. Remember that your healthcare information is confidential, so carefully consider who you will allow to register on the [facility] Patient Portal for access to your information. You can also access the [facility] Patient Portal on the [employer] renu. Simply click on Health Records under Health Data and then click on the [facility] logo. HOW TO SAFELY DISPOSE OF PRESCRIPTION MEDICATIONS Please use one of the following methods to safely dispose of your unused medications. 1.Use a drug disposal kit: the drug disposal pouch allows you to safely discard your old and unused drugs. Ask your nurse to give you one when you are discharged.2.Visit a local take-back location: Many local pharmacies and police departments have programs that collect old and unwanted prescription drugs. Call your local pharmacy or go to [email or web address]/4U3Mi9f to find one close to you.3.Make use of household items: Use cat litter or old coffee grounds to dispose medications if other options are not available. Mix your drugs with these household products, seal them in an airtight container and throw it into the garbage. Call [facility]: [phone] to be sure your drugs can be disposed of in this way. Some medicines may require a different approach.4.Never flush your medications down the toilet. IF YOU HAVE BEEN PRESCRIBED AN OPIOIDS FOR PAIN If you have been prescribed an opioid (such as hydrocodone, oxycodone or morphine), it is critical to understand the possible side effects and risks of opioid pain medications. Even when taken as directed, opioids can have several side effects including: Tolerance, meaning you might need to take more of a medication for the same pain relief. Nausea, vomiting and/or constipation. Sleepiness, dizziness, dry mouth, confusion, depression or itching. Physical dependence, meaning you have withdrawal symptoms when a medication is stopped ? this can develop within a few days. KNOW YOUR RESPONSIBILITIES It is important to know exactly how much and how often to take the opioid pain medications you are prescribed. Never take opioids in higher amounts or more often than prescribed. Do not combine opioids with alcohol or other drugs that cause drowsiness, such as benzodiazepines, also known as benzos, including diazepam and alprazolam, muscle relaxants or sleep aids. Never sell or share prescription opioids. This is illegal. Store opioids in a secure place and out of reach of others (including children, family, friends and visitors). The last page(s) of this document has been signed and retained as a CHART COPY Signatures Patient Education Materials Vomiting (Adult) Medication Leaflets ondansetron (oral), naproxen My discharge plan and instructions have been reviewed and explained to me and I,SOHAIL CHRISTEL Fuentes understand my current condition and have read and understand these discharge instructions. I have received a written copy of the plan/instructions. If I have questions, I am aware that I should contact my doctor. 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 Costophrenic angles are sharp. No focal consolidation, pleural effusion or pneumothorax. Osseous structures grossly unchanged. IMPRESSION: No focal consolidation. Interpreted by: Kian Meyer Preliminary Report By: Kian Meyer Electronically signed By Kian Meyer Dictated Date: 04/18/2023 6:22:56 PM Prelim Date: 04/18/2023 6:23:20 PM Sign Date: 04/18/2023 6:23:20 PM Ordering Provider: KVNG SWAIN [facility] 04-18-2023 Note ORIGINAL EXAMINATION: CT OF THE HEAD WITHOUT CONTRAST 04/18/2023 6:00 pm TECHNIQUE: CT of the head was performed without the administration of intravenous contrast. Automated exposure control, iterative reconstruction, and/or weight based adjustment of the mA/kV was utilized to reduce the radiation dose to as low as reasonably achievable. COMPARISON: None. HISTORY: ORDERING SYSTEM PROVIDED HISTORY: Reason for Exam: pt c/o sinus pressure. pain FINDINGS: BRAIN/VENTRICLES: There is no acute intracranial hemorrhage, mass effect or midline shift. No abnormal extra-axial fluid collection. The watkins-white differentiation is maintained without evidence of an acute infarct. There is no evidence of hydrocephalus. Incidental cavum septum pellucidum ORBITS: The visualized portion of the orbits demonstrate no acute abnormality. SINUSES: The visualized paranasal sinuses and mastoid air cells demonstrate no acute abnormality. Nonspecific partially opacified left inferior mastoid air cells. SOFT TISSUES/SKULL: No acute abnormality of the visualized skull or soft tissues. IMPRESSION: No acute intracranial abnormality. I have personally reviewed the images of this examination and agree with the resident's findings and interpretation. Interpreted by: Kian Meyer Preliminary Report By: Nunu Gallardo Electronically signed By Kian Meyer Dictated Date: 04/18/2023 6:22:43 PM Prelim Date: 04/18/2023 6:26:40 PM Sign Date: 04/18/2023 6:49:59 PM Ordering Provider: KVNG SWAIN [facility] 04-18-2023 SARS-CoV-2 (COVID-19) RNA NEWTON+probe Ql (Nph) Negative *NA* (04/18/23 5:34 PM) AO Auto Urine SS 04-18-2023 Note Sinus rhythm Probable left ventricular hypertrophy EKG interpretation is noted and agreed to in [facility]. The interpretation of this patient's EKG contributed directly to the care and management of this patient. Electronic Signature: KVNG SWAIN DO 04/18/2023 17:44:04 [facility] 04-18-2023 Evaluation + Plan note Diagnostic Tests PendingUrine Culture 04/18/23 [facility] 12-09-2022 Hospital Discharge instructions Patient Education 12/09/2022 12:48:11 Arthralgia Arthralgia Arthralgia is the term for pain in or around the joint. It is a symptom, not a disease. This pain may involve one or more joints. In some cases, the pain moves from joint to joint. There are many causes for joint pain. These include: Injury Osteoarthritis (wearing out of the joint surface) Gout (inflammation of the joint due to crystals in the joint fluid) Infection inside the joint Bursitis (inflammation of the fluid-filled sacs around the joint) Autoimmune disorders such as rheumatoid arthritis or lupus Tendonitis (inflammation of chords that attach muscle to bone) Home care Rest the involved joint(s) until your symptoms improve. You may be prescribed pain medicine. If none is prescribed, you may use acetaminophen or ibuprofen to control pain and inflammation. Follow-up care Follow up with your healthcare provider or as advised. When to seek medical advice Contact your healthcare provider right away if any of the following occurs: Pain, swelling, or redness of joint increases Pain worsens or recurs after a period of improvement Pain moves to other joints You cannot bear weight on the affected joint You cannot move the affected joint Joint appears deformed New rash appears Fever of 100.4 F (38 C) or higher, or as directed by your healthcare provider [id number] [employer]. [address] [place] [address]. All rights reserved. This information is not intended as a substitute for professional medical care. Always follow your healthcare professional's instructions. Follow Up Care 12/09/2022 11:31:17 With:CHERYLE BABCOCK DO Address: [facility] [address] [place] [phone] When:2-4 days [facility] 12-09-2022 Note Discharge Instructions Thank you for allowing [facility] to assist you with your healthcare needs. The following is important discharge information regarding your hospital visit. Diagnosis from Today's Visit Back pain Lumbar strain Polyarthralgia What to Do Next Instructions from Your Care Team No qualifying data available. Post Acute Orders No qualifying data available. You Need to Schedule the Following Appointments Follow Up with CHERYLE BABCOCK DO When Within 2-4 days Where: [facility] [address] [place] [address] [place] [phone] [phone] Allergies Effexor Tequin Medications Please ask your primary doctor or pharmacist before taking any other medication not listed, including over the counter drugs, herbal medications, vitamins and or supplements as they may interact with your home medications. What How Much When Why Instructions Last Dose New lidocaine topical (Lidoderm 5% topical film) 1 patch(es) Topical Once a day Printed Prescription New methylPREDNISolone (methylPREDNISolone Dosepak 4 mg tablet) 1 Packet(s) by mouth Once a day Duration: 6 Days as directed on package labeling Printed Prescription Unchanged acetaminophen-hydrocodone (Central 325- 5 mg oral tablet) 1 tab(s) by mouth Every 6 hours as needed for as needed for pain Spasm of back muscles Duration: 3 Days Unchanged acetaminophen-hydrocodone (Central 325- 5 mg oral tablet) 1 tab(s) by mouth Every 6 hours Contusion of rib Duration: 3 Days Unchanged ALPRAZolam (Xanax 0.5 mg oral tablet) 1 tab(s) by mouth Three (3) times a day as needed for for anxiety Unchanged cyclobenzaprine (Flexeril use cyclobenzaprine ) 5 Milligram by mouth Three (3) times a day Spasm of back muscles Unchanged escitalopram (Lexapro) 20 Milligram by mouth Once a day Unchanged estradiol (estradiol 1 mg oral tablet) 1 tab(s) by mouth Once a day Unchanged gabapentin (gabapentin 800 mg oral tablet) 1 tab(s) by mouth Two (2) times a day Unchanged pantoprazole (pantoprazole 40 mg oral enteric coated tablet) 1 tab(s) by mouth Once a day Unchanged sucralfate (Carafate 1 g oral tablet) 1 tab(s) by mouth Four (4) times daily-before meals and at bedtime Please take this list to your next doctor s visit. Bring all medications you take, including over the counter medications, herbals and other supplements with you to your doctor s visit. Patients and families are reminded to discard old lists and to update any records with all medication providers or retail pharmacies. Education Materials Arthralgia Arthralgia is the term for pain in or around the joint. It is a symptom, not a disease. This pain may involve one or more joints. In some cases, the pain moves from joint to joint. There are many causes for joint pain. These include: Injury Osteoarthritis (wearing out of the joint surface) Gout (inflammation of the joint due to crystals in the joint fluid) Infection inside the joint Bursitis (inflammation of the fluid-filled sacs around the joint) Autoimmune disorders such as rheumatoid arthritis or lupus Tendonitis (inflammation of chords that attach muscle to bone) Home care Rest the involved joint(s) until your symptoms improve. You may be prescribed pain medicine. If none is prescribed, you may use acetaminophen or ibuprofen to control pain and inflammation. Follow-up care Follow up with your healthcare provider or as advised. When to seek medical advice Contact your healthcare provider right away if any of the following occurs: Pain, swelling, or redness of joint increases Pain worsens or recurs after a period of improvement Pain moves to other joints You cannot bear weight on the affected joint You cannot move the affected joint Joint appears deformed New rash appears Fever of 100.4 F (38 C) or higher, or as directed by your healthcare provider [id number] [employer]. [address] [place] [address]. All rights reserved. This information is not intended as a substitute for professional medical care. Always follow your healthcare professional's instructions. Additional Information VACCINATE! IT SAVES LIVES! Members of the community who have not yet received the COVID-19 vaccine and would like to receive it can visit one of [facility] vaccine clinics. There are many vaccine clinic locations within the [facility]. For locations and available times, please visit [email or web address] It is important to note that some COVID mobile vaccine clinics are held outdoors and may be canceled in rainy or stormy conditions. To learn more about pediatric vaccinations (ages 5-11), we invite you to visit the [facility] webpage. https://www.[facility].org/pag es/3797-Btgcg-Ofofyqfuano-Frequent jr-Ptdxp-Kqsyyqipp.html To learn more about the COVID-19 vaccine, we invite you to visit the CDC website for a list of frequently asked questions. https://www.cdc.gov/coronavirus/-ncov/vaccines/faq.html [facility] Patient Portal Access Instructions: Stay connected with your healthcare team and access your personal medical information anytime with the [facility] Patient Portal. If you would like a full copy of your medical records please contact the [facility] Medical Records Department Tuesday through Tuesday between 8a.m. and 4:30p.m. Please follow the directions below to access the portal: 1.Access the email account you provided upon registration to the hospital.2.Look for an invitation email from [facility].3.Open the email and access the invitation link: Accept Invitation to [email or web address].Fill in the required kulkarni to create your account. Sign into [email or web address] with your username and password that you created in the above steps to stay up to date. You can then view a summary of results, a summary of your visits, and the ability to download your summaries to your computer or send the information securely to a physician. Remember that your healthcare information is confidential, so carefully consider who you will allow to register on the [email or web address] Patient Portal for access to your information. You can also access the [email or web address] Patient Portal on the [employer]. Simply click on Health Records under Health Data and then click on the [facility] logo. HOW TO SAFELY DISPOSE OF PRESCRIPTION MEDICATIONS Please use one of the following methods to safely dispose of your unused medications. 1.Use a drug disposal kit: the drug disposal pouch allows you to safely discard your old and unused drugs. Ask your nurse to give you one when you are discharged.2.Visit a local take-back location: Many local pharmacies and police departments have programs that collect old and unwanted prescription drugs. Call your local pharmacy or go to http://Hair S[employer]nce[facility]/5H3Br5d to find one close to you.3.Make use of household items: Use cat litter or old coffee grounds to dispose medications if other options are not available. Mix your drugs with these household products, seal them in an airtight container and throw it into the garbage. Call [facility]: [phone] to be sure your drugs can be disposed of in this way. Some medicines may require a different approach.4.Never flush your medications down the toilet. IF YOU HAVE BEEN PRESCRIBED AN OPIOIDS FOR PAIN If you have been prescribed an opioid (such as hydrocodone, oxycodone or morphine), it is critical to understand the possible side effects and risks of opioid pain medications. Even when taken as directed, opioids can have several side effects including: Tolerance, meaning you might need to take more of a medication for the same pain relief. Nausea, vomiting and/or constipation. Sleepiness, dizziness, dry mouth, confusion, depression or itching. Physical dependence, meaning you have withdrawal symptoms when a medication is stopped ? this can develop within a few days. KNOW YOUR RESPONSIBILITIES It is important to know exactly how much and how often to take the opioid pain medications you are prescribed. Never take opioids in higher amounts or more often than prescribed. Do not combine opioids with alcohol or other drugs that cause drowsiness, such as benzodiazepines, also known as benzos, including diazepam and alprazolam, muscle relaxants or sleep aids. Never sell or share prescription opioids. This is illegal. Store opioids in a secure place and out of reach of others (including children, family, friends and visitors). The last page(s) of this document has been signed and retained as a CHART COPY Signatures Patient Education Materials Arthralgia Medication Leaflets My discharge plan and instructions have been reviewed and explained to me and I,CHRISTEL SAUCEDA understand my current condition and have read and understand these discharge instructions. I have received a written copy of the plan/instructions. If I have questions, I am aware that I should contact my doctor. Patient/Top Cutter Signature: Date/Time: Relationship to Patient: ___ Witness Name/Signature: Date/Time: [facility] 12-09-2022 Note ORIGINAL EXAMINATION: 3 XRAY VIEWS OF EACH OF THE BILATERAL KNEES12/09/2022 12:25 pm KNEE 1 or 2 VIEWS BILATERAL XR left knee three views and right knee three views COMPARISON: None HISTORY: ORDERING SYSTEM PROVIDED HISTORY: Reason for Exam: pain, bilateral knee pain and swelling, no injury FINDINGS: No acute fracture, dislocation, bony lytic process or periosteal reaction is seen in the visualized bones and joints. No significant degenerative or erosive type of arthritis or soft tissue calcification. No joint space narrowing or significant joint effusion. IMPRESSION: No significant skeletal abnormality is seen in either knee. Interpreted by: Skyler Jackson MD Preliminary Report By: Skyler Jackson MD Electronically signed By Skyler Jackson MD Dictated Date: 12/09/2022 12:30:22 PM Prelim Date: 12/09/2022 12:31:17 PM Sign Date: 12/09/2022 12:31:17 PM Ordering Provider: [facility] 12-09-2022 Note ORIGINAL EXAMINATION: THREE XRAY VIEWS OF THE RIGHT ANKLE; THREE XRAY VIEWS OF THE LEFT ANKLE12/09/2022 12:25 pm ANKLE 3 VIEWS RIGHT; ANKLE 3 VIEWS LEFT XR COMPARISON: None HISTORY: ORDERING SYSTEM PROVIDED HISTORY: Reason for Exam: pain, swelling, no trauma FINDINGS: No acute fracture, dislocation, bony lytic process or periosteal reaction is seen in the visualized bones and joints. No significant degenerative or erosive type of arthritis or soft tissue calcification. No osteochondral defects at the ankle. IMPRESSION: No significant skeletal abnormality is seen in either ankle. Interpreted by: Skyler Jackson MD Preliminary Report By: Skyler Jackson MD Electronically signed By Skyler Jackson MD Dictated Date: 12/09/2022 12:28:32 PM Prelim Date: 12/09/2022 12:29:14 PM Sign Date: 12/09/2022 12:29:14 PM Ordering Provider: [facility] 12-09-2022 Note ORIGINAL EXAMINATION: THREE XRAY VIEWS OF THE RIGHT ANKLE; THREE XRAY VIEWS OF THE LEFT ANKLE12/09/2022 12:25 pm ANKLE 3 VIEWS RIGHT; ANKLE 3 VIEWS LEFT XR COMPARISON: None HISTORY: ORDERING SYSTEM PROVIDED HISTORY: Reason for Exam: pain, swelling, no trauma FINDINGS: No acute fracture, dislocation, bony lytic process or periosteal reaction is seen in the visualized bones and joints. No significant degenerative or erosive type of arthritis or soft tissue calcification. No osteochondral defects at the ankle. IMPRESSION: No significant skeletal abnormality is seen in either ankle. Interpreted by: Skyler Jackson MD Preliminary Report By: Skyler Jackson MD Electronically signed By Skyler Jackson MD Dictated Date: 12/09/2022 12:28:32 PM Prelim Date: 12/09/2022 12:29:14 PM Sign Date: 12/09/2022 12:29:14 PM Ordering Provider: [facility] 12-09-2022 Note ORIGINAL EXAMINATION: 3 XRAY VIEWS OF THE LUMBAR SPINE12/09/2022 12:24 pm COMPARISON: None HISTORY: ORDERING SYSTEM PROVIDED HISTORY: Reason for Exam: pain back pain FINDINGS: 5 lumbar type vertebra show normal height and alignment with no disc space narrowing or endplate spurring. Mild lower lumbar spine facet arthropathy. Symmetric SI joints. Mild calcification of aorta. Moderate stool in colon. IMPRESSION: No acute findings. Lower lumbar facet arthropathy. Interpreted by: Skyler Jackson MD Preliminary Report By: Skyler Jackson MD Electronically signed By Skyler Jackson MD Dictated Date: 12/09/2022 12:29:28 PM Prelim Date: 12/09/2022 12:30:12 PM Sign Date: 12/09/2022 12:30:12 PM Ordering Provider: [facility] 04-12-2021 Hospital Discharge instructions Patient Education 04/12/2021 14:33:41 Rib Contusion Rib Contusion A rib contusion is a bruise to one or more rib bones. It may cause pain, tenderness, swelling and a purplish discoloration. There may be a sharp pain while breathing. You will be assessed for other injuries. You will likely be given pain medicine. Rib contusions heal on their own, without further treatment. However, pain may take weeks to months to go away. Note that a small crack (fracture) in the rib may cause the same symptoms as a rib contusion. The small crack may not be seen on a chest X-ray. However, the conditions are managed in the same way. Home care Rest. Avoid heavy lifting, strenuous exertion, or any activity that causes pain. Ice the area to reduce pain and swelling. Put ice cubes in a plastic bag or use a cold pack. (Wrap the cold source in a thin towel. Do not place it directly on your skin.) Ice the injured area for 20 minutes every 1 to 2 hours the first day. Continue with ice packs 3 to 4 times a day for the next 2 days, then as needed for the relief of pain and swelling. Take any prescribed pain medicine as directed by your healthcare provider. If none was prescribed, take acetaminophen, ibuprofen, or naproxen to control pain. If you have a significant injury, you may be given a device called an incentive spirometer to keep your lungs healthy. Use as directed. Follow-up care Follow up with your healthcare provider during the next week or as directed. When to seek medical advice Call your healthcare provider for any of the following: Shortness of breath or trouble breathing Increasing chest pain with breathing Coughing Dizziness, weakness, or fainting New or worsening pain Fever of 100.4 F (38 C) or higher, or as directed by your healthcare provider [id number] [employer]. [address] [place] [address]. All rights reserved. This information is not intended as a substitute for professional medical care. Always follow your healthcare professional's instructions. Follow Up Care 04/12/2021 12:54:41 With:CHERYLE BABCOCK DO Address: [facility] [address] [place] [address] [phone] When:3-5 days [facility] Evaluation + Plan note No data available for this section [facility] Evaluation note Diagnosis Onset Date Contusion of left chest wall acute Rhinitis acute Anxiety chronic Underweight due to inadequate caloric intake chronic Hot flashes due to menopause acute [facility] Work Phone: Evaluation note* Diagnosis Onset Date Resolution Status Hot flashes due to menopause acute Bright red blood per rectum noneactive History of colonic polyps no neactive Smoker noneactive Hot flashes due to menopause acute Right foot pain acute Bright red blood per rectum noneactive Polyarthritis noneactive Bright red blood per rectum acute Epigastric pain acute Gastritis acute [facility] Work Phone: Evaluation note* Diagnosis Onset Date Resolution Status Bright red blood per rectum noneactive Polyarthritis noneactive Bright red blood per rectum acute Epigastric pain acute Gastritis acute Hot flashes due to menopause acute Anxiety chronic Chronic back pain chronic Sprain of costochondral joint acute [facility] Work Phone: Evaluation note* Diagnosis Onset Date Resolution Status Depression acute Hematuria acute Knee pain acute Heart murmur chronic Chronic pain of multiple joints noneactive [facility] Work Phone: Evaluation note* Diagnosis Onset Date Resolution Status Depression acute Hematuria acute Knee pain acute Heart murmur chronic Chronic pain of multiple joints noneactive Depression acute Foot pain, bilateral acute Positive RADHA (antinuclear antibody) acute [facility] Work Phone: Evaluation note* Diagnosis Onset Date Resolution Status Chronic pain of multiple joints noneactive Depression acute Foot pain, bilateral acute Positive RADHA (antinuclear antibody) acute Fibromyalgia acute Inflammatory polyarthropathy acute Anxiety chronic [facility] Work Phone: Evaluation note* Diagnosis Onset Date Resolution Status Depression acute Foot pain, bilateral acute Positive RADHA (antinuclear antibody) acute Fibromyalgia acute Inflammatory polyarthropathy acute Anxiety chronic Epigastric pain acute Rectal bleeding acute Anxiety with depression acut e Epigastric pain acute Gastritis acute Palpitations acute Tobacco abuse acute Hypertension chronic [facility] Work Phone: Evaluation note* Diagnosis Onset Date Resolution Status Epigastric pain acute Rectal bleeding acute Anxiety with depression acut e Epigastric pain acute Gastritis acute Palpitations acute Tobacco abuse acute Hypertension chronic Anxiety with depression acut e Fibromyalgia acute Hot flashes due to menopause acute Inflammatory polyarthropathy acute Tobacco abuse acute Hypertension chronic Bilateral knee pain acute [facility] Work Phone: Evaluation note* Diagnosis Polyarthralgia- Primary Pain in joint, multiple sites Weight loss, unintentional Loss of weight Constipation, unspecified constipation type Intermittent diarrhea Bruising Contusion of unspecified site Fibromyalgia Mylagia and myositis, unspecified Severe depression (HCC) Depressive disorder, not elsewhere classified Anxiety Anxiety state, unspecified [facility] in this [facility] Diagnosis Sore throat- Primary Acute pharyngitis Thrush Candidiasis of mouth [facility] this encounter [facility]* Diagnosis Eye discomfort, right- Primary documented in this encounter [facility] note* Diagnosis Nausea and vomiting, unspecified vomiting type- Primary Bacterial sinusitis Unspecified sinusitis (chronic) documented in this encounter [facility] note* Diagnosis Polyarthralgia- Primary Pain in joint, multiple sites Constipation, unspecified constipation type Intermittent diarrhea Bruising Contusion of unspecified site Fibromyalgia Mylagia and myositis, unspecified Severe depression (HCC) Depressive disorder, not elsewhere classified Anxiety Anxiety state, unspecified Rash of face Rash and other nonspecific skin eruption Rash and nonspecific skin eruption Rash and other nonspecific skin eruption Intractable headache, unspecified chronicity pattern, unspecified headache type Eye inflammation Other ill-defined disorder of eye Chronic midline low back pain, unspecified whether sciatica present Sicca syndrome (HCC) Sicca syndrome [facility] Diagnosis Polyarthralgia Pain in joint, multiple sites Weight loss, unintentional Loss of weight Constipation, unspecified constipation type Intermittent diarrhea Bruising Contusion of unspecified site Fibromyalgia Mylagia and myositis, unspecified Severe depression (HCC) Depressive disorder, not elsewhere classified Anxiety Anxiety state, unspecified [facility] Diagnosis Bilateral foot pain- Primary Pain in limb Polyarthralgia Pain in joint, multiple sites Fibromyalgia Mylagia and myositis, unspecified Chronic midline low back pain, unspecified whether sciatica present Intractable headache, unspecified chronicity pattern, unspecified headache type Radiculopathy, lumbar region Thoracic or lumbosacral neuritis or radiculitis, unspecified Primary osteoarthritis of both knees Primary localized osteoarthrosis, lower leg [facility] No data available for this section [facility] Progress note No data available for this section [facility] Reason for visit Narrative* Diagnostic Procedure Only (Routine) - Closed Specialty Diagnoses / Procedures Referred By Richy t Referred To Contact [facility] Diagnoses Polyarthralgia Weight loss, unintentional Constipation, unspecified constipation type Intermittent diarrhea Bruising Fibromyalgia Severe depression (HCC) Anxiety Procedures XR HIP BILATERAL 5V PEL/AP/LAT EACH HIP RADEX HIPS BILATERAL WITH PELVIS MINIMUM 5 VIEWS Nicole Minor PA-C [address] [place] [address] Phone: tel: fax: [place] [id number] Referral ID Status Reason Start Date Expiration Date V isits Requested Visits Authorized [id number] Closed Auto-Generate d Referral 12/26/2024 01/25/2026 1 1 [facility] Chief Complaint and Reason for Visit Chief Complaint 6 M FU HOT FLASHES BLEEDING FROM RECTUM Reason for Visit Contusion of left ch est wall Rhinitis Anxiety Underweight due to inadequate caloric intake Hot flashes due to menopause Chief Complaint HOT FLASHES BLEEDING FROM RECTUM 3 M FU follow up on foot pain RECTAL BLEEDING Reason for Visit Hot flashes due to m enopause Bright red blood per rectum History of colonic polyps Smoker Hot flashes due to menopause Right foot pain Bright red blood per rectum Polyarthritis Bright red blood per rectum Epigastric pain Gastritis Chief Complaint follow up on foot pa in RECTAL BLEEDING 3 M FU PAIN IN RIBS BILATERAL RIBS Reason for Visit Bright red blood per rectum Polyarthritis Bright red blood per rectum Epigastric pain Gastritis Hot flashes due to menopause Anxiety Chronic back pain Sprain of costochondral joint Chief Complaint 3 M FU [facility] Reason for Visit Depression Hematuria Knee pain Heart murmur Chronic pain of multiple joints Chief Complaint 3 M FU [facility] CHRONIC PAIN MULTIPLE JOINTS / RX HERE MED FU Reason for Visit Depression Hematuria Knee pain Heart murmur Chronic pain of multiple joints Depression Foot pain, bilateral Positive RADHA (antinuclear antibody) Chief Complaint [facility] CHRONIC PAIN MULTIPLE JOINTS / RX HERE MED FU 3 M FU Reason for Visit Chronic pain of mult iple joints Depression Foot pain, bilateral Positive RADHA (antinuclear antibody) Fibromyalgia Inflammatory polyarthropathy Anxiety Chief Complaint CHRONIC PAIN MULTIPL E JOINTS / RX HERE MED FU 3 M FU Rectal Bleeding PAIN / MEDS Reason for Visit Depression Foot pain, bilateral Positive RADHA (antinuclear antibody) Fibromyalgia Inflammatory polyarthropathy Anxiety Epigastric pain Rectal bleeding Anxiety with depression Epigastric pain Gastritis Palpitations Tobacco abuse Hypertension Chief Complaint Rectal Bleeding PAIN / MEDS 3 M FU acute - severe knee pain/both knees EORDER-RIGHT KNEE-pain Reason for Visit Epigastric pain Rectal bleeding Anxiety with depression Epigastric pain Gastritis Palpitations Tobacco abuse Hypertension Anxiety with depression Fibromyalgia Hot flashes due to menopause Inflammatory polyarthropathy Tobacco abuse Hypertension Bilateral knee pain Family History No Family History Records Found Relationship Condition Age at Onset Recorded Date/T addi Not Specified Diabetes mellitus Unknown Malignant neoplasm Unknown Hypertension Unknown Parkinson's disease Unknown Advance Directives No Advanced Directives Records Found Advance Directive Response Recorded Date/ Time Living Will No September 11, 2018 11:50am Power of Transportation Maintenance Operator No September 11 11:50am Advance Directive Response Recorded Date/ Time Living Will No April 27 023 2:29pm Power of Transportation Maintenance Operator No April 27, 2023 2:29pm Summary Purpose Reason for Referral Specialty Diagnoses / Procedures Referred By Contac t Referred To Contact [facility] Diagnoses Polyarthralgia Procedures CONSULT TO PHYSICAL THERAPY PHYSICAL THERAPY EVALUATION [facility]IGH [facility] 45 MINS Louise Contreras MD [address] [place] [address] [facility] [place] [address] [place] [address] Referral ID Status Reason Start Date Expiration Date Visits Requested Visits Authorized [id number] Pending Review Auto-Generat ed Referral 4 03/13/2025 1 1 Specialty Diagnoses / Procedures Referred By Contac t Referred To Contact Gastroenterology Diagnoses Weight loss, unintentional Constipation, unspecified constipation type Intermittent diarrhea Procedures CONSULT TO GASTROENTEROLOGY OFFICE/OUTPATIENT [facility] 60 MINUTES Louise Contreras MD [address] [place] [address] Referral ID Status Reason Start Date Expiration Date Visits Requested Visits Authorized [id number] Authorized PCP Requested Referral 4 03/13/2025 1 1 Additional Source Comments Goals (unrecognized section and content) Goals may be documented in a n alternate section Patient Care team informatio n (unrecognized section and content) Team Status: Active Member Role Status Dates Dr. Cheryle Babcock , DO Family Provider Active Dr. Cheryle Babcock , DO Primary Care Provider Active Team Status: Inactive Member Role Status Dates Dr. Cheryle Babcock , DO Primary Care Pr ovider, Attending Provider, Referring Provider Active Team Status: Inactive Member Role Status Dates Dr. Cheryle Babcock , DO Primary Care Provider, Referr ing Provider Active Dr. Gladys Pichardo MD Attending Provider Active Team Status: Inactive Member Role Status Dates Dr. Cheryle Babcock , DO Primary Care Provider Active Dr. Gladys Pichardo MD Attending Provider, Referring Provider Active Team Status: Active Member Role Status Dates Dr. Cheryle Babcock , DO Primary Care Provider Active Dr. Gladys Pichardo MD Attending Provider Active Team Status: Inactive Member Role Status Dates Dr. Cheryle Babcock , DO Primary Care Provider Active Dr. Digna Russell MD Attending Provider, Referring Provider Active Team Status: Inactive Member Role Status Dates Dr. Cheryle Babcock , DO Primary Care Provider, Referr ing Provider Active Dr. Angélica Garcia MD Attending Provider Active Team Status: Inactive Member Role Status Dates Dr. Cheryle Babcock , DO Primary Care Provider, Referr ing Provider Active Sekou GUTIERREZ PA Attending Provider Active Team Status: Active Member Role Status Dates Dr. Cheryle Babcock , DO Primary Care Provider, Referr ing Provider Active Dr. Angélica Garcia MD Attending Provider, Other Pro vider Active Team Status: Inactive Member Role Status Dates Dr. Cheryle Babcock , DO Primary Care Provider Active Sekou GUTIERREZ PA Attending Provider, Referring Prov ider Active [employer] Relationship Specialty Start Date End Date Cheryle Babcock DO [address] [place] [place] [address] PCP - General Family Medicine 03/14/24 [employer] Relationship Specialty Start Date End Date Cheryle Babcock DO [address] [place] [place] [address] PCP - General Family Medicine 03/14/24 [employer] Relationship Specialty Start Date End Date Cheryle Babcock DO [address] [place] [address] PCP - General Family Medicine 03/14/24 [employer] Relationship Specialty Start Date End Date Cheryle Babcock DO [address] [place] [address] PCP - General Family Medicine 03/14/24 [employer] Relationship Specialty Start Date End Date Cheryle Babcock DO [address] [place] [address] PCP - General Family Medicine 03/14/24 [employer] Relationship Specialty Start Date End Date Cheryle Babcock DO [address] [place] [employer] [place], [place] [id number] PCP - General Family Medicine 03/14/24 [employer] Relationship Specialty Start Date End Date Cheryle Babcock DO [address] [place] [address] PCP - General Family Medicine 03/14/24 [employer] Relationship Specialty Start Date End Date Cheryle Babcock DO [address] [place], [place] [id number] PCP - General Family Medicine 03/14/24 INFORMATION SOURCE (unrecogn ized section and content) DATE CREATED AUTHOR 12/23/2023 [facility] ([place]) DATE CREATED AUTHOR AUTHOR'S ORGANIZ ATION 01/21/2025 [facility] DATE CREATED AUTHOR AUTHOR'S ORGANIZ ATION 02/25/2025 [facility] DATE CREATED AUTHOR AUTHOR'S ORGANIZ ATION 03/27/2025 [facility] Source Comments (unrecognize d section and content) In the event this informatio n is protected by the Federal Confidentiality of Alcohol and Drug Abuse Patient Records regulations: The Federal rules restrict any use of the information to criminally investigate or prosecute any alcohol or drug abuse patient.[facility] the event this information is protected by the Federal Confidentiality of Alcohol and Drug Abuse Patient Records regulations: The Federal rules restrict any use of the information to criminally investigate or prosecute any alcohol or drug abuse patient.[facility] the event this information is protected by the Federal Confidentiality of Alcohol and Drug Abuse Patient Records regulations: The Federal rules restrict any use of the information to criminally investigate or prosecute any alcohol or drug abuse patient.[facility] the event this information is protected by the Federal Confidentiality of Alcohol and Drug Abuse Patient Records regulations: The Federal rules restrict any use of the information to criminally investigate or prosecute any alcohol or drug abuse patient.[facility] the event this information is protected by the Federal Confidentiality of Alcohol and Drug Abuse Patient Records regulations: The Federal rules restrict any use of the information to criminally investigate or prosecute any alcohol or drug abuse patient.[facility] the event this information is protected by the Federal Confidentiality of Alcohol and Drug Abuse Patient Records regulations: The Federal rules restrict any use of the information to criminally investigate or prosecute any alcohol or drug abuse patient.[facility] the event this information is protected by the Federal Confidentiality of Alcohol and Drug Abuse Patient Records regulations: The Federal rules restrict any use of the information to criminally investigate or prosecute any alcohol or drug abuse patient.[facility] the event this information is protected by the Federal Confidentiality of Alcohol and Drug Abuse Patient Records regulations: The Federal rules restrict any use of the information to criminally investigate or prosecute any alcohol or drug abuse patient.[facility] the event this information is protected by the Federal Confidentiality of Alcohol and Drug Abuse Patient Records regulations: The Federal rules restrict any use of the information to criminally investigate or prosecute any alcohol or drug abuse patient.[facility] HospitalIn the event this information is protected by the Federal Confidentiality of Alcohol and Drug Abuse Patient Records regulations: The Federal rules restrict any use of the information to criminally investigate or prosecute any alcohol or drug abuse patient.[facility] HospitalIn the event this information is protected by the Federal Confidentiality of Alcohol and Drug Abuse Patient Records regulations: The Federal rules restrict any use of the information to criminally investigate or prosecute any alcohol or drug abuse patient.[facility] HospitalIn the event this information is protected by the Federal Confidentiality of Alcohol and Drug Abuse Patient Records regulations: The Federal rules restrict any use of the information to criminally investigate or prosecute any alcohol or drug abuse patient.[facility] HospitalIn the event this information is protected by the Federal Confidentiality of Alcohol and Drug Abuse Patient Records regulations: The Federal rules restrict any use of the information to criminally investigate or prosecute any alcohol or drug abuse patient.[facility] Reason for Visit (unrecogniz ed section and content) Reason Comments Patient Update Reason Comments Headache Sore throat, fluid f or ears, congestion x Reason Comments Patient Question Reason Comments Eye Lid Swelling R eye lid swelling a nd redness x this AM Reason Comments Nasal Congestion drainage, cough, vom iting, diarrhea and fever off and on x 1 day Reason Comments New Patient Reason Comments Received Outside Medical Records Eye Dr. Nuñez 10/29/24 [facility] Reason Comments Appointment FOR RECORDS PERTAINING TO PATIENTS WHO ARE OR HAVE BEEN ENROLLED IN A CHEMICAL DEPENDENCY/SUBSTANCEABUSE PROGRAM, SOME INFORMATION MAY BE OMITTED. This clinical summary was aggregated from multiple sources. Caution should be exercised in using it in the provision of clinical care. This summary normalizes information from multiple sources, and as a consequence, information in this document may materially change the coding, format and clinical context of patient data. In addition, data may be omitted in some cases. CLINICAL DECISIONS SHOULD BE BASED ON THE PRIMARY CLINICAL RECORDS. [employer] provides no warranty or guarantee of the accuracy or completeness of information in this document.
== END | disposition home or self-care (01) ==
LOC: MRI 11:15
PROVIDERS: PCP Family Medicine; Referring Provider Nurse Practitioner Family; Visit Provider Nurse Practitioner Family
DX: M54.50 Low back pain, unspecified (principal); M79.606 Pain in leg, unspecified; R29.898 Other symptoms and signs involving the musculoskeletal system
CPT/HCPCS: 72148